=== PATIENT | male | born 1965 | race Hispanic/Latino ===

== ENCOUNTER 2018-05-17 19:58 | Emergency (ER) | payer OTHER, SELFPAY ==
[2018-05-17] MEDS ORDERED: KETOROLAC 30 MG/ML INJ ONE (20:44)
--- NOTE | 2018-05-17 20:56 | RAD REPORT ---
EXAM DESCRIPTION: Morris Single View05/17/2018 8:48 pm CLINICAL HISTORY: Chest pain COMPARISON: 2012 FINDINGS: The lungs appear clear of acute infiltrate. The heart is normal size IMPRESSION: No acute abnormalities displayed
--- NOTE | 2018-05-17 21:15 | EDPHYS ---
Physician Documentation [facility] Name: Rodger Malik III Age: 53 yrs Sex: Male : 1965 Arrival Date: 05/17/2018 Time: 20:00 Bed 20 Private MD: Roma Shabazz F ED Physician Chirag Rubio HPI: 05/17 20:32 This 53 yrs old Male presents to ER via Ambulatory with complaints of Chest jr8 Pain > 30 y/o. 20:32 The patient or guardian reports chest pain that is located primarily in the anterior jr8 chest wall. Onset: The symptoms/episode began/occurred acutely, today. The pain does not radiate. Associated signs and symptoms: The patient has no apparent associated signs or symptoms. The chest pain is described as sharp. Duration: The patient or guardian reports multiple episodes. Modifying factors: The symptoms are alleviated by remaining still, rest, the symptoms are aggravated by breathing, cough, movement. Severity of pain: At its worst the pain was moderate. The patient has not experienced similar symptoms in the past. The patient has not recently seen a physician. Patient sneezed and felt pop to right sternal boarder. Since then has had pain with movement and breathing . Historical: - Allergies: 20:09 No Known Allergies; aj - Home Meds: 20:09 losartan oral oral [Active]; amlodipine oral [Active]; atorvastatin oral oral [Active]; aj Advair Diskus Inhl [Active]; - PMHx: 20:09 Hypertension; Hyperlipidemia; Asthma; aj - PSHx: 20:09 kidney stone removal; aj - Immunization history:: Adult Immunizations up to date. - Social history:: Smoking status: Patient/guardian denies using tobacco. - Ebola Screening: : Patient negative for fever greater than or equal to 101.5 degrees Fahrenheit, and additional compatible Ebola Virus Disease symptoms Patient denies exposure to infectious person Patient denies travel to an Ebola-affected area in the 21 days before illness onset No symptoms or risks identified at this time. ROS: 20:32 Eyes: Negative for injury, pain, redness, and discharge, ENT: Negative for injury, jr8 pain, and discharge, Neck: Negative for injury, pain, and swelling, Respiratory: Negative for shortness of breath, cough, wheezing, and pleuritic chest pain, Abdomen/GI: Negative for abdominal pain, nausea, vomiting, diarrhea, and constipation, Back: Negative for injury and pain, MS/Extremity: Negative for injury and deformity, Skin: Negative for injury, rash, and discoloration, Neuro: Negative for headache, weakness, numbness, tingling, and seizure. 20:32 Cardiovascular: Positive for chest pain, with cough, with movement, Negative for edema, orthopnea, palpitations, paroxysmal nocturnal dyspnea. Exam: 20:32 Eyes: Pupils equal round and reactive to light, extra-ocular motions intact. Lids and jr8 lashes normal. Conjunctiva and sclera are non-icteric and not injected. Cornea within normal limits. Periorbital areas with no swelling, redness, or edema. ENT: Nares patent. No nasal discharge, no septal abnormalities noted. Tympanic membranes are normal and external auditory canals are clear. Oropharynx with no redness, swelling, or masses, exudates, or evidence of obstruction, uvula midline. Mucous membranes moist. Neck: Trachea midline, no thyromegaly or masses palpated, and no cervical lymphadenopathy. Supple, full range of motion without nuchal rigidity, or vertebral point tenderness. No Meningismus. Cardiovascular: Regular rate and rhythm with a normal S1 and S2. No gallops, murmurs, or rubs. Normal PMI, no JVD. No pulse deficits. Respiratory: Lungs have equal breath sounds bilaterally, clear to auscultation and percussion. No rales, rhonchi or wheezes noted. No increased work of breathing, no retractions or nasal flaring. Abdomen/GI: Soft, non-tender, with normal bowel sounds. No distension or tympany. No guarding or rebound. No evidence of tenderness throughout. Back: No spinal tenderness. No costovertebral tenderness. Full range of motion. Skin: Warm, dry with normal turgor. Normal color with no rashes, no lesions, and no evidence of cellulitis. MS/ Extremity: Pulses equal, no cyanosis. Neurovascular intact. Full, normal range of motion. Neuro: Awake and alert, GCS 15, oriented to person, place, time, and situation. Cranial nerves II-XII grossly intact. Motor strength 5/5 in all extremities. Sensory grossly intact. Cerebellar exam normal. Normal gait. 20:32 Chest/axilla: Inspection: normal, Palpation: tenderness, that is moderate, of the right sternal border . Vital Signs: 20:09 BP 171 / 104; Pulse 71; Resp 17; Temp 98.3; Pulse Ox 98% on R/A; Weight 136.08 kg; aj Height 5 ft. 10 in. (177.80 cm); 20:09 Body Mass Index 43.05 (136.08 kg, 177.80 cm) aj MDM: 20:16 Patient medically screened. jr8 21:13 Data reviewed: vital signs, nurses notes, radiologic studies, plain films, and as a jr8 result, I will discharge patient. Data interpreted: Pulse oximetry: on room air is 98 %. Interpretation: normal. Counseling: I had a detailed discussion with the patient and/or guardian regarding: the historical points, exam findings, and any diagnostic results supporting the discharge/admit diagnosis, radiology results, the need for outpatient follow up, a family practitioner, to return to the emergency department if symptoms worsen or persist or if there are any questions or concerns that arise at home. 05/17 20:19 Order name: XRAY Chest (1 view) [facility] 05/17 20:58 Order name: RAD; Complete Time: 21:13 EDME 05/17 20:19 Order name: EKG - Nurse/Tech; Complete Time: 20:20 jr Administered Medications: 20:40 Drug: TORadol 60 mg Route: IM; Site: right gluteus; rr5 21:24 Follow up: Response: No adverse reaction jd3 Disposition: 05/18 06:28 Co-signature as Attending Physician, Chirag Rubio MD I agree with the assessment and malathi plan of care. Disposition: 05/17/18 21:14 Discharged to Home. Impression: Chest wall pain . - Condition is Stable. - Discharge Instructions: Chest Wall Pain. - Prescriptions for Ibuprofen 800 mg Oral Tablet - take 1 tablet by ORAL route every 12 hours As needed take with food; 20 tablet. - Medication Reconciliation Form, Thank You Letter, Antibiotic Education, Prescription Opioid Use form. - Follow up: Roma Shabazz MD; When: 2 - 3 days; Reason: Recheck today's complaints, Continuance of care, Re-evaluation by your physician. - Problem is new. - Symptoms have improved. Signatures: Dispatcher [employer] EDME Alejandra Hightower, RN Chirag Davis MD MD cha Roszak, Josh, PA PA jr8 Rayo Batista RN RN jd3 Jose D Pruitt RN RN rr5 Corrections: (The following items were deleted from the chart) 05/17 21:25 21:14 05/17/2018 21:14 Discharged to Home. Impression: Chest wall pain . Condition is jd3 Stable. Forms are Medication Reconciliation Form, Thank You Letter, Antibiotic Education, Prescription Opioid Use. Follow up: Roma Shabazz; When: 2 - 3 days; Reason: Recheck today's complaints, Continuance of care, Re-evaluation by your physician. Problem is new. Symptoms have improved. jr8
--- NOTE | 2018-05-17 21:15 | ER ---
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 Reports pain returns with cough or movement. Transition of care: patient was not received from another setting of care. Onset of symptoms was May 17, 2018. Risk Assessment: Do you want to hurt yourself or someone else? Patient reports no desire to harm self or others. Initial Sepsis Screen: Does the patient meet any 2 criteria? No. Patient's initial sepsis screen is negative. Does the patient have a suspected source of infection? No. Patient's initial sepsis screen is negative. Care prior to arrival: None. 20:07 Method Of Arrival: Ambulatory aj 20:07 Acuity: XAVIER 3 aj Triage Assessment: 20:09 General: Appears in no apparent distress. comfortable, Behavior is calm, cooperative, aj appropriate for age. Pain: Complains of pain in anterior aspect of right upper chest and right breast. Neuro: Level of Consciousness is awake, alert, obeys commands, Oriented to person, place, time, situation, Appropriate for age. Cardiovascular: Reports chest pain, Capillary refill < 3 seconds in bilateral fingers Patient's skin is warm and dry. Respiratory: Airway is patent Respiratory effort is even, unlabored, Respiratory pattern is regular, symmetrical. Derm: Skin is intact, is healthy with good turgor, Skin is pink, warm \T\ dry. normal. Historical: - Allergies: 20:09 No Known Allergies; aj - Home Meds: 20:09 losartan oral oral [Active]; amlodipine oral [Active]; atorvastatin oral oral [Active]; aj Advair Diskus Inhl [Active]; - PMHx: 20:09 Hypertension; Hyperlipidemia; Asthma; aj - PSHx: 20:09 kidney stone removal; aj - Immunization history:: Adult Immunizations up to date. - Social history:: Smoking status: Patient/guardian denies using tobacco. - Ebola Screening: : Patient negative for fever greater than or equal to 101.5 degrees Fahrenheit, and additional compatible Ebola Virus Disease symptoms Patient denies exposure to infectious person Patient denies travel to an Ebola-affected area in the 21 days before illness onset No symptoms or risks identified at this time. Screenin:24 Abuse screen: Denies threats or abuse. Nutritional screening: No deficits noted. jd3 Tuberculosis screening: No symptoms or risk factors identified. Fall Risk Ambulatory Aid- None/Bed Rest/Nurse Assist (0 pts). Gait- Normal/Bed Rest/Wheelchair (0 pts) Mental Status- Oriented to own ability (0 pts). Total Holden Fall Scale indicates No Risk (0-24 pts). Assessment: 20:23 General: Appears uncomfortable, Behavior is calm, cooperative, appropriate for age. jd3 Pain: Complains of pain in anterior aspect of right upper chest and right breast Quality of pain is described as pressure, tender, Aggravated by repositioning. Neuro: Level of Consciousness is awake, alert, obeys commands, Oriented to person, place, time, situation. Cardiovascular: Heart tones S1 S2 present Capillary refill < 3 seconds Patient's skin is warm and dry. Rhythm is regular. Respiratory: Reports shortness of breath Airway is patent Respiratory effort is even, unlabored, Respiratory pattern is regular, symmetrical, Breath sounds are clear bilaterally. GI: No signs and/or symptoms were reported involving the gastrointestinal system. : No signs and/or symptoms were reported regarding the genitourinary system. EENT: No signs and/or symptoms were reported regarding the EENT system. Derm: Skin is intact, Skin is dry, Skin is normal, Skin temperature is warm. Musculoskeletal: Circulation, motion, and sensation intact. Range of motion: intact in all extremities. 21:22 Reassessment: Patient appears in no apparent distress at this time. Patient and/or jd3 family updated on plan of care and expected duration. Pain level reassessed. Patient is alert, oriented x 3, equal unlabored respirations, skin warm/dry/pink. Vital Signs: 20:09 BP 171 / 104; Pulse 71; Resp 17; Temp 98.3; Pulse Ox 98% on R/A; Weight 136.08 kg; aj Height 5 ft. 10 in. (177.80 cm); 20:09 Body Mass Index 43.05 (136.08 kg, 177.80 cm) aj ED Course: 20:00 Patient arrived in ED. al2 20:00 Roma Shabazz MD is Private Physician. al2 20:08 Triage completed. aj 20:09 Arm band placed on left wrist. Patient placed in an exam room. aj 20:16 Negrito Urias PA is PHCP. jr8 20:16 Chirag Rubio MD is Attending Physician. jr8 20:20 Rayo Batista RN is Primary Nurse. jd3 20:24 Patient has correct armband on for positive identification. Placed in gown. Bed in low jd3 position. Call light in reach. Side rails up X 1. Adult w/ patient. 21:13 Roma Shabazz MD is Referral Physician. jr8 21:23 No provider procedures requiring assistance completed. Patient did not have IV access jd3 during this emergency room visit. Administered Medications: 20:40 Drug: TORadol 60 mg Route: IM; Site: right gluteus; rr5 21:24 Follow up: Response: No adverse reaction jd3 Outcome: 21:14 Discharge ordered by MD. jr8 21:23 Discharged to home ambulatory, with family. jd3 21:23 Condition: stable 21:23 Discharge instructions given to patient, family, Instructed on discharge instructions, follow up and referral plans. medication usage, Demonstrated understanding of instructions, follow-up care, medications, Prescriptions given X 1. 21:25 Patient left the ED. jd3 Signatures: Alejandra Hightower, RN Negrito Abbott PA PA jr8 Rayo Batista RN RN jd3 Cary Shah [facility] Jose D Pruitt RN RN rr5
[2018-05-17 21:37] VITALS: BP 171/104; TEMP 98.3; O2SAT 98
--- NOTE | 2018-05-18 10:23 | EKG ---
Test Date: 2018-05-17 Test Time: 20:16:39 Players Assistant: ANN-MARIE MEASUREMENT RESULTS: Intervals: Rate: 71 [place]: 216 QRSD: 92 QT: 352 QTc: 382 [place]: P: 30 [place]: 216 QRS: 0 T: 20 INTERPRETIVE STATEMENTS: Sinus rhythm with 1st degree AV block Incomplete right bundle branch block Borderline ECG Compared to ECG 05/27/2012 01:56:05 First degree AV block now present Incomplete right bundle-branch block now present Myocardial infarct finding no longer present Electronically Signed On 05-18-18 10:21:59 ALUM OPERATOR by Shashank Jaimes
== END 2018-05-17 21:25 | disposition home or self-care (01) ==
LOC: ER 19:58
DX: R07.89 Other chest pain (principal); I44.0 Atrioventricular block, first degree; I45.10 Unspecified right bundle-branch block; R94.31 Abnormal electrocardiogram [ECG] [EKG]; E78.5 Hyperlipidemia, unspecified; I10 Essential (primary) hypertension; J45.909 Unspecified asthma, uncomplicated; Z79.51 Long term (current) use of inhaled steroids; Z79.899 Other long term (current) drug therapy
CPT/HCPCS: 71045; 93005; 96372; 99283

== ENCOUNTER 2018-08-10 14:45 | Emergency (ER) | payer OTHER, SELFPAY ==
[2018-08-10] MEDS ORDERED: METHYLPREDNISOLONE 125 MG INJ ONE (16:01)
[2018-08-10] MEDS ORDERED: ALBUTEROL 2.5 MG/3 ML NEB SOL ONE (16:01)
[2018-08-10] MEDS ORDERED: IPRATROPIUM BROM 0.5MG/2.5ML ONE (16:01)
[2018-08-10 16:17] LABS: Absolute Lymphocytes (CBC) 1.4 K/uL (0.7-4.9); Absolute Monocytes 0.7 K/uL (0.1-1.3); Absolute Neutrophil 3.7 K/uL (1.8-8.0); Basophils % 0.9 % (0-1.3); Eosinophils % 3.7 % (0-4.4); Hematocrit 45.9 % (39.6-49.0); MPV 9.3 fL (7.6-11.3); RBC Red Blood Cell Count 4.97 M/uL (4.33-5.43)
--- NOTE | 2018-08-10 16:20 | RAD REPORT ---
EXAM DESCRIPTION: RAD - Chest Pa And Lat (2 Views) - 08/10/2018 4:06 pm CLINICAL HISTORY: Shortness of breath, chest pain, recent bronchitis diagnosis COMPARISON: May 2018 portable TECHNIQUE: PA and lateral views of the chest were obtained. FINDINGS: The lungs are clear. Heart size is normal and central vasculature is within normal limit s. No pleural effusion or pneumothorax seen. No acute bony finding noted. No aortic abnormality. IMPRESSION: No acute cardiopulmonary process. No significant interval change.
[2018-08-10 16:21] LABS: Protime INR 0.9
[2018-08-10 16:27] LABS: ALT/SGPT 58 U/L (12-78); AST/SGOT 31 U/L (15-37); Albumin 3.5 g/dL (3.4-5.0); Alkaline Phosphatase 89 U/L (45-117); BUN Blood Urea Nitrogen 12 mg/dL (7-18); Bicarbonate 25 mmol/L (21-32); Bilirubin Direct 0.1 mg/dL (0-0.2); Bilirubin Total 0.6 mg/dL (0.2-1.0); Glucose Level 263 mg/dL (74-106); NT PRO-BNP 20 pg/mL (<125); Potassium 4.1 mmol/L (3.5-5.1); Protein, Total 7.3 g/dL (6.4-8.2); Sodium Level 138 mmol/L (136-145); Troponin (Emerg Dept Use Only) < 0.02 ng/mL (0.0-0.045)
--- NOTE | 2018-08-10 17:43 | EKG ---
Test Date: 2018-08-10 Test Time: 15:28:41 Agri Business Agent: MENDOZA MEASUREMENT RESULTS: Intervals: Rate: 73 [place]: 198 QRSD: 100 QT: 384 QTc: 423 [place]: P: 34 [place]: 198 QRS: 10 T: 28 INTERPRETIVE STATEMENTS: Normal sinus rhythm Normal ECG Compared to ECG 05/17/2018 20:16:39 First degree AV block no longer present Incomplete right bundle-branch block no longer present Electronically Signed On 08-10-18 17:42:57 CDT by Shashank Jaimes
--- NOTE | 2018-08-10 17:46 | EDPHYS ---
Physician Documentation [facility] Name: Rodger Malik III Age: 53 yrs Sex: Male : 1965 Arrival Date: 08/10/2018 Time: 14:50 Bed 27 Private MD: Roma Shabazz F ED Physician Keenan Granda HPI: 08/10 15:50 This 53 yrs old Male presents to ER via Ambulatory with complaints of cp Breathing Difficulty. 15:50 The patient has shortness of breath with light activity. cp 15:50 Onset: The symptoms/episode began/occurred over past few days. cp 15:50 Duration: The symptoms are continuous, and are steadily getting worse. Associated signs cp and symptoms: Pertinent positives: chest pain, productive cough, times 4 weeks, Pertinent negatives: fever. Severity of symptoms: in the emergency department the symptoms are unchanged despite home interventions. Historical: - Allergies: 15:11 No Known Drug Allergies; tw2 - Home Meds: 15:11 Advair Diskus 250-50 mcg/dose inhalation dsdv 2 times per day [Active]; atorvastatin 20 tw2 mg oral tab 1 tab once daily [Active]; losartan 100 mg oral tab 1 tab once daily [Active]; amlodipine 10 mg oral tab 1 tab once daily [Active]; hydrochlorothiazide 12.5 mg Oral tab 1 tab once daily [Active]; Proventil Inhl [Active]; - PMHx: 15:11 Asthma; Hyperlipidemia; Hypertension; tw2 - PSHx: 15:11 kidney stone removal; tw2 - Immunization history:: Adult Immunizations. - Social history:: Smoking status: . - Ebola Screening: : Patient denies travel to an Ebola-affected area in the 21 days before illness onset. ROS: 16:00 Constitutional: Negative for body aches, chills, fever, poor PO intake. cp 16:00 Eyes: Negative for injury, pain, redness, and discharge. cp 16:00 ENT: Negative for drainage from ear(s), ear pain, sore throat, difficulty swallowing, difficulty handling secretions. 16:00 Cardiovascular: Positive for chest pain, with cough, Negative for edema, palpitations. 16:00 Respiratory: Positive for cough, shortness of breath, at rest. Negative for hemoptysis, orthopnea. 16:00 Abdomen/GI: Negative for abdominal pain, nausea, vomiting, and diarrhea. 16:00 Skin: Negative for rash. 16:00 Neuro: Negative for altered mental status, dizziness, headache, syncope, weakness. 16:00 All other systems are negative. Exam: 15:35 ECG was reviewed by the Attending Physician. cp 16:05 Constitutional: The patient appears in no acute distress, alert, awake, cp non-diaphoretic, non-toxic, well developed, well nourished, obese. 16:05 Head/Face: Normocephalic, atraumatic. Eyes: Pupils equal round and reactive to light, cp extra-ocular motions intact. Lids and lashes normal. Conjunctiva and sclera are non-icteric and not injected. Cornea within normal limits. Periorbital areas with no swelling, redness, or edema. ENT: Nares patent. No nasal discharge, no septal abnormalities noted. Tympanic membranes are normal and external auditory canals are clear. Oropharynx with no redness, swelling, or masses, exudates, or evidence of obstruction, uvula midline. Mucous membranes moist. Neck: Trachea midline, no thyromegaly or masses palpated, and no cervical lymphadenopathy. Supple, full range of motion without nuchal rigidity, or vertebral point tenderness. No Meningismus. Chest/axilla: Normal chest wall appearance and motion. Nontender with no deformity. No lesions are appreciated. 16:05 Cardiovascular: Rate: normal, Rhythm: regular, Edema: is not appreciated, JVD: is not appreciated. 16:05 Respiratory: the patient does not display signs of respiratory distress, Respirations: labored breathing, that is mild, tachypnea, is not appreciated, Breath sounds: bronchial sounds, that are mild, are heard diffusely, decreased breath sounds, that are mild, throughout, stridor, is not appreciated, wheezing: is not appreciated. 16:05 Abdomen/GI: Inspection: obese Palpation: abdomen is soft and non-tender, in all quadrants. 16:05 Back: pain, is absent, ROM is normal. 16:05 Skin: no rash present. 16:05 Neuro: Orientation: to person, place \T\ time. Mentation: is normal, Cerebellar function: is grossly normal, Motor: moves all fours, strength is normal, Sensation: is normal. Vital Signs: 15:08 BP 167 / 106; Pulse 76; Resp 20; Temp 98.5(TE); Pulse Ox 97% on R/A; Weight 140.61 kg tw2 (R); Height 5 ft. 10 in. (177.80 cm) (R); Pain 3/10; 17:07 BP 138 / 93 RA; Pulse 97; Resp 16 S; Pulse Ox 93% on R/A; rv 17:36 BP 140 / 91 RA Supine; Pulse 101; Resp 21 S; Pulse Ox 92% on R/A; rv 15:08 Body Mass Index 44.48 (140.61 kg, 177.80 cm) tw2 17:36 AFTER AMBULATION rv MDM: 15:33 Patient medically screened. cp 16:00 Differential diagnosis: asthma, Bronchitis CHF exacerbation, Myocardial Infarction cp pneumonia, Pneumothorax pulmonary edema, Pulmonary Embolism Unstable Angina. 17:45 Data reviewed: vital signs, nurses notes, lab test result(s), EKG, radiologic studies, cp plain films. 17:45 Test interpretation: by ED physician or midlevel provider: ECG, plain radiologic cp studies. Counseling: I had a detailed discussion with the patient and/or guardian regarding: the historical points, exam findings, and any diagnostic results supporting the discharge/admit diagnosis, lab results, radiology results, the need for outpatient follow up, a family practitioner, to return to the emergency department if symptoms worsen or persist or if there are any questions or concerns that arise at home. 08/10 15:42 Order name: Basic Metabolic Panel; Complete Time: 16:31 cp 08/10 16:31 Interpretation: Normal except: GLUC 263; GFR 82; CA 8.3. cp 08/10 15:42 Order name: CBC with Diff; Complete Time: 16:31 cp 08/10 15:42 Order name: LFT's; Complete Time: 16:31 cp 08/10 15:42 Order name: Magnesium; Complete Time: 16:31 cp 08/10 15:42 Order name: NT PRO-BNP; Complete Time: 16:31 cp 08/10 15:42 Order name: PT-INR; Complete Time: 16:31 cp 08/10 15:42 Order name: Troponin (emerg Dept Use Only); Complete Time: 16:31 cp 08/10 16:31 Interpretation: Reviewed. cp 08/10 15:42 Order name: EKG; Complete Time: 15:42 cp 08/10 15:42 Order name: Cardiac monitoring; Complete Time: 15:47 cp 08/10 15:42 Order name: EKG - Nurse/Tech; Complete Time: 15:47 08/10 15:42 Order name: IV Saline Lock; Complete Time: 15:47 08/10 15:42 Order name: XRAY Chest Pa And Lat (2 Views); Complete Time: 16:31 08/10 16:31 Interpretation: Report reviewed. 08/10 15:42 Order name: Labs collected and sent; Complete Time: 15:47 cp 08/10 15:42 Order name: O2 Per Protocol; Complete Time: 15:47 cp 08/10 15:42 Order name: O2 Sat Monitoring; Complete Time: 15:47 cp EC:35 Rate is 73 beats/min. Rhythm is regular. OR interval is normal. QRS interval is normal. cp QT interval is normal. Interpreted by me. Reviewed by me. Administered Medications: 16:16 Drug: Albuterol - atroVENT (3:1) (2.5 mg - 0.5 mg) 3 ml Route: Nebulizer; rv 17:04 Follow up: Response: Marked relief of symptoms rv 16:16 Drug: SOLU-Medrol 125 mg Route: IVP; Site: left antecubital; rv 17:04 Follow up: Response: Marked relief of symptoms rv Disposition: 08/11 06:45 Co-signature as Attending Physician, Keenan Granda MD I agree with the assessment and kdr plan of care. Disposition: 08/10/18 17:46 Discharged to Home. Impression: Unspecified asthma with (acute) exacerbation, Bronchitis, not specified as acute or chronic. - Condition is Stable. - Discharge Instructions: Acute Bronchitis, Adult, Asthma, Adult. - Prescriptions for Prednisone 20 mg Oral Tablet - take 3 tablet by ORAL route once daily for 5 days; 15 tablet. Albuterol Sulfate 2.5 mg /3 mL (0.083 %) Inhalation Solution for Nebulization - inhale 1 unit by NEBULIZATION route every 8 hours As needed; 1 box. Zithromax Z- Samuel 250 mg Oral Tablet - take 1 tablet by ORAL route as directed for 5 days Day 1 - take two (2) tablets one time. Day 2, 3, 4 , 5 take one (1) tablet once daily.; 6 tablet. - Medication Reconciliation Form, Thank You Letter, Antibiotic Education, Prescription Opioid Use, Work release form form. - Follow up: Roma Shabazz MD; When: 2 - 3 days; Reason: Recheck today's complaints. - Problem is new. - Symptoms have improved. Signatures: Dispatcher [employer] EDMS Keenan Granda MD MD [facility] Chirag Salguero PA PA cp Ayana Meng RN RN tw2 Charles Peter RN RN rv Corrections: (The following items were deleted from the chart) 08/10 16:31 16:31 Normal except: GLUC 263; GFR 82. cp cp 18:15 17:46 08/10/2018 17:46 Discharged to Home. Impression: Unspecified asthma with (acute) rv exacerbation; Bronchitis, not specified as acute or chronic. Condition is Stable. Forms are Medication Reconciliation Form, Thank You Letter, Antibiotic Education, Prescription Opioid Use. Follow up: Roma Shabazz; When: 2 - 3 days; Reason: Recheck today's complaints. Problem is new. Symptoms have improved. cp
--- NOTE | 2018-08-10 17:46 | ER ---
Nurse's Notes [facility] Name: Rodger Malik III Age: 53 yrs Sex: Male : 1965 Arrival Date: 08/10/2018 Time: 14:50 Bed 27 Private MD: Roma Shabazz F Diagnosis: Unspecified asthma with (acute) exacerbation;Bronchitis, not specified as acute or chronic Presentation: 08/10 15:07 Presenting complaint: Patient states: i had some bronchitis or something 4 weeks ago, i tw2 thought i was getting better but the past few days i am having trouble breathing and pain when i breathe, albuterol is not helping. Transition of care: patient was not received from another setting of care. Onset of symptoms was August 10, 2018. Risk Assessment: Do you want to hurt yourself or someone else? Patient reports no desire to harm self or others. Initial Sepsis Screen: Does the patient have a suspected source of infection? No. Patient's initial sepsis screen is negative. Initial Sepsis Screen: Does the patient meet any 2 criteria? RR > 20 per min. No. Patient's initial sepsis screen is negative. Care prior to arrival: None. 15:07 Method Of Arrival: Ambulatory tw2 15:07 Acuity: XAVIER 3 tw2 Triage Assessment: 15:08 General: Appears ill, Behavior is calm, cooperative, appropriate for age. Pain: tw2 Complains of pain in chest. Respiratory: Reports shortness of breath at rest cough that is dry, Onset: The symptoms/episode began/occurred yesterday, the patient has moderate shortness of breath. Historical: - Allergies: 15:11 No Known Drug Allergies; tw2 - Home Meds: 15:11 Advair Diskus 250-50 mcg/dose inhalation dsdv 2 times per day [Active]; atorvastatin 20 tw2 mg oral tab 1 tab once daily [Active]; losartan 100 mg oral tab 1 tab once daily [Active]; amlodipine 10 mg oral tab 1 tab once daily [Active]; hydrochlorothiazide 12.5 mg Oral tab 1 tab once daily [Active]; Proventil Inhl [Active]; - PMHx: 15:11 Asthma; Hyperlipidemia; Hypertension; tw2 - PSHx: 15:11 kidney stone removal; tw2 - Immunization history:: Adult Immunizations. - Social history:: Smoking status: . - Ebola Screening: : Patient denies travel to an Ebola-affected area in the 21 days before illness onset. Screenin:40 Abuse screen: Denies threats or abuse. Denies injuries from another. Nutritional rv screening: No deficits noted. Tuberculosis screening: No symptoms or risk factors identified. Fall Risk None identified. Assessment: 15:39 General: Appears in no apparent distress. comfortable, Behavior is calm, cooperative. rv Pain: Denies pain. Neuro: Level of Consciousness is awake, alert, obeys commands, Oriented to person, place, time, situation. Cardiovascular: Rhythm is regular. Respiratory: Airway is patent Respiratory effort is even, Breath sounds are clear bilaterally. GI: No signs and/or symptoms were reported involving the gastrointestinal system. : No signs and/or symptoms were reported regarding the genitourinary system. EENT: No signs and/or symptoms were reported regarding the EENT system. Derm: Skin is intact. Musculoskeletal: No signs and/or symptoms reported regarding the musculoskeletal system. 17:05 Reassessment: Patient appears in no apparent distress at this time. Patient and/or rv family updated on plan of care and expected duration. Pain level reassessed. Patient is alert, oriented x 3, equal unlabored respirations, skin warm/dry/pink. Patient states feeling better. 17:36 Reassessment: Patient appears in no apparent distress at this time. Patient and/or rv family updated on plan of care and expected duration. Pain level reassessed. Patient is alert, oriented x 3, equal unlabored respirations, skin warm/dry/pink. PATIENT WALKED AROUND AND FEELS THE SAME. Vital Signs: 15:08 BP 167 / 106; Pulse 76; Resp 20; Temp 98.5(TE); Pulse Ox 97% on R/A; Weight 140.61 kg tw2 (R); Height 5 ft. 10 in. (177.80 cm) (R); Pain 3/10; 17:07 BP 138 / 93 RA; Pulse 97; Resp 16 S; Pulse Ox 93% on R/A; rv 17:36 BP 140 / 91 RA Supine; Pulse 101; Resp 21 S; Pulse Ox 92% on R/A; rv 15:08 Body Mass Index 44.48 (140.61 kg, 177.80 cm) tw2 17:36 AFTER AMBULATION rv ED Course: 14:50 Patient arrived in ED. mr 14:51 Roma Shabazz MD is Private Physician. mr 15:08 Triage completed. tw2 15:09 Arm band placed on. tw2 15:12 Charles Peter, RN is Primary Nurse. rv 15:32 Chirag Salguero PA is PHCP. cp 15:33 Keenan Granda MD is Attending Physician. cp 15:41 Patient has correct armband on for positive identification. Bed in low position. Call rv light in reach. Side rails up X 1. lunchroom aide on. Pulse ox on. NIBP on. 15:56 EKG done, by copier technician. reviewed by Keenan Granda MD. 3 15:57 Initial lab(s) drawn, by pr, sent to lab. Inserted saline lock: 20 gauge in left lt1 antecubital area, using aseptic technique. 16:04 XRAY Chest Pa And Lat (2 Views) In Process Unspecified. EDMS 17:44 Roma Shabazz MD is Referral Physician. cp 18:14 No provider procedures requiring assistance completed. IV discontinued, intact, rv bleeding controlled, No redness/swelling at site. Pressure dressing applied. Administered Medications: 16:16 Drug: Albuterol - atroVENT (3:1) (2.5 mg - 0.5 mg) 3 ml Route: Nebulizer; rv 17:04 Follow up: Response: Marked relief of symptoms rv 16:16 Drug: SOLU-Medrol 125 mg Route: IVP; Site: left antecubital; rv 17:04 Follow up: Response: Marked relief of symptoms rv Outcome: 17:46 Discharge ordered by MD. cp 18:15 Discharged to home ambulatory. rv 18:15 Condition: good 18:15 Discharge instructions given to patient, family, Instructed on discharge instructions, follow up and referral plans. medication usage, Demonstrated understanding of instructions, follow-up care, medications, Prescriptions given X 3. 18:15 Patient left the ED. rv Signatures: Dispatcher [employer] EDIN Cori Bateman mr Chirag Salguero PA PA Ayana Encarnacion RN RN 2 Shelly Carrion 3 Charles Peter RN RN rv Annette Senior lt1 Corrections: (The following items were deleted from the chart) 15:57 15:56 EKG done, by copier technician. reviewed by Chirag POWELL sm3 sm3
[2018-08-10 18:27] VITALS: TEMP 98.5
[2018-08-10 18:29] VITALS: BP 140/91; O2SAT 92
== END 2018-08-10 18:15 | disposition home or self-care (01) ==
LOC: ER 14:45
DX: J45.901 Unspecified asthma with (acute) exacerbation (principal); J40 Bronchitis, not specified as acute or chronic; E78.5 Hyperlipidemia, unspecified; I10 Essential (primary) hypertension
CPT/HCPCS: 36415; 71046; 80048; 80076; 83735; 83880; 84484; 85025; 85610; 93005; 94640; 96374; 99285; J2930

== ENCOUNTER 2019-03-16 17:50 | Emergency (ER) | payer OTHER ==
[2019-03-16] MEDS ORDERED: KETOROLAC 30 MG/ML INJ ONE (18:46)
--- NOTE | 2019-03-16 19:15 | RAD REPORT ---
EXAM DESCRIPTION: RAD - Knee Right 3 View - 03/16/2019 7:09 pm CLINICAL HISTORY: knee injury COMPARISON: <Comparisons> FINDINGS: No fracture or dislocation is seen. Small suprapatellar joint effusion is evident.
--- NOTE | 2019-03-16 19:35 | EDPHYS ---
Physician Documentation [facility] Name: Rodger Malik III Age: 53 yrs Sex: Male : 1965 Arrival Date: 03/16/2019 Time: 17:54 Bed 17 Private MD: ED Physician Keenan Granda HPI: 03/16 18:41 This 53 yrs old Male presents to ER via Ambulatory with complaints of Knee jmm Pain. 18:41 The complaints affect the lateral aspect of right knee. Onset: The symptoms/episode jmm began/occurred acutely, yesterday. Modifying factors: The symptoms are alleviated by nothing. the symptoms are aggravated by twisting knee. Associated signs and symptoms: Pertinent positives: swelling. This is a 53 year old male with a history of asthma, hlp, htn that presents to the ED with complaints of right knee pain which occurred after twisting his knee while working on his car. Patient states feeling a pop. States a distant history of meniscal tear. Denies other injury. Pain is elicited with twisting his knee. Historical: - Allergies: 18:21 No Known Allergies; ss - Home Meds: 18:21 Advair Diskus 250-50 mcg/dose Inhl dsdv 2 times per day [Active]; amlodipine 10 mg tab ss 1 tab once daily [Active]; atorvastatin 20 mg Oral tab 1 tab once daily [Active]; hydrochlorothiazide 12.5 mg Oral tab 1 tab once daily [Active]; losartan 100 mg Oral tab 1 tab once daily [Active]; Proventil Inhl [Active]; - PMHx: 18:21 Asthma; Hyperlipidemia; Hypertension; ss - PSHx: 18:21 kidney stone removed; ss - Immunization history:: Adult Immunizations up to date. - Social history:: Smoking status: Patient/guardian denies using tobacco. - Ebola Screening: : Patient denies exposure to infectious person Patient denies travel to an Ebola-affected area in the 21 days before illness onset. ROS: 18:41 Constitutional: Negative for fever, chills, and weight loss, Cardiovascular: Negative jmm for chest pain, palpitations, and edema, Respiratory: Negative for shortness of breath, cough, wheezing, and pleuritic chest pain. 18:41 MS/extremity: Positive for injury or acute deformity, pain. 18:41 All other systems are negative. Exam: 18:41 Constitutional: This is a well developed, well nourished patient who is awake, alert, jmm and in no acute distress. Head/Face: atraumatic. Eyes: EOMI, no conjunctival erythema appreciated ENT: Moist Mucus Membranes Neck: Trachea midline, Supple Chest/axilla: Normal chest wall appearance and motion. Cardiovascular: Regular rate and rhythm. No edema appreciated Respiratory: Normal respirations, no respiratory distress appreciated Abdomen/GI: Non distended, soft Back: Normal ROM Skin: General appearance color normal 18:41 Musculoskeletal/extremity: FROM appreciated to the right knee, mild swelling is appreciated, compartments are soft, NVI. 18:41 Skin: Appearance: Color: normal in color. 18:41 Neuro: Orientation: is normal, Mentation: is normal, Memory: is normal. 18:41 Psych: Behavior/mood is pleasant, cooperative. Vital Signs: 18:21 BP 169 / 107; Pulse 79; Resp 17; Temp 98.5(TE); Pulse Ox 97% on R/A; Weight 140.61 kg; ss Height 5 ft. 10 in. (177.80 cm); Pain 3/10; 19:18 BP 149 / 100; Pulse 83; Resp 18; Pulse Ox 97% ; wh 19:46 BP 146 / 92; Pulse 82; Resp 18; Pulse Ox 97% on R/A; wh 18:21 Body Mass Index 44.48 (140.61 kg, 177.80 cm) ss MDM: 18:41 [facility] 19:32 Data reviewed: vital signs, nurses notes. Counseling: I had a detailed discussion with [facility] the patient and/or guardian regarding: the historical points, exam findings, and any diagnostic results supporting the discharge/admit diagnosis, radiology results, the need for outpatient follow up, to return to the emergency department if symptoms worsen or persist or if there are any questions or concerns that arise at home. ED course: Patient advised to follow up with ortho for reevaluation. patient was otherwise given strict return precautions. patient understood and agrees with the plan of care.. 03/16 18:42 Order name: Knee Right 3 View XRAY; Complete Time: 19:20 [facility] 03/16 19:20 Order name: Knee Immobilizer; Complete Time: 19:46 [facility] Administered Medications: 18:57 Drug: Ketorolac 30 mg Route: IM; Site: right deltoid; jl7 19:48 Follow up: Response: No adverse reaction; Pain is decreased Disposition: 03/17 07:33 Co-signature as Attending Physician, Keenan Granda MD I agree with the assessment and kdr plan of care. Disposition: 03/16/19 19:34 Discharged to Home. Impression: Internal derangement of knee. - Condition is Stable. - Discharge Instructions: Knee Pain. - Prescriptions for Ibuprofen 800 mg Oral Tablet - take 1 tablet by ORAL route every 8 hours As needed take with food; 30 tablet. - Medication Reconciliation Form, Thank You Letter, Antibiotic Education, Prescription Opioid Use form. - Follow up: Fernando Greenwood MD; When: 2 - 3 days; Reason: Recheck today's complaints, Continuance of care, Re-evaluation by your physician. Signatures: Dispatcher [employer] EDMS Keenan Granda MD MD kdr Mickail, Joel, PA PA [facility] Pat Olivo RN RN Rocky Carrera RN RN jl7 Fabian Longo Corrections: (The following items were deleted from the chart) 03/16 19:48 19:34 03/16/2019 19:34 Discharged to Home. Impression: Internal derangement of knee. Condition is Stable. Forms are Medication Reconciliation Form, Thank You Letter, Antibiotic Education, Prescription Opioid Use. Follow up: Fernando Greenwood; When: 2 - 3 days; Reason: Recheck today's complaints, Continuance of care, Re-evaluation by your physician. jm 20:01 18:41 This 53 yrs old Male presents to ER via Ambulatory with complaints of jmm Knee Pain. jmm
--- NOTE | 2019-03-16 19:35 | ER ---
Nurse's Notes [facility] Name: Rodger Malik III Age: 53 yrs Sex: Male : 1965 Arrival Date: 03/16/2019 Time: 17:54 Bed 17 Private MD: Diagnosis: Internal derangement of knee Presentation: 03/16 18:19 Presenting complaint: Patient states: R knee pain after fixing flat tire yesterday ss evening. Pt states, "when I was getting up off the ground, it twisted and I heard a pop.". Transition of care: patient was not received from another setting of care. Onset of symptoms was March 15, 2019. Risk Assessment: Do you want to hurt yourself or someone else? Patient reports no desire to harm self or others. Initial Sepsis Screen: Does the patient meet any 2 criteria? No. Patient's initial sepsis screen is negative. Does the patient have a suspected source of infection? No. Patient's initial sepsis screen is negative. Care prior to arrival: None. 18:19 Method Of Arrival: Ambulatory ss 18:19 Acuity: XAVIER 4 ss Historical: - Allergies: 18:21 No Known Allergies; ss - Home Meds: 18:21 Advair Diskus 250-50 mcg/dose Inhl dsdv 2 times per day [Active]; amlodipine 10 mg tab ss 1 tab once daily [Active]; atorvastatin 20 mg Oral tab 1 tab once daily [Active]; hydrochlorothiazide 12.5 mg Oral tab 1 tab once daily [Active]; losartan 100 mg Oral tab 1 tab once daily [Active]; Proventil Inhl [Active]; - PMHx: 18:21 Asthma; Hyperlipidemia; Hypertension; ss - PSHx: 18:21 kidney stone removed; ss - Immunization history:: Adult Immunizations up to date. - Social history:: Smoking status: Patient/guardian denies using tobacco. - Ebola Screening: : Patient denies exposure to infectious person Patient denies travel to an Ebola-affected area in the 21 days before illness onset. Screenin:30 Abuse screen: Denies threats or abuse. Denies injuries from another. Nutritional jl7 screening: No deficits noted. Tuberculosis screening: No symptoms or risk factors identified. Fall Risk None identified. Assessment: 19:16 General: Appears in no apparent distress. Behavior is calm, cooperative, appropriate wh for age. Pain: Complains of pain in Right Knee Pain does not radiate. Pain currently is 4 out of 10 on a pain scale. Quality of pain is described as aching. Neuro: Level of Consciousness is awake, alert, obeys commands, Oriented to person, place, time, situation, Appropriate for age. Cardiovascular: Capillary refill < 3 seconds. Respiratory: Airway is patent Respiratory effort is even, unlabored, Respiratory pattern is regular, symmetrical. GI: Abdomen is round non-distended. : No signs and/or symptoms were reported regarding the genitourinary system. EENT: No signs and/or symptoms were reported regarding the EENT system. Derm: Skin is intact, is healthy with good turgor, Skin is pink, warm \\T\\ dry. normal. Musculoskeletal: Circulation, motion, and sensation intact. Vital Signs: 18:21 BP 169 / 107; Pulse 79; Resp 17; Temp 98.5(TE); Pulse Ox 97% on R/A; Weight 140.61 kg; Height 5 ft. 10 in. (177.80 cm); Pain 3/10; 19:18 BP 149 / 100; Pulse 83; Resp 18; Pulse Ox 97% ; wh 19:46 BP 146 / 92; Pulse 82; Resp 18; Pulse Ox 97% on R/A; wh 18:21 Body Mass Index 44.48 (140.61 kg, 177.80 cm) ED Course: 17:54 Patient arrived in ED. mr 18:20 Triage completed. 18:21 Arm band placed on right wrist. 18:24 Davide Horner PA is PHCP. [facility] 18:24 Keenan Granda MD is Attending Physician. [facility] 18:30 Patient has correct armband on for positive identification. Bed in low position. Call jl7 light in reach. Side rails up X 1. 18:42 Rocky Carrera RN is Primary Nurse. jl7 19:09 Knee Right 3 View XRAY In Process Unspecified. EDMS 19:33 Fernando Greenwood MD is Referral Physician. m 19:47 No provider procedures requiring assistance completed. Patient did not have IV access wh during this emergency room visit. Administered Medications: 18:57 Drug: Ketorolac 30 mg Route: IM; Site: right deltoid; jl7 19:48 Follow up: Response: No adverse reaction; Pain is decreased Outcome: 19:34 Discharge ordered by . deana 19:47 Discharged to home via wheelchair, with family. 19:47 Condition: stable 19:47 Discharge instructions given to patient, family, Instructed on discharge instructions, follow up and referral plans. medication usage, POC Knee Pain Demonstrated understanding of instructions, follow-up care, medications, POC Prescriptions given X 1. 19:48 Patient left the ED. Signatures: Dispatcher [employer] EDMS Davide Horner PA PA jmm Rivera, Mary mr Pat Olivo, RN RN ss Rocky Carrera RN RN [id number] Fabian Longo
[2019-03-16 20:01] VITALS: TEMP 98.5; O2SAT 97
[2019-03-16 20:12] VITALS: BP 146/92
== END 2019-03-16 19:48 | disposition home or self-care (01) ==
LOC: ER 17:50
DX: M23.91 Unspecified internal derangement of right knee (principal); X50.1XXA Overexertion from prolonged static or awkward postures, initial encounter; Y93.89 Activity, other specified; Y92.89 Other specified places as the place of occurrence of the external cause; I10 Essential (primary) hypertension; E78.5 Hyperlipidemia, unspecified
CPT/HCPCS: 96372; 99283

== ENCOUNTER 2020-04-01 11:20 | Emergency (ER) | payer BC, OTHER ==
--- OUTSIDE RECORDS SUMMARY | 2020-04-01 11:30 | XMS REPORT | Summary of Care ---
:1965 Author Organization [facility] Address [address] [place] [id number] Care Team Providers Name Role Phone MeleRoma Primary Care Provider Reason for Visit Reason Comments Shortness of Breath Cough Fatigue Encounter Details Date Type Department Care Team Description 01/04/2020 Laboratory Only [facility] Family Kb Isbell FNP [address] [address] Suspected Covid-19 Medicine - [facility] Fam Pob I Virus Infection [address] [place] [address] (Primary D x) [place] [address] Allergies No Known Allergiesdocumented as of this encounter (statuses as of 01/04/2020) Medications Medication Sig Dispensed Refills Start Date End Date Status losartan (COZAAR) 100 mg Take 100 mg by 0 Active tablet mouth daily. amLODIPine (NORVASC) 10 Take 10 mg by 0 Active mg tablet mouth daily. atorvastatin (LIPITOR) Take 20 mg by 0 Active 20 mg tablet mouth at bedtime. FLUTICASONE/SALMETEROL Inhale. 0 Active (ADVAIR DISKUS INHALE) ALBUTEROL INHALE Inhale. 0 Act odalys acetaminophen (TYLENOL) Take 2 Tabs by 30 Tab 1 11/06/2013 Active 325 mg tablet mouth every 6 (six) hours as needed for Temp > 38.5 C. loratadine (CLARITIN) 10 Take 10 mg by 0 Active mg tablet mouth daily. acetaminophen-codeine Take 1 Tab by 0 Active (TYLENOL #3) 300-30 mg mouth every 4 tablet (four) hours as needed for Pain (scale 4-6). TAMSULOSIN HCL (FLOMAX Take by mouth. 0 Active ORAL) Potassium Citrate Take 15 mEq by 180 Tab 3 12/24/2014 Active (UROCIT-K 15) 15 mEq mouth 2 (two) TbSR times daily with meals. documented as of this encounter (statuses as of 01/04/2020) Active Problems Problem Noted Date Right ureteral stone 11/04/2013 documented as of this encounter (statuses as of 01/04/2020) Social History Tobacco Use Types Packs/Day Years Used Date Never Smoker Smokeless Tobacco: Never Used Alcohol Use Drinks/Week oz/Week Comments No Sex Assigned at Date Recorded Not on file COVID-19 Exposure Response Date Recorded In the last month, have you been in contact with No / Unsure 01/04/2020 4:39 PM CDT someone who was confirmed or suspected to have Coronavirus / COVID-19? documented as of this encounter Last Filed Vital Signs Not on filedocumented in this encounter Nursing Notes Elizabeth Rosas MA - 01/04/2020 4:20 PM CDTNoviky Malik is a 54 year old male here for COVID Screening with a Nasopharyngeal Swab All droplet and contact precautions taken with appropriate PPE worn while interacting with patient. ? Goggles ? N95 Mask ? Gloves ? Gown RR 19 Pulse Ox 96% Patient educated on plan of care for visit, swabbing technique, risks and benefits of test and length of time to receive results. Verbal consent obtained to perform test. CDC Fact Sheet for Patients nCoV Diagnostic Panel dated 07/16/2019 and Factsheet What to Do if Sick with COVID 19 06/26/19 provided. Patient swabbed per appropriate nasopharyngeal technique, and patient tolerated well. Patient was discharged from the testing clinic in stable condition. Patient swabbed on both nairs. Elizabeth Rosas MA 01/04/2020 4:39 PM documented in this encounter Plan of Treatment Name Type Priority Associated Diagnoses Order S chedule COVID-19 (PCR MOLECULAR LAB Routine Suspected Covid-1 9 Virus Expected: 01/04/2020, TESTING) Infection Expires: 09/03/ 2021 Health Maintenance Due Date Last Done Comments HEPATITIS C (HCV) SCREEN 1965 DTaP,Tdap,and Td Vaccines (1 - 1984 Tdap) COLON CANCER SCREENING ANNUAL 2015 FIT/FOBT COLON CANCER SCREENING FIT DNA 2015 EVERY 3 YEARS COLON CANCER SCREENING 2015 SIGMOIDOSCOPY EVERY 5 YEARS COLONOSCOPY 2015 Colorectal Cancer Screening 2015 Zoster Recombinant Vaccine 2015 (SHINGRIX) (1 of 2) INFLUENZA VACCINE (#1) 2020 Depression Screening 12/18/2020 12/19/2019 PNEUMOCOCCAL 0-64 YEARS COMBINED Aged Out No longer eligible based on SERIES patient's age to complete this topic documented as of this encounter Implants Implanted Type Area Intermediate Project Manager Device Shelf Model / Identifier Expiration Date Ser ial / Lot Stent, Ureteral Polaris Ultra 5f X 26cm [employer] #192-123[[id number]] - [id number] [employer] 04/01/2016 192-1 23 / Implanted: Qty: 1 on 11/05/2013 at [facility] / [id number] Stent, Ureteral Polaris Ultra 5f X 26cm [employer] #192-123[[id number]] - [id number] [employer] 06/30/2016 192-1 23 / Implanted: Qty: 1 on 11/30/2013 by Patricio Mac MD at [facility] / [id number] documented as of this encounter Results Not on filedocumented in this encounter Visit Diagnoses Diagnosis Suspected Covid-19 Virus Infection - [facility] documented in this encounter Additional Health Concerns Infection Onset Date Last Indicated Resolved Time COVID-19 Rule Out 01/04/2020 01/04/2020 documented as of this encounter Insurance Payer Benefit Plan Subscriber ID Effective Dates Phone Address Type / Group BCBS OF [facility] [id number] 2020-Marino [phone] [address] PPO/POS [place] - OUT OF t 7 [id number] [place] [address] documented as of this encounter
--- OUTSIDE RECORDS SUMMARY | 2020-04-01 11:30 | XMS REPORT | Summary of Care ---
:1965 Author Organization [facility] - Health Address [address] [place] [address] Care Team Providers Name Role Phone MeleRoma shaw María Primary Care Provider Encounter Details Date Type Department Care Team Description 01/04/2020 Letter (Out) [facility] ChannelAdvisor Message s Doctor Unassigned, No [address] [facility] [place] [phone] [facility] [phone] [place] [address] Allergies No Known Allergiesdocumented as of this [...] been in contact with No / Unsure 12/19/2019 2:45 PM CDT someone who was confirmed or suspected to have Coronavirus / COVID-19? documented as of this encounter Last Filed Vital Signs Not on filedocumented in this encounter Plan of Treatment Health Maintenance Due Date Last Done Comments [...] of this encounter Implants Implanted Type Area Carpet Finishing Supervisor Device Shelf Model / Identifier Expiration Date Ser ial / Lot Stent, Ureteral Polaris Ultra 5f X 26cm [employer] #192-123[[id number]] - [id number] [employer] 04/01/2016 192-1 23 / Implanted: Qty: 1 on 11/05/2013 at [facility] / [id number] Stent, Ureteral Polaris Ultra 5f X 26cm [employer] #192-123[[id number]] - [id number] [employer] 06/30/2016 192-1 23 / Implanted: Qty: 1 on 11/30/2013 by Patricio Mac MD at [facility] / [id number] documented as of this encounter Results Not on filedocumented in this encounter Insurance Payer Benefit Plan Subscriber ID Effective Dates Phone Address Type / Group BCBS OF [facility] [id number] 2020-Marino [phone] [address] PPO/POS [place] - OUT OF t 7 [id number] [place] [address] documented as of this encounter
--- OUTSIDE RECORDS SUMMARY | 2020-04-01 11:30 | XMS REPORT | Continuity of Care Document ---
:1965 Author Organization [facility] t Address [address] [place] [address] Care Team Providers Name Role Phone Krupa RODRIGUEZ, Cherie Villanueva Attending Clinician Unavailable Lab, Fam Pob I Attending Clinician Unavailable Doctor Unassigned, Name Attending Clinician Unavailable Zaida Sandoval Attending Clinician Problems This patient has no known problems. Allergies, Adverse Reactions, Alerts This patient has no known allergies or adverse reactions. Medications This patient has no known medications. Procedures This patient has no known procedures. Encounters Start End Encounter Admission Attending Care Care Encounter Source Date/Time Date/Time Type Type Clinicians Facility Department ID 2020-01-05 2020-01-05 Letter SILVINA Gentile [id number] 00:00:00 00:00:00 (Out) Cherie PARRY [id number] [place] [id number] 2020-01-04 2020-01-04 Laboratory Lab, [facility] [id number] 16:27:26 16:47:26 Only Fam Pob I Health [id number] [place] [id number] Carlos [phone] [address] 2020-01-04 2020-01-04 Letter Doctor COOL [id number] 00:00:00 00:00:00 (Out) BRINDA Dunham [id number] [place] [id number] 044 2019-12-19 2019-12-19 Office TRACY Torres [id number] 14:44:33 16:06:55 Visit [facility] [id number] Surgical [id number] Specialti [phone] [address] Results This patient has no known results.
--- OUTSIDE RECORDS SUMMARY | 2020-04-01 11:30 | XMS REPORT | Summary of Care ---
:1965 Author Organization [facility] Address [address] [place] [id number] Care Team Providers Name Role Phone MeleRoma shaw María Primary Care Provider Encounter Details Date Type Department Care Team Description 01/05/2020 Letter (Out) [facility] Cherie Gentile RN [address] [address] [place] [address] Allergies No Known Allergiesdocumented as of this encounter (statuses as of 01/05/2020) Medications Medication Sig Dispensed Refills Start Date [...] as of this encounter (statuses as of 01/05/2020) Active Problems Problem Noted Date Right ureteral stone 11/04/2013 documented as of this encounter (statuses as of 01/05/2020) Social History Tobacco Use Types Packs/Day Years [...] of this encounter Implants Implanted Type Area Medical Device Engineer Device Shelf Model / Identifier Expiration Date Ser ial / Lot Stent, Ureteral Polaris Ultra 5f X 26cm [employer] #192-123[[id number]] - [id number] Speed Dating by Chantilly Lace 04/01/2016 192-1 23 / Implanted: Qty: 1 on 11/05/2013 at [facility] / [id number] Stent, Ureteral Polaris Ultra 5f X 26cm [employer] #192-123[[id number]] - [id number] Speed Dating by Chantilly Lace 06/30/2016 192-1 23 / Implanted: Qty: 1 on 11/30/2013 by Patricio Mac MD at [facility] / [id number] documented as of this encounter Results Not on filedocumented in this encounter Additional Health Concerns Infection Onset Date Last Indicated Resolved Time COVID-19 Rule Out 01/04/2020 01/04/2020 01/05/2020 12: 30 PM CDT documented as of this encounter Insurance Payer Benefit Plan Subscriber ID Effective Dates Phone Address Type / Group BCBS OF [facility] [id number] 2020-Marino [phone] [address] PPO/POS [place] - OUT OF t [id number] [place] [address] documented as of this encounter
[2020-04-01 12:25] LABS: Absolute Lymphocytes (CBC) 0.9 K/uL (0.7-4.9); Basophils % 1.1 % (0-1.3); Hematocrit 46.8 % (39.6-49.0); Lymphocytes % 12.1 % (15.3-44.8); MPV 9.9 fL (7.6-11.3); RBC Red Blood Cell Count 5.06 M/uL (4.33-5.43)
[2020-04-01] MEDS ORDERED: METHYLPREDNISOLONE 125 MG INJ ONE (12:27)
[2020-04-01] MEDS ORDERED: ONDANSETRON 4 MG/2 ML VIAL ONE (12:37)
--- NOTE | 2020-04-01 12:59 | RAD REPORT ---
EXAM DESCRIPTION: [place] Single View04/01/2020 12:41 pm CLINICAL HISTORY: Cough COMPARISON: 2019 FINDINGS: The lungs appear clear of acute infiltrate. The heart is normal size IMPRESSION: No acute abnormalities displayed
[2020-04-01 13:18] LABS: Potassium 3.9 mmol/L (3.5-5.1)
--- NOTE | 2020-04-01 13:56 | EDPHYS ---
Physician Documentation [facility] Name: Rodger Malik III Age: 54 yrs Sex: Male : 1965 Arrival Date: 04/01/2020 Time: 11:25 Bed 14 Private MD: Roma Shabazz F ED Physician Renato Wang HPI: 04/01 11:58 This 54 yrs old Male presents to ER via Ambulatory with complaints of Asthma rn Exacerbation. 11:58 The patient or guardian reports cough, flu symptoms, myalgias, no appetite. Onset: The rn symptoms/episode began/occurred 3 day(s) ago. Severity of symptoms: At their worst the symptoms were mild, in the emergency department the symptoms are unchanged. Modifying factors: The symptoms are alleviated by nothing, the symptoms are aggravated by nothing. Associated signs and symptoms: Pertinent positives: diarrhea, Pertinent negatives: rhinorrhea, sore throat, vomiting. The patient has experienced similar episodes in the past. The patient has not recently seen a physician. Reports 2-3 days of malaise, muscle aches, cough, sob, inhaler not working. No known exposures. No trauma. No hemoptysis. No hx of dvt/PE. + diarrhea.. Historical: - Allergies: 11:43 No Known Allergies; ss - Home Meds: 11:43 amlodipine 10 mg tab 1 tab once daily [Active]; atorvastatin 20 mg Oral tab 1 tab once ss daily [Active]; hydrochlorothiazide 12.5 mg Oral tab 1 tab once daily [Active]; Advair Diskus 250-50 mcg/dose Inhl dsdv 2 times per day [Active]; Proventil Inhl [Active]; losartan 100 mg Oral tab 1 tab once daily [Active]; - PMHx: 11:43 Asthma; Hyperlipidemia; Hypertension; ss - PSHx: 11:43 kidney stone removed; ss - Immunization history:: Adult Immunizations up to date. - Social history:: Smoking status: Patient denies any tobacco usage or history of. - Family history:: not pertinent. - Hospitalizations: : No recent hospitalization is reported. ROS: 11:58 Constitutional: Negative for fever, chills, and weight loss, Eyes: Negative for injury, rn pain, redness, and discharge, Neck: Negative for injury, pain, and swelling, Cardiovascular: Negative for chest pain, palpitations, and edema, Respiratory: + sob and cough Abdomen/GI: Negative for abdominal pain, nausea, vomiting and constipation, Back: Negative for injury and pain, : Negative for injury, bleeding, discharge, and swelling, MS/Extremity: Negative for injury and deformity, Skin: Negative for injury, rash, and discoloration, Neuro: Negative for headache, numbness, tingling, and seizure. Exam: 13:17 Constitutional: This is a well developed, well nourished patient who is awake, alert, rn and in no acute distress. Head/Face: Normocephalic, atraumatic. ENT: No stridor Cardiovascular: Regular rate and rhythm. No pulse deficits. Respiratory: Mild tachypnea, no wheezing, no retractions Abdomen/GI: soft, non-tender Skin: Warm, dry MS/ Extremity: Pulses equal, no cyanosis. Neuro: Awake and alert, GCS 15, oriented to person, place, time, and situation. 13:53 ECG was reviewed by the Attending Physician. rn Vital Signs: 11:40 BP 169 / 114; Pulse 92; Resp 20; Temp 98.5(TE); Pulse Ox 95% on R/A; Weight 131.54 kg; ss Height 5 ft. 10 in. (177.80 cm); Pain 3/10; 12:21 BP 154 / 94; ll1 13:21 BP 141 / 95; Pulse 99; Resp 20; Pulse Ox 92% on R/A; ll1 14:01 BP 145 / 93; Pulse 99; Resp 20; Pulse Ox 91% on R/A; ll1 14:10 BP 154 / 103; Pulse 103; Resp 20; Pulse Ox 93% ; Pain 0/10; ll1 11:40 Body Mass Index 41.61 (131.54 kg, 177.80 cm) ss MDM: 11:48 Patient medically screened. rn 13:53 Differential Diagnosis: Bronchitis Influenza Upper Respiratory Infection Viral Syndrome rn Pneumonia Other COVID-19, PE, [place]. Data reviewed: vital signs, nurses notes, lab test result(s), EKG, radiologic studies, plain films, and as a result, I will discharge patient. Counseling: I had a detailed discussion with the patient and/or guardian regarding: the historical points, exam findings, and any diagnostic results supporting the discharge/admit diagnosis, lab results, radiology results, the need for outpatient follow up, to return to the emergency department if symptoms worsen or persist or if there are any questions or concerns that arise at home. Response to treatment: the patient's symptoms have mildly improved after treatment, and as a result, I will discharge patient. Special discussion: I discussed with the patient/guardian in detail that at this point there is no indication for admission to the hospital. It is understood, however, that if the symptoms persist or worsen the patient needs to return immediately for re-evaluation. ED course: Pt improved, appears comfortable, watching program on his phone, legs crossed on reeval. CXR clear, no wheezing on exam. COVID sent. Flu neg, procal neg. Will treat as lung infection with asthma exacerbation with abx and steroids. Return precautions given and understood.. 04/01 11:56 Order name: CBC with Diff; Complete Time: 13:02 04/01 11:56 Order name: Basic Metabolic Panel; Complete Time: 13:20 04/01 11:56 Order name: Procalcitonin; Complete Time: 13:53 04/01 11:56 Order name: Flu; Complete Time: 13:14 04/01 11:56 Order name: Blood Culture Adult (2) 04/01 11:56 Order name: D-Dimer; Complete Time: 13:02 04/01 11:56 Order name: IV Start; Complete Time: 12:11 04/01 11:56 Order name: XRAY Chest (1 view); Complete Time: 13:02 04/01 13:21 Order name: EKG; Complete Time: 13:22 04/01 13:21 Order name: EKG - Nurse/Tech; Complete Time: 14:01 04/01 13:42 Order name: COVID-19 rn EC:53 Rate is 100 beats/min. Rhythm is regular. QRS [place] is Normal. LA interval is normal. rn QRS interval is normal. QT interval is normal. No Q waves. T waves are Normal. No ST changes noted. Clinical impression: NSR w/ Non-specific ST/T Changes. Interpreted by me. Reviewed by me. Administered Medications: 12:14 Drug: SOLU-Medrol 125 mg Route: IVP; Site: left antecubital; ll1 13:21 Follow up: Response: No adverse reaction; RASS: Alert and Calm (0) ll1 12:30 Drug: Zofran (Ondansetron) 4 mg Route: IVP; Site: left antecubital; ll1 13:21 Follow up: Response: No adverse reaction; RASS: Alert and Calm (0) ll1 Disposition: 04/01/20 13:55 Discharged to Home. Impression: Asthma, Cough. - Condition is Stable. - Discharge Instructions: Asthma, Acute Bronchospasm, Cough, Adult. - Prescriptions for Zofran ODT 4 mg Oral tablet,disintegrating - place 1 tablet by TRANSLINGUAL route every 8 hours As needed; 20 tablet. Prednisone 20 mg Oral Tablet - take 3 tablet by ORAL route once daily for 5 days; 15 tablet. Zithromax Z- Samuel 250 mg Oral Tablet - take 1 tablet by ORAL route as directed for 5 days Day 1 - take two (2) tablets one time. Day 2, 3, 4 , 5 take one (1) tablet once daily.; 6 tablet. Albuterol Sulfate 90 mcg/actuation - inhale 1-2 puff by INHALATION route every 4-6 hours; 1 Inhaler. - Medication Reconciliation Form, Thank You Letter, Antibiotic Education, Prescription Opioid Use form. - Follow up: Roma Shabazz MD; When: 2 - 3 days; Reason: Recheck today's complaints, Re-evaluation by your physician. - Problem is new. - Symptoms have improved. Signatures: Dispatcher [employer] EDMS Renato Wang MD MD rn Smirch, Shelby, RN RN ss Lewis, Lynsay RN RN ll1 Corrections: (The following items were deleted from the chart) 13:18 11:58 Constitutional: Negative for fever, chills, and weight loss, rn rn 14:11 13:55 04/01/2020 13:55 Discharged to Home. Impression: Asthma; Cough. Condition is ll1 Stable. Forms are Medication Reconciliation Form, Thank You Letter, Antibiotic Education, Prescription Opioid Use. Follow up: Roma Shabazz; When: 2 - 3 days; Reason: Recheck today's complaints, Re-evaluation by your physician. Problem is new. Symptoms have improved. rn
--- NOTE | 2020-04-01 13:56 | ER ---
Nurse's Notes [facility] Name: Rodger Malik III Age: 54 yrs Sex: Male : 1965 Arrival Date: 04/01/2020 Time: 11:25 Bed 14 Private MD: Roma Shabazz F Diagnosis: Asthma;Cough Presentation: 04/01 11:40 Chief complaint: Patient states: cough, headache, SOB and body aches that began ss yesterday. Coronavirus screen: Client denies travel out of the [place] in the last 14 days. Client presents with at least one sign or symptom that may indicate coronavirus-19. At this time, the client does not indicate any symptoms associated with coronavirus-19. Ebola Screen: Patient denies exposure to infectious person. Patient denies travel to an Ebola-affected area in the 21 days before illness onset. Initial Sepsis Screen: Does the patient meet any 2 criteria? HR > 90 bpm. No. Patient's initial sepsis screen is negative. Does the patient have a suspected source of infection? No. Patient's initial sepsis screen is negative. Risk Assessment: Do you want to hurt yourself or someone else? Patient reports no desire to harm self or others. Onset of symptoms was March 31, 2020. 11:40 Method Of Arrival: Ambulatory ss 11:40 Acuity: XAVIER 3 ss Historical: - Allergies: 11:43 No Known Allergies; ss - Home Meds: 11:43 amlodipine 10 mg tab 1 tab once daily [Active]; atorvastatin 20 mg Oral tab 1 tab once ss daily [Active]; hydrochlorothiazide 12.5 mg Oral tab 1 tab once daily [Active]; Advair Diskus 250-50 mcg/dose Inhl dsdv 2 times per day [Active]; Proventil Inhl [Active]; losartan 100 mg Oral tab 1 tab once daily [Active]; - PMHx: 11:43 Asthma; Hyperlipidemia; Hypertension; ss - PSHx: 11:43 kidney stone removed; ss - Immunization history:: Adult Immunizations up to date. - Social history:: Smoking status: Patient denies any tobacco usage or history of. - Family history:: not pertinent. - Hospitalizations: : No recent hospitalization is reported. Screenin:45 Abuse screen: Denies threats or abuse. Nutritional screening: No deficits noted. ll1 Tuberculosis screening: No symptoms or risk factors identified. 12:30 Fall Risk IV access (20 points). Total Holden Fall Scale indicates No Risk (0-24 pts). ll1 Assessment: 11:47 General: Appears uncomfortable, Behavior is calm, cooperative, appropriate for age. ll1 Pain: Denies pain. Neuro: No deficits noted. Cardiovascular: No deficits noted. Respiratory: Reports shortness of breath cough that is Airway is patent Trachea midline Respiratory effort is even, unlabored, Respiratory pattern is regular, symmetrical, Breath sounds are clear bilaterally. Onset: The symptoms/episode began/occurred yesterday, the patient has mild shortness of breath. GI: No deficits noted. Musculoskeletal: Circulation, motion, and sensation intact. Capillary refill < 3 seconds, Range of motion: intact in all extremities, Reports body aches. 12:45 Reassessment: Patient and/or family updated on plan of care and expected duration. Pain ll1 level reassessed. Patient is alert, oriented x 3, equal unlabored respirations, skin warm/dry/pink. Patient states feeling better. 13:45 Reassessment: Patient and/or family updated on plan of care and expected duration. Pain ll1 level reassessed. Patient is alert, oriented x 3, equal unlabored respirations, skin warm/dry/pink. Vital Signs: 11:40 BP 169 / 114; Pulse 92; Resp 20; Temp 98.5(TE); Pulse Ox 95% on R/A; Weight 131.54 kg; ss Height 5 ft. 10 in. (177.80 cm); Pain 3/10; 12:21 BP 154 / 94; ll1 13:21 BP 141 / 95; Pulse 99; Resp 20; Pulse Ox 92% on R/A; ll1 14:01 BP 145 / 93; Pulse 99; Resp 20; Pulse Ox 91% on R/A; ll1 14:10 BP 154 / 103; Pulse 103; Resp 20; Pulse Ox 93% ; Pain 0/10; ll1 11:40 Body Mass Index 41.61 (131.54 kg, 177.80 cm) ED Course: 11:25 Patient arrived in ED. mr 11:25 Roma Shabazz MD is Private Physician. mr 11:42 Triage completed. ss 11:43 Arm band placed on left wrist. ss 11:45 Cristóbal Worley, RN is Primary Nurse. ll1 11:45 Patient placed in an exam room, on a stretcher. ll1 11:46 Patient has correct armband on for positive identification. Bed in low position. Call ll1 light in reach. Side rails up X 1. Pulse ox on. NIBP on. 11:47 No provider procedures requiring assistance completed. ll1 11:48 Renato Wang MD is Attending Physician. rn 12:00 Inserted saline lock: 22 gauge in left antecubital area, using aseptic technique. Blood ll1 collected. 12:41 XRAY Chest (1 view) In Process Unspecified. EDMS 13:55 Roma Shabazz MD is Referral Physician. rn 14:10 IV discontinued, intact, bleeding controlled, No redness/swelling at site. Pressure ll1 dressing applied. Administered Medications: 12:14 Drug: SOLU-Medrol 125 mg Route: IVP; Site: left antecubital; ll1 13:21 Follow up: Response: No adverse reaction; RASS: Alert and Calm (0) ll1 12:30 Drug: Zofran (Ondansetron) 4 mg Route: IVP; Site: left antecubital; ll1 13:21 Follow up: Response: No adverse reaction; RASS: Alert and Calm (0) ll1 Outcome: 13:55 Discharge ordered by MD. rn 14:11 Discharged to home ambulatory. ll1 14:11 Condition: stable 14:11 Discharge instructions given to patient, Instructed on discharge instructions, follow up and referral plans. medication usage, Demonstrated understanding of instructions, follow-up care, medications, Prescriptions given X 4. 14:11 Patient left the ED. ll1 Addendum: 04/04/2020 16:08 Addendum: COVID-19 Result: Positive result giiven to ED physician to notify pt. a a5 Physician: Keenan Granda MD Physician was able to contact pt and pt was notified of positive COVID-19 swab result. Physician answered pt questions. Signatures: Dispatcher [employer] [facility] Cori Bateman Renato Wang MD MD rn Calderon, Audri, JENNIFER [email or web address] Pat Olivo RN RN ss Lewis, Lynsay, RN RN ll1
[2020-04-01 14:59] VITALS: TEMP 98.5
[2020-04-01 15:07] VITALS: BP 154/103; O2SAT 93
--- NOTE | 2020-04-03 06:12 | EKG ---
Test Date: 2020-04-01 Test Time: 13:45:35 Books Salesperson: JOHN MEASUREMENT RESULTS: Intervals: Rate: 100 IA: 192 QRSD: 102 QT: 336 QTc: 433 [place]: P: 7 IA: 192 QRS: -3 T: 38 INTERPRETIVE STATEMENTS: Normal sinus rhythm Possible Inferior infarct, age undetermined Abnormal ECG Compared to ECG 08/10/2018 15:28:41 Myocardial infarct finding now present Electronically Signed On 04-03-20 06:09:45 WATERPROOFER HELPER by Matthias Amaya
== END 2020-04-01 14:11 | disposition home or self-care (01) ==
LOC: ER 11:20
DX: U07.1 COVID-19 (principal); J45.909 Unspecified asthma, uncomplicated; I10 Essential (primary) hypertension; E78.5 Hyperlipidemia, unspecified
CPT/HCPCS: 93005; 87040 ×2; 85025; 80048; 36415; 85379; 84145; 87804 ×2; 71045; 96375; 96374; 99284; U0002; J2930; J2405

== ENCOUNTER 2020-04-04 17:56 | Emergency (ER) | payer BC ==
--- OUTSIDE RECORDS SUMMARY | 2020-04-04 17:59 | XMS REPORT | Continuity of Care Document ---
:1965 Author Organization [facility] t Address [address] [place] [address] Care Team Providers Name Role Phone Krupa [...] ID 2020-01-05 2020-01-05 Letter SILVINA Gentile [id number] 00:00:00 00:00:00 (Out) Cherie PARRY [id number] [place] [id number] 2020-01-04 2020-01-04 Laboratory Lab, [facility] [id number] 16:27:26 16:47:26 Only Fam Pob I Health [id number] [place] [id number] [place] [phone] [address] 2020-01-04 2020-01-04 Letter Doctor COOL [id number] 00:00:00 00:00:00 (Out) BRINDA Dunham [id number] [place] [phone] [id number] 2019-12-19 2019-12-19 Office TRACY Torres [id number] 14:44:33 16:06:55 Visit [facility] [id number] Surgical [id number] Specialti [phone] [address] Results This patient has no known results.
[2020-04-04] MEDS ORDERED: ACETAMINOPHEN 500 MG TAB ONE (22:59)
[2020-04-04] MEDS ORDERED: ALBUTEROL 2.5 MG/3 ML NEB SOL ONE (23:14)
[2020-04-04] MEDS ORDERED: IPRATROPIUM BROM 0.5MG/2.5ML ONE (23:14)
[2020-04-04 23:49] LABS: Absolute Lymphocytes (CBC) 0.9 K/uL (0.7-4.9); Basophils % 0.7 % (0-1.3); Hematocrit 45.6 % (39.6-49.0); Lymphocytes % 10.8 % (15.3-44.8); MPV 9.8 fL (7.6-11.3)
[2020-04-04] MEDS ORDERED: NA CHLORIDE 0.9% 1,000 ML ONE (23:52)
[2020-04-04 23:59] LABS: Protime INR 0.96
[2020-04-05 00:05] LABS: ALT/SGPT 27 U/L (12-78); AST/SGOT 13 U/L (15-37); Albumin 3.2 g/dL (3.4-5.0); Alkaline Phosphatase 88 U/L (45-117); BUN Blood Urea Nitrogen 31 mg/dL (7-18); Bicarbonate 24 mmol/L (21-32); Bilirubin Direct 0.2 mg/dL (0-0.2); Bilirubin Total 0.8 mg/dL (0.2-1.0); NT PRO-BNP 28 pg/mL (<125); Potassium 3.9 mmol/L (3.5-5.1); Protein, Total 7.7 g/dL (6.4-8.2); Sodium Level 134 mmol/L (136-145); Troponin (Emerg Dept Use Only) < 0.02 ng/mL (0.0-0.045)
[2020-04-05 00:09] LABS: Glucose Level 411 mg/dL (74-106)
[2020-04-05] MEDS ORDERED: AZITHROMYCIN 250 MG TAB ONE (00:30)
[2020-04-05] MEDS ORDERED: INSULIN -REGULAR HUMAN 50 UNIT/0.5 ML ML ONE (00:30)
[2020-04-05] MEDS ORDERED: NA CHLORIDE 0.9% 2,000 ML ONE (00:31)
--- NOTE | 2020-04-05 01:06 | EDPHYS ---
Physician Documentation [facility] Name: Rodger Malik III Age: 54 yrs Sex: Male : 1965 Arrival Date: 04/04/2020 Time: 17:57 Bed 17 Private MD: Roma Shabazz F ED Physician Frankie Dubose HPI: 04/05 00:55 This 54 yrs old Male presents to ER via Ambulatory with complaints of COVID+, jmm Breathing Difficulty. 00:55 The patient or guardian reports cough. Onset: The symptoms/episode began/occurred jmm gradually, 5 day(s) ago. Modifying factors: The symptoms are alleviated by nothing. the symptoms are aggravated by nothing. This is a 54 year old male with a history of DM, HTN, HLP, that presents to the ED with complaints of increased sob, increased urination beginning this past Wednesday. Evaluated in the ED, prescribed oral steroids. Positive for COVID-19. . Historical: - Allergies: 04/04 19:06 No Known Allergies; ca1 - Home Meds: 19:06 Advair Diskus 250-50 mcg/dose Inhl dsdv 2 times per day [Active]; amlodipine 10 mg tab ca1 1 tab once daily [Active]; atorvastatin 20 mg Oral tab 1 tab once daily [Active]; hydrochlorothiazide 12.5 mg Oral tab 1 tab once daily [Active]; losartan 100 mg Oral tab 1 tab once daily [Active]; Proventil Inhl [Active]; - PMHx: 19:06 Asthma; Hyperlipidemia; Hypertension; ca1 - PSHx: 19:06 kidney stone removed; ca1 - Immunization history:: Adult Immunizations up to date, Flu vaccine is up to date. - Social history:: Smoking status: Patient denies any tobacco usage or history of. ROS: 04/05 00:55 Cardiovascular: Negative for chest pain, palpitations, and edema. jmm Constitutional: Positive for body aches, fever. Respiratory: Positive for cough, shortness of breath. All other systems are negative. Exam: 00:55 Constitutional: This is a well developed, well nourished patient who is awake, alert, jmm and in no acute distress. Head/Face: atraumatic. Eyes: EOMI, no conjunctival erythema appreciated ENT: Moist Mucus Membranes Neck: Trachea midline, Supple Chest/axilla: Normal chest wall appearance and motion. Cardiovascular: Regular rate and rhythm. No edema appreciated Respiratory: Normal respirations, no respiratory distress appreciated Abdomen/GI: Non distended, soft Back: Normal ROM Skin: General appearance color normal MS/ Extremity: Moves all extremities, no obvious deformities appreciated, no edema noted to the lower extremities Neuro: Awake and alert, normal gait Psych: Behavior is normal, Mood is normal, Patient is cooperative and pleasant Vital Signs: 04/04 18:56 BP 141 / 89; Pulse 109; Resp 20 S; Temp 98.7(O); Pulse Ox 94% on R/A; Weight 131.54 kg ca1 (R); Height 5 ft. 10 in. (177.80 cm) (R); 22:50 BP 122 / 82; Pulse 110; Resp 19; Temp 100.4; Pulse Ox 91% on R/A; rr5 04/05 00:00 BP 114 / 87; Pulse 102; Resp 20; Pulse Ox 100% ; rr5 01:13 BP 112 / 81; Pulse 98; Resp 19; Temp 98.5; Pulse Ox 99% ; rr5 02:00 BP 121 / 70; Pulse 96; Resp 18; Pulse Ox 98% ; rr5 02:46 BP 123 / 78; Pulse 90; Resp 18; Temp 98.4; Pulse Ox 94% ; rr5 04/04 18:56 Body Mass Index 41.61 (131.54 kg, 177.80 cm) ca1 MDM: 04/04 22:[address] [facility] 04/05 00:57 Data reviewed: vital signs, nurses notes. Counseling: I had a detailed discussion with deana the patient and/or guardian regarding: the historical points, exam findings, and any diagnostic results supporting the discharge/admit diagnosis, lab results, radiology results, the need for outpatient follow up, to return to the emergency department if symptoms worsen or persist or if there are any questions or concerns that arise at home. ED course: Patient is alert and non toxic in appearance in the ED. No signs of resp distress. O2 is above 91% on RA. D-dimer negative. Patient is given strict return precautions. Patient understood and agrees with the plan of care. . 04/04 22:53 Order name: Basic Metabolic Panel; Complete Time: 00:[address] [facility] 04/04 22:53 Order name: CBC with Diff; Complete Time: 00:[address] [facility] 04/04 22:53 Order name: LFT's; Complete Time: 00:[address] [facility] 04/04 22:53 Order name: Magnesium; Complete Time: 00:[address] [facility] 04/04 22:53 Order name: NT PRO-BNP; Complete Time: 00:[address] [facility] 04/04 22:53 Order name: PT-INR; Complete Time: 00:[address] [facility] 04/04 22:53 Order name: Troponin (emerg Dept Use Only); Complete Time: 00:[address] [facility] 04/04 22:53 Order name: XRAY Chest (1 view) [facility] 04/04 23:36 Order name: D-Dimer; Complete Time: 00:03 [facility] 04/05 01:24 Order name: Glucose, Ancillary Testing; Complete Time: 05:08 [facility] 04/04 22:53 Order name: EKG; Complete Time: 22:[address] [facility] 04/04 22:53 Order name: Cardiac monitoring; Complete Time: 23:[address] [facility] 04/04 22:53 Order name: EKG - Nurse/Tech; Complete Time: 23:[address] [facility] 04/04 22:53 Order name: IV Saline Lock; Complete Time: 23:[address] [facility] 04/04 22:53 Order name: Labs collected and sent; Complete Time: 23:[address] [facility] 04/04 22:53 Order name: O2 Per Protocol; Complete Time: 23:[address] [facility] 04/04 22:53 Order name: O2 Sat Monitoring; Complete Time: 23:19 jm Administered Medications: 04/04 22:48 Drug: Tylenol 1000 mg Route: PO; rr5 23:40 Follow up: Response: No adverse reaction; Temperature is decreased rr5 23:30 Drug: DuoNeb (3:1) (2.5 mg - 0.5 mg) 3 ml Route: Nebulizer; rr5 04/05 00:30 Follow up: Response: No adverse reaction; Marked relief of symptoms rr5 04/04 23:54 Drug: NS 0.9% 1000 ml Route: IV; Rate: 1 bolus; Site: right antecubital; rr5 04/05 01:00 Follow up: Response: No adverse reaction; IV Status: Completed infusion; IV Intake: rr5 1000ml 00:25 Drug: AZITHromycin 500 mg Route: PO; rr5 01:25 Follow up: Response: No adverse reaction rr5 00:26 Drug: NS 0.9% 2000 ml Route: IV; Rate: 1 bolus; Site: right antecubital; rr5 02:45 Follow up: Response: No adverse reaction; IV Status: Completed infusion; IV Intake: rr5 2000ml 00:29 Drug: Insulin Regular Human 5 units {Co-Signature: willa (Lisa Reese RN).} Route: IVP; rr5 Site: right antecubital; 01:30 Follow up: Response: No adverse reaction; Blood sugar is lowered rr5 02:45 Not Given (Other Intervention Used): Decadron - Dexamethasone 10 mg IVP once rr5 Disposition: 05:07 Co-signature as Attending Physician, Frankie Dubose MD. pkl Disposition: 04/05/20 01:04 Discharged to Home. Impression: Coronavirus infection, unspecified. - Condition is Stable. - Discharge Instructions: COVID-19. - Prescriptions for Zithromax Z- Samuel 250 mg Oral Tablet - take 1 tablet by ORAL route as directed for 5 days Day 1 - take two (2) tablets one time. Day 2, 3, 4 , 5 take one (1) tablet once daily.; 6 tablet. - Medication Reconciliation Form, Thank You Letter, Antibiotic Education, Prescription Opioid Use form. - Follow up: Roma Shabazz MD; When: 2 - 3 days; Reason: Recheck today's complaints, Continuance of care, Re-evaluation by your physician. Signatures: Dispatcher [employer] [facility] Frankie Dubose MD MD pkl Mickail, Joel, PA PA jmm Roque, Raymond, RN RN rr5 Jena Almazan RN RN ca1 Lisa crouch Corrections: (The following items were deleted from the chart) 04/04 23:36 22:56 D-DIMER+COAG.LAB.BRZ ordered. [facility] 04/05 02:49 01:04 04/05/2020 01:04 Discharged to Home. Impression: Coronavirus infection, rr5 unspecified. Condition is Stable. Forms are Medication Reconciliation Form, Thank You Letter, Antibiotic Education, Prescription Opioid Use. Follow up: Roma Shabazz; When: 2 - 3 days; Reason: Recheck today's complaints, Continuance of care, Re-evaluation by your physician. deana
--- NOTE | 2020-04-05 01:06 | ER ---
Nurse's Notes [facility] Name: Rodger Malik III Age: 54 yrs Sex: Male : 1965 Arrival Date: 04/04/2020 Time: 17:57 Bed 17 Private MD: Roma Shabazz F Diagnosis: Coronavirus infection, unspecified Presentation: 04/04 18:56 Chief complaint: Patient states: Swabbed on Wednesday for Covid-19, positive. O2 sat at ca1 89-90% today. Goes up to 92% and down to 89% even when am sitting down. SOB since Wednesday but been worse since yesterday. Cough, fatigue, muscle aches since Wednesday. Coronavirus screen: Client denies travel out of the [place] in the last 14 days. Client presents with at least one sign or symptom that may indicate coronavirus-19. Standard/surgical mask placed on the client. Provider contacted for isolation considerations. Client reports previous positive COVID test result. Date of collection: April 01, 2020 Staff notified of need for isolation. Ebola Screen: Patient negative for fever greater than or equal to 101.5 degrees Fahrenheit, and additional compatible Ebola Virus Disease symptoms Patient denies exposure to infectious person. Patient denies travel to an Ebola-affected area in the 21 days before illness onset. No symptoms or risks identified at this time. Initial Sepsis Screen: Does the patient meet any 2 criteria? No. Patient's initial sepsis screen is negative. Does the patient have a suspected source of infection? No. Patient's initial sepsis screen is negative. Risk Assessment: Do you want to hurt yourself or someone else? Patient reports no desire to harm self or others. Onset of symptoms was April 04, 2020. 18:56 Method Of Arrival: Ambulatory ca1 18:56 Acuity: XAIVER 3 ca1 Triage Assessment: 19:06 General: Appears in no apparent distress. comfortable, ill, Behavior is calm, ca1 cooperative, appropriate for age. Respiratory: Reports shortness of breath at rest the patient has mild shortness of breath. Historical: - Allergies: 19:06 No Known Allergies; ca1 - Home Meds: 19:06 Advair Diskus 250-50 mcg/dose Inhl dsdv 2 times per day [Active]; amlodipine 10 mg tab ca1 1 tab once daily [Active]; atorvastatin 20 mg Oral tab 1 tab once daily [Active]; hydrochlorothiazide 12.5 mg Oral tab 1 tab once daily [Active]; losartan 100 mg Oral tab 1 tab once daily [Active]; Proventil Inhl [Active]; - PMHx: 19:06 Asthma; Hyperlipidemia; Hypertension; ca1 - PSHx: 19:06 kidney stone removed; ca1 - Immunization history:: Adult Immunizations up to date, Flu vaccine is up to date. - Social history:: Smoking status: Patient denies any tobacco usage or history of. Screenin:42 Abuse screen: Denies threats or abuse. Denies injuries from another. Nutritional rr5 screening: No deficits noted. Tuberculosis screening: No symptoms or risk factors identified. Fall Risk None identified. Total Holden Fall Scale indicates No Risk (0-24 pts). Assessment: 22:40 General: Appears in no apparent distress. comfortable, Behavior is calm, cooperative, rr5 appropriate for age. 22:40 Pain: Denies pain. Neuro: Level of Consciousness is awake, alert, obeys commands, rr5 Oriented to person, place, time. Cardiovascular: Capillary refill < 3 seconds Patient's skin is warm and dry. Rhythm is sinus tachycardia. Respiratory: Reports shortness of breath cough that is covid positive Airway is patent Respiratory effort is even, unlabored, Respiratory pattern is regular, symmetrical, GI: No signs and/or symptoms were reported involving the gastrointestinal system. : No signs and/or symptoms were reported regarding the genitourinary system. EENT: No signs and/or symptoms were reported regarding the EENT system. Derm: Skin is intact, is healthy with good turgor, Skin temperature is warm. Musculoskeletal: Circulation, motion, and sensation intact. Capillary refill < 3 seconds. 23:53 Reassessment: Patient appears in no apparent distress at this time. Patient is alert, rr5 oriented x 3, equal unlabored respirations, skin warm/dry/pink. awaiting for results. 04/05 00:10 Reassessment: reassess by ED provider blood sugar 411 mg/dl with order made and carried rr5 out. 01:05 Reassessment: Patient appears in no apparent distress at this time. Patient is alert, rr5 oriented x 3, equal unlabored respirations, skin warm/dry/pink. for discharge after fluid infusion Patient states feeling better. Patient states symptoms have improved. 02:00 Reassessment: Patient appears in no apparent distress at this time. resting eyes closed rr5 breathing spontaneously at room air. 02:47 Reassessment: Patient appears in no apparent distress at this time. Patient is alert, rr5 oriented x 3, equal unlabored respirations, skin warm/dry/pink. vital signs taken and recorded no complaints made Patient states feeling better. Patient states symptoms have improved. Vital Signs: 04/04 18:56 BP 141 / 89; Pulse 109; Resp 20 S; Temp 98.7(O); Pulse Ox 94% on R/A; Weight 131.54 kg ca1 (R); Height 5 ft. 10 in. (177.80 cm) (R); 22:50 BP 122 / 82; Pulse 110; Resp 19; Temp 100.4; Pulse Ox 91% on R/A; rr5 04/05 00:00 BP 114 / 87; Pulse 102; Resp 20; Pulse Ox 100% ; rr5 01:13 BP 112 / 81; Pulse 98; Resp 19; Temp 98.5; Pulse Ox 99% ; rr5 02:00 BP 121 / 70; Pulse 96; Resp 18; Pulse Ox 98% ; rr5 02:46 BP 123 / 78; Pulse 90; Resp 18; Temp 98.4; Pulse Ox 94% ; rr5 12 18:56 Body Mass Index 41.61 (131.54 kg, 177.80 cm) ca1 ED Course: 04/04 17:57 Patient arrived in ED. ag5 17:57 Roma Shabazz MD is Private Physician. ag5 19:05 Triage completed. ca1 19:07 Arm band placed on right wrist. ca1 22:41 Jose D Pruitt, JENNIFER is Primary Nurse. rr5 22:41 Davide Horner PA is PHCP. jmm 22:41 Frankie Dubose MD is Attending Physician. m 22:42 Patient has correct armband on for positive identification. Bed in low position. Call rr5 light in reach. Pulse ox on. NIBP on. 23:25 EKG done, by ED staff, reviewed by Davide POWELL. rr5 23:30 Inserted saline lock: 20 gauge in right antecubital area, using aseptic technique. rr5 Blood collected. 04/05 01:04 Roma Shabazz MD is Referral Physician. deana 01:08 XRAY Chest (1 view) In Process Unspecified. EDMS Administered Medications: 04/04 22:48 Drug: Tylenol 1000 mg Route: PO; rr5 23:40 Follow up: Response: No adverse reaction; Temperature is decreased rr5 23:30 Drug: DuoNeb (3:1) (2.5 mg - 0.5 mg) 3 ml Route: Nebulizer; rr5 04/05 00:30 Follow up: Response: No adverse reaction; Marked relief of symptoms rr5 04/04 23:54 Drug: NS 0.9% 1000 ml Route: IV; Rate: 1 bolus; Site: right antecubital; rr5 04/05 01:00 Follow up: Response: No adverse reaction; IV Status: Completed infusion; IV Intake: rr5 1000ml 00:25 Drug: AZITHromycin 500 mg Route: PO; rr5 01:25 Follow up: Response: No adverse reaction rr5 00:26 Drug: NS 0.9% 2000 ml Route: IV; Rate: 1 bolus; Site: right antecubital; rr5 02:45 Follow up: Response: No adverse reaction; IV Status: Completed infusion; IV Intake: rr5 2000ml 00:29 Drug: Insulin Regular Human 5 units {Co-Signature: willa (Lisa Reese RN).} Route: IVP; rr5 Site: right antecubital; 01:30 Follow up: Response: No adverse reaction; Blood sugar is lowered rr5 02:45 Not Given (Other Intervention Used): Decadron - Dexamethasone 10 mg IVP once rr5 Intake: 01:00 IV: 1000ml; Total: 1000ml. rr5 02:45 IV: 2000ml; Total: 3000ml. rr5 Outcome: 01:04 Discharge ordered by . deana 02:49 Patient left the ED. rr5 Signatures: Dispatcher [employer] EDMS Davide Horner PA PA jmm Roque, Raymond RN JENNIFER rr5 Jena Almazan RN RN ca1 Harshil Servin ag5 Lisa crouch
--- NOTE | 2020-04-05 08:29 | RAD REPORT ---
EXAM DESCRIPTION: RAD - Chest Single View - 04/05/2020 1:07 am CLINICAL HISTORY: shortness of breath, positive COVID test COMPARISON: April 01 TECHNIQUE: AP portable chest image was obtained 04/05/2020 1:07 am . FINDINGS: Lung volumes are low which accentuates the interstitial pattern. No focal consolidation or mass. No definitive airspace opacification seen. Detail is limited by large body habitus as well. Tr achea is midline. Heart and vasculature are normal. No measurable pleural effusion and no pneumothora x. No acute bony abnormality seen. No acute aortic findings suspected. IMPRESSION: Limited shallow inspiration film without acute cardiopulmonary finding. No definitive ground-glass opacification. CT imaging is more sensitive than this limited portable [facility] and can be performed if there is need to evaluate for possible COVID-19 pneumonia.
--- NOTE | 2020-04-05 13:38 | EKG ---
Test Date: 2020-04-04 Test Time: 23:14:00 Applique Cutter: RR MEASUREMENT RESULTS: Intervals: Rate: 103 IL: 172 QRSD: 98 QT: 340 QTc: 445 Carson: P: 33 IL: 172 QRS: 17 T: 62 INTERPRETIVE STATEMENTS: Sinus tachycardia Otherwise normal ECG Compared to ECG 04/01/2020 13:45:35 Sinus rhythm no longer present Myocardial infarct finding no longer present Electronically Signed On 04-05-20 13:36:58 [employer]CIAL [employer] ASSISTANT by Matthias Amaya
[2020-04-10 15:42] VITALS: BP 123/78; TEMP 98.4; O2SAT 94
== END 2020-04-05 02:49 | disposition home or self-care (01) ==
LOC: ER 17:56
DX: U07.1 COVID-19 (principal); J45.909 Unspecified asthma, uncomplicated; I10 Essential (primary) hypertension; E78.5 Hyperlipidemia, unspecified
CPT/HCPCS: 96361; 93005; 85025; 80048; 36415; 83735; 85610; 82947 ×2; 85379; 80076; 84484; 83880; 71045; 96374; 99285; J7030 ×2

== ENCOUNTER 2020-04-05 15:07 | Inpatient (IN) | payer BC ==
--- OUTSIDE RECORDS SUMMARY | 2020-04-05 15:09 | XMS REPORT | Continuity of Care Document ---
:1965 Author Organization [facility] t Address [address] [place] [address] Care Team Providers Name Role Phone Krupa [...] ID 2020-01-05 2020-01-05 Letter SILVINA Gentile [id number] 00:00:00 00:00:00 (Out) Cherie PARRY [id number] [place] [phone] [id number] 2020-01-04 2020-01-04 Laboratory Lab, [facility] [id number] 16:27:26 16:47:26 Only Fam [facility] [id number] [place] [id number] [place] [phone] [address] 2020-01-04 2020-01-04 Letter Doctor COOL [id number] 00:00:00 00:00:00 (Out) BRINDA Dunham [id number] [place] [phone] [id number] 2019-12-19 2019-12-19 Office TRACY Torres [id number] 14:44:33 16:06:55 Visit [facility] [id number] Surgical [id number] Specialti [phone] [address] Results This patient has no known results.
[2020-04-05] MEDS ORDERED: HYDROCODONE/CHLORPHEN 5 ML/OSYR ONE (16:47)
[2020-04-05] MEDS ORDERED: ASPIRIN 325 MG TAB ONE (16:47)
--- NOTE | 2020-04-05 17:15 | RAD REPORT ---
EXAM DESCRIPTION: RAD - Chest Single View - 04/05/2020 5:05 pm CLINICAL HISTORY: CoVid+;Dyspnea Chest pain. COMPARISON: Chest Single View dated 04/04/2020; Chest Single View dated 04/01/2020; Chest Pa And Lat (2 Views) dated 08/10/2018; Chest Single View dated 05/17/2018 FINDINGS: Portable technique limits examination quality. Bilateral interstitial opacities are present, mildly progressive since yesterday's study, compatible with viral pneumonitis. The heart is upper limit normal in size. No displaced fractures. IMPRESSION: Mild worsening in lung aeration since comparative study yesterday.
--- NOTE | 2020-04-05 17:25 | EDPHYS ---
Physician Documentation [facility] Name: Rodger Malik III Age: 54 yrs Sex: Male : 1965 Arrival Date: 04/05/2020 Time: 15:08 Bed 7 Private MD: ED Physician Chirag Rubio HPI: 04/05 16:53 This 54 yrs old Male presents to ER via Wheelchair with complaints of snw Shortness Of Breath. 16:53 The patient has shortness of breath at rest. Onset: The symptoms/episode began/occurred snw gradually. Duration: The symptoms are continuous. Associated signs and symptoms: Pertinent positives: bodyaches, fatigue. Severity of symptoms: At their worst the symptoms were mild. The patient has experienced a previous episode. The patient has been recently seen by a physician: The patient has been recently seen at the [facility] Emergency Department, yesterday, for similar complaints the patient was told to return for a recheck. +CoVid. Historical: - Allergies: 15:16 No Known Allergies; ss - Home Meds: 15:16 Advair Diskus 250-50 mcg/dose Inhl dsdv 2 times per day [Active]; amlodipine 10 mg tab ss 1 tab once daily [Active]; atorvastatin 20 mg Oral tab 1 tab once daily [Active]; hydrochlorothiazide 12.5 mg Oral tab 1 tab once daily [Active]; losartan 100 mg Oral tab 1 tab once daily [Active]; Proventil Inhl [Active]; - PMHx: 15:16 Asthma; Hyperlipidemia; Hypertension; ss - PSHx: 15:16 kidney stone removed; ss - Immunization history:: Adult Immunizations up to date. - Social history:: Smoking status: Patient denies any tobacco usage or history of. ROS: 16:53 Eyes: Negative for injury, pain, redness, and discharge, ENT: Negative for injury, snw pain, and discharge, Neck: Negative for injury, pain, and swelling, Cardiovascular: Negative for chest pain, palpitations, and edema, Abdomen/GI: Negative for abdominal pain, nausea, vomiting, diarrhea, and constipation, Back: Negative for injury and pain, : Negative for injury, bleeding, discharge, and swelling, MS/Extremity: Negative for injury and deformity, Skin: Negative for injury, rash, and discoloration, Neuro: Negative for headache, weakness, numbness, tingling, and seizure, Psych: Negative for depression, anxiety, suicide ideation, homicidal ideation, and hallucinations. 16:53 Constitutional: Positive for body aches, fatigue, malaise. 16:53 Respiratory: Positive for cough, shortness of breath. Exam: 16:52 Constitutional: This is a well developed, well nourished patient who is awake, alert, snw and in no acute distress. Head/Face: Normocephalic, atraumatic. Eyes: Pupils equal round and reactive to light, extra-ocular motions intact. Lids and lashes normal. Conjunctiva and sclera are non-icteric and not injected. Cornea within normal limits. Periorbital areas with no swelling, redness, or edema. ENT: Nares patent. No nasal discharge, no septal abnormalities noted. Tympanic membranes are normal and external auditory canals are clear. Oropharynx with no redness, swelling, or masses, exudates, or evidence of obstruction, uvula midline. Mucous membranes moist. Neck: Trachea midline, no thyromegaly or masses palpated, and no cervical lymphadenopathy. Supple, full range of motion without nuchal rigidity, or vertebral point tenderness. No Meningismus. Chest/axilla: Normal chest wall appearance and motion. Nontender with no deformity. No lesions are appreciated. 16:52 Back: No spinal tenderness. No costovertebral tenderness. Full range of motion. Skin: Warm, dry with normal turgor. Normal color with no rashes, no lesions, and no evidence of cellulitis. MS/ Extremity: Pulses equal, no cyanosis. Neurovascular intact. Full, normal range of motion. Neuro: Awake and alert, GCS 15, oriented to person, place, time, and situation. Cranial nerves II-XII grossly intact. Motor strength 5/5 in all extremities. Sensory grossly intact. Cerebellar exam normal. Normal gait. Psych: Awake, alert, with orientation to person, place and time. Behavior, mood, and affect are within normal limits. 16:52 Cardiovascular: Rate: tachycardic, Rhythm: regular. 16:52 Respiratory: mild respiratory distress is noted, Respirations: shallow respirations, tachypnea, Breath sounds: bronchial sounds, rhonchi, that are moderate, are heard in the left posterior lower lobe. Vital Signs: 15:13 BP 148 / 82; Pulse 101; Resp 23; Temp 99.9(TE); Pulse Ox 92% on R/A; Weight 131.54 kg; ss Height 5 ft. 10 in. (177.80 cm); Pain 0/10; 17:20 Temp 99.4; dh4 18:48 BP 133 / 88; Pulse 72; Resp 24; Pulse Ox 96% 4 lpm ; zb 19:59 BP 126 / 91; Pulse 74; Resp 20 S; Pulse Ox 95% on 4 lpm NC; jd3 15:13 Body Mass Index 41.61 (131.54 kg, 177.80 cm) ss MDM: 16:01 Patient medically screened. malathi 17:24 Data reviewed: vital signs, nurses notes. Data interpreted: Pulse oximetry: on room air snw is 92 %. Interpretation: hypoxia. Plan: O2 by NC applied. Counseling: I had a detailed discussion with the patient and/or guardian regarding: the historical points, exam findings, and any diagnostic results supporting the discharge/admit diagnosis, the presence of at least one elevated blood pressure reading (>120/80) during this emergency department visit, radiology results, the need for further work-up and treatment in the hospital. Physician consultation: Patricio Brunson was called at 17:25, was contacted at 17:25, regarding admission, to the telemetry unit. CoVid+. 04/05 17:23 Order name: Chem 7; Complete Time: 19:44 snw 04/05 16:18 Order name: Chest Single View XRAY; Complete Time: 17:18 snw 04/05 16:18 Order name: O2 Sat Monitoring; Complete Time: 16:18 snw 04 16:18 Order name: O2; Complete Time: 16:18 snw Administered Medications: 16:47 Drug: Aspirin 650 mg Route: PO; zb 17:45 Follow up: Response: No adverse reaction zb 16:48 Drug: Tussionex Pennkinetic ER 5 ml Route: PO; zb 17:30 Follow up: Response: No adverse reaction zb 18:38 Drug: Zithromax 500 mg Route: IVPB; Infused Over: 1 hrs; Site: right antecubital; zb 20:02 Follow up: Response: No adverse reaction; IV Status: Completed infusion; IV Intake: jd3 250ml 18:39 Drug: Decadron - Dexamethasone 10 mg Route: IVP; Site: right antecubital; zb 19:00 Follow up: Response: No adverse reaction zb 18:39 Drug: NS 0.9% 1000 ml Route: IV; Rate: 125 ml/hr; Site: right antecubital; zb 19:00 Follow up: Response: No adverse reaction; IV Status: Infusion continued upon admission zb 18:39 Drug: Lovenox 100 mg Route: Sub-Q; Site: right lower abdomen; zb 19:00 Follow up: Response: No adverse reaction zb Disposition: 04/06 08:24 Co-signature as Attending Physician, Chirag Rubio MD I agree with the assessment and malathi plan of care. Disposition: 04/05/20 17:24 Hospitalization ordered by Roma Shabazz for Inpatient Admission. Preliminary diagnosis is Pneumonia due to SARS-associated coronavirus. - Bed requested for Intensive Care Unit. - Status is Inpatient Admission. jd3 - Condition is Stable. - Problem is an acute exacerbation. - Symptoms have worsened. Signatures: Dispatcher [employer] Jimena Rand RN RN dw Anderson, Corey, MD MD cha Waters, Shelly, POWER PRESS TENDER-C POWER PRESS TENDER-Csnw Pat Olivo RN RN ss Davies, Jonathon, RN RN jd3 Brown, Zipporah, RN RN zb Corrections: (The following items were deleted from the chart) 04/05 19:16 17:24 Hospitalization Ordered by Patricio Brunson for Inpatient Admission. Preliminary dw diagnosis is Pneumonia due to SARS-associated coronavirus. Bed requested for Telemetry/MedSurg (Inpatient). Status is Inpatient Admission. Condition is Stable. Problem is an acute exacerbation. Symptoms have worsened. snw 20:05 19:16 04/05/2020 17:24 Hospitalization Ordered by Patricio Brunson for Inpatient snw Admission. Preliminary diagnosis is Pneumonia due to SARS-associated coronavirus. Bed requested for Intensive Care Unit. Status is Inpatient Admission. Condition is Stable. Problem is an acute exacerbation. Symptoms have worsened. dw 22:00 20:05 04/05/2020 17:24 Hospitalization Ordered by Roma Shabazz MD for Inpatient jd3 Admission. Preliminary diagnosis is Pneumonia due to SARS-associated coronavirus. Bed requested for Intensive Care Unit. Status is Inpatient Admission. Condition is Stable. Problem is an acute exacerbation. Symptoms have worsened. snw
--- NOTE | 2020-04-05 17:25 | ER ---
Nurse's Notes [facility] Name: Rodger Malik III Age: 54 yrs Sex: Male : 1965 Arrival Date: 04/05/2020 Time: 15:08 Bed 7 Private MD: Diagnosis: Pneumonia due to SARS-associated coronavirus Presentation: 04/05 15:13 Chief complaint: Patient states: COVID +. Test Wednesday. Pt reports he was seen in ER ss last night for difficulty breathing and discharged home, but is not feeling any better and O2 at home was reading 80-87%. Coronavirus screen: Client presents with at least one sign or symptom that may indicate coronavirus-19. At this time, the client does not indicate any symptoms associated with coronavirus-19. Ebola Screen: Patient denies exposure to infectious person. Patient denies travel to an Ebola-affected area in the 21 days before illness onset. Initial Sepsis Screen: Does the patient meet any 2 criteria? RR > 20 per min. HR > 90 bpm. Risk Assessment: Do you want to hurt yourself or someone else? Patient reports no desire to harm self or others. Onset of symptoms was April 01, 2020. 15:13 Method Of Arrival: Wheelchair ss 15:13 Acuity: XAVIER 2 ss 18:55 Initial Sepsis Screen: Does the patient meet any 2 criteria? No. Patient's initial zb sepsis screen is negative. Does the patient have a suspected source of infection? Yes:. Historical: - Allergies: 15:16 No Known Allergies; ss - Home Meds: 15:16 Advair Diskus 250-50 mcg/dose Inhl dsdv 2 times per day [Active]; amlodipine 10 mg tab ss 1 tab once daily [Active]; atorvastatin 20 mg Oral tab 1 tab once daily [Active]; hydrochlorothiazide 12.5 mg Oral tab 1 tab once daily [Active]; losartan 100 mg Oral tab 1 tab once daily [Active]; Proventil Inhl [Active]; - PMHx: 15:16 Asthma; Hyperlipidemia; Hypertension; ss - PSHx: 15:16 kidney stone removed; ss - Immunization history:: Adult Immunizations up to date. - Social history:: Smoking status: Patient denies any tobacco usage or history of. Screenin:30 Abuse screen: Denies threats or abuse. Denies injuries from another. Nutritional zb screening: No deficits noted. Tuberculosis screening: No symptoms or risk factors identified. Fall Risk No fall in past 12 months (0 pts). No secondary diagnosis (0 pts). IV access (20 points). Ambulatory Aid- None/Bed Rest/Nurse Assist (0 pts). Gait- Normal/Bed Rest/Wheelchair (0 pts) Mental Status- Oriented to own ability (0 pts). Total Holden Fall Scale indicates No Risk (0-24 pts). Assessment: 16:30 General: Appears uncomfortable, obese, well groomed, Behavior is calm, cooperative, zb appropriate for age, Reports fever for feeling ill for fatigue for. Pain: Complains of pain in mid-sternal area Pain does not radiate. Quality of pain is described as pressure, Is continuous. Neuro: Level of Consciousness is awake, alert, obeys commands, Oriented to person, place, time, situation. Cardiovascular: Capillary refill < 3 seconds in bilateral fingers Patient's skin is warm and dry. Cardiovascular: Reports chest pain, Denies nausea, vomiting. Respiratory: Reports shortness of breath at rest cough that is pain with cough Airway is patent Trachea midline Respiratory effort is shallow, Respiratory pattern is tachypnea adventitious sounds noted bilaterality. GI: Reports some loose stools. : No signs and/or symptoms were reported regarding the genitourinary system. EENT: No signs and/or symptoms were reported regarding the EENT system. Derm: No signs and/or symptoms reported regarding the dermatologic system. Skin is intact, is healthy with good turgor, Skin is normal. Musculoskeletal: Circulation, motion, and sensation intact. Range of motion: intact in all extremities. 17:30 Reassessment: Patient appears in no apparent distress at this time. Patient and/or zb family updated on plan of care and expected duration. Pain level reassessed. Patient is alert, oriented x 3, equal unlabored respirations, skin warm/dry/pink. provider at bedside discussing POC. 18:30 Reassessment: Patient appears in no apparent distress at this time. Patient and/or zb family updated on plan of care and expected duration. Pain level reassessed. Patient is alert, oriented x 3, equal unlabored respirations, skin warm/dry/pink. IV placed in place. 19:59 Reassessment: Patient appears in no apparent distress at this time. Patient and/or jd3 family updated on plan of care and expected duration. Pain level reassessed. Patient is alert, oriented x 3, equal unlabored respirations, skin warm/dry/pink. awaiting admission. 21:23 Reassessment: Patient appears in no apparent distress at this time. Patient and/or zb family updated on plan of care and expected duration. Pain level reassessed. Patient is alert, oriented x 3, equal unlabored respirations, skin warm/dry/pink. Pt waiting transfer. Vital Signs: 15:13 BP 148 / 82; Pulse 101; Resp 23; Temp 99.9(TE); Pulse Ox 92% on R/A; Weight 131.54 kg; ss Height 5 ft. 10 in. (177.80 cm); Pain 0/10; 17:20 Temp 99.4; dh4 18:48 BP 133 / 88; Pulse 72; Resp 24; Pulse Ox 96% 4 lpm ; zb 19:59 BP 126 / 91; Pulse 74; Resp 20 S; Pulse Ox 95% on 4 lpm NC; jd3 15:13 Body Mass Index 41.61 (131.54 kg, 177.80 cm) ss ED Course: 15:08 Patient arrived in ED. ds1 15:15 Triage completed. ss 15:16 Arm band placed on right wrist. ss 15:50 Kathy Olivier FNP-C is PHCP. snw 15:50 Chirag Rubio MD is Attending Physician. snw 16:06 Lisa Reese, JENNIFER is Primary Nurse. zb 16:30 Patient has correct armband on for positive identification. Call light in reach. Side zb rails up X 1. Adult w/ patient. Pulse ox on. NIBP on. 17:02 Chest Single View XRAY In Process Unspecified. EDMS 17:24 Patricio Brunson is Hospitalizing Provider. snw 18:30 Inserted saline lock: 20 gauge in right antecubital area, using aseptic technique. zb 20:05 Hospitalizing Provider role handed off by Patricio Brunson snw 20:05 Roma Shabazz MD is Hospitalizing Provider. snw 21:22 No provider procedures requiring assistance completed. Patient admitted, IV remains in zb place. Administered Medications: 16:47 Drug: Aspirin 650 mg Route: PO; zb 17:45 Follow up: Response: No adverse reaction zb 16:48 Drug: Tussionex Pennkinetic ER 5 ml Route: PO; zb 17:30 Follow up: Response: No adverse reaction zb 18:38 Drug: Zithromax 500 mg Route: IVPB; Infused Over: 1 hrs; Site: right antecubital; zb 20:02 Follow up: Response: No adverse reaction; IV Status: Completed infusion; IV Intake: jd3 250ml 18:39 Drug: Decadron - Dexamethasone 10 mg Route: IVP; Site: right antecubital; zb 19:00 Follow up: Response: No adverse reaction zb 18:39 Drug: NS 0.9% 1000 ml Route: IV; Rate: 125 ml/hr; Site: right antecubital; zb 19:00 Follow up: Response: No adverse reaction; IV Status: Infusion continued upon admission zb 18:39 Drug: Lovenox 100 mg Route: Sub-Q; Site: right lower abdomen; zb 19:00 Follow up: Response: No adverse reaction zb Intake: 20:02 IV: 250ml; Total: 250ml. jd3 Outcome: 17:24 Decision to Hospitalize by Provider. snw 21:20 Admitted to ICU accompanied by tech, via wheelchair, room 4, with oxygen, with chart, zb Report called to Angeline Hassan (RN) 21:20 Condition: stable 21:20 Instructed on the need for admit. 22:00 Patient left the ED. jd3 Signatures: Dispatcher [employer] Kathy Hodges FNP-C MANAGER THERAPY-Ruba Wren ds1 Pat Olivo RN RN ss Davies, Jonathon, RN RN jd3 Huhn, Donald Lisa Tamayo RN RN zb Corrections: (The following items were deleted from the chart) 20:10 19:59 BP 126 / 91; Pulse 14bpm; Resp 20bpm; Spontaneous; Pulse Ox 95% 4 lpm Nasal jd3 Cannula; jd3 12 00:59 00:58 Response: No adverse reaction; IV Status: Infusion continued upon admission zb jasperb
--- NOTE | 2020-04-05 18:18 | P.HP ---
Certification for Inpatient Patient admitted to: Inpatient With expected LOS: >2 Midnights Practitioner: I am a practitioner with admitting privileges, knowledge of patient current condition, hospital course, and medical plan of care. Services: Services provided to patient in accordance with Admission requirements found in Title 42 Section 412.3 of the Code of Federal Regulations Patient History Date of Service: 04/05/20 Reason for admission: Shortness of breath History of Present Illness: 54-year-old gentleman with a history of hypertension and diabetes diagnosed with COVID 19 four days ago presented to the emergency department with a complaint of progressive shortness of breath. This is his 3rd ED visit this week. The patient was here in the ED yesterday for shortness of breath. He was not requiring oxygen at that time. His blood sugar was elevated. He received a dose of insulin and patient discharged to home. Returns to the emergency department with increased shortness of breath. His oxygen saturation was 85% on room air. Chest x-ray showing increased bilateral opacities consistent with COVID pneumonia. The patient is admitted for further management. Allergies No Known Drug Allergies Allergy (Unverified 10/30/14 23:07) Unknown Home Medications: Albuterol 17 gm IH PRN 05/27/12 Fluticasone/Salmeterol [Advair 250-50 Diskus] 1 each IH BID 05/27/12 Losartan Potassium [Cozaar] 100 mg PO DAILY 05/27/12 Rosuvastatin [Crestor*] 10 mg PO DAILY 05/27/12 - Past Medical/Surgical History -: Hypertension -: Diabetes mellitus type -: Asthma - Family History Mother -: Diabetes - Social History Alcohol use: Yes CD- Drugs: No Caffeine use: Yes Place of Residence: Home Review of Systems Other: Patient denies any fever, he denies any chest pain, he denies any diarrhea or nausea or vomiting. Except as documented, all other systems reviewed and negative. Physical Examination - Physical Exam General: Alert, In no apparent distress HEENT: Mucous membr. moist/pink, Sclerae nonicteric Neck: Supple, JVD not distended Respiratory: Normal air movement Cardiovascular: No edema, Regular rate/rhythm, Normal S1 S2 Gastrointestinal: Soft and benign, Non-distended Musculoskeletal: No swelling Integumentary: No rashes, No erythema Neurological: Normal speech, Normal strength at 5/5 x4 extr, Cranial nerves 3-12 intact Assessment and Plan - Problems (Diagnosis) (1) Pneumonia due to COVID-19 virus Current Visit: Yes Status: Acute (2) Acute respiratory failure with hypoxia Current Visit: Yes Status: Acute (3) Diabetes mellitus type 2 in obese Current Visit: Yes Status: Acute (4) Hypertension Current Visit: Yes Status: Acute - Plan Admit patient to the medical floor. Start IV steroid Start Lantus insulin to come back steroid induced hyperglycemia. Will also start Eliquis for thromboembolism prophylaxis. Consult to pulmonary. Continue home antihypertensives. Bronchodilators p.r.n. Continue Advair. Monitor inflammatory markers. Vitamin supplementation. - Advance Directives Does patient have a Living Will: No Does patient have a Durable POA for Healthcare: Yes
[2020-04-05] MEDS ORDERED: dexAMETHasone 10 MG/ML VIAL ONE (18:19)
[2020-04-05] MEDS ORDERED: NA CHLORIDE 0.9% 1,000 ML ONE (18:19)
[2020-04-05] MEDS ORDERED: AZITHROMYCIN 500 MG INJ IVPB ONE (18:19)
[2020-04-05] MEDS ORDERED: ENOXAPARIN 100 MG/ML SYR SQ ONE (18:19)
[2020-04-05] MEDS ORDERED: NA CHLORIDE 0.9% 250 ML ONE (18:20)
[2020-04-05 19:24] LABS: Potassium 4.2 mmol/L (3.5-5.1)
[2020-04-05] MEDS ORDERED: INSULIN -REGULAR HUMAN 50 UNIT/0.5 ML ML SQ SCH (22:23)
[2020-04-05] MEDS ORDERED: D50W 25 GM/50 ML SYRINGE IV PRN (22:23)
[2020-04-05] MEDS ORDERED: GLUCAGON 1 MG/VIAL IM PRN (22:23)
[2020-04-05] MEDS ORDERED: INSULIN GLARGINE 100 UNITS/ML SQ SCH (22:23)
[2020-04-06] MEDS: APIXABAN 2.5 MG TABLET PO SCH ×3 (00:05→21:47)
[2020-04-06] MEDS: FAMOTIDINE 20 MG/2 ML VIAL IV SCH ×3 (00:06→21:47)
[2020-04-06] MEDS: ASCORBIC ACID 500 MG TABLET PO SCH ×4 (00:06→21:47)
[2020-04-06] MEDS: METHYLPREDNISOLONE 40 MG INJ IV SCH ×3 (00:06→21:47)
[2020-04-06] MEDS: DULERA 100/5 (MOMETASONE/FORMOTEROL) INHALER IH SCH ×2 (00:06→08:57)
[2020-04-06 04:52] LABS: Absolute Lymphocytes (CBC) 0.5 K/uL (0.7-4.9); Basophils % 0.5 % (0-1.3); Hematocrit 43.1 % (39.6-49.0); Lymphocytes % 7.6 % (15.3-44.8); MPV 9.7 fL (7.6-11.3); RBC Red Blood Cell Count 4.64 M/uL (4.33-5.43)
[2020-04-06 05:31] LABS: Ferritin 571.2 ng/mL (26-388); Magnesium 2.2 mg/dL (1.8-2.4); Phosphorus 2.6 mg/dL (2.5-4.9); Potassium 4.5 mmol/L (3.5-5.1)
[2020-04-06] MEDS: INSULIN -REGULAR HUMAN 50 UNIT/0.5 ML ML SQ SCH ×5 (05:58→22:13)
[2020-04-06 07:18] LABS: Urine Appearance CLEAR; Urine Bilirubin NEGATIVE (NEG); Urine Blood NEGATIVE (NEG); Urine Color YELLOW; Urine Glucose 3+ (NEG); Urine Protein NEGATIVE (NEG); Urine Specific Gravity >=1.030 (1.005-1.030); Urine Urobilinogen 0.2 mg/dL (0.2-1.0); Urine pH 5.5 (5.0-7.0)
[2020-04-06 07:31] LABS: Urine Microscopic Reflex NO UMIC
[2020-04-06] MEDS: VITAMIN D 1000 UNIT TAB PO SCH (08:52)
[2020-04-06] MEDS: LOSARTAN POTASSIUM 50 MG TABLET PO SCH (08:52)
[2020-04-06] MEDS: ZINC SULFATE 220 MG CAP PO SCH (08:53)
[2020-04-06] MEDS: INSULIN GLARGINE 100 UNITS/ML SQ SCH ×2 (08:54→22:12)
--- NOTE | 2020-04-06 11:01 | P.CNS ---
Date of Consult: 04/06/20 Chief Complaint: Pneumonia due to smith virus History of Present Illness: Patient is 54 years of age has been sick for about a week developed a fever with the emergency room was discharged on steroids got worse again became hypoxic came here to the emergency room with hypoxemia is currently on 4 L of nasal cannula oxygen chest x-ray shows some interstitial change CRP is elevated patient has uncontrolled diabetes his A1c is 11.5 Srinivasan takes metformin at home still has some little cough Allergies No Known Drug Allergies Allergy (Verified 04/05/20 22:40) Unknown Home Medications: Albuterol 17 gm IH PRN PRN 05/27/12 Fluticasone/Salmeterol [Advair 250-50 Diskus] 1 each IH BID 05/27/12 Losartan Potassium [Cozaar] 100 mg PO DAILY 05/27/12 Amlodipine [Norvasc*] 10 mg PO DAILY 04/05/20 Atorvastatin Calcium [Lipitor*] 20 mg PO DAILY 04/05/20 Metformin ER [Glucophage ER*] 500 mg PO DAILY 04/05/20 hydroCHLOROthiazide [Hydrochlorothiazide*] 12.5 mg PO DAILY 04/05/20 - Past Medical/Surgical History Diabetic: Yes -: Hypertension -: Diabetes mellitus type -: Asthma -: hyperlipidemia -: Renal calculi sx - Family History Mother Medical History: Diabetes - Social History Smoking Status: Former smoker Alcohol use: No CD- Drugs: No Caffeine use: Yes Place of Residence: Home Review of Systems 10-point ROS is otherwise unremarkable General: Weakness Respiratory: Cough, Shortness of Breath Physical Examination Temp Pulse Resp BP Pulse Ox 97.2 F 82 23 H 115/66 89 L 04/06/20 08:00 04/06/20 08:00 04/06/20 08:00 04/06/20 08:00 04/06/20 08:00 General: Alert, Oriented x3, Mild distress Respiratory: Clear to auscultation bilaterally Cardiovascular: No edema, Regular rate/rhythm, Normal S1 S2 - Problems (1) Pneumonia due to COVID-19 virus Current Visit: Yes Status: Acute Plan: Patient is 54 years of age has been sick for the past week admitted from pneumonia due to smith virus he is improving and 40 does a nasal cannula oxygen CRP is over 100 continue with steroids chest x-ray shows some interstitial changes labs reviewed (2) Uncontrolled diabetes mellitus Current Visit: Yes Status: Acute Plan: Patient has uncontrolled diabetes his hemoglobin A1c is 11.5 he will need insulin treatment this to be better control because patient will go home on insulin chest added no VF and resume his metformin Qualifiers: Diabetes mellitus type: type 2
[2020-04-06] MEDS: SITAGLIPTIN PHOS 100 MG TAB PO SCH (13:36)
[2020-04-06] MEDS: METFORMIN ER 500 MG TAB PO SCH ×2 (13:36→16:36)
[2020-04-06] MEDS: ACETAMINOPHEN 500 MG TAB PO PRN ×2 (13:53→18:33)
[2020-04-06] MEDS ORDERED: INFLUENZA VACCINE (for 3y+) 0.5 ML DOSE IMVAC ONE (14:00)
--- NOTE | 2020-04-06 14:09 | PN ---
Subjective: The patient is feeling much better today, although he is still needing some supplemental oxygen. Objective: Vital Signs: His blood pressure 115/66, pulse 80, temperature 97.2 on 4 L nasal cannula of oxygen. His pulse oximetry is 91%. Heart: Regular rate and rhythm. Chest: Mild bilateral crackles. Abdomen: Soft, benign, nontender. Bowel sounds are active. Extremities: No edema or cyanosis. Peripheral pulses are felt. Neurological: Alert, oriented, nonfocal. Grossly intact. Laboratory Data: CBC noted with neutrophils at 89.7, lymphocytes 7.6, monocytes 2.2, blood sugar fin gersticks noted between 400 to 300. His chest x-ray, bilateral lung opacities consistent with smith virus pneumonia. Assessment And Plan: 1.Coronavirus pneumonia. Patient is gradually improving on the current treatment with oxygen, zinc and steroids. Patient is also on prophylaxis with Eliquis from that standpoint. 2.Type 2 diabetes, uncontrolled. I have not seen the patient for some time in my office as an outpa tient. He is going to be on insulin from now on. We have held on his metformin. Patient has been p ut on Lantus 20 units b.i.d. and on Januvia right now and on regular insulin sliding scale. 3.Rest of his medical problem is controlled. We are holding on his blood pressure medicines for now and we will reinstitute as indicated. Appreciate Dr. Livingston's input. To look orders for details. MFS/MODL Voice ID: [id number] Report ID: [id number]
[2020-04-06] MEDS ORDERED: INSULIN -REGULAR HUMAN 50 UNIT/0.5 ML ML IV ONE (21:08)
[2020-04-07] MEDS: PROMETH/COD 6.25/10MG SYRUP 5ML PO PRN (04:41)
[2020-04-07] MEDS ORDERED: PROMETH/COD 6.25/10MG SYRUP 5ML ONE (04:45)
[2020-04-07 06:25] LABS: Absolute Lymphocytes (CBC) 0.7 K/uL (0.7-4.9); Basophils % 0.4 % (0-1.3); Hematocrit 44.1 % (39.6-49.0); Lymphocytes % 4.3 % (15.3-44.8); MPV 9.9 fL (7.6-11.3); RBC Red Blood Cell Count 4.79 M/uL (4.33-5.43)
[2020-04-07 06:41] LABS: C-Reactive Protein 65.2 mg/L (<3.00); Ferritin 621.3 ng/mL (26-388); Potassium 4.2 mmol/L (3.5-5.1)
[2020-04-07] MEDS: SITAGLIPTIN PHOS 100 MG TAB PO SCH (08:35)
[2020-04-07] MEDS: APIXABAN 2.5 MG TABLET PO SCH ×2 (08:35→21:51)
[2020-04-07] MEDS: METHYLPREDNISOLONE 40 MG INJ IV SCH ×2 (08:35→21:52)
[2020-04-07] MEDS: FAMOTIDINE 20 MG/2 ML VIAL IV SCH ×2 (08:35→21:51)
[2020-04-07] MEDS: VITAMIN D 1000 UNIT TAB PO SCH (08:35)
[2020-04-07] MEDS: INSULIN -REGULAR HUMAN 50 UNIT/0.5 ML ML SQ SCH ×4 (08:36→22:09)
[2020-04-07] MEDS: ZINC SULFATE 220 MG CAP PO SCH (08:36)
[2020-04-07] MEDS: INSULIN GLARGINE 100 UNITS/ML SQ SCH (08:36)
[2020-04-07] MEDS: ASCORBIC ACID 500 MG TABLET PO SCH ×3 (08:36→21:52)
[2020-04-07] MEDS: LOSARTAN POTASSIUM 50 MG TABLET PO SCH (08:40)
[2020-04-07] MEDS: METFORMIN ER 500 MG TAB PO SCH ×2 (08:40→17:08)
[2020-04-07] MEDS ORDERED: ATORVASTATIN 20 MG TAB PO SCH (09:00)
[2020-04-07 09:06] LABS: Blood Morphology Comment NOT SEEN (NOT SEEN); Platelet Estimate ADEQ; White Blood Cell Scan OK (OK)
[2020-04-07] MEDS ORDERED: METHYLPREDNISOLONE 40 MG INJ IV ONE (12:00)
[2020-04-07] MEDS: ACETAMINOPHEN 500 MG TAB PO PRN (12:14)
--- NOTE | 2020-04-07 16:52 | PN ---
Subjective: The patient is still requesting oxygen supplement. Today, he needed to be on BiPAP. Hi s saturation on BiPAP is more than 90%. Objective: Blood pressure 136/76, pulse 88, temperature 98. Rest of his exam has not changed. Laboratory Data: His white cell count is 15.2, neutrophils 91.3. On his chemistry; his BUN 29, crea tinine 1.1. His blood sugar fingersticks now are dropped slowly to between 400 and 300. C-reactive protein is 65 and ferritin is 621.3. Assessment And Plan: 1.Coronavirus-19 pneumonia with hypoxia. We will continue BiPAP. Continue current treatment with I V steroids, vitamin D and zinc and oxygen supplementation and supportive care. 2.Type 2 diabetes mellitus. We will increase his Lantus to 25 units b.i.d. and put him on an aggres sive sliding scale for regular insulin. We will continue the rest of his medications. Look orders f or details. MFS/MODL Voice ID: [id number] Report ID: [id number]
--- NOTE | 2020-04-07 19:54 | P.PN ---
Subjective Date of Service: 04/07/20 Chief Complaint: Pneumonia due to smith virus Subjective: Improving (Patient is clinically improving although is requiring high concentrations of oxygen very alert no significant distress) Review of Systems General: Weakness Respiratory: Shortness of Breath Physical Examination - Vital Signs Temperature: 96.8 F Blood Pressure: 129/79 Pulse: 82 Respirations: 25 Pulse Ox (%): 91 Assessment & Plan - Problems (Diagnosis) (1) Pneumonia due to COVID-19 virus Current Visit: Yes Status: Acute Plan: Patient admitted with pneumonia due to coronal virus is still requiring high concentrations of oxygen of increases EPAP continue with present dose of steroid C-reactive protein is declining maintain negative fluid balance is on Lasix (2) Uncontrolled diabetes mellitus Current Visit: Yes Status: Acute Plan: Patient has uncontrolled diabetes his hemoglobin A1c is 11.5 he will need insulin treatment this to be better control because patient will go home on insulin chest added no VF and resume his metformin Qualifiers: Diabetes mellitus type: type 2
[2020-04-07] MEDS ORDERED: INSULIN GLARGINE 100 UNITS/ML SQ SCH (21:00)
[2020-04-07] MEDS: ATORVASTATIN 20 MG TAB PO SCH (21:51)
[2020-04-08 05:32] LABS: Absolute Lymphocytes (CBC) 0.6 K/uL (0.7-4.9); Basophils % 0.1 % (0-1.3); Hematocrit 44.6 % (39.6-49.0); Lymphocytes % 4.1 % (15.3-44.8); MPV 9.1 fL (7.6-11.3)
[2020-04-08 06:02] LABS: C-Reactive Protein 53.3 mg/L (<3.00); Potassium 4.5 mmol/L (3.5-5.1)
--- NOTE | 2020-04-08 06:56 | P.PN ---
Subjective Date of Service: 04/08/20 Chief Complaint: Pneumonia due to smith virus Stable still requiring high concentrations of oxygen still short of breath on BiPAP Review of Systems General: Weakness Respiratory: Shortness of Breath Physical Examination - Vital Signs Temperature: 97.2 F Blood Pressure: 125/91 Pulse: 101 Respirations: 20 Pulse Ox (%): 95 Assessment & Plan - Problems (Diagnosis) (1) Pneumonia due to COVID-19 virus Current Visit: Yes Status: Acute Plan: Respiratory failure continue with steroids CRP is declining patient's condition is stable eyes may be improving of ordered Remdesmir (2) Uncontrolled diabetes mellitus Current Visit: Yes Status: Acute Plan: Uncontrolled diabetes increase insulin dosage Qualifiers: Diabetes mellitus type: type 2
[2020-04-08] MEDS: INSULIN -REGULAR HUMAN 50 UNIT/0.5 ML ML SQ SCH ×4 (08:27→21:20)
[2020-04-08] MEDS: INSULIN GLARGINE 100 UNITS/ML SQ SCH ×2 (08:27→21:20)
[2020-04-08] MEDS: LOSARTAN POTASSIUM 50 MG TABLET PO SCH (08:28)
[2020-04-08] MEDS: ASCORBIC ACID 500 MG TABLET PO SCH ×3 (08:28→21:19)
[2020-04-08] MEDS: FUROSEMIDE 20 MG/ 2ML VIAL IV SCH (08:28)
[2020-04-08] MEDS: FAMOTIDINE 20 MG/2 ML VIAL IV SCH ×2 (08:28→21:19)
[2020-04-08] MEDS: APIXABAN 2.5 MG TABLET PO SCH (08:29)
[2020-04-08] MEDS: ACETAMINOPHEN 500 MG TAB PO PRN (08:29)
[2020-04-08] MEDS: ZINC SULFATE 220 MG CAP PO SCH (08:29)
[2020-04-08] MEDS: METFORMIN ER 500 MG TAB PO SCH ×2 (08:30→16:57)
[2020-04-08] MEDS: SITAGLIPTIN PHOS 100 MG TAB PO SCH (08:30)
[2020-04-08] MEDS: VITAMIN D 1000 UNIT TAB PO SCH (08:30)
--- NOTE | 2020-04-08 08:50 | RAD REPORT ---
EXAM DESCRIPTION: RAD - Chest Single View - 04/08/2020 7:06 am CLINICAL HISTORY: pneumonia Chest pain. COMPARISON: Chest Single View dated 04/05/2020; Chest Single View dated 04/04/2020; Chest Single View dated 04/01/2020; Chest Pa And Lat (2 Views) dated 08/10/2018 FINDINGS: Portable technique limits examination quality. [id number] worsening in bilateral pulmonary opacities since the comparative study is noted, com patible with worsening infection. The heart is mildly enlarged in size. Trace bilateral pleural fluid . No displaced fractures. IMPRESSION: Mild to moderate worsening in lung aeration bilaterally.
[2020-04-08] MEDS: METHYLPREDNISOLONE 125 MG INJ IV SCH ×2 (09:17→21:19)
[2020-04-08 09:22] LABS: ALT/SGPT 23 U/L (12-78); AST/SGOT 13 U/L (15-37); Albumin 2.6 g/dL (3.4-5.0); Alkaline Phosphatase 73 U/L (45-117); Bilirubin Direct < 0.1 mg/dL (0-0.2); Bilirubin Total 0.5 mg/dL (0.2-1.0); Protein, Total 7.1 g/dL (6.4-8.2)
[2020-04-08] MEDS ORDERED: Remdesivir 200 MG in NA CHLORIDE 0.9% 250 ML IV ONE (10:00)
--- NOTE | 2020-04-08 12:52 | PN ---
Subjective: The patient is still short of breath, requiring BiPAP with increased oxygen concentration. No other complaint. Objective: Vital Signs: Blood pressure 127/84, pulse 76, temperature 98.1, home O2 saturation on 75% O2, BiPAP at 95. Heart: Regular rate and rhythm. Chest: Mild bilateral crackles. Abdomen: Soft, benign. Bowel sounds are active. Extremities: No edema. No cyanosis. Peripheral pulses are felt. Neurological: Alert, oriented. Grossly intact. Laboratory Data: White cell count 14.7, neutrophils 89.8. Blood sugar fingersticks now in the 200s, gradually dropping down. Chest x-ray showed slight worsening of radiation in both lung alonzo. Blood cultures negative to date. Assessment And Plan: 1. COVID-19 pneumonia with hypoxemia and acute respiratory failure. The patient in general slightly worse, but hemodynamically stable. Remdesivir has been added. We will continue the rest of current treatment and supportive care. 2. Type 2 diabetes mellitus. I have increased his Lantus to35 units twice a day. I think we are going to increase it again to 30 units twice a day and keep him on the aggressive sliding scale. 3. The rest of his medical problems stable. Continue current treatment. Look orders for details. MFS/MODL Voice ID: [id number] Report ID: [id number] MTDFrancisco
[2020-04-08] MEDS: ATORVASTATIN 20 MG TAB PO SCH (21:19)
[2020-04-08] MEDS: APIXABAN 5 MG TABLET PO SCH (21:19)
[2020-04-09 06:01] LABS: Absolute Lymphocytes (CBC) 0.7 K/uL (0.7-4.9); Basophils % 0.3 % (0-1.3); Hematocrit 42.9 % (39.6-49.0); Lymphocytes % 5.5 % (15.3-44.8); MPV 9.6 fL (7.6-11.3); RBC Red Blood Cell Count 4.57 M/uL (4.33-5.43)
[2020-04-09 06:13] LABS: ALT/SGPT 23 U/L (12-78); AST/SGOT 14 U/L (15-37); Albumin 2.4 g/dL (3.4-5.0); Alkaline Phosphatase 72 U/L (45-117); BUN Blood Urea Nitrogen 27 mg/dL (7-18); Bicarbonate 28 mmol/L (21-32); Bilirubin Direct < 0.1 mg/dL (0-0.2); Bilirubin Total 0.4 mg/dL (0.2-1.0); Glucose Level 283 mg/dL (74-106); Potassium 4.3 mmol/L (3.5-5.1); Protein, Total 6.7 g/dL (6.4-8.2); Sodium Level 139 mmol/L (136-145)
[2020-04-09 06:23] LABS: Ferritin 622.8 ng/mL (26-388)
[2020-04-09] MEDS: ASCORBIC ACID 500 MG TABLET PO SCH ×3 (07:42→22:22)
[2020-04-09] MEDS: ZINC SULFATE 220 MG CAP PO SCH (07:42)
[2020-04-09] MEDS: APIXABAN 5 MG TABLET PO SCH ×2 (07:42→22:22)
[2020-04-09] MEDS: LOSARTAN POTASSIUM 50 MG TABLET PO SCH (07:42)
[2020-04-09] MEDS: METHYLPREDNISOLONE 125 MG INJ IV SCH ×3 (07:43→22:22)
[2020-04-09] MEDS: VITAMIN D 1000 UNIT TAB PO SCH (07:43)
[2020-04-09] MEDS: FUROSEMIDE 20 MG/ 2ML VIAL IV SCH (07:43)
[2020-04-09] MEDS: FAMOTIDINE 20 MG/2 ML VIAL IV SCH ×2 (07:43→22:22)
[2020-04-09] MEDS: SITAGLIPTIN PHOS 100 MG TAB PO SCH (07:43)
[2020-04-09] MEDS: METFORMIN ER 500 MG TAB PO SCH ×2 (07:44→16:03)
[2020-04-09] MEDS: Remdesivir 100 MG in NA CHLORIDE 0.9% 250 ML IV SCH (08:00)
[2020-04-09] MEDS: INSULIN -REGULAR HUMAN 50 UNIT/0.5 ML ML SQ SCH ×4 (08:21→21:00)
[2020-04-09] MEDS: INSULIN GLARGINE 100 UNITS/ML SQ SCH ×2 (08:22→21:00)
--- NOTE | 2020-04-09 12:14 | P.PN ---
Subjective Date of Service: 04/09/20 Chief Complaint: Respiratory failure No change in patient's condition still requiring high concentrations of oxygen does not feeling any better although CRP is declined Review of Systems General: Weakness Respiratory: Shortness of Breath Physical Examination - Vital Signs Temperature: 97.6 F Blood Pressure: 124/78 Pulse: 70 Respirations: 29 Pulse Ox (%): 91 Assessment & Plan - Problems (Diagnosis) (1) Pneumonia due to COVID-19 virus Current Visit: Yes Status: Acute Plan: Respiratory failure of increases Solu-Medrol currently on FiO2 of 65% (2) Uncontrolled diabetes mellitus Current Visit: Yes Status: Acute Plan: Insulin dose increase Qualifiers: Diabetes mellitus type: type 2
--- NOTE | 2020-04-09 13:20 | PN ---
Subjective: The patient is still short of breath and requiring BiPAP. Objective: Vital Signs: Blood pressure is 124/78, pulse 70, temperature 97.6. Heart: Regular rate and rhythm. Chest: Mild bilateral crackles. Abdomen: Soft, benign. Neurological: Alert, oriented. Grossly intact. Extremities: No edema. No cyanosis. Laboratory Data: Microbiology for blood cultures, no growth to date. White cell count down to 13,00 0. Chemistry; BUN 27, creatinine 1.07, blood sugar fingersticks in the upper 200s. Assessment And Plan: 1.COVID-19 pneumonia. The patient has been given remdesivir and Dr. Livingston has increased his Solu -Medrol to 120 IV b.i.d. With that in mind his blood sugar fingersticks are in the 200s, the dose of Lantus has been increased to 50 units b.i.d. 2.Respiratory failure and hypoxia secondary to pneumonia of COVID. We will continue oxygen support with CPAP/BiPAP. Look orders for details. MFS/MODL Voice ID: [id number] Report ID: [id number]
[2020-04-09] MEDS: ONDANSETRON 4 MG/2 ML VIAL IV PRN (20:25)
[2020-04-09 22:22] LABS: Arterial Blood Carboxyhemoglob 0.8 % (0-1.5); Blood Gas Oxyhemoglobin 86.8 % (94-97); Blood O2 Saturation 88.5 % (92-98.5)
[2020-04-09] MEDS: ATORVASTATIN 20 MG TAB PO SCH (22:22)
[2020-04-09] MEDS: PROMETH/COD 6.25/10MG SYRUP 5ML PO PRN (22:22)
[2020-04-09] MEDS ORDERED: PROMETHAZINE INJ 25 MG/ML AMP IV PRN (22:30)
[2020-04-10 05:57] LABS: ALT/SGPT 30 U/L (12-78); AST/SGOT 23 U/L (15-37); Albumin 2.4 g/dL (3.4-5.0); Alkaline Phosphatase 67 U/L (45-117); BUN Blood Urea Nitrogen 25 mg/dL (7-18); Bicarbonate 28 mmol/L (21-32); Bilirubin Direct < 0.1 mg/dL (0-0.2); Bilirubin Total 0.5 mg/dL (0.2-1.0); Ferritin 757.7 ng/mL (26-388); Glucose Level 158 mg/dL (74-106); Protein, Total 6.7 g/dL (6.4-8.2); Sodium Level 143 mmol/L (136-145)
[2020-04-10] MEDS: SITAGLIPTIN PHOS 100 MG TAB PO SCH (08:11)
[2020-04-10] MEDS: ASCORBIC ACID 500 MG TABLET PO SCH ×3 (08:12→20:18)
[2020-04-10] MEDS: VITAMIN D 1000 UNIT TAB PO SCH (08:12)
[2020-04-10] MEDS: ZINC SULFATE 220 MG CAP PO SCH (08:12)
[2020-04-10] MEDS: ONDANSETRON 4 MG/2 ML VIAL IV PRN (08:12)
[2020-04-10] MEDS: LOSARTAN POTASSIUM 50 MG TABLET PO SCH (08:12)
[2020-04-10] MEDS: APIXABAN 5 MG TABLET PO SCH ×2 (08:12→20:18)
[2020-04-10] MEDS: FUROSEMIDE 20 MG/ 2ML VIAL IV SCH (08:12)
[2020-04-10] MEDS: METFORMIN ER 500 MG TAB PO SCH ×2 (08:13→17:05)
[2020-04-10] MEDS: INSULIN GLARGINE 100 UNITS/ML SQ SCH ×2 (08:13→20:19)
[2020-04-10] MEDS: FAMOTIDINE 20 MG/2 ML VIAL IV SCH ×2 (08:13→20:18)
[2020-04-10] MEDS: METHYLPREDNISOLONE 125 MG INJ IV SCH ×3 (08:13→20:18)
[2020-04-10] MEDS: INSULIN -REGULAR HUMAN 50 UNIT/0.5 ML ML SQ SCH ×4 (08:14→20:19)
[2020-04-10] MEDS: Remdesivir 100 MG in NA CHLORIDE 0.9% 250 ML IV SCH (09:48)
--- NOTE | 2020-04-10 10:20 | RAD REPORT ---
EXAM DESCRIPTION: RAD - Chest Single View - 04/09/2020 10:10 pm CLINICAL HISTORY: 4 years Male, SOB Comparison: Chest radiograph dated April 08, 2020 FINDINGS: Unchanged bilateral interstitial opacities. No pleural effusion. No pneumothorax. Cardiomediastinal silhouette is unchanged. No acute osseous abnormality. IMPRESSION: Positive for pulmonary opacities. Differential diagnosis includes viral infections. 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 The interpreting r adiologist is fully responsible for the content of the report.
--- NOTE | 2020-04-10 11:50 | PN ---
Subjective: The patient has no new complaints. Still short of breath. No significant change. Objective: Blood pressure 116/74, pulse 74, temperature 97.3, respiratory rate at 30. His physical examination basically no change with lungs showing mild bilateral crackles. O2 saturation at high-fl ow oxygen was 92%. Laboratory Data: Blood sugar, fingersticks, much better control, less than 200, more than 90. Chest x-ray showed no significant change in bilateral pulmonary opacities. Assessment And Plan: 1.Acute respiratory failure due to COVID-19 pneumonia. Continue oxygen supplement and supportive ca re and current treatment that include vitamin D3 and steroids and remdesivir and prophylaxis with María Elena jose d. 2.Type 2 diabetes, better control on current Lantus regimen and sliding scale with regular insulin. 3.Rest of his medical problems clinically stable. MFS/MODL Voice ID: [id number] Report ID: [id number]
--- NOTE | 2020-04-10 11:59 | P.PN ---
Subjective Date of Service: 04/10/20 Chief Complaint: Respiratory failure Patient had an episode of vomiting last night has now improved to may be induced by excessively high pressures he is feeling better today Review of Systems Respiratory: Shortness of Breath Physical Examination - Vital Signs Temperature: 97.3 F Blood Pressure: 116/74 Pulse: 74 Respirations: 30 Pulse Ox (%): 92 Assessment & Plan - Problems (Diagnosis) (1) Pneumonia due to COVID-19 virus Current Visit: Yes Status: Acute Plan: Patient admitted with respiratory failure from smith virus this condition still requiring high doses of oxygen repeat chest x-ray did not show any evidence of pneumothorax does have pulmonary opacity (2) Uncontrolled diabetes mellitus Current Visit: Yes Status: Acute Plan: Insulin dose increase Qualifiers: Diabetes mellitus type: type 2
[2020-04-10] MEDS: FLUCONAZOLE 100 MG TAB PO SCH (12:37)
[2020-04-10] MEDS: ATORVASTATIN 20 MG TAB PO SCH (20:19)
[2020-04-11 05:13] LABS: Basophils % 0.9 % (0-1.3); Hematocrit 42.3 % (39.6-49.0); Lymphocytes % 5.8 % (15.3-44.8); MPV 8.6 fL (7.6-11.3); RBC Red Blood Cell Count 4.59 M/uL (4.33-5.43)
[2020-04-11 05:41] LABS: ALT/SGPT 26 U/L (12-78); AST/SGOT 17 U/L (15-37); Albumin 2.2 g/dL (3.4-5.0); Alkaline Phosphatase 60 U/L (45-117); BUN Blood Urea Nitrogen 27 mg/dL (7-18); Bicarbonate 30 mmol/L (21-32); Bilirubin Direct < 0.1 mg/dL (0-0.2); Bilirubin Total 0.4 mg/dL (0.2-1.0); Ferritin 788.9 ng/mL (26-388); Glucose Level 183 mg/dL (74-106); Potassium 4.3 mmol/L (3.5-5.1); Protein, Total 6.4 g/dL (6.4-8.2); Sodium Level 139 mmol/L (136-145)
[2020-04-11] MEDS: INSULIN -REGULAR HUMAN 50 UNIT/0.5 ML ML SQ SCH ×4 (07:30→20:28)
[2020-04-11] MEDS: METHYLPREDNISOLONE 125 MG INJ IV SCH ×3 (08:48→20:29)
[2020-04-11] MEDS: FUROSEMIDE 20 MG/ 2ML VIAL IV SCH (08:48)
[2020-04-11] MEDS: Remdesivir 100 MG in NA CHLORIDE 0.9% 250 ML IV SCH (08:48)
[2020-04-11] MEDS: FLUCONAZOLE 100 MG TAB PO SCH (08:49)
[2020-04-11] MEDS: APIXABAN 5 MG TABLET PO SCH ×2 (08:49→20:23)
[2020-04-11] MEDS: METFORMIN ER 500 MG TAB PO SCH ×2 (08:49→17:39)
[2020-04-11] MEDS: FAMOTIDINE 20 MG/2 ML VIAL IV SCH (08:49)
[2020-04-11] MEDS: ASCORBIC ACID 500 MG TABLET PO SCH ×3 (08:50→20:29)
[2020-04-11] MEDS: INSULIN GLARGINE 100 UNITS/ML SQ SCH ×2 (08:50→20:24)
[2020-04-11] MEDS: LOSARTAN POTASSIUM 50 MG TABLET PO SCH (08:50)
[2020-04-11] MEDS: SITAGLIPTIN PHOS 100 MG TAB PO SCH (08:52)
[2020-04-11] MEDS: ZINC SULFATE 220 MG CAP PO SCH (09:34)
[2020-04-11] MEDS: VITAMIN D 1000 UNIT TAB PO SCH (09:34)
--- NOTE | 2020-04-11 13:04 | P.PN ---
Subjective Date of Service: 04/11/20 Chief Complaint: Respiratory failure Patient is feeling better shortness of breath has improved Review of Systems General: Weakness Respiratory: Shortness of Breath Physical Examination - Vital Signs Temperature: 98.0 F Blood Pressure: 130/84 Pulse: 66 Respirations: 26 Pulse Ox (%): 94 - Physical Exam General: Alert, Mild distress Assessment & Plan - Problems (Diagnosis) (1) Pneumonia due to COVID-19 virus Current Visit: Yes Status: Acute Plan: Respiratory failure is improving oxygen requirements declining was able to sleep in prone position with high E oxygen saturation blood sugars less than 200 patient is high risk for opportunity infections I have added levofloxacin daily CRP daily chest x-ray patient is on maximum therapy of also added spironolactone to maintain slight negative fluid balance patient is not down to 50% oxygen (2) Uncontrolled diabetes mellitus Current Visit: Yes Status: Acute Plan: Insulin dose increase Qualifiers: Diabetes mellitus type: type 2
[2020-04-11] MEDS: SPIRONOLACTONE 25 MG TABLET PO SCH (13:16)
[2020-04-11] MEDS: levoFLOXacin 500 MG TAB PO SCH (13:16)
[2020-04-11] MEDS: LORAZEPAM 1 MG TABLET PO PRN ×2 (14:40→20:39)
--- NOTE | 2020-04-11 18:22 | PN ---
Subjective: The patient feels better today with less shortness of breath. Objective: Vital Signs: He has blood pressure of 130/84, pulse 66, temperature 98. Heart: Regular rate and rhythm. Chest: Mild bilateral crackles. Abdomen: Soft, benign. Bowel sounds are active. Extremities: No edema or cyanosis. Peripheral pulses are felt. Neurological: Alert, oriented, nonfocal. Grossly intact. Laboratory Data: Blood sugar, fingersticks 1 had been noted in the lower 200s to 180s. The patient is requesting CPAP and BiPAP, but has been tapered down from 100% O2 to 65% and he is saturating 94%. White cell count 16.7. The rest of his CBC is noted. Chemistry; BUN 27, creatinine 0.99, glucose 79. Blood cultures negative to date. ABGs yesterday noted; pH of 7.44, pCO2 of 42.5, pO2 of 52.8, a nd saturation yesterday. This has improved today. Assessment And Plan: The patient is doing much better today. We will continue current support and t reatment that he needed before. Expect him to be out of the ICU in 1-2 days. MFS/MODL Voice ID: [id number] Report ID: [id number]
[2020-04-11] MEDS: ATORVASTATIN 20 MG TAB PO SCH (20:25)
[2020-04-11] MEDS: FAMOTIDINE 20 MG TAB PO SCH (20:29)
[2020-04-12 05:32] LABS: Bilirubin Direct 0.1 mg/dL (0-0.2); Bilirubin Total 0.4 mg/dL (0.2-1.0); C-Reactive Protein 39.7 mg/L (<3.00); Protein, Total 6.2 g/dL (6.4-8.2)
--- NOTE | 2020-04-12 07:24 | RAD REPORT ---
[facility] CLINICAL HISTORY: Respiratory failure COMPARISON: April 09 FINDINGS: Left pulmonary opacities have worsened. Left atelectasis is suspected. Moderate right pulmonary opacities without significant change. Heart remains enlarged IMPRESSION: Worsening in left and no significant change in right pulmonary opacities likely pneumon ia. Left lower lobe atelectasis likely
[2020-04-12] MEDS: INSULIN -REGULAR HUMAN 50 UNIT/0.5 ML ML SQ SCH ×4 (07:30→21:26)
[2020-04-12] MEDS: LORAZEPAM 1 MG TABLET PO PRN (09:15)
[2020-04-12] MEDS: SITAGLIPTIN PHOS 100 MG TAB PO SCH (09:16)
[2020-04-12] MEDS: ASCORBIC ACID 500 MG TABLET PO SCH ×3 (09:16→21:25)
[2020-04-12] MEDS: FAMOTIDINE 20 MG TAB PO SCH ×2 (09:16→21:25)
[2020-04-12] MEDS: VITAMIN D 1000 UNIT TAB PO SCH (09:16)
[2020-04-12] MEDS: ZINC SULFATE 220 MG CAP PO SCH (09:16)
[2020-04-12] MEDS: FUROSEMIDE 20 MG/ 2ML VIAL IV SCH (09:17)
[2020-04-12] MEDS: METHYLPREDNISOLONE 125 MG INJ IV SCH (09:17)
[2020-04-12] MEDS: SPIRONOLACTONE 25 MG TABLET PO SCH (09:18)
[2020-04-12] MEDS: LOSARTAN POTASSIUM 50 MG TABLET PO SCH (09:18)
[2020-04-12] MEDS: METFORMIN ER 500 MG TAB PO SCH ×2 (09:19→16:31)
[2020-04-12] MEDS: INSULIN GLARGINE 100 UNITS/ML SQ SCH ×2 (09:19→21:27)
[2020-04-12] MEDS: FLUCONAZOLE 100 MG TAB PO SCH (09:19)
[2020-04-12] MEDS: APIXABAN 5 MG TABLET PO SCH ×2 (09:20→21:25)
[2020-04-12] MEDS: Remdesivir 100 MG in NA CHLORIDE 0.9% 250 ML IV SCH (09:24)
--- NOTE | 2020-04-12 11:17 | P.PN ---
Subjective Date of Service: 04/12/20 Chief Complaint: Respiratory failure Patient is feeling better shortness of breath has improved he is feeling better still requiring BiPAP Physical Examination - Vital Signs Temperature: 97.8 F Blood Pressure: 110/51 Pulse: 67 Respirations: 23 Pulse Ox (%): 89 Assessment & Plan - Problems (Diagnosis) (1) Pneumonia due to COVID-19 virus Current Visit: Yes Status: Acute Plan: Respiratory failure is improving oxygen requirements declining was able to sleep in prone position with high E oxygen saturation blood sugars less than 200 patient is high risk for opportunity infections I have added levofloxacin daily CRP daily chest x-ray patient is on maximum therapy of also added spironolactone to maintain slight negative fluid balance patient is not down to 50% oxygen CRP is declined significantly blood sugars less than 200 patient is still has significant interstitial changes x-rays rotated reduce Solu-Medrol (2) Uncontrolled diabetes mellitus Current Visit: Yes Status: Acute Plan: I blood sugar less than 200 reduce dose of Solu-Medrol Qualifiers: Diabetes mellitus type: type 2
[2020-04-12] MEDS: levoFLOXacin 500 MG TAB PO SCH (12:36)
[2020-04-12] MEDS: METHYLPREDNISOLONE 40 MG INJ IV SCH ×2 (16:30→21:25)
--- NOTE | 2020-04-12 19:38 | PN ---
Subjective: The patient is feeling better. He has less shortness of breath. Objective: Vital Signs: Blood pressure 124/54, pulse 90, temperature 98.2. Heart: Regular rate and rhythm. Chest: Mild bilateral crackles. Abdomen: Soft, benign. Neurological: Alert, oriented, and intact. Extremities: No edema. No cyanosis. The patient is still on CPAP. BiPAP down to 50%, saturation a round 88 to 90. Assessment And Plan: Acute respiratory failure with hypoxemia secondary to COVID-19 virus pneumonia, gradually improving. The patient's chest x-ray showed left opacification is slightly worse than bef ore with left lower lobe atelectasis. Dr. Livingston added also levofloxacin antibiotic for that. Michaela liangle, continue current supportive care and current regimen treatment for COVID-19. The patient is gradually improving as mentioned. Look orders for details. The patient's blood sugar fingersticks b elow 200. Better controlled on his diabetes. His hypertension is also controlled. MFS/MODL Voice ID: [id number] Report ID: [id number]
[2020-04-12] MEDS: ATORVASTATIN 20 MG TAB PO SCH (21:25)
[2020-04-13 05:05] LABS: Absolute Lymphocytes (CBC) 0.7 K/uL (0.7-4.9); Basophils % 0.2 % (0-1.3); Hematocrit 45.6 % (39.6-49.0); Lymphocytes % 4.4 % (15.3-44.8); MPV 9.3 fL (7.6-11.3)
[2020-04-13 05:52] LABS: BUN Blood Urea Nitrogen 27 mg/dL (7-18); Bicarbonate 27 mmol/L (21-32); Glucose Level 99 mg/dL (74-106); Potassium 4.1 mmol/L (3.5-5.1); Sodium Level 139 mmol/L (136-145)
[2020-04-13] MEDS: INSULIN -REGULAR HUMAN 50 UNIT/0.5 ML ML SQ SCH ×4 (07:30→20:52)
[2020-04-13] MEDS: INSULIN GLARGINE 100 UNITS/ML SQ SCH ×2 (09:00→20:53)
[2020-04-13] MEDS: FUROSEMIDE 20 MG/ 2ML VIAL IV SCH (09:00)
[2020-04-13] MEDS: SITAGLIPTIN PHOS 100 MG TAB PO SCH (09:21)
[2020-04-13] MEDS: LOSARTAN POTASSIUM 50 MG TABLET PO SCH (09:21)
[2020-04-13] MEDS: SPIRONOLACTONE 25 MG TABLET PO SCH (09:22)
[2020-04-13] MEDS: FLUCONAZOLE 100 MG TAB PO SCH (09:23)
[2020-04-13] MEDS: METHYLPREDNISOLONE 40 MG INJ IV SCH ×3 (09:23→20:53)
[2020-04-13] MEDS: ZINC SULFATE 220 MG CAP PO SCH (09:24)
[2020-04-13] MEDS: ASCORBIC ACID 500 MG TABLET PO SCH ×3 (09:24→20:55)
[2020-04-13] MEDS: FAMOTIDINE 20 MG TAB PO SCH ×2 (09:24→20:53)
[2020-04-13] MEDS: VITAMIN D 1000 UNIT TAB PO SCH (09:25)
[2020-04-13] MEDS: levoFLOXacin 500 MG TAB PO SCH (09:26)
[2020-04-13] MEDS: APIXABAN 5 MG TABLET PO SCH ×2 (09:26→20:53)
[2020-04-13] MEDS: METFORMIN ER 500 MG TAB PO SCH ×2 (09:27→17:42)
[2020-04-13] MEDS: LORAZEPAM 1 MG TABLET PO PRN ×2 (09:27→16:12)
--- NOTE | 2020-04-13 11:30 | P.PN ---
Subjective Date of Service: 04/13/20 Chief Complaint: Respiratory failure Addition stable no no change significant desat off BiPAP clinically improved Review of Systems General: Weakness Respiratory: Shortness of Breath Physical Examination - Vital Signs Temperature: 97.2 F Blood Pressure: 117/55 Pulse: 97 Respirations: 27 Pulse Ox (%): 90 - Physical Exam General: Alert, Oriented x3, Cooperative Assessment & Plan - Problems (Diagnosis) (1) Pneumonia due to COVID-19 virus Current Visit: Yes Status: Acute Plan: Patient is improving CRP is now less than 50 Solu-Medrol dose reduce continued titrate the O2 losartan does reduce (2) Uncontrolled diabetes mellitus Current Visit: Yes Status: Acute Plan: I blood sugars controlled reduce dose of insulin Qualifiers: Diabetes mellitus type: type 2
[2020-04-13] MEDS: ASPIRIN EC 81 MG TAB PO SCH (15:44)
--- NOTE | 2020-04-13 20:16 | PN ---
Subjective: The patient is feeling much better today. Objective: Vital Signs: Blood pressure 120/70, pulse 90, temperature 97.7, pulse oximetry on CPAP/B iPAP titrated down to 91. Rest of physical examination, no change. Laboratory Data: Chemistry noted BUN 27, creatinine 0.84, blood sugar fingersticks less than 200, mu ch better control. White cell count 16.1. The rest of his labs noted. Assessment And Plan: 1.COVID-19 pneumonia with hypoxia, acute respiratory failure. The patient is improving, needing res t oxygen, and his symptoms are better. We will continue current treatment and supportive care. 2.Leukocytosis, also likely secondary to steroids. Solu-Medrol dose has been reduced. 3.High blood pressure. He is hemodynamically stable. Look orders. 4.Type 2 diabetes, much better controlled. Continue current treatment regimen. We may have to redu ce his insulin dosage. Look orders for details. MFS/MODL Voice ID: [id number] Report ID: [id number]
[2020-04-13] MEDS: ATORVASTATIN 20 MG TAB PO SCH (20:53)
[2020-04-14 06:56] LABS: C-Reactive Protein 20.8 mg/L (<3.00); Ferritin 687.2 ng/mL (26-388)
[2020-04-14] MEDS: INSULIN -REGULAR HUMAN 50 UNIT/0.5 ML ML SQ SCH ×4 (07:30→20:52)
--- NOTE | 2020-04-14 08:41 | RAD REPORT ---
EXAM DESCRIPTION: RAD - Chest Single View - 04/14/2020 6:43 am CLINICAL HISTORY: Pneumonia COMPARISON: April 12 TECHNIQUE: AP portable chest image was obtained 04/14/2020 6:43 am . FINDINGS: Partial clearing of bilateral pneumonia since April 12. Gross estimate of 50% improveme nt. Heart and vasculature are normal. No measurable pleural effusion and no pneumothorax. No acute bess ny abnormality seen. No acute aortic findings suspected. IMPRESSION: Partial clearing of bilateral pneumonia since April 12 study. Significant infiltrat e remains.
[2020-04-14] MEDS: INSULIN GLARGINE 100 UNITS/ML SQ SCH ×2 (09:00→20:52)
[2020-04-14] MEDS: FLUCONAZOLE 100 MG TAB PO SCH (09:02)
[2020-04-14] MEDS: ZINC SULFATE 220 MG CAP PO SCH (09:02)
[2020-04-14] MEDS: levoFLOXacin 500 MG TAB PO SCH (09:02)
[2020-04-14] MEDS: METFORMIN ER 500 MG TAB PO SCH ×2 (09:02→17:25)
[2020-04-14] MEDS: APIXABAN 5 MG TABLET PO SCH ×2 (09:03→20:53)
[2020-04-14] MEDS: LOSARTAN POTASSIUM 50 MG TABLET PO SCH (09:03)
[2020-04-14] MEDS: LORAZEPAM 1 MG TABLET PO PRN (09:03)
[2020-04-14] MEDS: SITAGLIPTIN PHOS 100 MG TAB PO SCH (09:03)
[2020-04-14] MEDS: ASPIRIN EC 81 MG TAB PO SCH (09:03)
[2020-04-14] MEDS: FAMOTIDINE 20 MG TAB PO SCH ×2 (09:03→20:53)
[2020-04-14] MEDS: SPIRONOLACTONE 25 MG TABLET PO SCH (09:03)
[2020-04-14] MEDS: VITAMIN D 1000 UNIT TAB PO SCH (09:03)
[2020-04-14] MEDS: FUROSEMIDE 20 MG/ 2ML VIAL IV SCH (09:05)
[2020-04-14] MEDS: METHYLPREDNISOLONE 40 MG INJ IV SCH ×3 (12:31→20:53)
[2020-04-14] MEDS: ASCORBIC ACID 500 MG TABLET PO SCH ×3 (12:31→20:53)
--- NOTE | 2020-04-14 17:37 | PN ---
Subjective: The patient is feeling much better today. Objective: Vital Signs: Blood pressure 110/79, pulse 79, temperature 97.6. Heart: Regular rate and rhythm. Chest: Decreased bilateral crackles. Abdomen: Soft, benign. Neurological: Alert, oriented, and intact. Extremities: No edema. No cyanosis. Blood sugar fingersticks between 100 and 200. Pulse oximetry 90% on CPAP and BiPAP . Ches t x-ray, decreased bilateral opacities, improved from before. Assessment And Plan: The patient continues to improve. We will continue supportive care. Expect to get him out of the ICU in 1-2 days. MFS/MODL Voice ID: [id number] Report ID: [id number]
[2020-04-14] MEDS: ATORVASTATIN 20 MG TAB PO SCH (20:53)
[2020-04-15 05:30] LABS: C-Reactive Protein 26.9 mg/L (<3.00); Ferritin 629.9 ng/mL (26-388); Magnesium 2.1 mg/dL (1.8-2.4); Phosphorus 4.4 mg/dL (2.5-4.9); Potassium 4.6 mmol/L (3.5-5.1)
[2020-04-15] MEDS: INSULIN -REGULAR HUMAN 50 UNIT/0.5 ML ML SQ SCH ×4 (07:30→20:31)
[2020-04-15] MEDS: METFORMIN ER 500 MG TAB PO SCH ×2 (09:51→17:14)
[2020-04-15] MEDS: ASCORBIC ACID 500 MG TABLET PO SCH ×3 (09:51→20:33)
[2020-04-15] MEDS: SITAGLIPTIN PHOS 100 MG TAB PO SCH (09:51)
[2020-04-15] MEDS: SPIRONOLACTONE 25 MG TABLET PO SCH (09:51)
[2020-04-15] MEDS: METHYLPREDNISOLONE 40 MG INJ IV SCH ×2 (09:51→20:33)
[2020-04-15] MEDS: levoFLOXacin 500 MG TAB PO SCH (09:52)
[2020-04-15] MEDS: LOSARTAN POTASSIUM 50 MG TABLET PO SCH (09:52)
[2020-04-15] MEDS: ASPIRIN EC 81 MG TAB PO SCH (09:52)
[2020-04-15] MEDS: ZINC SULFATE 220 MG CAP PO SCH (09:52)
[2020-04-15] MEDS: FAMOTIDINE 20 MG TAB PO SCH ×2 (09:52→20:32)
[2020-04-15] MEDS: FLUCONAZOLE 100 MG TAB PO SCH (09:52)
[2020-04-15] MEDS: APIXABAN 5 MG TABLET PO SCH ×2 (09:52→20:33)
[2020-04-15] MEDS: FUROSEMIDE 20 MG/ 2ML VIAL IV SCH (09:53)
[2020-04-15] MEDS: VITAMIN D 1000 UNIT TAB PO SCH (09:53)
[2020-04-15] MEDS: INSULIN GLARGINE 100 UNITS/ML SQ SCH ×2 (09:53→20:32)
--- NOTE | 2020-04-15 11:56 | P.PN ---
Subjective Date of Service: 04/15/20 Chief Complaint: Respiratory failure Patient is subjectively feeling better although still requiring high concentrations of oxygen no other change Review of Systems General: Weakness Respiratory: Shortness of Breath Physical Examination - Vital Signs Temperature: 98 F Blood Pressure: 104/83 Pulse: 94 Respirations: 34 Pulse Ox (%): 87 Assessment & Plan - Problems (Diagnosis) (1) Pneumonia due to COVID-19 virus Current Visit: Yes Status: Acute Plan: Respiratory failure continue to wean down on the oxygen still requiring BiPAP labs reviewed CRP is not pleasant 30 diabetes better control reduce dose of Solu-Medrol Dc IV Lasix labs reviewed white count is mildly elevated (2) Uncontrolled diabetes mellitus Current Visit: Yes Status: Acute Plan: I blood sugars controlled reduce dose of insulin Qualifiers: Diabetes mellitus type: type 2
[2020-04-15] MEDS: ACETAMINOPHEN 500 MG TAB PO PRN (15:41)
[2020-04-15] MEDS: ATORVASTATIN 20 MG TAB PO SCH (20:32)
[2020-04-15] MEDS: LORAZEPAM 1 MG TABLET PO PRN (22:00)
[2020-04-16] MEDS: ACETAMINOPHEN 500 MG TAB PO PRN ×3 (03:06→21:27)
--- NOTE | 2020-04-16 08:42 | RAD REPORT ---
EXAM DESCRIPTION: RAD - Chest Single View - 04/16/2020 8:30 am CLINICAL HISTORY: pneumonia, COVID COMPARISON: April 14 TECHNIQUE: AP portable chest image was obtained 04/16/2020 8:30 am . FINDINGS: Bilateral airspace opacification is present not substantially different when adjusting for the current under penetrated technique and more shallow inspiratory effort. Cardiomediastinal silhou ette also stable. No measurable pleural effusion and no pneumothorax. No acute bony abnormality seen. No acute aortic findings suspected. IMPRESSION: Stable bilateral pneumonia pattern.
[2020-04-16] MEDS: INSULIN GLARGINE 100 UNITS/ML SQ SCH ×2 (09:00→21:25)
[2020-04-16] MEDS: ASPIRIN EC 81 MG TAB PO SCH (09:57)
[2020-04-16] MEDS: METHYLPREDNISOLONE 40 MG INJ IV SCH ×2 (09:57→21:26)
[2020-04-16] MEDS: FAMOTIDINE 20 MG TAB PO SCH ×2 (09:57→21:26)
[2020-04-16] MEDS: SITAGLIPTIN PHOS 100 MG TAB PO SCH (09:57)
[2020-04-16] MEDS: VITAMIN D 1000 UNIT TAB PO SCH (09:58)
[2020-04-16] MEDS: APIXABAN 5 MG TABLET PO SCH ×2 (09:58→21:24)
[2020-04-16] MEDS: SPIRONOLACTONE 25 MG TABLET PO SCH (09:58)
[2020-04-16] MEDS: ZINC SULFATE 220 MG CAP PO SCH (09:58)
[2020-04-16] MEDS: FLUCONAZOLE 100 MG TAB PO SCH (10:01)
[2020-04-16] MEDS: LOSARTAN POTASSIUM 50 MG TABLET PO SCH (10:01)
[2020-04-16] MEDS: INSULIN -REGULAR HUMAN 50 UNIT/0.5 ML ML SQ SCH ×4 (10:02→21:26)
[2020-04-16] MEDS: ASCORBIC ACID 500 MG TABLET PO SCH ×3 (10:02→21:27)
[2020-04-16] MEDS: METFORMIN ER 500 MG TAB PO SCH ×2 (10:04→17:52)
[2020-04-16 10:57] LABS: Arterial Blood Carboxyhemoglob 0.8 % (0-1.5); Blood O2 Saturation 85.6 % (92-98.5)
--- NOTE | 2020-04-16 12:25 | P.PN ---
Subjective Date of Service: 04/16/20 Chief Complaint: Respiratory failure no change in patient's condition still requiring very high concentrations of oxygen BiPAP was adjusted chest x-ray bilateral changes no change Review of Systems Respiratory: Shortness of Breath Physical Examination - Vital Signs Temperature: 97.6 F Blood Pressure: 128/91 Pulse: 83 Respirations: 29 Pulse Ox (%): 87 - Physical Exam General: Alert, Oriented x3, Moderate distress Respiratory: Clear to auscultation bilaterally Assessment & Plan - Problems (Diagnosis) (1) Pneumonia due to COVID-19 virus Current Visit: Yes Status: Acute Plan: respiratory failure requiring very high concentrations of oxygen CRP is 26 ferritin level is mildly elevated continue with Solu-Medrol blood pressure controlled (2) Uncontrolled diabetes mellitus Current Visit: Yes Status: Acute Plan: I blood sugars controlled reduce dose of insulin Qualifiers: Diabetes mellitus type: type 2
--- NOTE | 2020-04-16 13:28 | PN ---
Subjective: No new complaints. Still short of breath. Objective: Vital signs: Blood pressure 130/90, pulse 84, temperature 97.6. The patient's pulse oxi metry on BiPAP, CPAP lingering between 87 to 91. Rest of his physical exam is no change. Diagnostic Data: Chest x-ray, stable, bilateral infiltrates. Blood sugar fingersticks noted ___. Assessment And Plan: 1.COVID-19 pneumonia with hypoxia and acute respiratory failure. Clinically stable. However, the p atient is still needing more supportive care with BiPAP, CPAP, oxygen, and the current treatment is d elineated in his orders. 2.Type 2 diabetes, better controlled. Continue current treatment. Look orders for details. MFS/MODL Voice ID: [id number] Report ID: [id number]
[2020-04-16] MEDS: ATORVASTATIN 20 MG TAB PO SCH (21:25)
[2020-04-17] MEDS ORDERED: propofoL 1,000 MG/100 ML VIAL IV ONE ×2 (07:51→09:19)
[2020-04-17] MEDS ORDERED: NA CHLORIDE 0.9% 1,000 ML ONE (07:51)
[2020-04-17] MEDS: METFORMIN ER 500 MG TAB PO SCH ×2 (08:00→16:58)
[2020-04-17] MEDS ORDERED: RSI MEDICATION KIT IV ONE (08:30)
--- NOTE | 2020-04-17 08:39 | RAD REPORT ---
EXAM DESCRIPTION: RAD - Chest Single View - 04/17/2020 5:28 am CLINICAL HISTORY: pneumonia Chest pain. COMPARISON: Chest Single View dated 04/16/2020; Chest Single View dated 04/14/2020; Chest Single Vie w dated 04/12/2020; Chest Single View dated 04/09/2020 FINDINGS: Portable technique limits examination quality. Extensive bilateral pulmonary opacities are again seen, slightly progressive since the comparative st udy. Subcutaneous emphysema at the base of the neck appears mildly progressive since the comparative study. The heart is mildly enlarged in size.
[2020-04-17] MEDS ORDERED: MIDAZOLAM HCL 2 MG/2 ML INJ IV PRN (08:41)
[2020-04-17] MEDS ORDERED: FENTANYL CITR 100 MCG/2 ML IV PRN (08:41)
[2020-04-17] MEDS ORDERED: LORazepam 2 MG/ML VIAL IV PRN ×2 (08:41→09:55)
[2020-04-17] MEDS ORDERED: CISATRACURIUM INJECTION 2 MG/ML (10 ML Vial) IV ONE (08:56)
[2020-04-17] MEDS: ASCORBIC ACID 500 MG TABLET PO SCH ×3 (09:00→20:43)
[2020-04-17] MEDS: SITAGLIPTIN PHOS 100 MG TAB PO SCH (09:00)
[2020-04-17] MEDS: ASPIRIN EC 81 MG TAB PO SCH (09:00)
[2020-04-17] MEDS: ZINC SULFATE 220 MG CAP PO SCH (09:00)
[2020-04-17] MEDS: VITAMIN D 1000 UNIT TAB PO SCH (09:00)
[2020-04-17] MEDS: INSULIN -REGULAR HUMAN 50 UNIT/0.5 ML ML SQ SCH ×4 (09:23→20:44)
[2020-04-17] MEDS: METHYLPREDNISOLONE 40 MG INJ IV SCH ×2 (09:29→20:42)
[2020-04-17] MEDS: CISATRACURIUM 40 MG in NS 100 ML IV PRN ×5 (09:30→23:29)
[2020-04-17] MEDS: LOSARTAN POTASSIUM 50 MG TABLET PO SCH (10:07)
[2020-04-17] MEDS: FAMOTIDINE 20 MG/2 ML VIAL IV SCH ×2 (10:07→20:43)
[2020-04-17] MEDS: FLUCONAZOLE 100 MG TAB PO SCH (10:07)
[2020-04-17] MEDS: SPIRONOLACTONE 25 MG TABLET PO SCH (10:07)
[2020-04-17] MEDS: APIXABAN 5 MG TABLET PO SCH (10:07)
[2020-04-17] MEDS: INSULIN GLARGINE 100 UNITS/ML SQ SCH ×2 (10:08→20:43)
[2020-04-17 10:28] LABS: Hematocrit 48.2 % (39.6-49.0); MPV 9.2 fL (7.6-11.3); RBC Red Blood Cell Count 5.15 M/uL (4.33-5.43)
[2020-04-17] MEDS: LORazepam 2 MG/ML VIAL IV PRN (11:17)
--- NOTE | 2020-04-17 11:36 | RAD REPORT ---
EXAM DESCRIPTION: RAD - Chest Single View - 04/17/2020 10:43 am CLINICAL HISTORY: intubated Chest pain. COMPARISON: Chest Single View dated 04/17/2020; Chest Single View dated 04/16/2020; Chest Single Vie w dated 04/14/2020; Chest Single View dated 04/12/2020 FINDINGS: Portable technique limits examination quality. Since the prior radiographs the patient has been intubated. The tip of the endotracheal tube is above the svetlana. Enteric tube tip appears probably in the midesophagus level.
[2020-04-17 12:05] LABS: BUN Blood Urea Nitrogen 22 mg/dL (7-18); Bicarbonate 30 mmol/L (21-32); Glucose Level 242 mg/dL (74-106); Potassium 5.3 mmol/L (3.5-5.1); Sodium Level 135 mmol/L (136-145)
[2020-04-17 12:36] LABS: Arterial Blood Carboxyhemoglob 0.6 % (0-1.5); Blood Gas Oxyhemoglobin 84.6 % (94-97); Blood O2 Saturation 86.1 % (92-98.5)
[2020-04-17] MEDS: MIDAZOLAM HCL 2 MG/2 ML INJ IV PRN ×2 (13:08→22:00)
--- NOTE | 2020-04-17 14:59 | PN ---
Subjective: The patient has no new complaints. Still requiring CPAP and BiPAP. Objective: Blood pressure. DICTATION ENDS HERE MFS/MODL Voice ID: [id number] Report ID: [id number]
[2020-04-17] MEDS: propofoL 1,000 MG/100 ML VIAL IV PRN ×3 (15:40→23:32)
[2020-04-17] MEDS: METOPROLOL TAR 50 MG TAB PO SCH ×2 (17:13→20:48)
--- NOTE | 2020-04-17 17:25 | PN ---
Subjective: The patient today got worse with his shortness of breath and he desaturated to the point where we had to intubate him and put him on mechanical ventilation. Right now, he is sedated. Objective: Heart: Regular rate and rhythm. Chest: Bilateral crackles. Abdomen: Soft, benign. Bowel sounds are active. Extremities: No edema. No cyanosis. Vital Signs: The patient's blood pressure 148/70, pulse 120, temperature 96.8. Laboratory Data: White cell count was 6600. ABGs before intubation; pH 7.21, pCO2 78.3, pO2 64, sat uration was 84.6. Chemistry; sodium 135, potassium 5.3, BUN 22, creatinine 0.75. Blood sugar finger sticks are up in the 200s. Assessment And Plan: 1.Acute respiratory failure with hypoxia. The patient is now intubated on mechanical ventilation. That is secondary to COVID-19 pneumonia. We will continue his steroids, vitamin D, supportive care w ith breathing, and he is also on Levaquin and IV antibiotics for protection secondary to bacterial in fection and we will also continue his Eliquis. 2.Type 2 diabetes, higher because of the stress and also because of increased steroids. We will con tinue him on sliding scale for now, aggressive. 3.Hypertension, better controlled. 4.Appreciate Dr. Livingston's input. Look orders for details. MFS/MODL Voice ID: [id number] Report ID: [id number]
[2020-04-17] MEDS: FENTANYL CITR 100 MCG/2 ML IV PRN ×2 (17:30→23:12)
--- NOTE | 2020-04-17 18:52 | RAD REPORT ---
EXAM DESCRIPTION: [facility] Single View04/17/2020 6:45 pm CLINICAL HISTORY: Device placement endotracheal tube placement IMPRESSION: An endotracheal tube has been inserted with its tip 10.5 cm above the svetlana. It should be advanced
[2020-04-17] MEDS: ATORVASTATIN 20 MG TAB PO SCH (20:43)
--- NOTE | 2020-04-17 20:48 | RAD REPORT ---
EXAM DESCRIPTION: [facility] Single View04/17/2020 8:10 pm CLINICAL HISTORY: Device placement endotracheal tube placement IMPRESSION: An endotracheal tube has been inserted with its tip 11.5 centimeters above the svetlana. The tube should be advanced
[2020-04-18 00:28] LABS: Arterial Blood Carboxyhemoglob 0.8 % (0-1.5); Blood Gas Oxyhemoglobin 85.3 % (94-97); Blood O2 Saturation 87.1 % (92-98.5)
[2020-04-18] MEDS: MIDAZOLAM HCL 2 MG/2 ML INJ IV PRN ×4 (04:16→22:40)
[2020-04-18] MEDS: CISATRACURIUM 40 MG in NS 100 ML IV PRN ×5 (04:17→22:01)
[2020-04-18 05:11] LABS: Hematocrit 45.5 % (39.6-49.0); MPV 9.1 fL (7.6-11.3)
[2020-04-18 05:32] LABS: C-Reactive Protein 89.7 mg/L (<3.00); Ferritin 1875.4 ng/mL (26-388); Magnesium 2.4 mg/dL (1.8-2.4); Phosphorus 5.9 mg/dL (2.5-4.9)
[2020-04-18 05:42] LABS: Potassium 5.9 mmol/L (3.5-5.1)
[2020-04-18] MEDS ORDERED: SOD POLYSTYREN SUL 15 GM/60 ML UCUP FT ONE ×2 (06:19→16:00)
[2020-04-18] MEDS: propofoL 1,000 MG/100 ML VIAL IV PRN ×4 (06:27→22:02)
[2020-04-18] MEDS: INSULIN -REGULAR HUMAN 50 UNIT/0.5 ML ML SQ SCH ×3 (06:28→16:45)
[2020-04-18] MEDS: ASPIRIN EC 81 MG TAB PO SCH (07:39)
[2020-04-18] MEDS: METOPROLOL TAR 50 MG TAB PO SCH ×2 (07:53→20:46)
[2020-04-18] MEDS: VITAMIN D 1000 UNIT TAB PO SCH (07:54)
[2020-04-18] MEDS: ZINC SULFATE 220 MG CAP PO SCH (07:54)
[2020-04-18] MEDS: FLUCONAZOLE 100 MG TAB PO SCH (07:54)
[2020-04-18] MEDS: ASCORBIC ACID 500 MG TABLET PO SCH ×3 (07:54→20:46)
[2020-04-18] MEDS: SITAGLIPTIN PHOS 100 MG TAB PO SCH (07:54)
[2020-04-18] MEDS: METHYLPREDNISOLONE 40 MG INJ IV SCH (07:55)
[2020-04-18] MEDS: FAMOTIDINE 20 MG/2 ML VIAL IV SCH ×2 (07:55→20:46)
[2020-04-18] MEDS: INSULIN GLARGINE 100 UNITS/ML SQ SCH ×2 (07:55→20:49)
[2020-04-18] MEDS: METFORMIN ER 500 MG TAB PO SCH (07:59)
[2020-04-18] MEDS: FENTANYL CITR 100 MCG/2 ML IV PRN ×2 (08:21→20:46)
[2020-04-18] MEDS: METHYLPREDNISOLONE 125 MG INJ IV SCH ×3 (08:26→17:44)
--- NOTE | 2020-04-18 08:35 | RAD REPORT ---
EXAM DESCRIPTION: RAD - Chest Single View - 04/18/2020 5:42 am CLINICAL HISTORY: Patient on a ventilator Chest pain. COMPARISON: Chest Single View dated 04/17/2020; Chest Single View dated 04/17/2020; Chest Single Vie w dated 04/17/2020; Chest Single View dated 04/17/2020 FINDINGS: Portable technique limits examination quality. Mild worsening in lung aeration is seen since the comparative study, greater on the left. The heart i s moderately enlarged. Tip of the ET tube is above the svetlana. Enteric tube descends into the stomach .Subcutaneous emphysema in the neck again seen. IMPRESSION: Mild worsening is seen in lung aeration since comparative study.
[2020-04-18] MEDS: SPIRONOLACTONE 25 MG TABLET PO SCH (09:00)
[2020-04-18] MEDS ORDERED: METHYLPREDNISOLONE 125 MG INJ IV ONE (09:00)
[2020-04-18] MEDS: LOSARTAN POTASSIUM 50 MG TABLET PO SCH (09:53)
--- NOTE | 2020-04-18 11:09 | RAD REPORT ---
EXAM DESCRIPTION: Chest Single View CLINICAL HISTORY: 54 years Male post intubation COMPARISON: Prior study performed on the same day. TECHNIQUE: AP view of the chest was obtained. FINDINGS: Endotracheal tube is present with the tip seen 3.5 cm above the svetlana. Feeding tube is pr esent with the tip seen coursing below the left hemidiaphragm. Cardiac silhouette is enlarged. Central vessels are obscured. Extensive airspace opacities lung alonzo bilaterally unchanged. Possible layering pleural fluid bilat erally unchanged. No pneumothorax. IMPRESSION: Satisfactory endotracheal tube placement. Extensive bilateral infiltrates unchanged. Electronically signed by: Karen Rivers MD 04/17/2020 11:14 PM SPOUT POSITIONER Due to temporary technical issues with the PACS/Fluency reporting system, reports are being signed by the in house radiologist without review as a courtesy to ensure prompt reporting. The interpreting r adiologist is fully responsible for the content of the report.
--- NOTE | 2020-04-18 11:11 | RAD REPORT ---
EXAM DESCRIPTION: Chest Single View CLINICAL HISTORY: 54 years Male ETT post advancement COMPARISON: April 09, 2020. TECHNIQUE: AP view of the chest was obtained. FINDINGS: Endotracheal tube is now present with the tip seen at the thoracic inlet. The tip is seen 7.8 cm above the svetlana. Feeding tube is present with the tip seen coursing below the left hemidiaphr agm. Cardiac silhouette is enlarged. Central vessels are obscured. Extensive airspace opacities lung alonzo bilaterally increased when correlated with the prior study. Suspected layering pleural effusions bilaterally. No pneumothorax. Subcutaneous emphysema right supraclavicular region. IMPRESSION: Endotracheal tube tip at thoracic inlet. The tip is seen 7.8 cm above the svetlana. Increasing bilateral infiltrates. Moderate congestive heart failure. Electronically signed by: Karen Rivers MD 04/17/2020 10:37 PM [employer] OFFICER Due to temporary technical issues with the PACS/Fluency reporting system, reports are being signed by the in house radiologist without review as a courtesy to ensure prompt reporting. The interpreting r adiologist is fully responsible for the content of the report.
[2020-04-18] MEDS ORDERED: NA CHLORIDE 0.9% 1,000 ML IV SCH (12:00)
--- NOTE | 2020-04-18 12:29 | PN ---
Subjective: The patient on mechanical ventilation and sedated. Objective: Vital Signs: Blood pressure 109/76, pulse 92, temperature 99.2. Heart: Regular rate and rhythm. Chest: Bilateral crackles. Abdomen: Soft, benign. Extremities: No edema. No cyanosis. Laboratory Data: Blood sugar; fingersticks in the 200s. Sodium 135, potassium 5.9, chloride 100, BU N 35, creatinine 1.62. GFR 45. White cell count dropped down to 22.2. Rest of his CBC is noted. A BGs also noted. PH 7.23, pCO2 69, pO2 66.5, saturation 92. Chest x-ray, worsening in both lung fiel ds of opacities mildly. Assessment/plan: 1.Acute respiratory failure with hypoxia, on mechanical ventilation. We will continue that. Suppor tive care. 2.COVID-19 pneumonia. Continue current management and treatment. 3.Hyperkalemia with acute renal failure. We will give the patient Kayexalate and will repeat chemis try and will hydrate the patient with normal saline. 4.Type 2 diabetes. A bit high blood sugar fingersticks, on steroids. Expect that to improve when w e start decreasing the steroid. Meanwhile, we will continue him on aggressive sliding scale of regul ar insulin. Apparently, the patient not doing well still. Look orders for details. MFS/MODL Voice ID: [id number] Report ID: [id number]
--- NOTE | 2020-04-18 14:08 | P.PN ---
Subjective Date of Service: 04/17/20 Chief Complaint: Respiratory failure Patient's condition has worsened this morning he was very tired and was intubated acquiring considerable amount of sedation including paralytic drugs Review of Systems is unable to be obtained Physical Examination - Vital Signs Temperature: 97.4 F Blood Pressure: 94/69 Pulse: 88 Respirations: 35 Pulse Ox (%): 93 - Physical Exam General: Severe distress Respiratory: Crackles/rales, Expiratory wheezes Cardiovascular: No edema, Regular rate/rhythm Assessment & Plan - Problems (Diagnosis) (1) Pneumonia due to COVID-19 virus Current Visit: Yes Status: Acute Plan: Respiratory failure condition has worsened chest x-ray looks worse admitted by anesthesia patient very agitated requiring paralytic infusion he is on high doses of propofol in addition to other types of sedation family members notified of the prognosis (2) Uncontrolled diabetes mellitus Current Visit: Yes Status: Acute Plan: I blood sugars elevated Qualifiers: Diabetes mellitus type: type 2
--- NOTE | 2020-04-18 14:12 | P.PN ---
Subjective Date of Service: 04/18/20 Chief Complaint: Respiratory failure No change in patient's condition pre she respiratory help to adjust the ventilator patient was hypercapnic hypoxic on paralytic and drug and propofol was hypokalemic this morning will repeat BC chemistry Review of Systems is unable to be obtained Physical Examination - Vital Signs Temperature: 97.4 F Blood Pressure: 94/69 Pulse: 88 Respirations: 35 Pulse Ox (%): 93 - Physical Exam General: Unresponsive Respiratory: Crackles/rales, Expiratory wheezes Cardiovascular: No edema, Normal S1 S2 Assessment & Plan - Problems (Diagnosis) (1) Pneumonia due to COVID-19 virus Current Visit: Yes Status: Acute Plan: Patient admitted with respiratory failure he has ARDS ferritin levels have increased so was is CRP will increase the dose of Solu-Medrol to 125 mg IV Q 6 pre she had respiratory is help in the is changing the vent settings he remained persistently hypoxic hypercapnic is on 100% FiO2 with a peep of 10 as not tolerate pressure control currently on a assist-control with volume ventilation white count is elevated will start patient on IV levofloxacin high risk for hospital-acquired infection the with low-dose IV fluids patient's kidney function has worsened (2) Uncontrolled diabetes mellitus Current Visit: Yes Status: Acute Plan: I blood sugars elevated Qualifiers: Diabetes mellitus type: type 2
[2020-04-18] MEDS: Levofloxacin500mg IV 500 MG/100 ML BAG IV SCH (14:35)
[2020-04-18 15:23] LABS: Potassium 5.9 mmol/L (3.5-5.1)
[2020-04-18] MEDS ORDERED: D50W 25 GM/50 ML SYRINGE IV PRN (15:35)
[2020-04-18] MEDS ORDERED: ALBUTEROL 2.5 MG/3 ML NEB SOL ONE (15:51)
[2020-04-18] MEDS ORDERED: SODIUM BICARB 50 MEQ/50ML VIAL IV ONE (16:00)
[2020-04-18] MEDS ORDERED: INSULIN -REGULAR HUMAN 50 UNIT/0.5 ML ML IV ONE (16:00)
[2020-04-18] MEDS ORDERED: CALCIUM GLUC 10% INJ 4.65 MEQ in NA CHLORIDE 0.9% 100 ML IV ONE (16:00)
[2020-04-18] MEDS ORDERED: ALBUTEROL 2.5 MG/3 ML NEB SOL NEB ONE (16:00)
[2020-04-18] MEDS: NA CHLORIDE 0.9% 1,000 ML IV SCH (16:23)
[2020-04-18] MEDS ORDERED: SUCCINYLCHOLINE 20 MG/ML (10 ML) IV ONE (18:51)
[2020-04-19] MEDS: METHYLPREDNISOLONE 125 MG INJ IV SCH ×4 (00:46→18:03)
[2020-04-19] MEDS: INSULIN -REGULAR HUMAN 50 UNIT/0.5 ML ML SQ SCH ×4 (00:46→18:03)
[2020-04-19] MEDS: propofoL 1,000 MG/100 ML VIAL IV PRN ×7 (02:23→21:56)
[2020-04-19] MEDS: CISATRACURIUM 40 MG in NS 100 ML IV PRN ×4 (02:24→22:52)
[2020-04-19] MEDS: NA CHLORIDE 0.9% 1,000 ML IV SCH (06:21)
[2020-04-19 06:29] LABS: Hematocrit 43.9 % (39.6-49.0); RBC Red Blood Cell Count 4.64 M/uL (4.33-5.43)
[2020-04-19 07:15] LABS: Arterial Blood Carboxyhemoglob 0.8 % (0-1.5); Blood O2 Saturation 93.8 % (92-98.5)
[2020-04-19 07:18] LABS: C-Reactive Protein 53.4 mg/L (<3.00); Ferritin 1606.7 ng/mL (26-388); Magnesium 2.5 mg/dL (1.8-2.4); Phosphorus 4.2 mg/dL (2.5-4.9)
--- NOTE | 2020-04-19 07:49 | RAD REPORT ---
EXAM DESCRIPTION: RAD - Chest Single View - 04/19/2020 5:25 am CLINICAL HISTORY: Patient on a ventilatorintubation, respiratory distress COMPARISON: April 18, April 17 TECHNIQUE: AP portable chest image was obtained 04/19/2020 5:25 am . FINDINGS: Dense airspace opacification in the mid and lower left lung field not clearly different. S ignificant but less prominent right lung field airspace opacities also without clear change. No progr essive lung parenchymal process since April 18. ET tube remains in good position. NG tube extends below the diaphragm, off the field of view. Extent of subcutaneous emphysema does not appear significantly different. Heart and vasculature are normal. No measurable pleural effusion and no pneumothorax. No acute bony a bnormality seen. No acute aortic findings suspected. IMPRESSION: Extensive bilateral airspace opacification, worse on the left. Above detailed findings are not substantially different from comparison.
[2020-04-19] MEDS: LOSARTAN POTASSIUM 50 MG TABLET PO SCH (09:56)
[2020-04-19] MEDS: ZINC SULFATE 220 MG CAP PO SCH (09:56)
[2020-04-19] MEDS: ASCORBIC ACID 500 MG TABLET PO SCH ×3 (09:56→20:28)
[2020-04-19] MEDS: FLUCONAZOLE 100 MG TAB PO SCH (09:57)
[2020-04-19] MEDS: METOPROLOL TAR 50 MG TAB PO SCH ×2 (09:58→20:28)
[2020-04-19] MEDS: THIAMINE 200 MG/2 ML INJ IVP SCH (09:58)
[2020-04-19] MEDS: VITAMIN D 1000 UNIT TAB PO SCH (09:59)
[2020-04-19] MEDS: INSULIN GLARGINE 100 UNITS/ML SQ SCH ×2 (09:59→21:11)
[2020-04-19] MEDS: FAMOTIDINE 20 MG/2 ML VIAL IV SCH ×2 (09:59→20:28)
[2020-04-19] MEDS: SITAGLIPTIN PHOS 100 MG TAB PO SCH (09:59)
[2020-04-19] MEDS ORDERED: SOD POLYSTYREN SUL 15 GM/60 ML UCUP PO ONE (10:47)
--- NOTE | 2020-04-19 10:48 | P.PN ---
Subjective Date of Service: 04/19/20 Chief Complaint: Respiratory failure Maybe a slight improvement oxygenation seems to have improved still on 100% FiO2 patient has significant subcutaneous emphysema Review of Systems is unable to be obtained Physical Examination - Vital Signs Temperature: 96.8 F Blood Pressure: 133/94 Pulse: 77 Respirations: 35 Pulse Ox (%): 91 - Physical Exam General: Unresponsive Respiratory: Other (Mob subcutaneous emphysema) Cardiovascular: No edema, Normal S1 S2 Assessment & Plan - Problems (Diagnosis) (1) Uncontrolled diabetes mellitus Current Visit: Yes Status: Acute Plan: I blood sugars elevated Qualifiers: Diabetes mellitus type: type 2 (2) Respiratory failure Current Visit: Yes Status: Acute Plan: Patient admitted with ARDS secondary to smith virus condition seems to have stabilized over he has subcutaneous emphysema still requiring paralytics and propofol try and decrease the dose of his paralytic agent still on 100% FiO2 renal failure Dc IV fluids continue with high-dose steroids white count is declining continue with full-dose anticoagulation antibiotics Dc losartan start on tube feeds increase dose of insulin potassium level is now normal CRP in ferritin levels declining chest x-ray reviewed and got a significant consolidation Qualifiers: Chronicity: acute
--- NOTE | 2020-04-19 12:00 | PN ---
Subjective: The patient continues to be sedated and on mechanical ventilation. Objective: Vital signs: Blood pressure 130/90, pulse 77, temperature 96.8. Heart: Regular rate and rhythm. Chest: Bilateral crackles. Abdomen: Soft, benign. Neurologic: Sedated. Extremities: Trace edema. No cyanosis. Laboratory Data: Blood sugar, fingersticks in the 200s. White cell count dropped to 15.6, BUN 48, c reatinine 1.93. Assessment And Plan: 1.Acute respiratory failure from COVID-19 pneumonia gradually improving. Still requires mechanical ventilation support. 2.Type 2 diabetes with IV steroids and stress of his condition. Still elevated. We will increase h is insulin. 3.Acute renal failure. We will monitor his electrolytes and kidney function. 4.Look orders for details. MFS/MODL Voice ID: [id number] Report ID: [id number]
[2020-04-19] MEDS: VITAL AF 1,000 ML BOT RTH SCH (12:31)
[2020-04-19] MEDS: MIDAZOLAM HCL 2 MG/2 ML INJ IV PRN ×2 (12:44→17:05)
[2020-04-19] MEDS: Levofloxacin500mg IV 500 MG/100 ML BAG IV SCH (14:44)
[2020-04-19] MEDS: FENTANYL CITR 100 MCG/2 ML IV PRN ×2 (15:06→20:29)
[2020-04-20] MEDS: METHYLPREDNISOLONE 125 MG INJ IV SCH ×4 (00:08→17:28)
[2020-04-20] MEDS: LORazepam 2 MG/ML VIAL IV PRN ×2 (00:28→17:17)
[2020-04-20] MEDS: propofoL 1,000 MG/100 ML VIAL IV PRN ×6 (02:37→23:02)
[2020-04-20] MEDS: FENTANYL CITR 100 MCG/2 ML IV PRN ×2 (03:20→10:41)
[2020-04-20] MEDS: CISATRACURIUM 40 MG in NS 100 ML IV PRN (05:00)
[2020-04-20 05:40] LABS: Hematocrit 43.2 % (39.6-49.0); MPV 9.3 fL (7.6-11.3); RBC Red Blood Cell Count 4.66 M/uL (4.33-5.43)
[2020-04-20 05:56] LABS: C-Reactive Protein 25.1 mg/L (<3.00); Ferritin 1426.8 ng/mL (26-388); Potassium 4.5 mmol/L (3.5-5.1)
[2020-04-20] MEDS: INSULIN -REGULAR HUMAN 50 UNIT/0.5 ML ML SQ SCH ×4 (06:39→17:29)
[2020-04-20] MEDS ORDERED: CISATRACURIUM INJECTION 2 MG/ML (10 ML Vial) IV PRN (06:57)
[2020-04-20] MEDS: MIDAZOLAM HCL 2 MG/2 ML INJ IV PRN (08:32)
--- NOTE | 2020-04-20 08:33 | RAD REPORT ---
EXAM DESCRIPTION: RAD - Chest Single View - 04/20/2020 6:04 am CLINICAL HISTORY: Patient on a ventilator, pneumonia COMPARISON: April 19April 18 TECHNIQUE: AP portable chest image was obtained 04/20/2020 6:04 am . FINDINGS: Lower right lung field airspace opacification has not changed significantly. Right-sided p leural effusion still evident. Left lung field a dense opacification has shown significant interval i mprovement. Cardiac silhouette has decreased in prominence. Endotracheal tube and NG tube are unchanged. No pneumothorax identifiable. Subcutaneous emphysema not clearly different. Delete select IMPRESSION: Partial clearing of the left lung consolidation. Right lung field is stable.
[2020-04-20] MEDS: FUROSEMIDE 40 MG/4 ML VIAL IV SCH (09:00)
[2020-04-20] MEDS: FAMOTIDINE 20 MG/2 ML VIAL IV SCH ×2 (09:02→20:48)
[2020-04-20] MEDS: INSULIN GLARGINE 100 UNITS/ML SQ SCH ×2 (09:02→20:46)
[2020-04-20] MEDS: THIAMINE 200 MG/2 ML INJ IVP SCH (09:02)
[2020-04-20] MEDS: FLUCONAZOLE 100 MG TAB PO SCH (09:03)
[2020-04-20] MEDS: VITAMIN D 1000 UNIT TAB PO SCH (09:03)
[2020-04-20] MEDS: METOPROLOL TAR 50 MG TAB PO SCH ×2 (09:03→20:46)
[2020-04-20] MEDS: ASCORBIC ACID 500 MG TABLET PO SCH ×3 (09:04→20:48)
[2020-04-20] MEDS: SITAGLIPTIN PHOS 100 MG TAB PO SCH (09:04)
[2020-04-20] MEDS: ZINC SULFATE 220 MG CAP PO SCH (09:04)
[2020-04-20] MEDS: HALOPERIDOL LACT 5 MG/ML INJ IV PRN (10:36)
[2020-04-20] MEDS: CISATRACURIUM BESYLATE 40 MG in NA CHLORIDE 0.9% 80 ML IV PRN ×4 (11:00→23:02)
--- NOTE | 2020-04-20 11:44 | P.PN ---
Subjective Date of Service: 04/20/20 Chief Complaint: Respiratory failure No change still very hypoxic hypercapnic hypoxic on maximum concentration of oxygen Re agitated is still requiring paralytic agents maximum dose of propofol Review of Systems is unable to be obtained Physical Examination - Vital Signs Temperature: 98.0 F Blood Pressure: 124/80 Pulse: 97 Respirations: 25 Pulse Ox (%): 86 - Physical Exam General: Moderate distress Respiratory: Clear to auscultation bilaterally, Other (Shania continues same for seen) Cardiovascular: No edema, Normal S1 S2 Assessment & Plan - Problems (Diagnosis) (1) Uncontrolled diabetes mellitus Current Visit: Yes Status: Acute Plan: I increase insulin to 50 units twice a day Qualifiers: Diabetes mellitus type: type 2 (2) Respiratory failure Current Visit: Yes Status: Acute Plan: No change in patient's condition although is chest x-ray shows some clearing ferritin levels and CRP are declining continue with the high-dose Solu-Medrol I have also added invermection, 1 dose he is at risk for opportunistic fungal infection and parasites as blood pressures most stable I have also added some Lasix continue to adjust ventilator plan for a high respiratory rate he probably has significant reduction in compliance this is tidal volumes spontaneous around 300 renal failure had Lasix tolerating tube feeds discuss with about poor p rognosis Qualifiers: Chronicity: acute
[2020-04-20 12:22] LABS: Arterial Blood Carboxyhemoglob 0.5 % (0-1.5); Blood Gas Oxyhemoglobin 84.4 % (94-97); Blood O2 Saturation 85.9 % (92-98.5)
--- NOTE | 2020-04-20 13:53 | PN ---
Subjective: The patient is still intubated, requiring mechanical ventilation. Objective: Vital Signs: The patient's blood pressure 124/80, pulse 97, temperature 98. Heart: Regular rate and rhythm. Chest: Bilateral crackles. Abdomen: Soft, benign. Neurologic: The patient is intubated and sedated. Diagnostic Data: Chest x-ray showed slight improvement on the left lung consolidation. CBC; white c ell count down to 14.7. The rest of CBC noted. BUN 52, creatinine 1.725, GFR 41. Blood sugar finge rsticks in the 200s noted. Assessment/plan: 1.Acute respiratory failure with COVID-19 pneumonia. Continue mechanical ventilation and support. 2.Antifungal antibiotic was ordered by Dr. Livingston for opportunistic infections. 3.Type 2 diabetes. Expect blood sugar fingersticks to improve. We are lowering dose of steroids. We will continue aggressive sliding scale of regular insulin. 4.Acute renal failure secondary to his pneumonia and sepsis. Expect that also to improve. We will continue monitoring his electrolytes and kidney functions. IV Lasix has been added also. Look order s for details. MFS/MODL Voice ID: [id number] Report ID: [id number]
[2020-04-20] MEDS: Levofloxacin500mg IV 500 MG/100 ML BAG IV SCH (14:02)
[2020-04-20 16:06] LABS: Arterial Blood Carboxyhemoglob 0.9 % (0-1.5); Blood Gas Oxyhemoglobin 86.5 % (94-97); Blood O2 Saturation 88.3 % (92-98.5)
[2020-04-20] MEDS: VITAL AF 1,000 ML BOT RTH SCH (17:00)
[2020-04-21] MEDS: FENTANYL CITR 100 MCG/2 ML IV PRN (00:21)
[2020-04-21] MEDS: INSULIN -REGULAR HUMAN 50 UNIT/0.5 ML ML SQ SCH ×2 (00:26→06:06)
[2020-04-21] MEDS: METHYLPREDNISOLONE 125 MG INJ IV SCH ×5 (00:28→17:54)
[2020-04-21] MEDS: MIDAZOLAM HCL 2 MG/2 ML INJ IV PRN (03:00)
[2020-04-21] MEDS: propofoL 1,000 MG/100 ML VIAL IV PRN ×5 (04:10→21:05)
[2020-04-21] MEDS: CISATRACURIUM BESYLATE 40 MG in NA CHLORIDE 0.9% 80 ML IV PRN ×5 (04:49→21:46)
[2020-04-21 05:44] LABS: Absolute Lymphocytes (CBC) 0.2 K/uL (0.7-4.9); Basophils % 0.9 % (0-1.3); Hematocrit 43.7 % (39.6-49.0); Lymphocytes % 1.9 % (15.3-44.8); MPV 9.8 fL (7.6-11.3)
[2020-04-21 05:50] LABS: C-Reactive Protein 12.7 mg/L (<3.00); Ferritin 1240.8 ng/mL (26-388); Potassium 3.9 mmol/L (3.5-5.1)
[2020-04-21 05:51] LABS: Arterial Blood Carboxyhemoglob 0.9 % (0-1.5); Blood Gas Oxyhemoglobin 85.7 % (94-97); Blood O2 Saturation 87.5 % (92-98.5)
[2020-04-21] MEDS ORDERED: IVERMECTIN 3 MG TABS PO SCH (09:00)
[2020-04-21 09:06] LABS: Blood Morphology Comment NOT SEEN (NOT SEEN); Platelet Estimate ADEQ
[2020-04-21] MEDS: ASCORBIC ACID 500 MG TABLET PO SCH ×3 (09:29→20:05)
[2020-04-21] MEDS: VITAMIN D 1000 UNIT TAB PO SCH (09:29)
[2020-04-21] MEDS: FLUCONAZOLE 100 MG TAB PO SCH (09:29)
[2020-04-21] MEDS: THIAMINE 200 MG/2 ML INJ IVP SCH (09:30)
[2020-04-21] MEDS: METOPROLOL TAR 50 MG TAB PO SCH ×2 (09:30→20:04)
[2020-04-21] MEDS: FUROSEMIDE 40 MG/4 ML VIAL IV SCH (09:30)
[2020-04-21] MEDS: FAMOTIDINE 20 MG/2 ML VIAL IV SCH ×2 (09:30→20:04)
[2020-04-21] MEDS: INSULIN GLARGINE 100 UNITS/ML SQ SCH ×2 (09:30→20:06)
[2020-04-21] MEDS: SITAGLIPTIN PHOS 100 MG TAB PO SCH (09:31)
[2020-04-21] MEDS: ZINC SULFATE 220 MG CAP PO SCH (09:31)
[2020-04-21] MEDS ORDERED: D50W 25 GM/50 ML SYRINGE IV PRN (09:50)
[2020-04-21] MEDS ORDERED: GLUCAGON 1 MG/VIAL IM PRN (09:50)
[2020-04-21] MEDS: INSULIN -REGULAR HUMAN 100 UNIT in NA CHLORIDE 0.9% 100 ML IV SCH ×2 (11:03→17:49)
--- NOTE | 2020-04-21 11:54 | RAD REPORT ---
EXAM DESCRIPTION: RAD - Chest Single View - 04/21/2020 6:45 am CLINICAL HISTORY: Patient on a ventilator Chest pain. COMPARISON: Chest Single View dated 04/20/2020; Chest Single View dated 04/19/2020; Chest Single Vie w dated 04/18/2020; Chest Single View dated 04/17/2020 FINDINGS: Portable technique limits examination quality. Tip of the ET tube is above the svetlana. Enteric tube descends into the stomach. Extensive bilateral p ulmonary opacities are again noted with little overall change since preceding day's study. Marked sub cutaneous emphysema again seen.
--- NOTE | 2020-04-21 12:15 | PN ---
Subjective: The patient is intubated. No change in status. Objective: Vital Signs: His saturation is 87-90, on mechanical ventilation assist. Lungs: Bilateral crackles. Abdomen: Soft, benign. Heart: Regular rate and rhythm. Neurological: Sedated. Extremities: No edema. Laboratory Data: CBC noted. White cell count down to 10.2. ABG; despite oxygen of 100%, pH 7.31, p CO2 of 70, pO2 of 55.9, saturation 85.7. BUN 59, creatinine 1.61, GFR 45. Blood sugar in the 300s t o 400s. Assessment And Plan: 1.Type 2 diabetes, hard to control. On top of his aggressive sliding scale, we will put him on Lant us 50 units b.i.d. back on that. 2.Acute respiratory failure. Continue supportive care with mechanical ventilation. 3.Acute renal failure. Continue fluid balance and hydration. 4.Appreciate Dr. Livingston's input. Look orders for details. MFS/MODL Voice ID: [id number] Report ID: [id number]
[2020-04-21] MEDS: IVERMECTIN 3 MG TABS PO SCH (12:53)
[2020-04-21] MEDS: Levofloxacin500mg IV 500 MG/100 ML BAG IV SCH (14:24)
[2020-04-21] MEDS: VITAL AF 1,000 ML BOT RTH SCH (15:00)
[2020-04-21] MEDS: NA CHLORIDE 0.9% 250 ML IV PRN (20:23)
[2020-04-22] MEDS: METHYLPREDNISOLONE 125 MG INJ IV SCH ×3 (00:30→17:25)
[2020-04-22] MEDS: CISATRACURIUM BESYLATE 40 MG in NA CHLORIDE 0.9% 80 ML IV PRN ×6 (01:55→23:29)
[2020-04-22] MEDS: propofoL 1,000 MG/100 ML VIAL IV PRN ×6 (01:55→21:06)
[2020-04-22 05:13] LABS: C-Reactive Protein 6.64 mg/L (<3.00); Ferritin 1014.4 ng/mL (26-388); Magnesium 2.8 mg/dL (1.8-2.4); Phosphorus 2.7 mg/dL (2.5-4.9); Potassium 4.3 mmol/L (3.5-5.1)
[2020-04-22 05:46] LABS: Arterial Blood Carboxyhemoglob 1.1 % (0-1.5); Blood Gas Oxyhemoglobin 85.7 % (94-97); Blood O2 Saturation 87.5 % (92-98.5)
[2020-04-22] MEDS: FUROSEMIDE 40 MG/4 ML VIAL IV SCH (09:16)
[2020-04-22] MEDS: VITAMIN D 1000 UNIT TAB PO SCH (09:16)
[2020-04-22] MEDS: SITAGLIPTIN PHOS 100 MG TAB PO SCH (09:17)
[2020-04-22] MEDS: FLUCONAZOLE 100 MG TAB PO SCH (09:17)
[2020-04-22] MEDS: ASCORBIC ACID 500 MG TABLET PO SCH ×3 (09:17→20:19)
[2020-04-22] MEDS: ZINC SULFATE 220 MG CAP PO SCH (09:17)
[2020-04-22] MEDS: METOPROLOL TAR 50 MG TAB PO SCH ×2 (09:17→20:19)
[2020-04-22] MEDS: THIAMINE 200 MG/2 ML INJ IVP SCH (09:18)
[2020-04-22] MEDS: INSULIN GLARGINE 100 UNITS/ML SQ SCH ×2 (09:18→20:18)
[2020-04-22] MEDS: FAMOTIDINE 20 MG/2 ML VIAL IV SCH ×2 (09:19→20:18)
[2020-04-22] MEDS: IVERMECTIN 3 MG TABS PO SCH (09:30)
[2020-04-22] MEDS: INSULIN -REGULAR HUMAN 100 UNIT in NA CHLORIDE 0.9% 100 ML IV SCH ×2 (09:39→21:10)
--- NOTE | 2020-04-22 11:44 | P.PN ---
Subjective Date of Service: 04/22/20 Chief Complaint: Respiratory failure No change in patient's condition is still requiring paralytics IV and is on 100% FiO2 will on an insulin drip Review of Systems is unable to be obtained Physical Examination - Vital Signs Temperature: 97.9 F Blood Pressure: 155/89 Pulse: 117 Respirations: 35 Pulse Ox (%): 85 - Physical Exam General: Unresponsive Neck: Other (Subcutaneous emphysema) Respiratory: Crackles/rales, Rhonchi/gurgles Cardiovascular: No edema, Regular rate/rhythm Assessment & Plan - Problems (Diagnosis) (1) Pneumonia due to COVID-19 virus Current Visit: Yes Status: Acute Plan: Respiratory failure continue with IV paralytics propofol currently on 100% FiO2 chest x-ray may be some clearing he has extensive subcutaneous emphysema ferritin levels are declining CRP is very low currently on high doses of Solu- Medrol he got some smith virus plasma yesterday renal function is mildly abnormal increase fluid through the NG tube Dc IV fluids blood gases show hypoxemia and hypercarbia mildly acidotic prognosis poor (2) Uncontrolled diabetes mellitus Current Visit: Yes Status: Acute Plan: Non-insulin drip with Lantus patient is also receiving invermectin Qualifiers: Diabetes mellitus type: type 2
[2020-04-22] MEDS: FENTANYL CITR 100 MCG/2 ML IV PRN (14:08)
--- NOTE | 2020-04-22 15:34 | RAD REPORT ---
EXAM DESCRIPTION: RAD - Chest Single View - 04/22/2020 3:19 pm CLINICAL HISTORY: Respiratory failure Chest pain. COMPARISON: Chest Single View dated 04/21/2020; Chest Single View dated 04/20/2020; Chest Single Vie w dated 04/19/2020; Chest Single View dated 04/18/2020 FINDINGS: Portable technique limits examination quality. Since 04/21/2020, mild improvement in lung aeration is seen since comparative study. Small bilateral pleural effusions. The heart is moderately enlarged in size. Tip of the ET tube is above the svetlana. Enteric tube tip extends into the stomach.
[2020-04-22] MEDS: Levofloxacin500mg IV 500 MG/100 ML BAG IV SCH (15:56)
--- NOTE | 2020-04-22 17:40 | PN ---
Subjective: The patient is still on mechanical ventilation, intubated and sedated. Objective: Vital Signs: Blood pressure 136/88, pulse 92, temperature 97.8. Saturation on mechanica l ventilation 88% to 90%. Heart: Regular rate and rhythm. Chest: Bilateral crackles. Abdomen: Soft, benign. Extremities: Trace edema bilateral. Laboratory Data: The patient's blood sugar fingersticks noted in the 200s. Assessment And Plan: 1.Type 2 diabetes mellitus. The patient is on nasogastric feeding. His blood sugar fingersticks ar e better on Lantus. We will continue that and continue aggressive sliding scale. 2.Respiratory failure, acute, still requiring mechanical ventilation. 3.Rest of medical problems stable. Appreciate Dr. Livingston's input. MFS/MODL Voice ID: [id number] Report ID: [id number]
[2020-04-23] MEDS: propofoL 1,000 MG/100 ML VIAL IV PRN ×6 (00:54→22:05)
[2020-04-23] MEDS: METHYLPREDNISOLONE 125 MG INJ IV SCH ×3 (00:55→18:20)
[2020-04-23] MEDS: CISATRACURIUM BESYLATE 40 MG in NA CHLORIDE 0.9% 80 ML IV PRN ×5 (04:05→22:05)
[2020-04-23 05:15] LABS: Arterial Blood Carboxyhemoglob 1.2 % (0-1.5); Blood Gas Oxyhemoglobin 89.1 % (94-97); Blood O2 Saturation 91.2 % (92-98.5)
[2020-04-23 05:37] LABS: BUN Blood Urea Nitrogen 61 mg/dL (7-18); Bicarbonate 40 mmol/L (21-32); Ferritin 848.5 ng/mL (26-388); Glucose Level 150 mg/dL (74-106); Magnesium 2.8 mg/dL (1.8-2.4); Phosphorus 3.2 mg/dL (2.5-4.9); Potassium 4.7 mmol/L (3.5-5.1); Sodium Level 149 mmol/L (136-145)
[2020-04-23 05:38] LABS: C-Reactive Protein < 2.90 mg/L (<3.00)
--- NOTE | 2020-04-23 07:52 | RAD REPORT ---
[facility] CLINICAL HISTORY: Respiratory failure COMPARISON: April 22 FINDINGS: Mild worsening in right and mild improvement in a left pulmonary opacities. The heart rem ains enlarged. Endotracheal and nasogastric tubes in good position
[2020-04-23] MEDS: INSULIN -REGULAR HUMAN 100 UNIT in NA CHLORIDE 0.9% 100 ML IV SCH (08:32)
[2020-04-23] MEDS: INSULIN GLARGINE 100 UNITS/ML SQ SCH ×2 (09:05→20:45)
[2020-04-23] MEDS: FLUCONAZOLE 100 MG TAB PO SCH (09:07)
[2020-04-23] MEDS: IVERMECTIN 3 MG TABS PO SCH (09:07)
[2020-04-23] MEDS: THIAMINE 200 MG/2 ML INJ IVP SCH (09:08)
[2020-04-23] MEDS: FAMOTIDINE 20 MG/2 ML VIAL IV SCH ×2 (09:08→20:47)
[2020-04-23] MEDS: SITAGLIPTIN PHOS 100 MG TAB PO SCH (09:08)
[2020-04-23] MEDS: ASCORBIC ACID 500 MG TABLET PO SCH ×3 (09:08→20:47)
[2020-04-23] MEDS: ZINC SULFATE 220 MG CAP PO SCH (09:08)
[2020-04-23] MEDS: METOPROLOL TAR 50 MG TAB PO SCH ×2 (09:08→20:46)
[2020-04-23] MEDS: VITAMIN D 1000 UNIT TAB PO SCH (09:08)
[2020-04-23] MEDS: VITAL AF 1,000 ML BOT RTH SCH (09:09)
[2020-04-23] MEDS: D5W 1,000 ML IV SCH ×2 (10:58→20:49)
--- NOTE | 2020-04-23 11:06 | PN ---
Subjective: Patient intubated on mechanical ventilation, sedated. Objective: Vital Signs: Blood pressure 120/77, pulse 104, temperature 98.7, and saturation on mecha nical ventilation at 100% O2. Rest of his physical exam, no change from yesterday. Laboratory Data: His blood sugar fingersticks less than 200, more than 100. Assessment And Plan: 1.COVID-19 pneumonia. Chest x-ray showed some worsening on the left and some improvement on the rig ht, but overall, no significant improvement in the infiltrates. 2.Type 2 diabetes, better controlled. The patient is on nasogastric feeding along with being on Sidney tus and regular insulin sliding scale. 3.The rest of his medical problems are stable. His BUN 61, creatinine 1.39, estimated GFR at 53. B juany improvement in his acute renal failure. His sodium at 149. Hypernatremia. We need to adjust the patient and give him more free water through his nasogastric tube. Look orders for details. MFS/MODL Voice ID: [id number] Report ID: [id number]
--- NOTE | 2020-04-23 12:04 | P.PN ---
Subjective Date of Service: 04/23/20 Chief Complaint: Respiratory failure No changes still requiring high concentrations of oxygen still on paralytic Review of Systems is unable to be obtained Physical Examination - Vital Signs Temperature: 98.7 F Blood Pressure: 107/81 Pulse: 91 Respirations: 35 Pulse Ox (%): 92 - Physical Exam General: Unresponsive Respiratory: Clear to auscultation bilaterally Assessment & Plan - Problems (Diagnosis) (1) Pneumonia due to COVID-19 virus Current Visit: Yes Status: Acute Plan: Respiratory failure and maximum ventilatory support ferritin levels are declining chest x-ray reviewed endotracheal tube satisfactory CBC normal renal function improving hypernatremic currently on an insulin drip continue with tube feeds (2) Uncontrolled diabetes mellitus Current Visit: Yes Status: Acute Plan: Non-insulin drip with Lantus patient is also receiving invermectin Qualifiers: Diabetes mellitus type: type 2
[2020-04-23] MEDS: Levofloxacin500mg IV 500 MG/100 ML BAG IV SCH (13:52)
[2020-04-24] MEDS: METHYLPREDNISOLONE 125 MG INJ IV SCH ×3 (00:15→17:36)
[2020-04-24] MEDS: propofoL 1,000 MG/100 ML VIAL IV PRN ×4 (02:48→23:39)
[2020-04-24] MEDS: INSULIN -REGULAR HUMAN 100 UNIT in NA CHLORIDE 0.9% 100 ML IV SCH ×3 (04:00→22:39)
[2020-04-24] MEDS: CISATRACURIUM BESYLATE 40 MG in NA CHLORIDE 0.9% 80 ML IV PRN ×3 (04:01→22:40)
[2020-04-24 05:12] LABS: Blood Gas Oxyhemoglobin 88.4 % (94-97); Blood O2 Saturation 90.5 % (92-98.5)
[2020-04-24 05:48] LABS: BUN Blood Urea Nitrogen 77 mg/dL (7-18); Bicarbonate 39 mmol/L (21-32); Ferritin 854.2 ng/mL (26-388); Glucose Level 225 mg/dL (74-106); Phosphorus 4.4 mg/dL (2.5-4.9); Sodium Level 143 mmol/L (136-145)
[2020-04-24 05:50] LABS: C-Reactive Protein < 2.90 mg/L (<3.00); Potassium 5.1 mmol/L (3.5-5.1)
--- NOTE | 2020-04-24 06:51 | RAD REPORT ---
EXAM DESCRIPTION: RAD - Chest Single View - 04/24/2020 6:25 am CLINICAL HISTORY: Respiratory failure COMPARISON: April 23, April 22 TECHNIQUE: AP portable chest image was obtained 04/24/2020 6:25 am . FINDINGS: Endotracheal tube remains in good position. NG tube is below the diaphragm, off the field. Lung parenchymal opacification in the right base has improved but significant opacification remains. Patchy mid left lung field more dense left base opacification not substantially different. Cardiac s ilhouette remains prominent. Bilateral costophrenic angle blunting present suspected to be pleural ef fusion. No pneumothorax component identifiable. No acute bony abnormality seen. Extensive subcutaneou s emphysema is again noted. IMPRESSION: Partial clearing of right lung base opacification. Extensive bilateral interstitial and airspace disease remains. ET tube and NG tube remain in good position. Recurrence of extensive subcutaneous emphysema since prior imaging.
[2020-04-24] MEDS: VITAMIN D 1000 UNIT TAB PO SCH (08:36)
[2020-04-24] MEDS: FAMOTIDINE 20 MG/2 ML VIAL IV SCH ×2 (08:37→21:01)
[2020-04-24] MEDS: SITAGLIPTIN PHOS 100 MG TAB PO SCH (08:37)
[2020-04-24] MEDS: FLUCONAZOLE 100 MG TAB PO SCH (08:37)
[2020-04-24] MEDS: METOPROLOL TAR 50 MG TAB PO SCH ×2 (08:37→21:00)
[2020-04-24] MEDS: ZINC SULFATE 220 MG CAP PO SCH (08:37)
[2020-04-24] MEDS: THIAMINE 200 MG/2 ML INJ IVP SCH (08:37)
[2020-04-24] MEDS: INSULIN GLARGINE 100 UNITS/ML SQ SCH ×2 (08:39→21:02)
[2020-04-24] MEDS: IVERMECTIN 3 MG TABS PO SCH (08:42)
[2020-04-24] MEDS: ASCORBIC ACID 500 MG TABLET PO SCH ×3 (09:04→21:01)
--- NOTE | 2020-04-24 12:37 | P.PN ---
Subjective Date of Service: 04/24/20 Chief Complaint: Respiratory failure No change in patient's condition will requiring high concentrations of oxygen Review of Systems is unable to be obtained Physical Examination - Vital Signs Temperature: 98.7 F Blood Pressure: 123/77 Pulse: 75 Respirations: 35 Pulse Ox (%): 89 - Physical Exam General: Unresponsive HEENT: Atraumatic Respiratory: Diminished Cardiovascular: No edema, Normal S1 S2 Assessment & Plan - Problems (Diagnosis) (1) Pneumonia due to COVID-19 virus Current Visit: Yes Status: Acute Plan: Admitted with respiratory failure maximum ventilatory support still has hypoxemia hypercapnia chest x-ray shows subcutaneous emphysema continue with paralytic agents propofol steroids Dc IV fluids continue with IV insulin anti in blood sugar beaten 100 and 150 (2) Uncontrolled diabetes mellitus Current Visit: Yes Status: Acute Plan: Non-insulin drip with Lantus patient is also receiving invermectin Qualifiers: Diabetes mellitus type: type 2
[2020-04-24] MEDS: Levofloxacin500mg IV 500 MG/100 ML BAG IV SCH (15:37)
[2020-04-24] MEDS: FENTANYL CITR 100 MCG/2 ML IV PRN (21:01)
[2020-04-24] MEDS: LORazepam 2 MG/ML VIAL IV PRN (23:40)
[2020-04-24] MEDS: VITAL AF 1,000 ML BOT RTH SCH (23:40)
[2020-04-25] MEDS: METHYLPREDNISOLONE 125 MG INJ IV SCH ×3 (01:00→16:26)
[2020-04-25] MEDS: CISATRACURIUM BESYLATE 40 MG in NA CHLORIDE 0.9% 80 ML IV PRN ×4 (03:08→20:10)
[2020-04-25] MEDS: propofoL 1,000 MG/100 ML VIAL IV PRN ×5 (03:08→20:11)
[2020-04-25] MEDS: LORazepam 2 MG/ML VIAL IV PRN ×2 (04:53→11:58)
[2020-04-25 05:36] LABS: BUN Blood Urea Nitrogen 84 mg/dL (7-18); Bicarbonate 38 mmol/L (21-32); Ferritin 680.1 ng/mL (26-388); Glucose Level 158 mg/dL (74-106); Phosphorus 4.4 mg/dL (2.5-4.9); Potassium 5.1 mmol/L (3.5-5.1); Sodium Level 145 mmol/L (136-145)
[2020-04-25 05:44] LABS: C-Reactive Protein < 2.90 mg/L (<3.00)
--- NOTE | 2020-04-25 08:17 | RAD REPORT ---
EXAM DESCRIPTION: [facility] Single View04/25/2020 6:01 am CLINICAL HISTORY: Respiratory failure COMPARISON: April 24 FINDINGS: The subcutaneous emphysema has mostly resolved. No significant change in the bilateral pulmonary opacities. The heart remains enlarged
[2020-04-25] MEDS: ASCORBIC ACID 500 MG TABLET PO SCH ×3 (08:42→20:11)
[2020-04-25] MEDS: FLUCONAZOLE 100 MG TAB PO SCH (08:43)
[2020-04-25] MEDS: SITAGLIPTIN PHOS 100 MG TAB PO SCH (08:43)
[2020-04-25] MEDS: VITAMIN D 1000 UNIT TAB PO SCH (08:43)
[2020-04-25] MEDS: METOPROLOL TAR 50 MG TAB PO SCH ×2 (08:43→20:13)
[2020-04-25] MEDS: ZINC SULFATE 220 MG CAP PO SCH (08:43)
[2020-04-25] MEDS: THIAMINE 200 MG/2 ML INJ IVP SCH (08:44)
[2020-04-25] MEDS: INSULIN GLARGINE 100 UNITS/ML SQ SCH ×2 (08:44→20:11)
[2020-04-25] MEDS: FAMOTIDINE 20 MG/2 ML VIAL IV SCH ×2 (08:44→20:11)
[2020-04-25] MEDS: IVERMECTIN 3 MG TABS PO SCH (08:45)
[2020-04-25] MEDS: INSULIN -REGULAR HUMAN 100 UNIT in NA CHLORIDE 0.9% 100 ML IV SCH ×2 (10:43→22:33)
--- NOTE | 2020-04-25 16:17 | RAD REPORT ---
EXAM DESCRIPTION: RAD - Chest Single View - 04/25/2020 3:31 pm CLINICAL HISTORY: Picc line placement COMPARISON: Chest Single View dated 04/25/2020; Chest Single View dated 04/24/2020; Chest Single Vie w dated 04/23/2020; Chest Single View dated 04/22/2020 FINDINGS: Portable chest was obtained following placement of a right upper extremity PICC line. The catheter tip projects over the right subclavian vein.
[2020-04-25] MEDS: Levofloxacin500mg IV 500 MG/100 ML BAG IV SCH (16:25)
--- NOTE | 2020-04-25 17:38 | PN ---
Subjective: The patient is on mechanical ventilation. Still requiring mechanical ventilation and ox ygen support. Objective: General: He is sedated. Vital Signs: Blood pressure 100/70, pulse 66, temperature 97.9. Heart: Regular rate and rhythm. Chest: Bilateral crackles. Abdomen: Soft, benign. Neurological: Sedated. Extremities: Trace edema of bilateral lower extremities. Laboratory Data: Blood sugar fingersticks less than 170 and more than 100. Assessment And Plan: 1.Acute respiratory failure with COVID pneumonia bilateral. On x-rays, no significant change for th e infiltrates. Subcutaneous emphysema resolved. We will continue current support for that. 2.Type 2 diabetes, better controlled on the current regimen of Lantus. The patient is on nasogastri c feeding. Look orders for details. MFS/MODL Voice ID: [id number] Report ID: [id number]
--- NOTE | 2020-04-25 18:00 | RAD REPORT ---
EXAM DESCRIPTION: RAD - Chest Single View - 04/25/2020 5:27 pm CLINICAL HISTORY: picc reeval COMPARISON: Chest Single View dated 04/25/2020; Chest Single View dated 04/25/2020; Chest Single Vie w dated 04/24/2020; Chest Single View dated 04/23/2020 FINDINGS: Portable chest was obtained following placement of a right upper extremity PICC line. The catheter tip projects over the SVC.
[2020-04-25] MEDS: FENTANYL CITR 100 MCG/2 ML IV PRN (20:14)
[2020-04-25] MEDS: NA CHLORIDE 0.9% 250 ML IV PRN (21:08)
[2020-04-26] MEDS: METHYLPREDNISOLONE 125 MG INJ IV SCH ×3 (00:28→17:03)
[2020-04-26] MEDS: propofoL 1,000 MG/100 ML VIAL IV PRN ×3 (01:44→12:19)
[2020-04-26] MEDS: CISATRACURIUM BESYLATE 40 MG in NA CHLORIDE 0.9% 80 ML IV PRN ×4 (01:45→12:41)
[2020-04-26] MEDS: LORazepam 2 MG/ML VIAL IV PRN ×3 (02:44→22:20)
[2020-04-26 04:50] LABS: Arterial Blood Carboxyhemoglob 1.5 % (0-1.5); Blood Gas Oxyhemoglobin 89.3 % (94-97); Blood O2 Saturation 91.6 % (92-98.5)
[2020-04-26 05:01] LABS: Arterial Blood Carboxyhemoglob 1.4 % (0-1.5); Blood Gas Oxyhemoglobin 88.1 % (94-97); Blood O2 Saturation 90.5 % (92-98.5)
[2020-04-26 07:08] LABS: BUN Blood Urea Nitrogen 85 mg/dL (7-18); Bicarbonate 37 mmol/L (21-32); Ferritin 667.9 ng/mL (26-388); Glucose Level 150 mg/dL (74-106); Magnesium 2.9 mg/dL (1.8-2.4); Phosphorus 4.4 mg/dL (2.5-4.9); Potassium 5.4 mmol/L (3.5-5.1); Sodium Level 144 mmol/L (136-145)
[2020-04-26 07:14] LABS: C-Reactive Protein < 2.90 mg/L (<3.00)
[2020-04-26] MEDS: SITAGLIPTIN PHOS 100 MG TAB PO SCH (09:00)
[2020-04-26] MEDS: FAMOTIDINE 20 MG/2 ML VIAL IV SCH ×2 (09:00→20:07)
[2020-04-26] MEDS: FLUCONAZOLE 100 MG TAB PO SCH (09:00)
[2020-04-26] MEDS: VITAMIN D 1000 UNIT TAB PO SCH (09:00)
[2020-04-26] MEDS: INSULIN GLARGINE 100 UNITS/ML SQ SCH ×2 (09:00→20:05)
[2020-04-26] MEDS: THIAMINE 200 MG/2 ML INJ IVP SCH (09:00)
[2020-04-26] MEDS: METOPROLOL TAR 50 MG TAB PO SCH ×2 (09:00→20:06)
[2020-04-26] MEDS: ASCORBIC ACID 500 MG TABLET PO SCH ×3 (09:00→20:07)
[2020-04-26] MEDS: ZINC SULFATE 220 MG CAP PO SCH (09:00)
[2020-04-26] MEDS: INSULIN -REGULAR HUMAN 100 UNIT in NA CHLORIDE 0.9% 100 ML IV SCH (09:01)
[2020-04-26] MEDS ORDERED: DEXTROSE 10%-WATER 500 ML IV ONE (09:50)
--- NOTE | 2020-04-26 11:33 | PN ---
Subjective: No change in status. Objective: Vital Signs: Blood pressure 125/83, pulse 96, temperature 98.8, respiratory rate 35. Heart: Regular rate and rhythm. Chest: Bilateral crackles. Abdomen: Soft, benign. Neurological: Sedated. Extremities: Trace edema. Laboratory Data: Chemistry; BUN 85, creatinine 1.46, GFR 50. Blood sugar fingersticks less than 200 , more than 100. Assessment/plan: 1.Not much change in patient's status and requiring mechanical ventilation. We will continue curren t supportive care. 2.Hyperkalemia. However, the patient's acute kidney failure is improving, evident by BUN and creati nine. We will go ahead and give 1 dose of Kayexalate 30 g via NG tube. 3.Type 2 diabetes. The patient is controlled on the current insulin regimen with orders for details . MFS/MODL Voice ID: [id number] Report ID: [id number]
--- NOTE | 2020-04-26 11:35 | RAD REPORT ---
EXAM DESCRIPTION: RAD - Chest Single View - 04/26/2020 6:58 am CLINICAL HISTORY: Respiratory failure Chest pain. COMPARISON: Chest Single View dated 04/25/2020; Chest Single View dated 04/25/2020; Chest Single Vie w dated 04/25/2020; Chest Single View dated 04/24/2020 FINDINGS: Portable technique limits examination quality. Tip of the endotracheal tube is above the svetlana. Enteric tube descends into the upper abdomen. Right -sided PICC line is unchanged in position. Bilateral pulmonary opacities are again noted, similar to prior study. Moderate cardiomegaly. IMPRESSION: Stable chest since yesterday's examination.
[2020-04-26] MEDS ORDERED: SOD POLYSTYREN SUL 15 GM/60 ML UCUP PO ONE ×2 (12:00→20:30)
--- NOTE | 2020-04-26 12:50 | P.PN ---
Subjective Date of Service: 04/26/20 Chief Complaint: Respiratory failure N no change in patient's condition still requiring paralytics on high concentrations of oxygen Review of Systems is unable to be obtained Physical Examination - Vital Signs Temperature: 98.8 F Blood Pressure: 125/82 Pulse: 78 Respirations: 35 Pulse Ox (%): 90 - Physical Exam General: Unresponsive Respiratory: Clear to auscultation bilaterally, Other (Patient's subcutaneous emphysema has reduced) Cardiovascular: No edema, Regular rate/rhythm Assessment & Plan - Problems (Diagnosis) (1) Pneumonia due to COVID-19 virus Current Visit: Yes Status: Acute Plan: Respiratory failure no change in present treatment ferritin levels have been decreasing patient is hyperkalemia cover added some Kayexalate renal function stable will check lipid profile tomorrow morning as patient has been on propofol (2) Uncontrolled diabetes mellitus Current Visit: Yes Status: Acute Plan: Blood sugars are much better controlled white count is declining Qualifiers: Diabetes mellitus type: type 2 Plan to discharge in: Greater than 2 days
[2020-04-26] MEDS: Levofloxacin500mg IV 500 MG/100 ML BAG IV SCH (16:36)
[2020-04-26] MEDS: MELATONIN 5 MG TABLET PO SCH (20:08)
[2020-04-26] MEDS ORDERED: SODIUM BICARB 50 MEQ/50ML VIAL ONE (20:19)
[2020-04-26] MEDS: FENTANYL CITR 100 MCG/2 ML IV PRN (20:30)
[2020-04-27] MEDS ORDERED: SOD POLYSTYREN SUL 15 GM/60 ML UCUP PO ONE ×2 (00:30→08:36)
[2020-04-27] MEDS: METHYLPREDNISOLONE 125 MG INJ IV SCH ×3 (00:41→18:11)
[2020-04-27] MEDS: FENTANYL CITR 100 MCG/2 ML IV PRN ×2 (03:10→19:45)
[2020-04-27 05:55] LABS: Absolute Lymphocytes (CBC) 0.3 K/uL (0.7-4.9); Basophils % 0.7 % (0-1.3); Hematocrit 33.3 % (39.6-49.0); Lymphocytes % 1.3 % (15.3-44.8); RBC Red Blood Cell Count 3.52 M/uL (4.33-5.43)
[2020-04-27 06:07] LABS: Arterial Blood Carboxyhemoglob 1.3 % (0-1.5); Blood Gas Oxyhemoglobin 91.2 % (94-97); Blood O2 Saturation 93.4 % (92-98.5)
[2020-04-27 06:11] LABS: Magnesium 2.7 mg/dL (1.8-2.4); Phosphorus 7.3 mg/dL (2.5-4.9)
[2020-04-27 06:15] LABS: Potassium 5.7 mmol/L (3.5-5.1)
[2020-04-27] MEDS: MIDAZOLAM HCL 2 MG/2 ML INJ IV PRN ×2 (06:40→23:09)
[2020-04-27 07:42] LABS: Platelet Estimate DECR
[2020-04-27 07:43] LABS: Blood Morphology Comment NOT SEEN (NOT SEEN)
[2020-04-27] MEDS: LORazepam 2 MG/ML VIAL IV PRN (08:03)
[2020-04-27] MEDS ORDERED: NACHLORIDE 0.45% 1,000 ML IV SCH (09:00)
[2020-04-27] MEDS: METOPROLOL TAR 50 MG TAB PO SCH (09:00)
[2020-04-27] MEDS: VITAMIN D 1000 UNIT TAB PO SCH (09:55)
[2020-04-27] MEDS: FAMOTIDINE 20 MG/2 ML VIAL IV SCH ×2 (09:56→20:43)
[2020-04-27] MEDS: FLUCONAZOLE 100 MG TAB PO SCH (09:56)
[2020-04-27] MEDS: THIAMINE 200 MG/2 ML INJ IVP SCH (09:56)
[2020-04-27] MEDS: SITAGLIPTIN PHOS 100 MG TAB PO SCH (09:56)
[2020-04-27] MEDS: ASCORBIC ACID 500 MG TABLET PO SCH ×3 (09:56→21:00)
[2020-04-27] MEDS: ZINC SULFATE 220 MG CAP PO SCH (09:56)
[2020-04-27] MEDS: INSULIN GLARGINE 100 UNITS/ML SQ SCH ×2 (09:57→20:43)
[2020-04-27] MEDS: INSULIN -REGULAR HUMAN 100 UNIT in NA CHLORIDE 0.9% 100 ML IV SCH (10:19)
--- NOTE | 2020-04-27 11:29 | P.PN ---
Subjective Date of Service: 04/27/20 Chief Complaint: Respiratory failure No change ray is paralytics and sedation was stopped and he developed some cough leak anesthesia chain the endotracheal tube patient hematoma in the abdomen from the Lovenox patient's white count is gone up slight decline in his hemoglobin Review of Systems is unable to be obtained Physical Examination - Vital Signs Temperature: 98.1 F Blood Pressure: 99/55 Pulse: 94 Respirations: 35 Pulse Ox (%): 90 - Physical Exam General: Unresponsive Respiratory: Clear to auscultation bilaterally, Diminished Cardiovascular: No edema - Studies Laboratory Data (last 24 hrs) 06/26/19 05:00: Phosphorus Cancelled, Magnesium Cancelled Assessment & Plan - Problems (Diagnosis) (1) Pneumonia due to COVID-19 virus Current Visit: Yes Status: Acute Plan: Respiratory failure no change been increase in his white count ordered blood culture change to meropenem he is at risk for optimistic hospital-acquired infections patient also developed abdominal hematoma from Lovenox which is on hold right now is been an improvement in his oxygenation still hypercapnic under tracheal tube change today renal function worse Consul nephrology (2) Uncontrolled diabetes mellitus Current Visit: Yes Status: Acute Plan: Her sugars a control with IV insulin Qualifiers: Diabetes mellitus type: type 2 (3) Renal failure Current Visit: Yes Status: Acute Plan: Patient is developing hyperkalemia renal function is worse Consul nephrology Kayexalate give repeat basic chemistry profile Dc IV fluid to prevent volume overload Qualifiers: Chronic kidney disease stage: stage 3 (moderate)
--- NOTE | 2020-04-27 12:56 | RAD REPORT ---
EXAM DESCRIPTION: RAD - Chest Single View - 04/27/2020 6:32 am CLINICAL HISTORY: Respiratory failure Chest pain. COMPARISON: Chest Single View dated 04/26/2020; Chest Single View dated 04/25/2020; Chest Single Vie w dated 04/25/2020; Chest Single View dated 04/25/2020 FINDINGS: Portable technique limits examination quality. Tip of the ET tube is above the svetlana. Enteric tube descends into the stomach. Mild bilateral pulmon lynne opacities are again noted, unchanged. The heart is prominent in size. IMPRESSION: Stable chest since preceding day's examination.
--- NOTE | 2020-04-27 13:30 | RAD REPORT ---
EXAM DESCRIPTION: RAD - Chest Single View - 04/27/2020 10:38 am CLINICAL HISTORY: ETT tube placement/OGT placement Chest pain. COMPARISON: Chest Single View dated 04/27/2020; Chest Single View dated 04/26/2020; Chest Single Vie w dated 04/25/2020; Chest Single View dated 04/25/2020 FINDINGS: Portable technique limits examination quality. Moderate bilateral pulmonary opacities are noted, slightly improved since comparative study. The hear t is moderately enlarged. Tip of the ET tube is above the svetlana. Enteric tube descends in the stomac h.
[2020-04-27] MEDS: propofoL 1,000 MG/100 ML VIAL IV PRN (13:55)
[2020-04-27 14:07] LABS: Potassium 5.3 mmol/L (3.5-5.1)
--- NOTE | 2020-04-27 14:22 | P.CNS ---
Date of Consult: 04/27/20 Reason for Consult: MARBELLA , hyperkalemia Chief Complaint: Respiratory failure History of Present Illness: Pt is intubated , Hx obtained from chart A [id number] gentleman with a history of hypertension and diabetes pt was admitted with SOB , he was diagnosed with COVID 19 prior to admission, pt required intubation for hypoxic respiratory failure , his cr was 0.6 but on 04/18 cr was up to 1.5, pt cr remained relatively stable , yesterday pt K noticed to be elevated , and cr trending up pt is on High PEEP and oxygen requirement , with intermittent sedation ROS unable to provide Physical exam general: intubated , sedated Neck; Supple, No elevated JVD hear: RRR, normal S1,2 no murmur or rub Chest: CTAB, no rlaes or wheezes Abdomen: Soft , Nt Extremities + 1 pedal edema A/P MARBELLA multifactorial COVID19 +/- barotrauma+/- propofol hold IVF renal dose meds will check CPK will order US COVID 19 pneumonia intubated on High O2 demand Hyperkalemia cont kayexalate Acute respiratory failures intubated total time spent 55min pt with overall poor prognosis and he is not candidate for renal replacement therapy Allergies No Known Drug Allergies Allergy (Verified 04/05/20 22:40) Unknown Home Medications: Albuterol 17 gm IH PRN PRN 05/27/12 Fluticasone/Salmeterol [Advair 250-50 Diskus] 1 each IH BID 05/27/12 Losartan Potassium [Cozaar] 100 mg PO DAILY 05/27/12 Amlodipine [Norvasc*] 10 mg PO DAILY 04/05/20 Atorvastatin Calcium [Lipitor*] 20 mg PO DAILY 04/05/20 Metformin ER [Glucophage ER*] 500 mg PO DAILY 04/05/20 hydroCHLOROthiazide [Hydrochlorothiazide*] 12.5 mg PO DAILY 04/05/20 - Past Medical/Surgical History Diabetic: Yes -: Hypertension -: Diabetes mellitus type -: Asthma -: hyperlipidemia -: Renal calculi sx - Family History Mother Medical History: Diabetes - Social History Smoking Status: Former smoker Alcohol use: No CD- Drugs: No Caffeine use: Yes Place of Residence: Home Physical Examination Temp Pulse Resp BP Pulse Ox 98.1 F 94 H 35 H 99/55 L 90 L 04/27/20 11:32 04/27/20 11:32 04/27/20 11:32 04/27/20 11:32 04/27/20 11:32 Laboratory Data (last 24 hrs) 06/26/19 05:00: Phosphorus Cancelled, Magnesium Cancelled
[2020-04-27] MEDS: Meropenem 500 MG in NA CHLORIDE 0.9% 100 ML IV SCH (18:10)
--- NOTE | 2020-04-27 19:06 | PN ---
Subjective: The patient is still unresponsive from sedation, on mechanical ventilation. Objective: Vital Signs: Blood pressure 104/68, pulse 92, temperature 98.1. Heart: Regular rate and rhythm. Chest: Bilateral crackles. Abdomen: Soft, benign. Neurological: Patient is sedated. Extremities: Trace edema, bilateral. Patient is still requiring mechanical ventilation to keep his saturation above 88%. Laboratory Data: White cell count 21.5 with a left shift of neutrophils 90.3%, hemoglobin 10.9, christelle tocrit 33.3, platelets 117. ABGs this morning; pH 7.27, pCO2 82.8, PO2 70.9, saturation 90.4% on 100 % O2, mechanical ventilation. Chemistry; sodium 148, potassium 5.3, CO2 39, BUN 106, creatinine 2.07 , GFR 34. Blood sugar fingersticks less than 200, more than 100, calcium 7.3. Diagnostic Data: Chest x-ray not much change in the bilateral infiltrates. Mild cardiomegaly. Assessment And Plan: 1.COVID-19 pneumonia, not doing well with acute respiratory failure, intubated on mechanical ventila tion that is going to be continued. He is also on nasogastric tube feeding. 2.Acute renal failure from his pneumonia. Nephrology had seen the patient. I will talk with the ne phrologist and the patient is not the candidate for dialysis at this time, although he thinks he need s to have, but he is not a candidate due to his COVID and general condition. 3.Type 2 diabetes. We will continue current management. 4.Patient has a grim outlook so far with his deteriorating multiorgan failure. The family has been talked by the molder closed molds and we will try to also talk to them from that standpoint. Meanwhile, we will try the supportive care that would be doing, and we will follow Pulmonary and Nephrology recomme ndations. The patient's white cell count has been increased to 21,000. Dr. Livingston is going to put him on meropenem for secondary opportunistic infections of bacteria. Blood cultures are drawn. Flynn patel for details. MFS/MODL Voice ID: [id number] Report ID: [id number]
[2020-04-27] MEDS: MELATONIN 5 MG TABLET PO SCH (20:43)
[2020-04-28] MEDS: Meropenem 500 MG in NA CHLORIDE 0.9% 100 ML IV SCH ×3 (00:08→17:30)
[2020-04-28] MEDS: METHYLPREDNISOLONE 125 MG INJ IV SCH (00:08)
[2020-04-28] MEDS: FENTANYL CITR 100 MCG/2 ML IV PRN ×2 (01:02→06:20)
[2020-04-28] MEDS: LORazepam 2 MG/ML VIAL IV PRN ×2 (01:55→09:19)
[2020-04-28] MEDS: MIDAZOLAM HCL 2 MG/2 ML INJ IV PRN (05:14)
[2020-04-28 05:25] LABS: Hematocrit 30.4 % (39.6-49.0); MPV 10.1 fL (7.6-11.3); RBC Red Blood Cell Count 3.21 M/uL (4.33-5.43)
[2020-04-28 05:48] LABS: C-Reactive Protein 10.4 mg/L (<3.00); Potassium 4.9 mmol/L (3.5-5.1)
[2020-04-28] MEDS: FAMOTIDINE 20 MG/2 ML VIAL IV SCH ×2 (09:19→21:13)
[2020-04-28] MEDS: FLUCONAZOLE 100 MG TAB PO SCH (09:19)
[2020-04-28] MEDS: ZINC SULFATE 220 MG CAP PO SCH (09:19)
[2020-04-28] MEDS: THIAMINE 200 MG/2 ML INJ IVP SCH (09:19)
[2020-04-28] MEDS: ASCORBIC ACID 500 MG TABLET PO SCH ×3 (09:19→21:13)
[2020-04-28] MEDS: METOPROLOL TAR 50 MG TAB PO SCH ×2 (09:20→17:30)
[2020-04-28] MEDS ORDERED: METOPROLOL TARTRATE 5 MG/5 ML INJ IV PRN ×2 (09:59→15:02)
[2020-04-28] MEDS: INSULIN GLARGINE 100 UNITS/ML SQ SCH ×2 (10:00→21:46)
[2020-04-28 10:15] LABS: Arterial Blood Carboxyhemoglob 1.7 % (0-1.5); Blood Gas Oxyhemoglobin 87.2 % (94-97); Blood O2 Saturation 89.7 % (92-98.5)
[2020-04-28] MEDS: VITAMIN D 1000 UNIT TAB PO SCH (10:43)
[2020-04-28] MEDS: APIXABAN 5 MG TABLET PO SCH ×2 (10:43→21:12)
[2020-04-28] MEDS ORDERED: FUROSEMIDE 40 MG/4 ML VIAL IV ONE (10:58)
--- NOTE | 2020-04-28 10:59 | P.PN ---
Subjective Date of Service: 04/28/20 Chief Complaint: Respiratory failure Pt is intubated , Hx obtained from chart A [id number] gentleman with a history of hypertension and diabetes pt was admitted with SOB , he was diagnosed with COVID 19 prior to admission, pt required intubation for hypoxic respiratory failure , his cr was 0.6 but on 04/18 cr was up to 1.5, pt cr remained relatively stable , yesterday pt K noticed to be elevated , and cr trending up pt is on High PEEP and oxygen requirement , with intermittent sedation today o2 sat <90 on 100 FIO UO improving hypernatremia , will start on D5W ROS unable to provide Physical exam general: intubated , sedated Neck; Supple, No elevated JVD hear: tachycardia normal S1,2 no murmur or rub Chest: CTAB, no rlaes or wheezes Abdomen: Soft , Nt Extremities + 1 pedal edema A/P MARBELLA multifactorial COVID19 +/- barotrauma+/- propofol hold IVF renal dose meds CPK 680 now off propofol will order US COVID 19 pneumonia intubated on High O2 demand Hyperkalemia K 4.9 now cont kayexalate prn Acute respiratory failures intubated edema will give lasix X1 hypernatremia will start on D5W total time spent 55min pt with overall poor prognosis and he is not candidate for renal replacement therapy Physical Examination - Vital Signs Temperature: 98.8 F Blood Pressure: 87/64 Pulse: 105 Respirations: 30 Pulse Ox (%): 89
[2020-04-28] MEDS: D5W 1,000 ML IV SCH (11:17)
--- NOTE | 2020-04-28 12:03 | RAD REPORT ---
EXAM DESCRIPTION: RAD - Chest Single View - 04/28/2020 11:32 am CLINICAL HISTORY: Respiratory failure COMPARISON: Portable chest April 27 TECHNIQUE: AP portable chest image was obtained 04/28/2020 11:32 am . FINDINGS: Endotracheal tube, PICC line and NG tube have not changed. Bilateral airspace opacities ar e present not substantially different from the comparison. Cardiac silhouette has not changed. No pne umothorax or enlarging pleural effusion. Bilateral costophrenic angle blunting remains. No acute bony abnormality seen. No acute aortic findings suspected. IMPRESSION: As detailed, chest exam is stable compared to April 27.
[2020-04-28] MEDS: INSULIN -REGULAR HUMAN 100 UNIT in NA CHLORIDE 0.9% 100 ML IV SCH (15:11)
[2020-04-28] MEDS ORDERED: Pharmacy Consult 1 EA XX PRN (20:33)
[2020-04-28] MEDS: MELATONIN 5 MG TABLET PO SCH (21:12)
[2020-04-28] MEDS: ACETAMINOPHEN 500 MG TAB PO PRN (21:12)
[2020-04-28] MEDS: VANCOMYCIN 2 GM in NA CHLORIDE 0.9% 500 ML IVPB SCH (21:13)
[2020-04-28] MEDS ORDERED: NA CHLORIDE 0.9% 500 ML ONE (21:27)
[2020-04-28] MEDS ORDERED: VANCOMYCIN 1 GM/VIAL ONE (21:27)
[2020-04-28] MEDS ORDERED: FLUCONAZOLE 400 MG IVPB 400 MG/200 ML BAG IV SCH (22:00)
[2020-04-29] MEDS: Meropenem 500 MG in NA CHLORIDE 0.9% 100 ML IV SCH ×3 (02:06→17:26)
[2020-04-29] MEDS: LORazepam 2 MG/ML VIAL IV PRN ×3 (04:28→14:58)
[2020-04-29 05:59] LABS: Arterial Blood Carboxyhemoglob 1.7 % (0-1.5); Blood Gas Oxyhemoglobin 91.6 % (94-97); Blood O2 Saturation 94.3 % (92-98.5)
[2020-04-29] MEDS: METOPROLOL TAR 50 MG TAB PO SCH ×2 (06:00→17:25)
[2020-04-29 06:52] LABS: Hematocrit 25.3 % (39.6-49.0); MPV 10.1 fL (7.6-11.3); RBC Red Blood Cell Count 2.67 M/uL (4.33-5.43)
[2020-04-29] MEDS: D5W 1,000 ML IV SCH ×3 (07:00→17:26)
[2020-04-29 07:14] LABS: C-Reactive Protein 24.4 mg/L (<3.00); Magnesium 2.7 mg/dL (1.8-2.4); Phosphorus 3.7 mg/dL (2.5-4.9); Potassium 4.3 mmol/L (3.5-5.1)
--- NOTE | 2020-04-29 08:44 | RAD REPORT ---
EXAM DESCRIPTION: RAD - Chest Single View - 04/29/2020 4:32 am CLINICAL HISTORY: Respiratory failure Chest pain. COMPARISON: Chest Single View dated 04/28/2020; Chest Single View dated 04/27/2020; Chest Single Vie w dated 04/27/2020; Chest Single View dated 04/26/2020 FINDINGS: Portable technique limits examination quality. Tip of the endotracheal tube is above the svetlana. Enteric tube is in the stomach. Right-sided PICC li ne has tip in the SVC. Extensive bilateral pulmonary opacities are present likely representing pulmon lynne edema, pneumonia or ARDS. The heart is moderately enlarged in size.
--- NOTE | 2020-04-29 09:03 | RAD REPORT ---
EXAM DESCRIPTION: US - Renal Ultrasound-Complete - 04/29/2020 8:46 am CLINICAL HISTORY: MARBELLA Flank pain COMPARISON: ABDOMINAL EXAM LIMITED dated 05/27/2012 FINDINGS: Both kidneys are normal in size, shape and echotexture. The right kidney measures 11.0 x 7.2 x 7.0 cm.. Small stone is likely present in the calyx of the rig ht kidney. No hydronephrosis. The left kidney measures 13.8 x 6.6 x 5.9 cm. No hydronephrosis, focal mass or perinephric fluid. The urinary bladder is incompletely distended without gross abnormality seen. IMPRESSION: Small nonobstructing right renal calculus.
[2020-04-29] MEDS: FAMOTIDINE 20 MG/2 ML VIAL IV SCH ×2 (10:09→21:04)
[2020-04-29] MEDS: ASCORBIC ACID 500 MG TABLET PO SCH ×3 (10:09→21:04)
[2020-04-29] MEDS: THIAMINE 200 MG/2 ML INJ IVP SCH (10:09)
[2020-04-29] MEDS: VITAMIN D 1000 UNIT TAB PO SCH (10:10)
[2020-04-29] MEDS: APIXABAN 5 MG TABLET PO SCH ×2 (10:10→21:03)
[2020-04-29] MEDS: ZINC SULFATE 220 MG CAP PO SCH (10:10)
[2020-04-29] MEDS: FLUCONAZOLE 400 MG IVPB 400 MG/200 ML BAG IV SCH (11:25)
[2020-04-29] MEDS: INSULIN GLARGINE 100 UNITS/ML SQ SCH ×2 (11:44→22:05)
--- NOTE | 2020-04-29 11:47 | P.PN ---
Subjective Date of Service: 04/29/20 Chief Complaint: Respiratory failure Patient is unresponsive currently off propofol the of experience propofol toxicity using sedation on a p.r.n. basis unresponsive Review of Systems is unable to be obtained Physical Examination - Vital Signs Temperature: 98.8 F Blood Pressure: 95/60 Pulse: 101 Respirations: 19 Pulse Ox (%): 90 - Physical Exam General: Unresponsive Respiratory: Clear to auscultation bilaterally Cardiovascular: No edema, Regular rate/rhythm Assessment & Plan - Problems (Diagnosis) (1) Pneumonia due to COVID-19 virus Current Visit: Yes Status: Acute Plan: Respiratory failure from smith virus chest x-ray some improvement been an improvement in his oxygenation PO2 is now 69 patient developed AFib yesterday and was restarted on metoprolol and Eliquis is white count is improving insulin drip Dc 8 blood sugars now under control reduce dose of Lantus ferritin level still elevated most likely he had propofol toxicity does is been discontinued hypernatremia renal function improving (2) Renal failure Current Visit: Yes Status: Acute Plan: Seen by Nephrology an IV fluids Qualifiers: Chronic kidney disease stage: stage 3 (moderate)
[2020-04-29] MEDS: FENTANYL CITR 100 MCG/2 ML IV PRN ×2 (12:01→21:14)
[2020-04-29 13:25] LABS: Arterial Blood Carboxyhemoglob 1.8 % (0-1.5); Blood Gas Oxyhemoglobin 88.3 % (94-97); Blood O2 Saturation 90.8 % (92-98.5)
[2020-04-29 16:41] LABS: Potassium 4.3 mmol/L (3.5-5.1)
--- NOTE | 2020-04-29 17:21 | PN ---
Subjective: The patient is still on mechanical ventilation, unresponsive. He is on no sedative medi cations, however. Objective: Vital Signs: His blood pressure is 104/63, pulse 103, temperature 98.8. Heart: Tachycardic. Regular rate. Chest: Mild bilateral crackles. Abdomen: Soft, benign. Bowel sounds are active. Extremities: No edema or cyanosis. Peripheral pulses are felt. Neurological: The patient is unresponsive, however, he withdraws to pain. Diagnostic Studies: Renal ultrasound showed small nonobstructing right renal calculus. Chest x-ray, bilateral pulmonary opacities, extensive the same. Telemetry showed the patient has had atrial fibr illation episode. Laboratory Data: White cell count 12.4, hemoglobin 8.1, hematocrit 25.3, and platelets 120. Blood s ugar fingersticks in the low 100. Assessment And Plan: 1.COVID pneumonia causing acute respiratory failure and hypoxia, on mechanical ventilation. We will continue the supportive care. 2.Type 2 diabetes, better controlled. We are adjusting insulin dosage according to his blood sugar fingersticks. 3.Atrial fibrillation. The patient has been put on metoprolol. 4.His prognosis is poor with his kidney functions being showing acute renal failure worsening. Neph rology do not think that the patient is a candidate for dialysis. 5.Look orders for details. MFS/MODL Voice ID: [id number] Report ID: [id number]
[2020-04-29] MEDS ORDERED: D50W 25 GM/50 ML SYRINGE IV PRN (17:22)
[2020-04-29] MEDS ORDERED: GLUCAGON 1 MG/VIAL IM PRN (17:22)
[2020-04-29] MEDS: INSULIN -REGULAR HUMAN 50 UNIT/0.5 ML ML SQ SCH (17:31)
[2020-04-29] MEDS: VANCOMYCIN 2 GM in NA CHLORIDE 0.9% 500 ML IVPB SCH (20:22)
[2020-04-29] MEDS: MELATONIN 5 MG TABLET PO SCH (21:00)
--- NOTE | 2020-04-29 22:11 | PN ---
Date of Progress Note: 04/29/2020 Chief Complaint: Acute kidney injury, nonoliguric, associated with prerenal azotemia, nonoliguric AT N. The patient has history of multiple medical problems. He is admitted for COVID pneumonia. History Of Present Illness: The patient is a 55-year-old man with history of hypertension, diabetes mellitus. He was admitted with shortness of breath, was diagnosed with COVID-19 prior to this admiss ion. The patient although during this admission required intubation for hypoxic respiratory failure. Baseline creatinine level on previous occasion back in April 2017 was within normal ranges and c reatinine at that time was 0.6. During this admission, creatinine was up to 1.5. The patient has no noliguric urine output. The patient was treated for elevated potassium. Hyperkalemia was present wh en he came to the hospital. Review of Systems: Unobtainable. The patient is intubated for hypoxemic respiratory failure. The patient has fluid ove rload. Physical Examination: General: The patient is intubated. Lungs: Diminished breath sounds. Heart: S1, S2. No pericardial friction rub. Abdomen: Soft. Extremities: 1+ edema. Impression And Plan: 1.Acute kidney injury, multifactorial. The patient was started on IV fluids to prevent renal hypope rfusion. Monitor renal panel and fluid balance. The patient may benefit from IV fluids for treatmen t of sepsis. The patient has renal ultrasound. Plan is to evaluate kidney ultrasound. 2.Hyperkalemia. Continue Kayexalate as needed. Potassium level improved to 4.9. 3.COVID pneumonia, on high oxygen demand. Continue oxygen therapy with intubation. 4.Edema. Lasix was given. Monitor fluid balance and electrolytes. 5.Hypotension. The patient is on pressors and blood pressure was low during this admission. [facility] blood pressure is ranging from 96/57 to 106/60. EB/MODL Voice ID: [id number] Report ID: [id number]
[2020-04-30] MEDS: INSULIN -REGULAR HUMAN 50 UNIT/0.5 ML ML SQ SCH ×4 (00:14→17:58)
[2020-04-30] MEDS: Meropenem 500 MG in NA CHLORIDE 0.9% 100 ML IV SCH ×3 (00:16→17:57)
[2020-04-30] MEDS: D5W 1,000 ML IV SCH ×3 (00:19→21:17)
[2020-04-30] MEDS: LORazepam 2 MG/ML VIAL IV PRN ×4 (00:19→11:23)
[2020-04-30] MEDS: FENTANYL CITR 100 MCG/2 ML IV PRN ×2 (02:45→08:35)
[2020-04-30 05:21] LABS: Hematocrit 24.3 % (39.6-49.0); MPV 9.7 fL (7.6-11.3); RBC Red Blood Cell Count 2.54 M/uL (4.33-5.43)
[2020-04-30 05:44] LABS: C-Reactive Protein 87.2 mg/L (<3.00); Ferritin 1226.1 ng/mL (26-388); Potassium 4.5 mmol/L (3.5-5.1)
[2020-04-30] MEDS: METOPROLOL TAR 50 MG TAB PO SCH ×3 (05:57→18:00)
--- NOTE | 2020-04-30 08:13 | RAD REPORT ---
EXAM DESCRIPTION: RAD - Chest Single View - 04/30/2020 7:10 am CLINICAL HISTORY: Respiratory failure COMPARISON: Portable April 29 TECHNIQUE: AP portable chest image was obtained 04/30/2020 7:10 am . FINDINGS: ET tube is in good position. Enteric tube extends below the diaphragm, off the field of vi ew. Dense airspace opacification in the mid and lower left lung field and less dense right lower lung fie ld airspace opacities are again noted. Patient shows slight improvement in the right lung field. Cardiomediastinal silhouette is stable. Mediastinum is distorted by rotation. No pneumothorax or enl arging pleural effusion. No acute bony abnormality seen. No acute aortic findings suspected. IMPRESSION: Significant bilateral airspace opacification, left greater than right. Mild improvement in the right lung field noted.
[2020-04-30] MEDS: APIXABAN 5 MG TABLET PO SCH ×2 (09:00→20:37)
[2020-04-30] MEDS: ASCORBIC ACID 500 MG TABLET PO SCH ×3 (09:00→20:39)
[2020-04-30] MEDS: ZINC SULFATE 220 MG CAP PO SCH (09:00)
[2020-04-30] MEDS: VITAMIN D 1000 UNIT TAB PO SCH (09:00)
[2020-04-30] MEDS: INSULIN GLARGINE 100 UNITS/ML SQ SCH ×2 (09:41→20:38)
[2020-04-30] MEDS: FAMOTIDINE 20 MG/2 ML VIAL IV SCH ×2 (09:42→20:39)
[2020-04-30] MEDS: THIAMINE 200 MG/2 ML INJ IVP SCH (09:42)
[2020-04-30] MEDS: MIDAZOLAM HCL 2 MG/2 ML INJ IV PRN (09:45)
[2020-04-30] MEDS: FLUCONAZOLE 400 MG IVPB 400 MG/200 ML BAG IV SCH (10:11)
[2020-04-30] MEDS: HALOPERIDOL LACT 5 MG/ML INJ IV PRN (11:24)
--- NOTE | 2020-04-30 11:48 | P.PN ---
Subjective Date of Service: 04/30/20 Chief Complaint: Respiratory failure Patient unresponsive oxygen requirements have decreased slightly renal function is improving chest x-ray no change Review of Systems is unable to be obtained Physical Examination - Vital Signs Temperature: 98.8 F Blood Pressure: 86/56 Pulse: 97 Respirations: 30 Pulse Ox (%): 91 - Physical Exam General: Unresponsive Respiratory: Expiratory wheezes Cardiovascular: Edema (Bilateral edema) Assessment & Plan - Problems (Diagnosis) (1) Pneumonia due to COVID-19 virus Current Visit: Yes Status: Acute Plan: Respiratory failure chest x-ray no change oxygen requirements have decreased slightly 90 percent mildly anemic white count is now normal advance endotracheal tube 1.5 cm assumes Solu-Medrol was discontinued (2) Renal failure Current Visit: Yes Status: Acute Plan: The renal function improving Qualifiers: Chronic kidney disease stage: stage 3 (moderate)
--- NOTE | 2020-04-30 12:06 | P.PN ---
Subjective Date of Service: 04/30/20 Chief Complaint: Respiratory failure Pt is intubated , Hx obtained from chart A [id number] gentleman with a history of hypertension and diabetes pt was admitted with SOB , he was diagnosed with COVID 19 prior to admission, pt required intubation for hypoxic respiratory failure , his cr was 0.6 but on 04/18 cr was up to 1.5, pt cr remained relatively stable , yesterday pt K noticed to be elevated , and cr trending up pt is on High PEEP and oxygen requirement , with intermittent sedation today Hypoxic , even on 100% FiO Cr improving Cont Dw5, now at 100ml/hr will give lasix X1 ROS unable to provide Physical exam general: intubated , sedated Neck; Supple, No elevated JVD hear: tachycardia normal S1,2 no murmur or rub Chest: CTAB, no rlaes or wheezes Abdomen: Soft , Nt Extremities + 1 pedal edema A/P MARBELLA multifactorial COVID19 +/- barotrauma+/- propofol hold IVF renal dose meds Cr improving COVID 19 pneumonia intubated on High O2 demand Hyperkalemia K 4.9 now cont kayexalate prn Acute respiratory failures intubated edema will give lasix X1 hypernatremia on D5W total time spent 55min pt with overall poor prognosis Physical Examination - Vital Signs Temperature: 98.8 F Blood Pressure: 86/56 Pulse: 97 Respirations: 30 Pulse Ox (%): 91
[2020-04-30] MEDS: MIDAZOLAM HCL 100 MG in NA CHLORIDE 0.9% 80 ML IV PRN (12:10)
[2020-04-30] MEDS: METHYLPREDNISOLONE 125 MG INJ IV SCH ×2 (12:13→20:39)
[2020-04-30] MEDS ORDERED: FUROSEMIDE 40 MG/4 ML VIAL IV ONE (12:20)
[2020-04-30] MEDS: MELATONIN 5 MG TABLET PO SCH (20:38)
[2020-04-30] MEDS: VANCOMYCIN 2 GM in NA CHLORIDE 0.9% 500 ML IVPB SCH (21:38)
[2020-05-01] MEDS: Meropenem 500 MG in NA CHLORIDE 0.9% 100 ML IV SCH ×3 (00:01→17:19)
[2020-05-01 05:05] LABS: Hematocrit 22.6 % (39.6-49.0); MPV 9.8 fL (7.6-11.3); RBC Red Blood Cell Count 2.36 M/uL (4.33-5.43)
[2020-05-01 05:41] LABS: C-Reactive Protein 85.7 mg/L (<3.00); Ferritin 1329.7 ng/mL (26-388); Potassium 4.8 mmol/L (3.5-5.1)
[2020-05-01] MEDS: INSULIN -REGULAR HUMAN 50 UNIT/0.5 ML ML SQ SCH ×4 (06:14→17:19)
[2020-05-01] MEDS: METOPROLOL TAR 50 MG TAB PO SCH ×2 (06:14→17:19)
--- NOTE | 2020-05-01 07:50 | RAD REPORT ---
[facility] DES[facility] 5[facility]53 am CLINICAL HISTORY: Respiratory failure COMPARISON: April 30 FINDINGS: No significant change in right and mild improvement in left pulmonary opacities. Heart remains enlarged. Endotracheal and nasogastric tubes in place
[2020-05-01] MEDS: FENTANYL CITR 100 MCG/2 ML IV PRN (08:18)
[2020-05-01] MEDS: FAMOTIDINE 20 MG/2 ML VIAL IV SCH ×2 (08:50→20:19)
[2020-05-01] MEDS: ASCORBIC ACID 500 MG TABLET PO SCH ×3 (08:50→20:20)
[2020-05-01] MEDS: THIAMINE 200 MG/2 ML INJ IVP SCH (08:50)
[2020-05-01] MEDS: ZINC SULFATE 220 MG CAP PO SCH (08:50)
[2020-05-01] MEDS: VITAMIN D 1000 UNIT TAB PO SCH (08:50)
[2020-05-01] MEDS: METHYLPREDNISOLONE 125 MG INJ IV SCH ×2 (08:50→20:19)
[2020-05-01] MEDS: INSULIN GLARGINE 100 UNITS/ML SQ SCH ×2 (08:51→20:20)
[2020-05-01] MEDS: FLUCONAZOLE 400 MG IVPB 400 MG/200 ML BAG IV SCH (08:52)
[2020-05-01] MEDS: APIXABAN 5 MG TABLET PO SCH ×2 (09:00→20:20)
[2020-05-01] MEDS: D5W 1,000 ML IV SCH ×2 (10:32→23:52)
--- NOTE | 2020-05-01 12:11 | P.PN ---
Subjective Date of Service: 05/01/20 Chief Complaint: Respiratory failure Patient is unresponsive on the ventilator oxygen requirement and decreased to 90% as not responsive Review of Systems is unable to be obtained Physical Examination - Vital Signs Temperature: 98.1 F Blood Pressure: 139/82 Pulse: 83 Respirations: 28 Pulse Ox (%): 91 - Physical Exam General: Unresponsive Respiratory: Clear to auscultation bilaterally Cardiovascular: Regular rate/rhythm, Edema Assessment & Plan - Problems (Diagnosis) (1) Pneumonia due to COVID-19 virus Current Visit: Yes Status: Acute Plan: Respiratory failure nor chain chest x-ray no change ferritin level still very elevated renal function improving max assist on the ventilator white count is now normal kidney function is also improving increase insulin dosing for sugars elevated (2) Renal failure Current Visit: Yes Status: Acute Plan: The renal function improving Qualifiers: Chronic kidney disease stage: stage 3 (moderate)
[2020-05-01] MEDS ORDERED: D50W 25 GM/50 ML SYRINGE IV PRN (13:12)
[2020-05-01] MEDS ORDERED: INSULIN GLARGINE 100 UNITS/ML SQ ONE (13:12)
[2020-05-01] MEDS ORDERED: GLUCAGON 1 MG/VIAL IM PRN (13:12)
[2020-05-01] MEDS ORDERED: NA CHLORIDE 0.9% 250 ML ONE (14:56)
[2020-05-01 15:56] LABS: Arterial Blood Carboxyhemoglob 2.1 % (0-1.5); Blood Gas Oxyhemoglobin 86.1 % (94-97); Blood O2 Saturation 89.1 % (92-98.5)
[2020-05-01] MEDS: MIDAZOLAM HCL 100 MG in NA CHLORIDE 0.9% 80 ML IV PRN (16:40)
[2020-05-01] MEDS: MELATONIN 5 MG TABLET PO SCH (20:20)
[2020-05-01] MEDS: VANCOMYCIN 2 GM in NA CHLORIDE 0.9% 500 ML IVPB SCH (20:21)
[2020-05-01 20:30] LABS: Hematocrit 22.7 % (39.6-49.0)
--- NOTE | 2020-05-01 21:56 | PN ---
Date of Progress Note: 05/01/2020 Chief Complaint: Respiratory failure, acute kidney injury. Subjective: The patient is a 55-year-old man with history of hypertension and diabetes mellitus. He was admitted because of shortness of breath, was diagnosed with COVID-19, required intubation for hypoxemic respiratory failure. Creatinine level was up to 1.5 and has stabilized over this admission. The patient was found to have elevated potassium level. Creatinine was trending up. The patient is on intermittent sedation. Review of Systems: Unable to provide. Objective: Lungs: No rales, no wheezing. Heart: S1, S2. Extremities: 1+ edema. Blood Work: Creatinine level 1.37, BUN 78. Sodium 148, potassium 4.8, chloride 107, CO2 is 39. C-reactive protein 85.7. Creatinine level over the last 24 hours is stabilizing from 2.07 to 1.31 and 1.37. Impression And Plan: 1. Acute on chronic kidney injury. Renal function is gradually improving. There is high BUN and creatinine ratio secondary to hypermetabolic state, prerenal azotemia, nonoliguric acute tubular necrosis. The patient has multifactorial respiratory secondary to COVID-19 pneumonia. IV fluid is on hold currently. Sodium level has improved. 2. Hyperkalemia. Potassium improved. Continue Kayexalate as needed. 3. Continue lasix for volume control. 4. Hypernatremia. Was treated on D5W and sodium level has gradually stabilized from 162 to 148. Continue to monitor and adjust IV fluids as needed. EB/MODL Voice ID: [id number] Report ID: [id number] [facility]
[2020-05-02] MEDS: INSULIN -REGULAR HUMAN 50 UNIT/0.5 ML ML SQ SCH ×2 (00:12→06:20)
[2020-05-02] MEDS: Meropenem 500 MG in NA CHLORIDE 0.9% 100 ML IV SCH ×3 (00:12→17:14)
[2020-05-02] MEDS: FENTANYL CITR 100 MCG/2 ML IV PRN (03:50)
[2020-05-02 05:17] LABS: Absolute Lymphocytes (CBC) 0.3 K/uL (0.7-4.9); Basophils % 0.2 % (0-1.3); Hematocrit 22.7 % (39.6-49.0); Lymphocytes % 2.4 % (15.3-44.8); MPV 9.7 fL (7.6-11.3)
[2020-05-02 05:32] LABS: Magnesium 2.5 mg/dL (1.8-2.4); Potassium 4.7 mmol/L (3.5-5.1)
[2020-05-02] MEDS: METOPROLOL TAR 50 MG TAB PO SCH ×2 (06:19→18:04)
[2020-05-02 07:16] LABS: Anisocytosis 1+; Blood Morphology Comment NOTED (NOT SEEN); Platelet Estimate ADEQ; Polychromasia 2+
[2020-05-02 07:17] LABS: Basophilic Stippling 1+; Smudge Cells FEW
[2020-05-02] MEDS: FLUCONAZOLE 400 MG IVPB 400 MG/200 ML BAG IV SCH (08:34)
--- NOTE | 2020-05-02 08:47 | RAD REPORT ---
EXAM DESCRIPTION: RAD - Chest Single View - 05/02/2020 6:06 am CLINICAL HISTORY: Respiratory failure Chest pain. COMPARISON: Chest Single View dated 05/01/2020; Chest Single View dated 04/30/2020; Chest Single Vie w dated 04/29/2020; Chest Single View dated 04/28/2020 FINDINGS: Portable technique limits examination quality. Tip of the endotracheal tube is above the svetlana. Enteric tube descends into the upper abdomen. Bilat eral pulmonary opacities appear stable since comparative study. The heart is significantly enlarged. IMPRESSION: Stable chest since yesterday's examination.
[2020-05-02] MEDS: ZINC SULFATE 220 MG CAP PO SCH (09:21)
[2020-05-02] MEDS: METHYLPREDNISOLONE 125 MG INJ IV SCH ×2 (09:21→20:59)
[2020-05-02] MEDS: FAMOTIDINE 20 MG/2 ML VIAL IV SCH ×2 (09:21→20:59)
[2020-05-02] MEDS: D5W 1,000 ML IV SCH (09:21)
[2020-05-02] MEDS: THIAMINE 200 MG/2 ML INJ IVP SCH (09:21)
[2020-05-02] MEDS: VITAMIN D 1000 UNIT TAB PO SCH (09:21)
[2020-05-02] MEDS: INSULIN GLARGINE 100 UNITS/ML SQ SCH ×2 (09:34→20:59)
[2020-05-02] MEDS ORDERED: GLUCAGON 1 MG/VIAL IM PRN (10:04)
[2020-05-02] MEDS ORDERED: D50W 25 GM/50 ML SYRINGE IV PRN (10:04)
[2020-05-02 10:15] LABS: C-Reactive Protein 48.9 mg/L (<3.00); Ferritin 1188.9 ng/mL (26-388)
[2020-05-02] MEDS: MIDAZOLAM HCL 100 MG in NA CHLORIDE 0.9% 80 ML IV PRN (10:26)
[2020-05-02] MEDS: APIXABAN 5 MG TABLET PO SCH ×2 (10:30→20:58)
--- NOTE | 2020-05-02 11:27 | P.PN ---
Subjective Date of Service: 05/02/20 Chief Complaint: Respiratory failure No change unresponsive still on high concentrations of oxygen chest x-ray no change Review of Systems is unable to be obtained Physical Examination - Vital Signs Temperature: 97.8 F Blood Pressure: 151/89 Pulse: 82 Respirations: 28 Pulse Ox (%): 92 Assessment & Plan - Problems (Diagnosis) (1) Pneumonia due to COVID-19 virus Current Visit: Yes Status: Acute Plan: Respiratory failure increase peep to 15 patient is on a Versed drip hypernatremia increase NG tube water flushes mildly anemic hyperglycemia start on insulin drip (2) Renal failure Current Visit: Yes Status: Acute Plan: Renal function improving Qualifiers: Chronic kidney disease stage: stage 3 (moderate)
[2020-05-02] MEDS: ASCORBIC ACID 500 MG TABLET PO SCH ×3 (11:34→20:59)
[2020-05-02] MEDS: INSULIN -REGULAR HUMAN 100 UNIT in NA CHLORIDE 0.9% 99 ML IV SCH (12:12)
--- NOTE | 2020-05-02 20:08 | PN ---
Date of Progress Note: 05/02/2020 Chief Complaint: Acute kidney injury. Subjective: The patient is a 55-year-old man with history of hypertension, diabetes mellitus. He wa s admitted because of shortness of breath, was diagnosed with COVID-19 pneumonia, required intubation for hypoxemic respiratory failure. Creatinine level was up to 1.5 and stabilized. During this admi ssion, it has been fluctuating from 1.31 to 1.37. Review of Systems: Unable to provide. Physical Examination: Lungs: No wheezing. Extremities: 1+ edema. Assessment/plan: 1.Acute on chronic kidney injury. Renal function is gradually improving. Avoid nephrotoxic medicat ions. The patient may benefit from Lasix. IV fluid is on hold currently. Sodium level has improved . The patient was on D5W to control hypernatremia. 2.Hyperkalemia. Potassium improved and continue Kayexalate as needed. 3.Hypernatremia. The patient completed D5W. Monitor electrolytes and renal panel. EB/MODL Voice ID: [id number] Report ID: [id number]
[2020-05-02] MEDS: MELATONIN 5 MG TABLET PO SCH (20:59)
[2020-05-02] MEDS: VANCOMYCIN 2 GM in NA CHLORIDE 0.9% 500 ML IVPB SCH (21:21)
[2020-05-03] MEDS: Meropenem 500 MG in NA CHLORIDE 0.9% 100 ML IV SCH ×3 (00:23→17:44)
[2020-05-03 05:48] LABS: Hematocrit 25.1 % (39.6-49.0); MPV 9.7 fL (7.6-11.3); RBC Red Blood Cell Count 2.65 M/uL (4.33-5.43)
[2020-05-03] MEDS: METOPROLOL TAR 50 MG TAB PO SCH ×2 (06:09→17:44)
[2020-05-03 06:11] LABS: Albumin 1.7 g/dL (3.4-5.0); Bilirubin Total 0.4 mg/dL (0.2-1.0); C-Reactive Protein 21.9 mg/L (<3.00); Ferritin 1111.8 ng/mL (26-388); Potassium 5.1 mmol/L (3.5-5.1); Protein, Total 4.7 g/dL (6.4-8.2)
[2020-05-03 06:58] LABS: Magnesium 2.5 mg/dL (1.8-2.4); Phosphorus 3.8 mg/dL (2.5-4.9)
--- NOTE | 2020-05-03 07:16 | RAD REPORT ---
EXAM DESCRIPTION: RAD - Chest Single View - 05/03/2020 6:51 am CLINICAL HISTORY: Respiratory failure COMPARISON: Portable May 02, 2020 TECHNIQUE: AP portable chest image was obtained 05/03/2020 6:51 am . FINDINGS: Fikd-hcddigg-qeyx-right interstitial and alveolar opacities are present not substantially different from the prior day study. ET tube remains in good position. NG tube is obscured by under pe netrated film technique and body habitus. Large cardiac silhouette again noted. No pneumothorax ident ifiable. No acute bony abnormality seen. No acute aortic findings suspected. IMPRESSION: Stable chest.
[2020-05-03] MEDS: FAMOTIDINE 20 MG/2 ML VIAL IV SCH ×2 (08:35→21:28)
[2020-05-03] MEDS: THIAMINE 200 MG/2 ML INJ IVP SCH (08:35)
[2020-05-03] MEDS: INSULIN GLARGINE 100 UNITS/ML SQ SCH ×2 (08:35→21:29)
[2020-05-03] MEDS: METHYLPREDNISOLONE 125 MG INJ IV SCH ×2 (08:35→21:32)
[2020-05-03] MEDS: VITAMIN D 1000 UNIT TAB PO SCH (08:36)
[2020-05-03] MEDS: APIXABAN 5 MG TABLET PO SCH ×2 (08:36→21:29)
[2020-05-03] MEDS: FLUCONAZOLE 400 MG IVPB 400 MG/200 ML BAG IV SCH (08:36)
[2020-05-03] MEDS: ZINC SULFATE 220 MG CAP PO SCH (08:36)
[2020-05-03] MEDS: ASCORBIC ACID 500 MG TABLET PO SCH ×3 (08:36→21:29)
[2020-05-03] MEDS: INSULIN -REGULAR HUMAN 100 UNIT in NA CHLORIDE 0.9% 99 ML IV SCH (09:01)
--- NOTE | 2020-05-03 09:35 | P.PN ---
Subjective Date of Service: 05/03/20 Chief Complaint: Respiratory failure Saturation is a little bit better otherwise stable Physical Examination - Vital Signs Temperature: 97.7 F Blood Pressure: 123/80 Pulse: 77 Respirations: 30 Pulse Ox (%): 97 Assessment & Plan - Problems (Diagnosis) (1) Pneumonia due to COVID-19 virus Current Visit: Yes Status: Acute Plan: Respiratory failure continue with present treatment he is hemodynamically stable hypernatremia improving this x-ray need to advance his endotracheal tube continue to wean down on paralytic agents patient is on a Versed said drip add doxycycline Dc vancomycin (2) Renal failure Current Visit: Yes Status: Acute Plan: Renal function improving Qualifiers: Chronic kidney disease stage: stage 3 (moderate)
[2020-05-03 15:21] LABS: Arterial Blood Carboxyhemoglob 1.6 % (0-1.5); Blood Gas Oxyhemoglobin 87.6 % (94-97); Blood O2 Saturation 90.2 % (92-98.5)
[2020-05-03] MEDS: VITAL AF 1,000 ML BOT RTH SCH (15:34)
--- NOTE | 2020-05-03 16:34 | PN ---
Subjective: The patient is intubated, sedated. Objective: Vital signs: Blood pressure 136/73, pulse 72, temperature 97.4. Heart: Regular rate and rhythm. Chest: Mild bilateral crackles. Abdomen: Soft, benign. Bowel sounds are active. Extremities: No edema. No cyanosis. Peripheral pulses are felt. Radiographic Data: The patient's chest x-ray stable. No change. Laboratory Data: White cell count 12.9, hemoglobin 8 after 1 unit of transfusion of blood yesterday, hematocrit 25.1, platelets 165. Blood sugar; fingersticks less than 200, more than 100. Creatinine went down to 0.92. The BUN is down to 57. GFR improved to 85. Assessment/plan: 1.Acute renal failure, resolving. 2.Acute respiratory failure, stable. 3.COVID pneumonia. Continue current supportive treatment. 4.Type 2 diabetes mellitus, controlled on current insulin of Lantus and also on insulin drip at this time. 5.Anemia, likely secondary to probably stress ulcer. He is on Pepcid IV. We will continue monitori ng his CBC. Look orders for details. MFS/MODL Voice ID: [id number] Report ID: [id number]
[2020-05-03] MEDS: MIDAZOLAM HCL 100 MG in NA CHLORIDE 0.9% 80 ML IV PRN (18:35)
[2020-05-03] MEDS: MELATONIN 5 MG TABLET PO SCH (21:00)
[2020-05-03] MEDS: DOXYCYCLINE 100 MG CAP PO SCH (21:30)
--- NOTE | 2020-05-03 22:01 | PN ---
Date of Progress Note: 05/03/2020 Chief Complaint: Muhua-vx-sprqiwu kidney injury. Subjective: Renal function is gradually improving. Patient has high BUN-creatinine ratio and creati nine level is fluctuating, but overall improved from 1.5 to 1.3. Review of Systems: Unable to provide. Physical Examination: Extremities: Some edema present. Skin: No cyanosis. Vital Signs: Blood pressure 123/80, heart rate 70. Impression And Plan: Pneumonia, COVID infection. Continue treatment. Patient is hemodynamically st able. Hypernatremia is improving. An x-ray will be done for evaluation. Patient is on antibiotics for bacterial pneumonia. Monitor electrolytes. Adjust IV fluids for treatment of hypernatremia. EB/MODL Voice ID: [id number] Report ID: [id number]
[2020-05-04] MEDS: Meropenem 500 MG in NA CHLORIDE 0.9% 100 ML IV SCH ×3 (00:16→17:53)
[2020-05-04 04:55] LABS: MPV 9.3 fL (7.6-11.3); RBC Red Blood Cell Count 2.84 M/uL (4.33-5.43)
[2020-05-04 05:16] LABS: ALT/SGPT 52 U/L (12-78); AST/SGOT 25 U/L (15-37); Albumin 1.8 g/dL (3.4-5.0); Alkaline Phosphatase 99 U/L (45-117); BUN Blood Urea Nitrogen 53 mg/dL (7-18); Bicarbonate 40 mmol/L (21-32); Bilirubin Total 0.4 mg/dL (0.2-1.0); C-Reactive Protein 9.77 mg/L (<3.00); Ferritin 986.6 ng/mL (26-388); Glucose Level 163 mg/dL (74-106); Magnesium 2.3 mg/dL (1.8-2.4); Phosphorus 3.7 mg/dL (2.5-4.9); Protein, Total 4.9 g/dL (6.4-8.2); Sodium Level 145 mmol/L (136-145)
[2020-05-04 05:57] LABS: Arterial Blood Carboxyhemoglob 1.8 % (0-1.5); Blood Gas Oxyhemoglobin 88.8 % (94-97); Blood O2 Saturation 91.5 % (92-98.5)
[2020-05-04 06:01] LABS: Potassium 5.8 mmol/L (3.5-5.1)
[2020-05-04] MEDS: METOPROLOL TAR 50 MG TAB PO SCH ×2 (06:31→17:56)
[2020-05-04] MEDS ORDERED: SOD POLYSTYREN SUL 15 GM/60 ML UCUP FT ONE (08:00)
[2020-05-04] MEDS: FAMOTIDINE 20 MG/2 ML VIAL IV SCH ×2 (08:12→20:17)
[2020-05-04] MEDS: METHYLPREDNISOLONE 125 MG INJ IV SCH ×2 (08:12→20:17)
[2020-05-04] MEDS: INSULIN GLARGINE 100 UNITS/ML SQ SCH ×2 (08:12→20:22)
[2020-05-04] MEDS: THIAMINE 200 MG/2 ML INJ IVP SCH (08:12)
[2020-05-04] MEDS: APIXABAN 5 MG TABLET PO SCH ×2 (08:13→20:22)
[2020-05-04] MEDS: VITAMIN D 1000 UNIT TAB PO SCH (08:13)
[2020-05-04] MEDS: ASCORBIC ACID 500 MG TABLET PO SCH ×3 (08:13→20:23)
[2020-05-04] MEDS: ZINC SULFATE 220 MG CAP PO SCH (08:13)
[2020-05-04] MEDS: FLUCONAZOLE 400 MG IVPB 400 MG/200 ML BAG IV SCH (08:13)
[2020-05-04] MEDS: DOXYCYCLINE 100 MG CAP PO SCH ×2 (08:15→20:23)
--- NOTE | 2020-05-04 08:19 | RAD REPORT ---
EXAM DESCRIPTION: Morris Single View05/04/2020 6:20 am CLINICAL HISTORY: Respiratory failure COMPARISON: May 03 FINDINGS: Endotracheal and nasogastric tubes in good position No significant change in the bilateral pulmonary opacities and cardiomegaly
[2020-05-04] MEDS: FLUDROCORTISONE 0.1 MG TAB FT SCH (09:30)
--- NOTE | 2020-05-04 10:50 | P.PN ---
Subjective Date of Service: 05/04/20 Chief Complaint: Respiratory failure No change oxygenation has improved Review of Systems is unable to be obtained Physical Examination - Vital Signs Temperature: 97.7 F Blood Pressure: 157/92 Pulse: 95 Respirations: 27 Pulse Ox (%): 95 - Physical Exam General: Unresponsive Respiratory: Clear to auscultation bilaterally, Diminished Cardiovascular: Edema Assessment & Plan - Problems (Diagnosis) (1) Pneumonia due to COVID-19 virus Current Visit: Yes Status: Acute Plan: Respiratory failure oxygenation is improving hyperkalemia I have added doxycycline at risk for Mr SA infection continue to titrate his O2 down on a Versed drip assist-control chest x-ray and labs reviewed (2) Renal failure Current Visit: Yes Status: Acute Plan: Renal function is now normal mildly elevated BUN Qualifiers: Chronic kidney disease stage: stage 3 (moderate)
--- NOTE | 2020-05-04 11:38 | PN ---
Subjective: Patient continues to require mechanical ventilation and sedated. Objective: Vital Signs: Blood pressure 157/92, pulse 94, temperature 97.7. Heart: Regular rate and rhythm. Chest: Bilateral crackles. Abdomen: Soft, benign. Extremities: Trace edema pedal anterior. Laboratory Data: White cell count 13.6, hemoglobin 8.4, hematocrit 27, platelets 166. Sodium 145, p otassium 5.8, BUN 53, creatinine 0.84. Blood sugar fingersticks less than 200 more than 100. Assessment/plan: 1.Acute respiratory failure with COVID pneumonia. Continue mechanical ventilation. Supportive care . 2.Acute renal failure, resolved. Patient has hyperkalemia and Nephrology has been following up. Ka yexalate required and to discontinue any potassium supplementations in his food or medicines. 3.Condition continues to be critical and guarded. 4.Type 2 diabetes, better controlled. Look orders for details. MFS/MODL Voice ID: [id number] Report ID: [id number]
[2020-05-04] MEDS: MIDAZOLAM HCL 100 MG in NA CHLORIDE 0.9% 80 ML IV PRN (14:50)
[2020-05-04] MEDS: FENTANYL CITR 100 MCG/2 ML IV PRN (20:18)
[2020-05-04] MEDS: MELATONIN 5 MG TABLET PO SCH (20:21)
[2020-05-04] MEDS: LORazepam 2 MG/ML VIAL IV PRN (23:05)
[2020-05-04] MEDS: MIDAZOLAM HCL 2 MG/2 ML INJ IV PRN (23:24)
[2020-05-05] MEDS: FENTANYL CITR 100 MCG/2 ML IV PRN ×2 (00:30→04:41)
[2020-05-05] MEDS: Meropenem 500 MG in NA CHLORIDE 0.9% 100 ML IV SCH ×3 (00:31→17:04)
[2020-05-05] MEDS: MIDAZOLAM HCL 100 MG in NA CHLORIDE 0.9% 80 ML IV PRN (01:35)
[2020-05-05 05:58] LABS: Absolute Lymphocytes (CBC) 0.6 K/uL (0.7-4.9); Basophils % 0.3 % (0-1.3); Hematocrit 27.4 % (39.6-49.0); Lymphocytes % 4.1 % (15.3-44.8); MPV 9.9 fL (7.6-11.3); RBC Red Blood Cell Count 2.89 M/uL (4.33-5.43)
[2020-05-05] MEDS: METOPROLOL TAR 50 MG TAB PO SCH ×3 (06:00→18:53)
[2020-05-05 06:02] LABS: Arterial Blood Carboxyhemoglob 1.8 % (0-1.5); Blood Gas Oxyhemoglobin 89.5 % (94-97); Blood O2 Saturation 92.3 % (92-98.5)
[2020-05-05 06:08] LABS: ALT/SGPT 53 U/L (12-78); AST/SGOT 26 U/L (15-37); Albumin 1.9 g/dL (3.4-5.0); Alkaline Phosphatase 103 U/L (45-117); BUN Blood Urea Nitrogen 51 mg/dL (7-18); Bicarbonate 40 mmol/L (21-32); Bilirubin Total 0.4 mg/dL (0.2-1.0); C-Reactive Protein 4.68 mg/L (<3.00); Ferritin 846.1 ng/mL (26-388); Glucose Level 139 mg/dL (74-106); Magnesium 2.2 mg/dL (1.8-2.4); Phosphorus 3.8 mg/dL (2.5-4.9); Potassium 5.1 mmol/L (3.5-5.1); Protein, Total 4.8 g/dL (6.4-8.2); Sodium Level 146 mmol/L (136-145)
[2020-05-05 08:26] LABS: Blood Morphology Comment NOT SEEN (NOT SEEN); Platelet Estimate ADEQ
[2020-05-05] MEDS: INSULIN -REGULAR HUMAN 100 UNIT in NA CHLORIDE 0.9% 99 ML IV SCH (08:43)
[2020-05-05] MEDS: VITAL AF 1,000 ML BOT RTH SCH (08:43)
[2020-05-05] MEDS: INSULIN GLARGINE 100 UNITS/ML SQ SCH ×2 (09:55→21:07)
[2020-05-05] MEDS: FLUCONAZOLE 400 MG IVPB 400 MG/200 ML BAG IV SCH (09:55)
[2020-05-05] MEDS: FLUDROCORTISONE 0.1 MG TAB FT SCH (09:56)
[2020-05-05] MEDS: VITAMIN D 1000 UNIT TAB PO SCH (09:56)
[2020-05-05] MEDS: ASCORBIC ACID 500 MG TABLET PO SCH ×3 (09:57→21:08)
[2020-05-05] MEDS: ZINC SULFATE 220 MG CAP PO SCH (09:57)
[2020-05-05] MEDS: APIXABAN 5 MG TABLET PO SCH ×2 (09:57→21:07)
[2020-05-05] MEDS: FAMOTIDINE 20 MG/2 ML VIAL IV SCH ×2 (09:57→21:07)
[2020-05-05] MEDS: METHYLPREDNISOLONE 125 MG INJ IV SCH ×2 (09:57→21:07)
[2020-05-05] MEDS: THIAMINE 200 MG/2 ML INJ IVP SCH (09:57)
[2020-05-05] MEDS: DOXYCYCLINE 100 MG CAP PO SCH ×2 (09:57→21:07)
[2020-05-05] MEDS: propofoL 1,000 MG/100 ML VIAL IV PRN ×4 (10:20→22:37)
--- NOTE | 2020-05-05 12:58 | RAD REPORT ---
EXAM DESCRIPTION: RAD - Chest Single View - 05/05/2020 7:19 am CLINICAL HISTORY: respiratory failure Chest pain. COMPARISON: Chest Single View dated 05/04/2020; Chest Single View dated 05/03/2020; Chest Single View da keshia 05/02/2020; Chest Single View dated 05/01/2020 FINDINGS: Portable technique limits examination quality. Mild improvement in lung aeration is seen since comparative study. The heart is enlarged in size. Tip of the ET tube is above the svetlana. Enteric tube descends in the stomach. IMPRESSION: Mild improvement in lung aeration since comparative study.
--- NOTE | 2020-05-05 18:08 | PN ---
Subjective: The patient is still on mechanical ventilation. Objective: Vital Signs: Blood pressure 150/92, pulse 87, temperature 97.6. The patient's O2 satura tion on mechanical ventilation above 90. Heart: Regular rate and rhythm. Chest: Basilar crackles. Abdomen: Benign, soft. Extremities: Trace edema pedal bilateral. Neurological: The patient is sedated, on mechanical ventilation. Laboratory Data: White cell count 13.7, hemoglobin 8.6, hematocrit 27.4, and platelets 197. Blood s ugar fingersticks less than 200, more than 100. The patient's GFR more than 90, sodium 146, potassiu m 5.1. Assessment And Plan: 1.Acute respiratory failure with hypoxia secondary to COVID-19 pneumonia. No significant change in status. Chest x-ray showed mild improvement in ventilation. We will continue the patient's supporti ve care. 2.Blood cultures have not grown anything yet to date. 3.Acute renal failure, resolved. 4.Acute anemia, stable hemoglobin and hematocrit after 1 unit of transfusion. Look orders for claire eugene MFS/MODL Voice ID: [id number] Report ID: [id number]
--- NOTE | 2020-05-05 19:15 | P.PN ---
Subjective Date of Service: 05/05/20 Chief Complaint: Respiratory failure Patient's oxygenation is improving patient was on high doses of Versed said not change to propofol is off paralytic agents unresponsive chest x-rays improving inflammatory parameters decreasing Review of Systems is unable to be obtained Physical Examination - Vital Signs Temperature: 97.6 F Blood Pressure: 128/81 Pulse: 87 Respirations: 28 Pulse Ox (%): 95 - Physical Exam General: Unresponsive Respiratory: Clear to auscultation bilaterally Cardiovascular: Regular rate/rhythm, Normal S1 S2, Edema Assessment & Plan - Problems (Diagnosis) (1) Pneumonia due to COVID-19 virus Current Visit: Yes Status: Acute Plan: Respiratory failure from smith virus oxygen requirements declining blood sugars much better controlled is PO2 65 on 85% FiO2 with a peep of 15 will continue to decrease also had intermittent hyperkalemia and has been treated with Kayexalate (2) Renal failure Current Visit: Yes Status: Acute Plan: Renal function is now normal mildly elevated BUN Qualifiers: Chronic kidney disease stage: stage 3 (moderate)
--- NOTE | 2020-05-05 20:53 | PN ---
Date of Progress Note: 05/04/2020 Chief Complaint: Acute on chronic kidney injury. History Of Present Illness: Renal function has been gradually improving. Patient was found to have hyperkalemia and Kayexalate was used for hyperkalemia. Patient will start Florinef. Creatinine leve l improved from 1.5-1.3 range. Patient was found to have hypernatremia, which was treated with dextr ose infusion. Review of Systems: Unable to provide. Impression And Plan: Pneumonia, COVID infection. Continue treatment with high oxygen flow. Patient was intubated. Patient's hemodynamic is stable. Hypernatremia is improving, reevaluate. Renal clark el and adjust treatment with IV fluids as needed. Continue antibiotic for bacteria of pneumonia. Hyperkalemia. Start Florinef through tube feeding. EB/MODL Voice ID: [id number] Report ID: [id number]
[2020-05-05] MEDS: MELATONIN 5 MG TABLET PO SCH (21:00)
[2020-05-06] MEDS: Meropenem 500 MG in NA CHLORIDE 0.9% 100 ML IV SCH ×3 (00:10→16:43)
--- NOTE | 2020-05-06 00:29 | PN ---
Date of Progress Note: 05/05/2020 Reason For Admission: Acute on chronic kidney injury. History Of Present Illness: Renal function test gradually improved. There is persistent high BUN an d creatinine ratio corresponding with prerenal azotemia. The patient was treated with Kayexalate for hyperkalemia. Potassium was 5.8, improved to 5.1. Creatinine level improved overall and remains no w below 1.3. The patient was found to have hypernatremia and was treated with D5 to control in hyperosmolar state with hypernatremia. Review of Systems: Unable to provide. Impression And Plan: Pneumonia, COVID infection. Continue treatment with high oxygen flow. The pat ient was intubated. The patient is hemodynamically stable. Hypernatremia is improving. Re-evaluate renal panel and adjust treatment with IV fluids as needed. Continue antibiotics for bacterial pneumonia, hyperkalemia. Florinef is started with tube feeding. Monitor electrolytes and renal panel. EB/MODL Voice ID: [id number] Report ID: [id number]
[2020-05-06] MEDS: propofoL 1,000 MG/100 ML VIAL IV PRN ×6 (02:42→21:11)
[2020-05-06] MEDS: VITAL AF 1,000 ML BOT RTH SCH (04:40)
[2020-05-06 05:33] LABS: Hematocrit 23.5 % (39.6-49.0); MPV 9.8 fL (7.6-11.3); RBC Red Blood Cell Count 2.45 M/uL (4.33-5.43)
[2020-05-06 05:47] LABS: ALT/SGPT 41 U/L (12-78); AST/SGOT 27 U/L (15-37); Albumin 1.6 g/dL (3.4-5.0); Alkaline Phosphatase 75 U/L (45-117); BUN Blood Urea Nitrogen 47 mg/dL (7-18); Bicarbonate 39 mmol/L (21-32); Bilirubin Total 0.4 mg/dL (0.2-1.0); Ferritin 571.3 ng/mL (26-388); Glucose Level 131 mg/dL (74-106); Magnesium 2.2 mg/dL (1.8-2.4); Phosphorus 4.2 mg/dL (2.5-4.9); Potassium 4.1 mmol/L (3.5-5.1); Protein, Total 4.1 g/dL (6.4-8.2); Sodium Level 145 mmol/L (136-145)
[2020-05-06 05:56] LABS: C-Reactive Protein < 2.90 mg/L (<3.00)
[2020-05-06 05:58] LABS: Blood Gas Oxyhemoglobin 90.5 % (94-97); Blood O2 Saturation 93.4 % (92-98.5)
[2020-05-06] MEDS: METOPROLOL TAR 50 MG TAB PO SCH ×2 (06:00→16:44)
[2020-05-06] MEDS ORDERED: propofoL 1,000 MG/100 ML VIAL IV ONE (07:20)
[2020-05-06] MEDS ORDERED: ACETAMINOPHEN 500 MG TAB PO PRN (08:34)
[2020-05-06] MEDS ORDERED: ONDANSETRON 4 MG/2 ML VIAL IV PRN (08:36)
[2020-05-06] MEDS ORDERED: PROMETH/COD 6.25/10MG SYRUP 5ML PO PRN (08:39)
[2020-05-06] MEDS ORDERED: HALOPERIDOL LACT 5 MG/ML INJ IV PRN (08:39)
[2020-05-06] MEDS ORDERED: CISATRACURIUM BESYLATE 40 MG in NA CHLORIDE 0.9% 80 ML IV PRN (08:43)
[2020-05-06] MEDS ORDERED: CISATRACURIUM INJECTION 2 MG/ML (10 ML Vial) IV PRN (08:43)
[2020-05-06] MEDS ORDERED: METOPROLOL TARTRATE 5 MG/5 ML INJ IV PRN (08:45)
[2020-05-06] MEDS ORDERED: D50W 25 GM/50 ML SYRINGE IV PRN (08:46)
[2020-05-06] MEDS ORDERED: GLUCAGON 1 MG/VIAL IM PRN (08:46)
[2020-05-06] MEDS ORDERED: Pharmacy Consult 1 EA XX PRN (08:46)
--- NOTE | 2020-05-06 08:49 | RAD REPORT ---
EXAM DESCRIPTION: RAD - Chest Single View - 05/06/2020 7:03 am CLINICAL HISTORY: covid pnuemonia Chest pain. COMPARISON: Chest Single View dated 05/05/2020; Chest Single View dated 05/04/2020; Chest Single View da keshia 05/03/2020; Chest Single View dated 05/02/2020 FINDINGS: Portable technique limits examination quality. Tip of the endotracheal tube is above the svetlana. Enteric tube descends into the stomach. Mild worsen ing in bilateral pulmonary opacities are noted since the comparative study.The heart is moderately en larged in size. IMPRESSION: Mild worsening in lung aeration since comparative examination.
[2020-05-06] MEDS ORDERED: INSULIN -REGULAR HUMAN 100 UNIT in NA CHLORIDE 0.9% 99 ML IV SCH (09:00)
[2020-05-06] MEDS: FLUDROCORTISONE 0.1 MG TAB FT SCH (09:00)
[2020-05-06] MEDS: DOXYCYCLINE 100 MG CAP PO SCH ×2 (09:00→20:33)
[2020-05-06] MEDS: FLUCONAZOLE 400 MG IVPB 400 MG/200 ML BAG IV SCH (09:00)
--- NOTE | 2020-05-06 09:10 | PN ---
Subjective: The patient intubated still. Objective: Vital signs: Blood pressure 139/82, pulse 83, temperature 98.1. Heart: Regular rate and rhythm. Chest: Bilateral crackles. Abdomen: Soft, benign. Neurologic: The patient intubated, unresponsive. Laboratory Data: His CBC; hemoglobin down to 7.3, hematocrit 22.6, platelets 132, white cell count 1 0. Chemistry; BUN 78, creatinine 1.37, GFR 54. Blood sugar, fingersticks in the 300. Ferritin 1329 . C-reactive protein at 5.7. Assessment And Plan: 1.Acute respiratory failure with COVID-19 pneumonia, on mechanical ventilation. We will continue cu rrent treatment and supportive care. 2.Likely iron deficiency anemia from stress of his condition. The patient still has good white cell count, low platelets. We will go ahead and transfuse 1 unit of blood to help him support with that and make sure that the patient is on proton pump inhibitors. 3.Type 2 diabetes mellitus. Insulin dosage will be increased. 4.Acute renal failure, improving. Look orders for details. MFS/MODL Voice ID: [id number] Report ID: [id number]
[2020-05-06] MEDS: METHYLPREDNISOLONE 125 MG INJ IV SCH ×2 (10:18→20:33)
[2020-05-06] MEDS: ZINC SULFATE 220 MG CAP PO SCH (10:19)
[2020-05-06] MEDS: VITAMIN D 1000 UNIT TAB PO SCH (10:19)
[2020-05-06] MEDS: FAMOTIDINE 20 MG/2 ML VIAL IV SCH ×2 (10:19→20:33)
[2020-05-06] MEDS: INSULIN GLARGINE 100 UNITS/ML SQ SCH ×2 (10:19→20:33)
[2020-05-06] MEDS: APIXABAN 5 MG TABLET PO SCH ×2 (10:20→20:34)
[2020-05-06] MEDS: ASCORBIC ACID 500 MG TABLET PO SCH ×3 (10:20→20:34)
[2020-05-06] MEDS: THIAMINE 200 MG/2 ML INJ IVP SCH (10:20)
--- NOTE | 2020-05-06 19:01 | PN ---
Subjective: The patient is still sedated on mechanical ventilation. Objective: Blood pressure 100/50, pulse 50, temperature 96.8. Rest of his physical examination, no change. Laboratory Data: Hemoglobin 7.6, hematocrit 11.1, platelets 172. Blood sugar fingersticks noted, le ss than 200 and more than 100. GFR more than 90. Assessment And Plan: 1.COVID-19 pneumonia with acute respiratory failure and hypoxia. Continue supportive care with [facility] and we will also put the patient on IV antibiotics for secondary bacterial infecti on, we have no growth until now. 2.Acute renal failure, resolved. 3.Anemia being from chronic blood loss. We will monitor his hemoglobin and hematocrit and transfuse as needed. 4.Look orders for details. MFS/MODL Voice ID: [id number] Report ID: [id number]
[2020-05-06] MEDS: FENTANYL CITR 100 MCG/2 ML IV PRN (20:09)
[2020-05-06] MEDS: MELATONIN 5 MG TABLET PO SCH ×2 (20:34→20:38)
--- NOTE | 2020-05-06 20:55 | PN ---
Date of Progress Note: 05/06/2020 Reason For Consultation: Acute on chronic kidney injury. History Of Present Illness: Renal function has gradually improved. The patient had episode of hyper kalemia. He was treated with Kayexalate and Florinef was started. Potassium level has improved. Hypernatremia treatment was done with D5W to control hyperosmolar state with hypernatremia. Review of Systems: Unable to provide. Impression And Plan: 1.COVID pneumonia. Continue treatment with high oxygen. The patient is currently intubated. The p atient is hemodynamically stable. 2.Hypernatremia, improving. Monitor potassium level. Adjust Florinef dose for maintenance brooke KELLOGG/PRISCILLAL Voice ID: [id number] Report ID: [id number]
[2020-05-07] MEDS: Meropenem 500 MG in NA CHLORIDE 0.9% 100 ML IV SCH ×3 (00:20→17:32)
[2020-05-07] MEDS: propofoL 1,000 MG/100 ML VIAL IV PRN ×8 (01:04→23:25)
[2020-05-07] MEDS: FENTANYL CITR 100 MCG/2 ML IV PRN ×4 (02:07→21:22)
[2020-05-07 05:19] LABS: Hematocrit 25.8 % (39.6-49.0); MPV 9.5 fL (7.6-11.3)
[2020-05-07 05:39] LABS: ALT/SGPT 47 U/L (12-78); AST/SGOT 31 U/L (15-37); Albumin 1.8 g/dL (3.4-5.0); Alkaline Phosphatase 80 U/L (45-117); BUN Blood Urea Nitrogen 47 mg/dL (7-18); Bicarbonate 38 mmol/L (21-32); Bilirubin Total 0.5 mg/dL (0.2-1.0); Ferritin 569.4 ng/mL (26-388); Glucose Level 147 mg/dL (74-106); Magnesium 2.1 mg/dL (1.8-2.4); Phosphorus 4.2 mg/dL (2.5-4.9); Potassium 4.4 mmol/L (3.5-5.1); Protein, Total 4.4 g/dL (6.4-8.2); Sodium Level 143 mmol/L (136-145)
[2020-05-07 05:53] LABS: C-Reactive Protein < 2.90 mg/L (<3.00)
[2020-05-07] MEDS: METOPROLOL TAR 50 MG TAB PO SCH ×2 (06:25→17:32)
--- NOTE | 2020-05-07 06:36 | RAD REPORT ---
EXAM DESCRIPTION: Morris Single View05/07/2020 6:05 am CLINICAL HISTORY: Shortness of breath COMPARISON: May 06, 2020 FINDINGS: Endotracheal tube has its tip 6 centimeters above the svetlana. Nasogastric tube within the stomach There has been development of bilateral subcutaneous emphysema extending into the neck. Pneumomediast inum has developed. Minimal worsening in the bilateral pulmonary opacities. Heart remains enlarged IMPRESSION: Development of bilateral subcutaneous emphysema extending into the neck and pneumomedias tinum Minimal worsening in the bilateral pulmonary opacities likely pneumonia Patient's nurse Danica was notified 6:30 a.m. May 07, 2020
[2020-05-07 06:51] LABS: Arterial Blood Carboxyhemoglob 2.2 % (0-1.5); Blood Gas Oxyhemoglobin 91.4 % (94-97); Blood O2 Saturation 94.5 % (92-98.5)
[2020-05-07] MEDS: FLUCONAZOLE 400 MG IVPB 400 MG/200 ML BAG IV SCH (09:28)
[2020-05-07] MEDS: FAMOTIDINE 20 MG/2 ML VIAL IV SCH ×2 (09:28→20:42)
[2020-05-07] MEDS: INSULIN GLARGINE 100 UNITS/ML SQ SCH ×2 (09:28→20:45)
[2020-05-07] MEDS: METHYLPREDNISOLONE 125 MG INJ IV SCH ×2 (09:29→20:43)
[2020-05-07] MEDS: THIAMINE 200 MG/2 ML INJ IVP SCH (09:29)
[2020-05-07] MEDS: APIXABAN 5 MG TABLET PO SCH ×2 (09:29→20:42)
[2020-05-07] MEDS: VITAMIN D 1000 UNIT TAB PO SCH (09:29)
[2020-05-07] MEDS: DOXYCYCLINE 100 MG CAP PO SCH ×2 (09:29→20:45)
[2020-05-07] MEDS: FLUDROCORTISONE 0.1 MG TAB FT SCH (09:29)
[2020-05-07] MEDS: ASCORBIC ACID 500 MG TABLET PO SCH ×3 (09:32→20:42)
[2020-05-07] MEDS: ZINC SULFATE 220 MG CAP PO SCH (09:32)
[2020-05-07] MEDS: VITAL AF 1,000 ML BOT RTH SCH (10:00)
[2020-05-07] MEDS: FUROSEMIDE 40 MG/4 ML VIAL IV SCH (11:48)
--- NOTE | 2020-05-07 12:19 | P.PN ---
Subjective Date of Service: 05/07/20 Chief Complaint: Respiratory failure Patient's condition is improving oxygenation is also improving Review of Systems is unable to be obtained Physical Examination - Vital Signs Temperature: 98.9 F Blood Pressure: 146/91 Pulse: 73 Respirations: 30 Pulse Ox (%): 90 - Physical Exam General: Unresponsive Respiratory: Clear to auscultation bilaterally Cardiovascular: Edema Assessment & Plan - Problems (Diagnosis) (1) Pneumonia due to COVID-19 virus Current Visit: Yes Status: Acute Plan: Respiratory failure alfaro requirements declining patient is on 70% FiO2 patient's PO2 is also improved try change him over to pressure control ventilation he is hypercapnic trees reviewed this ferritin level is decline a (2) Renal failure Current Visit: Yes Status: Acute Plan: Renal function is now normal mildly elevated BUN Qualifiers: Chronic kidney disease stage: stage 3 (moderate)
--- NOTE | 2020-05-07 12:47 | PN ---
Subjective: The patient is still on mechanical ventilation, unresponsive. Objective: Vital Signs: Blood pressure 145/90, pulse 73, temperature 98.9. Heart: Regular rate and rhythm. Chest: Bilateral crackles. Abdomen: Benign. On mechanical ventilation. Laboratory Data: White cell count 12.4, hemoglobin 8.2, hematocrit 25.8, and platelets 181. Blood s ugar fingersticks less than 200, more than 100. Patient's GFR more than 90. Assessment And Plan: No change in condition. His chest x-ray showed slight worsening of his opaciti es. Otherwise, we will continue patient on current supportive care and treatment. Microbiology has yielded no positive cultures for bacteria at this time. Anemia is likely secondary to chronic gastro intestinal blood loss, although his occult blood was negative and his stools however is stable. Look orders for details. MFS/MODL Voice ID: [id number] Report ID: [id number]
--- NOTE | 2020-05-07 13:23 | PN ---
Date of Progress Note: 05/07/2020 Subjective: The patient was admitted to the hospital with respiratory failure. The patient intubated. The patient had acute kidney injury secondary to COVID nephropathy, over volume and the patient had hypernatremia. Kidney function has been improved significantly upon admission. Creatinine jumped to 2, currently down to 0.7. Objective: Vital Signs: Blood pressure 146/91, pulse of 73. The patient had urine output of 2300. The patient positive of 1200. Chest: Crackles bilateral. Heart: S1, S2. Systolic murmur. Abdomen: Morbidly obese. Could not appreciate any organomegaly. Extremities: Trace edema. Neuro: The patient on vent. The patient requiring higher FiO2 compared to yesterday. Laboratory Data: Sodium 143, potassium 4.4, bicarb 38, BUN 47, creatinine 0.7, calcium 7.8, phos 4.2. Albumin 1.8. Corrected calcium is 9.4. WBC 12.4, H and H 8.2/25.8, platelet 182. Urinalysis; specific gravity of 1.030. Current Medications: The patient on include: 1. Fluconazole. 2. Meropenem. 3. Doxycycline. 4. Eliquis. 5. Metoprolol 50 b.i.d. 6. Lasix 40. 7. Zinc sulfate. 8. Pepcid. 9. Solu-Medrol. 10. Insulin. 11. Melatonin. 12. Thiamin. 13. Vitamin C. 14. Cholecalciferol. Assessment And Plan: 1. 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 Looks to me still on the over volume side. I am going to go ahead and start the patient on Lasix 40 mg daily and we will monitor the patient closely. 2. Marginal hyponatremia. We will follow up after the diuresis today and I am going to adjust free water for the patient. 3. Hyperglycemia secondary to steroid. The patient on insulin drip. We will follow up. 4. Respiratory failure secondary to COVID pneumonia, over volume. We will try to establish better volume control. Continue vent support. Currently on 70%. Follow up with Pulmonary. We will start the patient on Lasix 40 mg daily. We will start the patient on free water to correct the sodium. time spend exam the patient face to face , place order , discussed the case with other sample steamer hospitalist and other [employer] business intelligence consultant 45 min. KRYSTYNA Voice ID: [id number] Report ID: [id number] RAD[facility]
[2020-05-07] MEDS: MELATONIN 5 MG TABLET PO SCH (20:42)
[2020-05-08] MEDS: FENTANYL CITR 100 MCG/2 ML IV PRN ×3 (00:58→18:06)
[2020-05-08] MEDS: Meropenem 500 MG in NA CHLORIDE 0.9% 100 ML IV SCH ×3 (00:58→16:09)
[2020-05-08] MEDS: propofoL 1,000 MG/100 ML VIAL IV PRN ×7 (02:29→20:49)
[2020-05-08] MEDS: VITAL AF 1,000 ML BOT RTH SCH (05:00)
[2020-05-08 06:04] LABS: Absolute Lymphocytes (CBC) 0.4 K/uL (0.7-4.9); Basophils % 0.3 % (0-1.3); Hematocrit 24.5 % (39.6-49.0); Lymphocytes % 3.7 % (15.3-44.8); MPV 9.3 fL (7.6-11.3); RBC Red Blood Cell Count 2.56 M/uL (4.33-5.43)
[2020-05-08] MEDS: METOPROLOL TAR 50 MG TAB PO SCH ×2 (06:13→18:06)
[2020-05-08 06:30] LABS: Arterial Blood Carboxyhemoglob 2.1 % (0-1.5); Blood O2 Saturation 89.9 % (92-98.5)
[2020-05-08 06:31] LABS: BUN Blood Urea Nitrogen 51 mg/dL (7-18); Bicarbonate 39 mmol/L (21-32); Ferritin 517.5 ng/mL (26-388); Glucose Level 191 mg/dL (74-106); Magnesium 2.4 mg/dL (1.8-2.4); Phosphorus 3.7 mg/dL (2.5-4.9); Potassium 4.4 mmol/L (3.5-5.1); Sodium Level 144 mmol/L (136-145)
[2020-05-08 06:32] LABS: C-Reactive Protein < 2.90 mg/L (<3.00)
[2020-05-08 06:46] LABS: Basophilic Stippling 1+; Blood Morphology Comment NOTED (NOT SEEN); Platelet Estimate ADEQ; Polychromasia 1+; White Blood Cell Scan OK (OK)
--- NOTE | 2020-05-08 07:45 | RAD REPORT ---
EXAM DESCRIPTION: RAD - Chest Single View - 05/08/2020 7:19 am CLINICAL HISTORY: covid pnuemonia COMPARISON: Portable May 07 TECHNIQUE: AP portable chest image was obtained 05/08/2020 7:19 am . FINDINGS: Low lung volumes noted. Bilateral airspace opacification is present not substantially diff erent from the comparison. Heart size is prominent but stable. Pulmonary vasculature also stable. Endotracheal tube and NG tube remain in place. Subcutaneous emphysema is not clearly different. No me asurable pleural effusion and no pneumothorax. No acute bony abnormality seen. No acute aortic findin gs suspected. IMPRESSION: Limited portable chest, as detailed above, not significantly different from May 07 im aging.
[2020-05-08] MEDS: hydroCHLOROthiazide 25 MG TAB PO SCH (09:00)
[2020-05-08] MEDS: FLUCONAZOLE 400 MG IVPB 400 MG/200 ML BAG IV SCH (09:45)
[2020-05-08] MEDS: FAMOTIDINE 20 MG/2 ML VIAL IV SCH ×2 (09:46→20:50)
[2020-05-08] MEDS: INSULIN GLARGINE 100 UNITS/ML SQ SCH ×2 (09:46→20:50)
[2020-05-08] MEDS: METHYLPREDNISOLONE 125 MG INJ IV SCH ×2 (09:46→20:49)
[2020-05-08] MEDS: VITAMIN D 1000 UNIT TAB PO SCH (09:47)
[2020-05-08] MEDS: ZINC SULFATE 220 MG CAP PO SCH (09:47)
[2020-05-08] MEDS: ASCORBIC ACID 500 MG TABLET PO SCH ×3 (09:47→20:50)
[2020-05-08] MEDS: FUROSEMIDE 40 MG/4 ML VIAL IV SCH (09:47)
[2020-05-08] MEDS: DOXYCYCLINE 100 MG CAP PO SCH ×2 (09:47→20:50)
[2020-05-08] MEDS: APIXABAN 5 MG TABLET PO SCH (09:47)
[2020-05-08] MEDS: FLUDROCORTISONE 0.1 MG TAB FT SCH (09:47)
[2020-05-08] MEDS: THIAMINE 200 MG/2 ML INJ IVP SCH (09:48)
--- NOTE | 2020-05-08 12:22 | P.PN ---
Subjective Date of Service: 05/08/20 Chief Complaint: Respiratory failure No change oxygenation is improving Review of Systems is unable to be obtained Physical Examination - Vital Signs Temperature: 97.3 F Blood Pressure: 124/73 Pulse: 83 Respirations: 35 Pulse Ox (%): 95 Assessment & Plan - Problems (Diagnosis) (1) Pneumonia due to COVID-19 virus Current Visit: Yes Status: Acute Plan: Respiratory failure currently on 80% FiO2 with a PO2 of 55 peep of 15 assist- control chest x-rays use shows bilateral pulmonary infiltrates hemoglobin stable white count is normal ferritin level is declining Dc fludrocortisone (2) Renal failure Current Visit: Yes Status: Acute Qualifiers: Chronic kidney disease stage: stage 3 (moderate)
[2020-05-08] MEDS: LORazepam 2 MG/ML VIAL IV PRN (16:08)
[2020-05-08] MEDS: MELATONIN 5 MG TABLET PO SCH (20:50)
--- NOTE | 2020-05-08 21:14 | PN ---
Subjective: The patient has no change in his status, still requiring mechanical ventilation, now on assisted control. Objective: VITAL SIGNS: Blood pressure 112/74, pulse 96, temperature 98.2. Rest of physical exam has no change. Diagnostic Data: Chest x-ray, bilateral infiltrates, no significant change from previous one. White cell count dropped to 10.4, hemoglobin at 8, hematocrit 24.5, and platelets 184. Blood sugar finger sticks noted below 200 more than 100. GFR remains above 90. Assessment And Plan: 1.Acute respiratory failure with COVID pneumonia, slight improvement with the patient requiring less oxygen supply. 2.Type 2 diabetes, controlled on current regimen of insulin drip. 3.Anemia from I think gastrointestinal blood loss has been stable at about 8. 4.Renal failure, improved. 5.Continue current treatment and support. MFS/MODL Voice ID: [id number] Report ID: [id number]
--- NOTE | 2020-05-08 23:44 | PN ---
Date of Progress Note: 05/08/2020 Subjective: The patient was admitted with acute kidney injury, respiratory failure secondary to COVID pneumonia. The patient had marginal blood pressure. The patient yesterday received diuresis. Objective: Vital Signs: Blood pressure 111/74, pulse of 99, afebrile. The patient is on vent. Had good urine output of 5100, negative only 200 Chest: Crackles bilateral base. Heart: S1, S2, systolic murmur. Abdomen: Soft, nontender. Extremities: +1 edema. Neuro: The patient is on vent. Laboratory Data: WBC 10.4, H and H 8/24.5, platelets 184. Sodium 144, potassium 4.4, bicarb 39, BUN 51, creatinine 0.7, calcium 7.8, phosphorus 3.7, magnesium 2.4, ferritin 517. Current Medications: The patient on include; 1. Doxycycline. 2. Fluconazole. 3. Meropenem. 4. Metoprolol 50 b.i.d. 5. Tylenol. 6. Haloperidol. 7. Lasix 40 daily. 8. Pepcid. 9. Zofran. 10. Solu-Medrol. 11. Melatonin. Assessment And Plan: 1. Acute kidney injury, secondary to toxic acute tubular necrosis, COVID nephropathy, recovered, resolved, still over volume. I am going to continue diuresis. 2. Hypernatremia. Yesterday, I have increased fluid of free water. Sodium started trending down. The patient is still on diuresis. I am going to add to the regimen collecting tube, diuresis of hydrochlorothiazide, and we will follow up the patient. 3. Anasarca, secondary to malnourish. Continue diuresis and hydrochlorothiazide. We will monitor the patient. 4. Respiratory failure, secondary to COVID pneumonia. Follow up with Pulmonary. 5. Disproportion in BUN and creatinine, secondary to catabolic state. We will monitor. Time spent discussing with the patient, [id number], using the translation, discussing with the staff and placing an order, discussing with over subspecialty and hospitalist 45 minutes. KRYSTYNA Voice ID: [id number] Report ID: [id number] [facility]
[2020-05-09] MEDS: propofoL 1,000 MG/100 ML VIAL IV PRN ×5 (00:06→16:45)
[2020-05-09] MEDS: Meropenem 500 MG in NA CHLORIDE 0.9% 100 ML IV SCH ×2 (00:06→08:39)
[2020-05-09] MEDS: LORazepam 2 MG/ML VIAL IV PRN ×2 (00:30→11:55)
[2020-05-09 05:42] LABS: Absolute Lymphocytes (CBC) 0.4 K/uL (0.7-4.9); Basophils % 0.2 % (0-1.3); Hematocrit 19.9 % (39.6-49.0); Lymphocytes % 6.2 % (15.3-44.8); MPV 9.5 fL (7.6-11.3); RBC Red Blood Cell Count 2.09 M/uL (4.33-5.43)
[2020-05-09 05:51] LABS: BUN Blood Urea Nitrogen 50 mg/dL (7-18); Bicarbonate 38 mmol/L (21-32); Ferritin 427.9 ng/mL (26-388); Glucose Level 165 mg/dL (74-106); Magnesium 2.2 mg/dL (1.8-2.4); Phosphorus 3.7 mg/dL (2.5-4.9); Potassium 4.1 mmol/L (3.5-5.1); Sodium Level 143 mmol/L (136-145)
[2020-05-09] MEDS: METOPROLOL TAR 50 MG TAB PO SCH ×2 (06:00→18:00)
[2020-05-09 06:05] LABS: C-Reactive Protein < 2.90 mg/L (<3.00)
[2020-05-09] MEDS: FLUCONAZOLE 400 MG IVPB 400 MG/200 ML BAG IV SCH (08:39)
[2020-05-09] MEDS: FAMOTIDINE 20 MG/2 ML VIAL IV SCH (08:40)
[2020-05-09] MEDS: THIAMINE 200 MG/2 ML INJ IVP SCH (08:40)
[2020-05-09] MEDS: INSULIN GLARGINE 100 UNITS/ML SQ SCH ×2 (08:40→21:00)
[2020-05-09] MEDS: METHYLPREDNISOLONE 125 MG INJ IV SCH (08:41)
[2020-05-09] MEDS: ZINC SULFATE 220 MG CAP PO SCH (08:41)
[2020-05-09] MEDS: VITAMIN D 1000 UNIT TAB PO SCH (08:41)
[2020-05-09] MEDS: hydroCHLOROthiazide 25 MG TAB PO SCH (08:41)
[2020-05-09] MEDS: ASCORBIC ACID 500 MG TABLET PO SCH ×3 (08:41→21:16)
[2020-05-09] MEDS: DOXYCYCLINE 100 MG CAP PO SCH ×2 (08:42→21:16)
[2020-05-09] MEDS: FUROSEMIDE 40 MG/4 ML VIAL IV SCH (08:43)
--- NOTE | 2020-05-09 09:02 | RAD REPORT ---
EXAM DESCRIPTION: RAD - Chest Single View - 05/09/2020 6:44 am CLINICAL HISTORY: covid pnuemonia Chest pain. COMPARISON: Chest Single View dated 05/08/2020; Chest Single View dated 05/07/2020; Chest Single View da keshia 05/06/2020; Chest Single View dated 05/05/2020 FINDINGS: Portable technique limits examination quality. Bilateral pulmonary opacities are again noted, mildly improved since comparative study. The heart is moderately enlarged tip of the ET tube is above the svetlana. Enteric tube descends stomach. Right-side d PICC line is unchanged in position.Subcutaneous emphysema is again noted, slightly progressive in t he left neck base. IMPRESSION: Mild improvement is seen in lung aeration since comparative study.
[2020-05-09] MEDS ORDERED: GLUCAGON 1 MG/VIAL IM PRN (09:06)
[2020-05-09] MEDS ORDERED: D50W 25 GM/50 ML SYRINGE IV PRN (09:06)
[2020-05-09] MEDS: MIDAZOLAM HCL 2 MG/2 ML INJ IV PRN ×2 (10:04→16:14)
[2020-05-09] MEDS: FENTANYL CITR 100 MCG/2 ML IV PRN ×3 (10:05→21:14)
[2020-05-09 10:15] LABS: Anisocytosis 1+; Blood Morphology Comment NOTED (NOT SEEN); Platelet Estimate ADEQ; Polychromasia 1+
[2020-05-09 10:16] LABS: Basophilic Stippling 1+
[2020-05-09] MEDS ORDERED: NA CHLORIDE 0.9% 250 ML IV SCH (11:00)
[2020-05-09 11:08] LABS: Arterial Blood Carboxyhemoglob 2.3 % (0-1.5); Blood Gas Oxyhemoglobin 87.6 % (94-97); Blood O2 Saturation 90.9 % (92-98.5)
[2020-05-09] MEDS: INSULIN -REGULAR HUMAN 50 UNIT/0.5 ML ML SQ SCH ×2 (12:00→18:00)
--- NOTE | 2020-05-09 13:11 | P.PN ---
Subjective Date of Service: 05/09/20 Chief Complaint: Respiratory failure Patient's condition is improving oxygen requirements declining his peep is also decreased Review of Systems is unable to be obtained Physical Examination - Vital Signs Temperature: 97.2 F Blood Pressure: 143/88 Pulse: 94 Respirations: 30 Pulse Ox (%): 90 Assessment & Plan - Problems (Diagnosis) (1) Pneumonia due to COVID-19 virus Current Visit: Yes Status: Acute Plan: Respiratory failure clinically improving peep decreased to 10 is in a fire to 70% schedule for a tracheostomy tomorrow Dc meropenem no evidence of sepsis use narrow spectrum antibiotic instead doxycycline for Mr SA prevention patient was transfused 1 unit of packed red blood cells Eliquis on hold (2) Renal failure Current Visit: Yes Status: Acute Plan: Renal function is now normal mildly elevated BUN Qualifiers: Chronic kidney disease stage: stage 3 (moderate)
--- NOTE | 2020-05-09 13:27 | PN ---
Date of Progress Note: 05/09/2020 Subjective: The patient was admitted with acute kidney injury, COVID pneumonia, respiratory failure. The patient had been intubated on vent support. The patient develop hypernatremia and anasarca. Over the night, the patient had significant drop in his hemoglobin, schedule for blood transfusion. Physical Examination: Vital Signs: Blood pressure 143/88, pulse of 94. The patient had good urine output of 5100, negative only 200. Chest: Crackles bilateral base. Heart: S1, S2. Regular. Abdomen: Soft, morbidly obese. Could not appreciate any organomegaly. Extremities: +2 edema. Neuro: The patient is sedated on vent. The patient requirement of FiO2 has dropped to 70%, still on PEEP. Laboratory Data: WBC 6.8, H and H 6.7/19.9, platelets 159. Sodium 143, potassium 4.1, bicarb 38, BUN 50, creatinine 0.7, calcium 7.5, phosphorus 3.7, magnesium 2.2, Current Medications: The patient on include; 1. Doxycycline. 2. Fluconazole. 3. Meropenem. 4. Metoprolol. 5. Haloperidol. 6. Lasix 40 daily. 7. Hydrochlorothiazide. 8. Zinc sulfate. 9. Pepcid. 10. Solu-Medrol. 11. Melatonin. 12. Vitamin C. 13. Cholecalciferol. 14. Thiamine. Assessment And Plan: 1. Acute kidney injury, multifactorial, secondary to COVID nephropathy, toxic acute tubular necrosis, recovered, resolved, still on the over volume side with hypernatremia. Sodium gradually trending down. I am going to continue on current free water for the patient, but given the patient going to receive transfusion, we will utilize transfusion today to give Lasix after each unit 40 mg to establish better volume control by mobilizing third space. Continue hydrochlorothiazide. 2. Hypernatremia secondary to tubular injury. The patient was placed yesterday on hydrochlorothiazide, received today. Again, we will try to mobilize third space fluid with the transfusion today and give Lasix after each transfusion. 3. Over volume, anasarca secondary to malnourished. Continue current treatment. 4. COVID pneumonia, respiratory failure. Continue to follow up with Pulmonary. I am going to go ahead and increase his meropenem to 1000 given that the kidney function has been normalized. Time spent discussing with the patient, [id number], using the translation, discussing with the staff and placing an order, discussing with over subspecialty and hospitalist 45 minutes. KRYSTYNA Voice ID: [id number] Report ID: [id number] [facility]
--- NOTE | 2020-05-09 14:12 | PN ---
Subjective: The patient is still requiring mechanical ventilation. However, his oxygenation is bett er requiring O2 at about 80 to 90. Objective: Vital Signs: His blood pressure 143/88, pulse 94, temperature 97.2. Heart: Regular rate and rhythm. Chest: Bilateral crackles. Abdomen: Soft, benign. Neurological: Patient is still unresponsive. Laboratory Data: His ABG is pH of 7.49, pCO2 47.1, pO2 of 56.3, and saturation over 90.9%. Diagnostic Data: Chest x-ray, no acute change. Assessment And Plan: 1.COVID pneumonia with acute respiratory failure. Continue mechanical ventilation. Patient will hitchcock ve to have a tracheostomy tomorrow. However, from his ABGs, his respiratory failure is improving. 2.His blood sugar fingersticks noted less than 90 and more than 100. We will continue current treat ment on that. His hemoglobin at 6.7 and hematocrit 19.9. Two units of blood will be transfused. We will continue IV Pepcid. No history of melena from nursing staff at this time. We will continue mo nitoring his CBC and electrolytes. Look orders for details. MFS/MODL Voice ID: [id number] Report ID: [id number]
[2020-05-09] MEDS: FUROSEMIDE 20 MG/ 2ML VIAL IV SCH ×2 (14:13→18:30)
[2020-05-09] MEDS ORDERED: Meropenem 1,000 MG in NA CHLORIDE 0.9% 100 ML IV SCH (17:00)
[2020-05-09 20:52] LABS: Hematocrit 26.4 % (39.6-49.0)
[2020-05-09] MEDS: METHYLPREDNISOLONE 40 MG INJ IV SCH (21:15)
[2020-05-09] MEDS: FAMOTIDINE 20 MG TAB PO SCH (21:16)
[2020-05-09] MEDS: MELATONIN 5 MG TABLET PO SCH (21:16)
[2020-05-10] MEDS: FENTANYL CITR 100 MCG/2 ML IV PRN (00:45)
[2020-05-10] MEDS: LORazepam 2 MG/ML VIAL IV PRN ×3 (01:45→22:30)
[2020-05-10] MEDS: propofoL 1,000 MG/100 ML VIAL IV PRN ×3 (02:34→15:45)
[2020-05-10] MEDS: METOPROLOL TAR 50 MG TAB PO SCH ×2 (05:27→16:48)
[2020-05-10] MEDS: INSULIN -REGULAR HUMAN 50 UNIT/0.5 ML ML SQ SCH ×5 (05:27→23:51)
[2020-05-10 05:54] LABS: Arterial Blood Carboxyhemoglob 2.4 % (0-1.5); Blood Gas Oxyhemoglobin 85.5 % (94-97); Blood O2 Saturation 88.7 % (92-98.5)
[2020-05-10 06:03] LABS: Absolute Lymphocytes (CBC) 0.5 K/uL (0.7-4.9); Basophils % 0.8 % (0-1.3); Hematocrit 27.3 % (39.6-49.0); Lymphocytes % 7.2 % (15.3-44.8); MPV 9.4 fL (7.6-11.3); RBC Red Blood Cell Count 2.91 M/uL (4.33-5.43)
[2020-05-10 06:12] LABS: BUN Blood Urea Nitrogen 46 mg/dL (7-18); Bicarbonate 39 mmol/L (21-32); Glucose Level 87 mg/dL (74-106); Phosphorus 3.8 mg/dL (2.5-4.9); Potassium 4.1 mmol/L (3.5-5.1); Sodium Level 143 mmol/L (136-145)
[2020-05-10 06:15] LABS: C-Reactive Protein < 2.90 mg/L (<3.00)
[2020-05-10 08:53] LABS: Anisocytosis 1+; Basophilic Stippling 1+; Blood Morphology Comment NOTED (NOT SEEN); Platelet Estimate ADEQ; Polychromasia 1+
[2020-05-10] MEDS: ASCORBIC ACID 500 MG TABLET PO SCH ×3 (09:00→19:54)
[2020-05-10] MEDS: FAMOTIDINE 20 MG TAB PO SCH ×2 (09:00→19:54)
[2020-05-10] MEDS: ZINC SULFATE 220 MG CAP PO SCH (09:00)
[2020-05-10] MEDS: DOXYCYCLINE 100 MG CAP PO SCH ×2 (09:00→19:55)
[2020-05-10] MEDS: VITAMIN D 1000 UNIT TAB PO SCH (09:00)
[2020-05-10] MEDS: INSULIN GLARGINE 100 UNITS/ML SQ SCH ×2 (09:00→21:00)
[2020-05-10] MEDS: FLUCONAZOLE 100 MG TAB PO SCH (09:00)
[2020-05-10] MEDS: hydroCHLOROthiazide 25 MG TAB PO SCH (09:00)
--- NOTE | 2020-05-10 09:14 | CON ---
Reason For Consultation: Tracheostomy tube placement. History Of Present Illness: Patient was admitted to the hospital on April 05 with COVID-19 related pneumonia, shortness of breath. He subsequently developed respiratory failure despite use of CPAP and BiPAP and was endotracheally intubated and maintained on mechanical ventilation starting April 17. Consult was requested on May 09 due to continued need for mechanical intervention with general improvement over the last week in regard to oxygen needs and overall systemic functions. History is gleaned from chart since patient is intubated. PMH: HTN, DM All: NKDA SH: + EtOH FH: Mother with DM ROS: unable to obtain Physical Examination: Patient is obese. He has moderate subcutaneous emphysema of the upper chest and lower neck. He is orotracheally intubated. His ventilator settings at the time of my evaluation include oxygen delivery at 80% with a PEEP of 15. Assessment: Respiratory failure with prolonged intubation with clinical improvement from his COVID-related pneumonia. Plan: I discussed with the ICU nursing staff, , and Dr. De Dios regarding further management. I recommend weaning as tolerated of his oxygen saturation and PEEP and we will tentatively plan for tracheostomy on May 10, pending clinical stability. I spoke with the patient's via the telephone regarding the risks and benefits, including , pain, bleeding, infection, scarring, collapsed lung, etc. This patient is considered high risk due to his overall medical status and obesity, but it was felt by the team that the risks were outweighed by the benefits of tracheostomy given the duration of his intubation and likely need for continue mechanical ventilation at this point. PHILIPPE/BRIDGETT Voice ID: [id number] Report ID: [id number] [facility]
--- NOTE | 2020-05-10 09:26 | RAD REPORT ---
EXAM DESCRIPTION: RAD - Chest Single View - 05/10/2020 6:39 am CLINICAL HISTORY: covid pnuemonia Chest pain. COMPARISON: Chest Single View dated 05/09/2020; Chest Single View dated 05/08/2020; Chest Single View da keshia 05/07/2020; Chest Single View dated 05/06/2020 FINDINGS: Portable technique limits examination quality. Since 05/09/2020, mild worsening in bilateral pulmonary opacities noted. Subcutaneous emphysema the b ase of the neck is again seen. Tip of the ET tube is above the svetlana. Enteric tube descends in the s tomach. The heart is moderately enlarged. IMPRESSION: Mild worsening in bilateral pulmonary opacities since comparative study.
[2020-05-10] MEDS: FUROSEMIDE 40 MG/4 ML VIAL IV SCH (09:42)
[2020-05-10] MEDS: THIAMINE 200 MG/2 ML INJ IVP SCH (09:42)
[2020-05-10] MEDS: METHYLPREDNISOLONE 40 MG INJ IV SCH ×2 (09:42→19:54)
[2020-05-10] MEDS ORDERED: ROCURONIUM 50 MG/5 ML VIAL IV ONE (11:06)
[2020-05-10] MEDS ORDERED: MIDAZOLAM HCL 2 MG/2 ML INJ ONE (11:06)
[2020-05-10] MEDS ORDERED: FENTANYL CITR 100 MCG/2 ML ONE (11:06)
[2020-05-10] MEDS ORDERED: LIDOCAINE 1% W/EPI 1:100,000 10 ML VIAL ONE (11:13)
[2020-05-10] MEDS ORDERED: EPHEDRINE SULF 50 MG/ML VIAL ONE (11:56)
[2020-05-10] MEDS ORDERED: VECURONIUM 10 MG/VIAL IV ONE (12:06)
--- NOTE | 2020-05-10 12:23 | P.BOP ---
Preoperative diagnosis: covid 19 PNA, prolonged mechanical ventilation, respiratory failure Postoperative diagnosis: same Primary procedure: tracheotomy Supervisor Evaporator: Naresh Foster Estimated blood loss: 5ml Specimen: none Findings: division of thyroid isthmus Anesthesia: General Complications: None Implants: 8.0 DELIVERY CONSULTANT Kevin Transferred to: ICU Condition: Serious
--- NOTE | 2020-05-10 12:25 | P.PN ---
Subjective Date of Service: 05/10/20 Chief Complaint: Respiratory failure Pt is intubated , Hx obtained from chart A [id number] gentleman with a history of hypertension and diabetes pt was admitted with SOB , he was diagnosed with COVID 19 prior to admission, pt required intubation for hypoxic respiratory failure , his cr was 0.6 but on 04/18 cr was up to 1.5, pt cr remained relatively stable , yesterday pt K noticed to be elevated , and cr trending up pt is on High PEEP and oxygen requirement , with intermittent sedation today no change in clinical status High Bicarb but stable Schedule for Tracheotomy today will benefit from PEG placement ROS unable to provide Physical exam general: intubated , sedated Neck; Supple, No elevated JVD hear: tachycardia normal S1,2 no murmur or rub Chest: CTAB, no rlaes or wheezes Abdomen: Soft , Nt Extremities trace edema A/P MARBELLA resolved multifactorial Barotrauma+/- propofol hold IVF renal dose meds COVID 19 pneumonia intubated on High O2 demand plan for tracheostomy today Acute respiratory failures intubated plan for tracheostomy today edema cont lasix hypernatremia resolved total time spent 55min pt with overall poor prognosis Physical Examination - Vital Signs Temperature: 97.1 F Blood Pressure: 102/69 Pulse: 81 Respirations: 30 Pulse Ox (%): 92
--- NOTE | 2020-05-10 13:17 | PN ---
Subjective: The patient has had a tracheostomy done., sedated. Objective: VITAL SIGNS: Blood pressure 102/70, pulse 80, temperature 97.1. Rest of his physical examination, no change. Laboratory Data: White cell count 6.5, hemoglobin 8.9, hematocrit 27.3, and platelets 168. BUN 46, creatinine 0.73. GFR more than 90. Chest x-ray, mild worsening of bilateral pulmonary opacities. Assessment And Plan: The patient is still with acute respiratory failure, hypoxia from COVID pneumon ia. Tracheostomy has been placed. We will also consider asking Gastroenterology to see the patient to put the PEG tube for feeding. We will continue his current treatment and supportive care. His bl ood sugar fingersticks being monitored and we will continue his insulin regimen. MFS/MODL Voice ID: [id number] Report ID: [id number]
--- NOTE | 2020-05-10 14:18 | RAD REPORT ---
EXAM DESCRIPTION: RAD - Abdomen 1 View (KUB) - 05/10/2020 1:59 pm CLINICAL HISTORY: Dobbhoff placement COMPARISON: No comparisons FINDINGS: Exam has motion degradation limitation. Tip of the feeding tube is in the medial right upp er quadrant. This would correspond with the antrum of the stomach. No obstruction, free air or pneumatosis. No suspicious calcifications. IMPRESSION: Feeding tube placement with the tip medial right upper quadrant. This would correspond t o antrum of the stomach.
--- NOTE | 2020-05-10 15:11 | OP ---
Date of Procedure: 05/10/2020 Surgeon: Luisa Heath MD Marriage And Family Counselor: Ashley Foster Procedure: Tracheostomy. Preoperative Diagnoses: COVID-19 pneumonia, prolonged mechanical ventilation, respiratory failure. Postoperative Diagnoses: COVID-19 pneumonia, prolonged mechanical ventilation, respiratory failure. Complications: None. Implants: 8.0 low-pressure cuffed Shiley tracheostomy tube. Indication For Procedure: The patient was admitted in early April with COVID pneumonia. He required intubation with initiation of mechanical ventilation on April 17; he has been continuously requiring mechanical ventilation since that time. He was noted to have slow improvement over the last week, but still requiring relatively high levels of oxygen and decision was made in conjunction with the family and the intensive care team to proceed with tracheostomy. Description Of Procedure: The patient was brought to the operating room. He was placed under general anesthesia via existing oral endotracheal tube with 100% FiO2. A shoulder roll was placed. The neck was extended and prepped and draped in the standard sterile fashion. A 2 cm incision was made through the skin and subcutaneous tissues approximately 2 fingerbreadths above the sternal notch. Subcutaneous fatty tissue was removed and the strap muscles were identified. The strap muscles were in the midline. With careful palpation over the trachea, the muscles and soft tissue was retracted laterally. The isthmus of the thyroid was encountered overlying the upper trachea and was divided in the superior to inferior fashion using Bovie electrocautery. Finally, the pretracheal fascia was identified and isolated. The surgical bed was carefully inspected and there was no evidence of any bleeding. A brief pause and time-out were made at this point to confirm the surgical plan with all present. Ventilation was held. The cuff of the endotracheal tube was deflated and incision was made using a scalpel through the anterior tracheal wall horizontally between tracheal rings 1 and 2. The endotracheal tube was slowly withdrawn until its tip was barely visible through the trachea incision. A size 8 low-pressure cuffed Shiley tracheostomy tube was placed within the incision. The ventilation circuit was connected. The balloon was inflated and ventilation was resumed. During initial portions of the procedure, the patient was placed on 100% oxygen for adequate preoxygenation and was achieving oxygen saturations in the mid 90s. Following the tracheostomy incision, the patient's oxygen decreased briefly to the low 60s, but recovered within a few moments following re-initiation of ventilation. The tracheostomy tube was then secured in a four- point fashion to the patient's skin using 2-0 silk sutures. The umbilical trach tie was applied around the neck for additional security. The patient's skin was cleaned and dried and the patient was prepared for transportation back to the ICU for further intensive care and management of his pneumonia. MERCEDES Voice ID: [id number] Report ID: [id number] [facility]
[2020-05-10] MEDS: D50W 25 GM/50 ML VIAL IV PRN ×2 (17:30→18:32)
[2020-05-10] MEDS: MELATONIN 5 MG TABLET PO SCH (19:54)
[2020-05-11 05:44] LABS: Arterial Blood Carboxyhemoglob 2.4 % (0-1.5); Blood Gas Oxyhemoglobin 87.5 % (94-97); Blood O2 Saturation 90.6 % (92-98.5)
[2020-05-11 05:47] LABS: Absolute Lymphocytes (CBC) 0.5 K/uL (0.7-4.9); Basophils % 0.7 % (0-1.3); Hematocrit 27.1 % (39.6-49.0); MPV 9.4 fL (7.6-11.3); RBC Red Blood Cell Count 2.86 M/uL (4.33-5.43)
[2020-05-11 06:00] LABS: BUN Blood Urea Nitrogen 41 mg/dL (7-18); Bicarbonate 34 mmol/L (21-32); Glucose Level 136 mg/dL (74-106); Magnesium 2.3 mg/dL (1.8-2.4); Phosphorus 4.1 mg/dL (2.5-4.9); Potassium 4.4 mmol/L (3.5-5.1); Sodium Level 143 mmol/L (136-145)
[2020-05-11] MEDS: METOPROLOL TAR 50 MG TAB PO SCH ×2 (06:00→17:42)
[2020-05-11] MEDS: INSULIN -REGULAR HUMAN 50 UNIT/0.5 ML ML SQ SCH ×3 (06:00→17:40)
[2020-05-11] MEDS: LORazepam 2 MG/ML VIAL IV PRN (06:30)
[2020-05-11] MEDS: propofoL 1,000 MG/100 ML VIAL IV PRN ×3 (06:42→13:02)
[2020-05-11] MEDS: FAMOTIDINE 20 MG TAB PO SCH ×2 (08:59→21:21)
[2020-05-11] MEDS: METHYLPREDNISOLONE 40 MG INJ IV SCH ×2 (08:59→21:21)
[2020-05-11] MEDS: HYDROMORPHONE HCL 2 MG/ML inj IV PRN ×3 (08:59→22:20)
[2020-05-11] MEDS: hydroCHLOROthiazide 25 MG TAB PO SCH (09:00)
[2020-05-11] MEDS: INSULIN GLARGINE 100 UNITS/ML SQ SCH ×2 (09:00→21:20)
[2020-05-11] MEDS: ZINC SULFATE 220 MG CAP PO SCH (09:01)
[2020-05-11] MEDS: THIAMINE 200 MG/2 ML INJ IVP SCH (09:01)
[2020-05-11] MEDS: VITAMIN D 1000 UNIT TAB PO SCH (09:01)
[2020-05-11] MEDS: ASCORBIC ACID 500 MG TABLET PO SCH ×3 (09:01→21:21)
[2020-05-11] MEDS: FLUCONAZOLE 100 MG TAB PO SCH (09:01)
[2020-05-11] MEDS: FUROSEMIDE 40 MG/4 ML VIAL IV SCH (09:03)
[2020-05-11] MEDS: DOXYCYCLINE 100 MG CAP PO SCH ×2 (09:06→21:00)
--- NOTE | 2020-05-11 13:24 | PN ---
Subjective: The patient has had a tracheostomy yesterday. He is still on mechanical ventilation. Objective: VITAL SIGNS: Blood pressure this morning 80/50, pulse 88, temperature 97.4. HEART: Regular rate and rhythm. CHEST: Bilateral crackles. ABDOMEN: Soft, benign. NEUROLOGIC: The patient is stable, not responsive. EXTREMITIES: Trace edema bilateral. Laboratory Data: CBC; white cell count 5.2, hemoglobin 8.9, hematocrit 27.1, platelets 158. Casino Banker ry; BUN 41, creatinine 0.81, GFR more than 180. Blood sugar fingersticks are well controlled between 150 and 120. Assessment And Plan: 1.Acute respiratory failure on mechanical ventilation from COVID-19 pneumonia. Slight improvement, but the patient remains on mechanical ventilation. 2.Type 2 diabetes is controlled on the current regimen. We will continue current treatment. Look o john for details. MFS/MODL Voice ID: [id number] Report ID: [id number]
[2020-05-11] MEDS: VITAL AF 1,000 ML BOT RTH SCH (14:25)
--- NOTE | 2020-05-11 17:14 | P.PN ---
Subjective Date of Service: 05/11/20 Chief Complaint: Respiratory failure Pt is intubated , Hx obtained from chart A [id number] gentleman with a history of hypertension and diabetes pt was admitted with SOB , he was diagnosed with COVID 19 prior to admission, pt required intubation for hypoxic respiratory failure , his cr was 0.6 but on 04/18 cr was up to 1.5, pt cr remained relatively stable , yesterday pt K noticed to be elevated , and cr trending up pt is on High PEEP and oxygen requirement , with intermittent sedation today no change in clinical status S/P Tracheotomy Cont tube feeding ROS unable to provide Physical exam general: intubated , sedated Neck; Supple, No elevated JVD hear: tachycardia normal S1,2 no murmur or rub Chest: CTAB, no rlaes or wheezes Abdomen: Soft , Nt Extremities trace edema A/P MARBELLA resolved multifactorial Barotrauma+/- propofol hold IVF renal dose meds COVID 19 pneumonia intubated on High O2 demand plan for tracheostomy today Acute respiratory failures intubated plan for tracheostomy today edema cont lasix hypernatremia resolved total time spent 55min pt with overall poor prognosis Physical Examination - Vital Signs Temperature: 97.3 F Blood Pressure: 96/66 Pulse: 86 Respirations: 30 Pulse Ox (%): 95
[2020-05-11] MEDS: MELATONIN 5 MG TABLET PO SCH (21:20)
[2020-05-12] MEDS: HYDROMORPHONE HCL 2 MG/ML inj IV PRN ×5 (04:50→22:04)
[2020-05-12] MEDS: METOPROLOL TAR 50 MG TAB PO SCH ×2 (06:00→17:37)
[2020-05-12] MEDS: INSULIN -REGULAR HUMAN 50 UNIT/0.5 ML ML SQ SCH ×4 (06:25→17:19)
[2020-05-12] MEDS: ASCORBIC ACID 500 MG TABLET PO SCH (08:26)
[2020-05-12] MEDS: ZINC SULFATE 220 MG CAP PO SCH (08:26)
[2020-05-12] MEDS: hydroCHLOROthiazide 25 MG TAB PO SCH (08:26)
[2020-05-12] MEDS: FLUCONAZOLE 100 MG TAB PO SCH (08:26)
[2020-05-12] MEDS: FAMOTIDINE 20 MG TAB PO SCH ×2 (08:26→22:05)
[2020-05-12] MEDS: FUROSEMIDE 40 MG/4 ML VIAL IV SCH ×2 (08:26→14:10)
[2020-05-12] MEDS: THIAMINE 200 MG/2 ML INJ IVP SCH (08:26)
[2020-05-12] MEDS: METHYLPREDNISOLONE 40 MG INJ IV SCH ×2 (08:27→22:04)
[2020-05-12] MEDS: INSULIN GLARGINE 100 UNITS/ML SQ SCH ×2 (08:27→22:43)
[2020-05-12] MEDS: VITAMIN D 1000 UNIT TAB PO SCH (08:28)
[2020-05-12] MEDS: DOXYCYCLINE 100 MG CAP PO SCH ×2 (08:28→22:07)
--- NOTE | 2020-05-12 09:59 | P.PN ---
Date of Service: 05/12/20 I spoke to his nurse, Meg regarding the trach site. She has not noted any bleeding or excess drainage or other concerns with the site. I recommended restarting the DVT prophylaxis medication. I will plan to return to the bedside on or Wed to remove the stay sutures and change the trach ties.
[2020-05-12] MEDS: LORazepam 2 MG/ML VIAL IV PRN (11:25)
--- NOTE | 2020-05-12 12:15 | P.PN ---
Subjective Date of Service: 05/12/20 Chief Complaint: Respiratory failure Patient is improving. Alert now. O2 levels improving Review of Systems is unable to be obtained Physical Examination - Vital Signs Temperature: 98.2 F Blood Pressure: 112/73 Pulse: 89 Respirations: 99 Pulse Ox (%): 92 - Physical Exam General: Alert, Cooperative Respiratory: Clear to auscultation bilaterally, Diminished Cardiovascular: Edema Assessment & Plan - Problems (Diagnosis) (1) Pneumonia due to COVID-19 virus Current Visit: Yes Status: Acute Plan: Pt i simproving Start physicl therapy an dreduce O2 Daily ABG's Dc lasix for now. DC melatonin. (2) Renal failure Current Visit: Yes Status: Acute Plan: Renal function is now normal mildly elevated BUN Qualifiers: Chronic kidney disease stage: stage 3 (moderate)
--- NOTE | 2020-05-12 12:41 | P.PN ---
Subjective Date of Service: 05/12/20 Chief Complaint: Respiratory failure Pt is intubated , Hx obtained from chart A [id number]-viz gentleman with a history of hypertension and diabetes pt was admitted with SOB , he was diagnosed with COVID 19 prior to admission, pt required intubation for hypoxic respiratory failure , his cr was 0.6 but on 04/18 cr was up to 1.5, pt cr remained relatively stable , yesterday pt K noticed to be elevated , and cr trending up pt is on High PEEP and oxygen requirement , with intermittent sedation today no change in clinical status , moving head , not oriented will start lasix S/P Tracheotomy Cont tube feeding ROS unable to provide Physical exam general: intubated , sedated Neck; Supple, No elevated JVD hear: tachycardia normal S1,2 no murmur or rub Chest: CTAB, no rlaes or wheezes Abdomen: Soft , Nt Extremities +2 edema A/P MARBELLA resolved multifactorial Barotrauma+/- propofol hold IVF renal dose meds COVID 19 pneumonia intubated on High O2 demand plan for tracheostomy today Acute respiratory failures intubated plan for tracheostomy today edema cont lasix hypernatremia resolved total time spent 55min pt with overall poor prognosis Physical Examination - Vital Signs Temperature: 98.2 F Blood Pressure: 112/73 Pulse: 89 Respirations: 99 Pulse Ox (%): 92
--- NOTE | 2020-05-12 18:15 | PN ---
Subjective: Patient is on mechanical ventilation, now clinically stable. No significant change. Objective: VITAL SIGNS: Blood pressure 112/73, pulse 89, temperature 98.2. Rest of his physical ex amination, no change. Blood sugar fingersticks around 200 to 150. Assessment And Plan: We will continue current treatment and mechanical ventilation improv ement. At this time, we will continue monitoring and supporting the patient with his COVID-19 and wi th his mechanical ventilation. Kidney function is good. his level of alertness has improv ed also. He is responding to calling his name and opening his eyes. MFS/MODL Voice ID: [id number] Report ID: [id number]
[2020-05-12] MEDS: APIXABAN 5 MG TABLET PO SCH (22:06)
[2020-05-13] MEDS: INSULIN -REGULAR HUMAN 50 UNIT/0.5 ML ML SQ SCH ×5 (00:49→23:56)
[2020-05-13] MEDS: LORazepam 2 MG/ML VIAL IV PRN ×4 (01:00→21:15)
[2020-05-13] MEDS: HYDROMORPHONE HCL 2 MG/ML inj IV PRN ×5 (03:43→22:30)
[2020-05-13 06:18] LABS: Arterial Blood Carboxyhemoglob 2.5 % (0-1.5); Blood Gas Oxyhemoglobin 93.2 % (94-97); Blood O2 Saturation 96.4 % (92-98.5)
[2020-05-13] MEDS: METOPROLOL TAR 50 MG TAB PO SCH ×2 (06:40→17:02)
--- NOTE | 2020-05-13 08:20 | RAD REPORT ---
EXAM DESCRIPTION: [place] Single View05/13/2020 7:53 am CLINICAL HISTORY: Respiratory failure COMPARISON: May 08, 2020 FINDINGS: Overall no significant change in mild to moderate bilateral pulmonary opacities Heart remains enlarged Tracheostomy tube in place. Feeding tube within the stomach. Tip is not included in the field of view IMPRESSION: No significant change in the [id number] bilateral pulmonary opacities
[2020-05-13] MEDS: ZINC SULFATE 220 MG CAP PO SCH (09:00)
[2020-05-13] MEDS: THIAMINE 200 MG/2 ML INJ IVP SCH (09:00)
[2020-05-13] MEDS: VITAMIN D 1000 UNIT TAB PO SCH (09:00)
[2020-05-13] MEDS: hydroCHLOROthiazide 25 MG TAB PO SCH (09:00)
[2020-05-13] MEDS: APIXABAN 5 MG TABLET PO SCH ×2 (09:00→21:15)
[2020-05-13] MEDS: METHYLPREDNISOLONE 40 MG INJ IV SCH ×2 (09:00→21:15)
[2020-05-13] MEDS: INSULIN GLARGINE 100 UNITS/ML SQ SCH ×2 (09:00→21:15)
[2020-05-13] MEDS: FLUCONAZOLE 100 MG TAB PO SCH (09:00)
[2020-05-13] MEDS: DOXYCYCLINE 100 MG CAP PO SCH ×2 (09:00→21:15)
[2020-05-13] MEDS: FUROSEMIDE 40 MG/4 ML VIAL IV SCH (09:00)
[2020-05-13] MEDS: FAMOTIDINE 20 MG TAB PO SCH ×2 (09:00→21:15)
--- NOTE | 2020-05-13 12:45 | P.PN ---
Subjective Date of Service: 05/14/20 Chief Complaint: Respiratory failure Patient is doing much better he is more responsive status post tracheostomy Review of Systems is unable to be obtained Physical Examination - Vital Signs Temperature: 99.6 F Blood Pressure: 83/62 Pulse: 88 Respirations: 30 Pulse Ox (%): 95 - Physical Exam General: Alert, Cooperative Respiratory: Clear to auscultation bilaterally Cardiovascular: No edema, Normal S1 S2 Assessment & Plan - Problems (Diagnosis) (1) Pneumonia due to COVID-19 virus Current Visit: Yes Status: Acute Plan: Patient is improving oxygen requirements have been declining blood pressure is slightly low bedside physical therapy change vent to SIMV pressure support reduce peep patient is stable to be transferred to an LTAC facility patient's blood sugars are dropping Dc insulin will Dc metoprolol
[2020-05-13] MEDS ORDERED: HYDROMORPHONE HCL 2 MG/ML inj IV ONE (13:25)
--- NOTE | 2020-05-13 22:44 | PN ---
Date of Progress Note: 05/13/2020 Chief Complaint: Acute on chronic kidney injury, high BUN and creatinine ratio. History Of Present Illness: Overall, creatinine level has improved. The patient has COVID pneumonia . He has high PEEP and oxygen requirement. The patient was started on Lasix. He underwent tracheostomy and he is on tube feeding. Review of Systems: Unable to obtain. Physical Examination: Lungs: No rales. No wheezing. Extremities: 2+ edema. Heart: S1, S2. Impression And Plan: 1.Acute kidney injury. Renal function has improved. Continue to hold IV fluids. The patient will continue tube feeding. Adjust medication to renal dose. 2.COVID pneumonia. High oxygen demand. The patient was scheduled to have tracheostomy. 3.Edema of the legs. Continue Lasix. 4.Hypernatremia. The patient was treated with hypotonic fluids, D5, and hypernatremia resolved. EB/MODL Voice ID: [id number] Report ID: [id number]
[2020-05-14] MEDS: LORazepam 2 MG/ML VIAL IV PRN ×5 (01:20→23:56)
[2020-05-14] MEDS: HYDROMORPHONE HCL 2 MG/ML inj IV PRN ×5 (02:50→20:04)
[2020-05-14] MEDS: D50W 25 GM/50 ML VIAL IV PRN (05:02)
[2020-05-14] MEDS: METOPROLOL TAR 50 MG TAB PO SCH (05:06)
[2020-05-14] MEDS: INSULIN -REGULAR HUMAN 50 UNIT/0.5 ML ML SQ SCH ×4 (05:06→23:57)
[2020-05-14 05:24] LABS: Arterial Blood Carboxyhemoglob 2.6 % (0-1.5); Blood Gas Oxyhemoglobin 89.3 % (94-97); Blood O2 Saturation 92.6 % (92-98.5)
[2020-05-14 05:27] LABS: BUN Blood Urea Nitrogen 37 mg/dL (7-18); Bicarbonate 33 mmol/L (21-32); C-Reactive Protein 6.01 mg/L (<3.00); Ferritin 713.7 ng/mL (26-388); Glucose Level 72 mg/dL (74-106); Phosphorus 4.2 mg/dL (2.5-4.9); Potassium 4.2 mmol/L (3.5-5.1); Sodium Level 134 mmol/L (136-145)
[2020-05-14] MEDS: VITAL HP 1,000 ML BOT RTH SCH (06:00)
--- NOTE | 2020-05-14 07:43 | RAD REPORT ---
EXAM DESCRIPTION: RAD - Chest Single View - 05/14/2020 6:16 am CLINICAL HISTORY: vented, respiratory distress COMPARISON: Portable May 13 TECHNIQUE: AP portable chest image was obtained 05/14/2020 6:16 am . FINDINGS: Low lung volumes noted. Bilateral airspace opacification is present worse on the left. Nikolai ateral costophrenic angle blunting from pleural fluid also unchanged. Trach tube remains in place. Fe eding tube has been retracted. Tip is in the distal esophagus. Cardiomegaly is stable. Vascular engor gement is stable. No pneumothorax. IMPRESSION: Feeding tube has been retracted. Tip is in the distal esophagus. Bilateral airspace opacification and pleural effusions, worse on the left, are stable from prior day imaging.
[2020-05-14] MEDS: INSULIN GLARGINE 100 UNITS/ML SQ SCH (09:00)
[2020-05-14] MEDS: APIXABAN 5 MG TABLET PO SCH ×2 (09:28→20:02)
[2020-05-14] MEDS: VITAMIN D 1000 UNIT TAB PO SCH (09:28)
[2020-05-14] MEDS: THIAMINE 200 MG/2 ML INJ IVP SCH (09:28)
[2020-05-14] MEDS: FLUCONAZOLE 100 MG TAB PO SCH (09:28)
[2020-05-14] MEDS: FAMOTIDINE 20 MG TAB PO SCH ×2 (09:28→20:03)
[2020-05-14] MEDS: ZINC SULFATE 220 MG CAP PO SCH (09:28)
[2020-05-14] MEDS: DOXYCYCLINE 100 MG CAP PO SCH (09:31)
[2020-05-14] MEDS: METHYLPREDNISOLONE 40 MG INJ IV SCH ×2 (09:31→20:03)
[2020-05-14] MEDS: HALOPERIDOL LACT 5 MG/ML INJ IV PRN ×2 (11:55→21:50)
--- NOTE | 2020-05-14 13:03 | PN ---
Subjective: With the patient, no change in status. He is alert, but is not oriented nor is he commu nicating. Objective: Vital Signs: Blood pressure 84/62, pulse 88, temperature 99.6. Heart: Regular rate and rhythm. Chest: Bilateral crackles. Abdomen: Soft, benign. Neurologic: The patient responds to sounds and calling his name by opening his eyes however, and mov ing his head, but he is not communicating. Laboratory Data: ABGs; pH 7.46, pCO2 43.8, pO2 61, saturation 99.3%, this is on 60% FiO2 mechanical ventilation. Assessment And Plan: 1.The patient is gradually improving with his pneumonia and acute respiratory failure. 2.The patient's awareness and cognition are still compromised. We would expect him to gradually imp rove from that standpoint. 3.His blood sugar fingersticks have dropped down as we factoring down his steroids, so we will keep him on sliding scale only. Rest of his medical problems stable. Look orders for details. MFS/MODL Voice ID: [id number] Report ID: [id number]
[2020-05-14] MEDS ORDERED: FUROSEMIDE 40 MG/4 ML VIAL IV ONE (13:19)
--- NOTE | 2020-05-14 13:45 | RAD REPORT ---
EXAM DESCRIPTION: RAD - Abdomen 1 View (KUB) - 05/14/2020 1:35 pm CLINICAL HISTORY: Device placement Dobhoff tube placement FINDINGS: The film is somewhat suboptimal. A Dobhoff tube is not visualized within the region of the very distal esophagus, stomach and duodenu m
--- NOTE | 2020-05-14 15:02 | RAD REPORT ---
EXAM DESCRIPTION: RAD - Abdomen 1 View (KUB) - 05/14/2020 2:53 pm CLINICAL HISTORY: Device placement Dobhoff tube placement FINDINGS: A Dobhoff tube lies has been placed into the stomach. The tip lies within the proximal sto mach approximately 4 centimeters from the GE junction.
--- NOTE | 2020-05-14 16:10 | PN ---
Date of Progress Note: 05/14/2020 Subjective: The patient was admitted with COVID pneumonia, respiratory failure, ended up with a trach, trach tolerated. The patient is on vent, required higher FiO2. Physical Examination: Vital Signs: Blood pressure of 95/62, pulse of 88. Heart: S1, S2. Extremities: +3 edema, more prominent on the upper extremity. Neuro: The patient opens eyes spontaneously. Laboratory Data: WBC 5.2, H and H 8.9/27.1, platelets 158. Sodium 134, potassium 4.2, bicarb 33, BUN 37, creatinine 0.6, GFR above 90, calcium 8.4, phosphorus 4.2, magnesium of 2. Current Medications: The patient on include; 1. Fluconazole. 2. Eliquis. 3. Metoprolol. 4. Haloperidol. 5. Lasix 40 received yesterday. 6. Zofran. 7. Pepcid. 8. Solu-Medrol. Assessment And Plan: 1. Acute kidney injury secondary to toxic acute tubular necrosis, COVID nephropathy, recovered, resolved. The patient's last dose of Lasix was on the , currently looked to me on the over volume side. I am going to give him extra dose of Lasix today. 2. Hypernatremia. Sodium normalized. We will give Lasix today. 3. Over volume, anasarca secondary to malnourish, dilutional we will continue agrressive diurese. 4. COVID pneumonia, respiratory failure, status post trach. Follow up with Pulmonary and ENT. Continue current antibiotic. Time spent discussing with the patient, [id number], using the translation, discussing with the staff and placing an order, discussing with over subspecialty and hospitalist 45 minutes. KRYSTYNA Voice ID: [id number] Report ID: [id number] RADHA
[2020-05-15] MEDS: HYDROMORPHONE HCL 2 MG/ML inj IV PRN ×4 (02:05→17:38)
[2020-05-15] MEDS: LORazepam 2 MG/ML VIAL IV PRN ×3 (03:15→16:39)
[2020-05-15] MEDS: INSULIN -REGULAR HUMAN 50 UNIT/0.5 ML ML SQ SCH ×4 (05:45→23:34)
[2020-05-15 06:00] LABS: Absolute Lymphocytes (CBC) 0.8 K/uL (0.7-4.9); Basophils % 1.1 % (0-1.3); Hematocrit 30.4 % (39.6-49.0); Lymphocytes % 13.1 % (15.3-44.8); MPV 8.5 fL (7.6-11.3); RBC Red Blood Cell Count 3.19 M/uL (4.33-5.43)
[2020-05-15 06:06] LABS: Arterial Blood Carboxyhemoglob 2.3 % (0-1.5); Blood Gas Oxyhemoglobin 89.1 % (94-97)
[2020-05-15] MEDS: NA CHLORIDE 0.9% 250 ML IV PRN ×2 (06:18→14:12)
[2020-05-15 06:37] LABS: BUN Blood Urea Nitrogen 39 mg/dL (7-18); Bicarbonate 32 mmol/L (21-32); Ferritin 750.7 ng/mL (26-388); Glucose Level 245 mg/dL (74-106); Magnesium 1.9 mg/dL (1.8-2.4); Phosphorus 4.1 mg/dL (2.5-4.9); Potassium 4.3 mmol/L (3.5-5.1); Sodium Level 132 mmol/L (136-145)
[2020-05-15 07:45] LABS: Anisocytosis 3+; Blood Morphology Comment NOTED (NOT SEEN); Platelet Estimate ADEQ; Polychromasia 1+; Target Cells 1+
--- NOTE | 2020-05-15 08:55 | RAD REPORT ---
EXAM DESCRIPTION: RAD - Chest Single View - 05/15/2020 6:53 am CLINICAL HISTORY: vented Chest pain. COMPARISON: Abdomen 1 View (KUB) dated 05/14/2020; Abdomen 1 View (KUB) dated 05/14/2020; Chest Single View dated 05/14/2020; Chest Single View dated 05/13/2020 FINDINGS: Portable technique limits examination quality. Bilateral pulmonary opacities are again noted, mildly improved since the comparative study. The heart is moderately enlarged in size. Right-sided PICC line is unchanged in position.Enteric tube descends into the stomach. Tracheostomy tube is above the svetlana. IMPRESSION: Mild improvement lung aeration is seen since comparative study.
[2020-05-15] MEDS: APIXABAN 5 MG TABLET PO SCH ×2 (09:33→21:07)
[2020-05-15] MEDS: METHYLPREDNISOLONE 40 MG INJ IV SCH ×2 (09:33→21:06)
[2020-05-15] MEDS: VITAMIN D 1000 UNIT TAB PO SCH (09:33)
[2020-05-15] MEDS: FAMOTIDINE 20 MG TAB PO SCH ×2 (09:34→21:07)
[2020-05-15] MEDS: FLUCONAZOLE 100 MG TAB PO SCH (09:34)
[2020-05-15] MEDS: THIAMINE 200 MG/2 ML INJ IVP SCH (09:34)
[2020-05-15] MEDS: ZINC SULFATE 220 MG CAP PO SCH (09:34)
[2020-05-15] MEDS: WATER FOR INJ,STERILE 10 ML IM PRN (09:50)
[2020-05-15] MEDS: ZIPRASIDONE MESYLA 20 MG/VIAL IM PRN (09:50)
--- NOTE | 2020-05-15 11:51 | P.PN ---
Subjective Date of Service: 05/15/20 Chief Complaint: Respiratory failure Patient is delirious agitated patient is improving requiring sedation Review of Systems is unable to be obtained Physical Examination - Vital Signs Temperature: 97.2 F Blood Pressure: 109/62 Pulse: 120 Respirations: 33 Pulse Ox (%): 94 - Physical Exam General: Unresponsive Respiratory: Clear to auscultation bilaterally, Diminished Cardiovascular: Normal S1 S2, Edema Assessment & Plan - Problems (Diagnosis) (1) Pneumonia due to COVID-19 virus Current Visit: Yes Status: Acute Plan: Patient is improving accepted an LTAC facility oxygenation satisfactory labs reviewed stable for transfer patient has been weaned down to low doses of Solu- Medrol blood sugar under control
[2020-05-15] MEDS ORDERED: FUROSEMIDE 40 MG/4 ML VIAL IV ONE (12:09)
--- NOTE | 2020-05-15 12:56 | PN ---
Date of Progress Note: 05/15/2020 Subjective: The patient was admitted with COVID pneumonia, respiratory failure requiring vent, status post tracheostomy. The patient has now been more awake, agitated. Yesterday, the patient received single dose of Lasix. The patient responded very well. FiO2 has been dropped to 55 and still saturating above 97. Physical Examination: Vital Signs: Blood pressure 109/62, pulse of 88, afebrile. The patient had good urine output of 6500, negative of 2200. Chest: Crackles bilateral. Heart: S1, S2. Regular. Abdomen: Soft, nontender. Extremities: +2 edema. Neuro: The patient is sedated. Laboratory Data: WBC 6, H and H 9.9/30.4, platelet 234. Sodium 132, potassium 4.3, bicarb 32, BUN 39, creatinine 0.6, calcium 8.2, phos 4.1, magnesium 1.9. Current Medications: The patient on include; 1. Fluconazole. 2. Eliquis. 3. Metoprolol. 4. Tylenol. 5. Propofol. 6. Lasix received yesterday. 7. Pepcid. Assessment And Plan: 1. Acute kidney injury secondary to toxic acute tubular necrosis, poor perfusion, recovered, resolved. Currently, still over volume. Continue p.r.n. Lasix. If the blood pressure rise above 120, we will give another dose of Lasix today. 2. Hyponatremia, dilutional. We will continue p.r.n. Lasix. Decrease free water to 200 every 6 from 400 currently. 3. Hypernatremia, resolved. 4. COVID pneumonia, respiratory failure as by Pulmonary, status post tracheostomy. The patient waiting for transfer to LTAC. Time spent discussing with the patient, [id number], using the translation, discussing with the staff and placing an order, discussing with over subspecialty and hospitalist 45 minutes. KRYSTYNA Voice ID: [id number] Report ID: [id number] RADHA
--- NOTE | 2020-05-15 13:11 | PN ---
Subjective: The patient is alert. Otherwise, no change in status, still on mechanical ventilation. Objective: Vital Signs: Blood pressure 109/62, pulse 120, temperature 97.2. Heart: Tachycardic, regular rate. Chest: Bilateral crackles. Abdomen: Soft, benign. Neurologic: As mentioned, alert but the patient not oriented and no communication. Laboratory Data: Sodium 132, BUN 39, creatinine 0.66. Blood sugar fingersticks 240 to 140. White c ell count 6, hemoglobin 9.9, hematocrit 30.4, platelets 235. ABGs on mechanical ventilation pH 7.34, pCO2 45.7, PO2 62.1, saturation 92. This is on 70% inspired oxygen. Assessment And Plan: 1.COVID-19 pneumonia with acute respiratory failure, slow but gradual improvement in general patient condition. We will continue current treatment. 2.Anemia, likely was due to mild gastritis and GI loss, although his stools were negative for occult blood, but is stable. 3.Type 2 diabetes mellitus. Continue current insulin treatment and sliding scale. Look orders for details. MFS/MODL Voice ID: [id number] Report ID: [id number]
[2020-05-15] MEDS: FENTANYL CITR 100 MCG/2 ML IV PRN (23:33)
[2020-05-16] MEDS: HYDROMORPHONE HCL 2 MG/ML inj IV PRN ×4 (00:16→16:01)
[2020-05-16] MEDS: ZIPRASIDONE MESYLA 20 MG/VIAL IM PRN ×2 (01:21→13:33)
[2020-05-16] MEDS: WATER FOR INJ,STERILE 10 ML IM PRN (01:21)
[2020-05-16] MEDS: VITAL HP 1,000 ML BOT RTH SCH (02:31)
[2020-05-16] MEDS: INSULIN -REGULAR HUMAN 50 UNIT/0.5 ML ML SQ SCH ×3 (06:22→17:34)
[2020-05-16 06:32] LABS: Arterial Blood Carboxyhemoglob 2.5 % (0-1.5); Blood Gas Oxyhemoglobin 88.5 % (94-97); Blood O2 Saturation 91.8 % (92-98.5)
[2020-05-16 06:35] LABS: Absolute Lymphocytes (CBC) 0.3 K/uL (0.7-4.9); Hematocrit 24.5 % (39.6-49.0); Lymphocytes % 7.1 % (15.3-44.8); MPV 8.5 fL (7.6-11.3); RBC Red Blood Cell Count 2.59 M/uL (4.33-5.43)
[2020-05-16 07:07] LABS: BUN Blood Urea Nitrogen 40 mg/dL (7-18); Bicarbonate 34 mmol/L (21-32); Ferritin 692.4 ng/mL (26-388); Glucose Level 225 mg/dL (74-106); Magnesium 2.1 mg/dL (1.8-2.4); Phosphorus 4.1 mg/dL (2.5-4.9); Potassium 4.8 mmol/L (3.5-5.1); Sodium Level 135 mmol/L (136-145)
[2020-05-16] MEDS: LORazepam 2 MG/ML VIAL IV PRN ×2 (07:51→20:16)
[2020-05-16] MEDS: METHYLPREDNISOLONE 40 MG INJ IV SCH ×2 (08:01→20:16)
[2020-05-16] MEDS: THIAMINE 200 MG/2 ML INJ IVP SCH (08:01)
[2020-05-16] MEDS: APIXABAN 5 MG TABLET PO SCH ×2 (08:02→20:15)
[2020-05-16] MEDS: VITAMIN D 1000 UNIT TAB PO SCH (08:02)
[2020-05-16] MEDS: FLUCONAZOLE 100 MG TAB PO SCH (08:02)
[2020-05-16] MEDS: ZINC SULFATE 220 MG CAP PO SCH (08:02)
[2020-05-16] MEDS: FAMOTIDINE 20 MG TAB PO SCH ×2 (08:02→20:16)
--- NOTE | 2020-05-16 09:10 | RAD REPORT ---
EXAM DESCRIPTION: RAD - Chest Single View - 05/16/2020 4:50 am CLINICAL HISTORY: covid pnuemonia Chest pain. COMPARISON: Chest Single View dated 05/15/2020; Abdomen 1 View (KUB) dated 05/14/2020; Abdomen 1 View (KUB) dated 05/14/2020; Chest Single View dated 05/14/2020 FINDINGS: Portable technique limits examination quality. Airspace opacity in the left lower lobe and inferior right lung appear mildly progressive since the c omparative study. The heart is moderately enlarged in size. Right-sided PICC line, enteric tube and t racheostomy tube are stable. IMPRESSION: Mild worsening in lung aeration is seen since comparative study.
--- NOTE | 2020-05-16 12:58 | P.PN ---
Subjective Date of Service: 05/16/20 Chief Complaint: Respiratory failure patient continues to remain clear is an agitated acquiring sedation difficult to manage Physical Examination - Vital Signs Temperature: 99.8 F Blood Pressure: 89/54 Pulse: 91 Respirations: 30 Pulse Ox (%): 98 - Physical Exam General: Unresponsive Respiratory: Clear to auscultation bilaterally, Diminished Cardiovascular: Edema Assessment & Plan - Problems (Diagnosis) (1) Pneumonia due to COVID-19 virus Current Visit: Yes Status: Acute Plan: patient continues to have significant delirium has agitation blood pressures lower time will give some fluid bolus blood sugar niece to be controlled patient restarted back on Lantus patient is mildly anemic chest x-ray is rotated patient is on low-dose steroids medications reviewed his FiO2 is only 65% has peep has been decreased to 7 due to hypotension may be induced by a medications for the agitation
[2020-05-16] MEDS ORDERED: FUROSEMIDE 40 MG/4 ML VIAL IV ONE (13:35)
[2020-05-16] MEDS ORDERED: FUROSEMIDE 40 MG in NA CHLORIDE 0.9% 50 ML IV ONE (13:45)
--- NOTE | 2020-05-16 14:03 | PN ---
Date of Progress Note: 05/16/2020 Subjective: The patient was admitted with respiratory failure secondary to COVID pneumonia. The patient had been intubated, status post tracheostomy. The patient had developed acute kidney injury, recovered, resolved, being anasarca on diuresis. Developed hypernatremia, then currently hyponatremia. Objective: Vital Signs: When I saw the patient, the patient still on vent tracheostomy requiring 65% of FiO2, blood pressure of 97/54, pulse of 91, afebrile. The patient had good urine output of 4700 after receiving Lasix, yesterday the patient was negative of 800. Chest: Faint rales bilateral base. Heart: S1 and S2 regular. Abdomen: Soft, nontender. Extremities: +2 edema, more prominent on the lower extremity. Neuro: The patient been sedated. Laboratory Data: WBC 4, H and H 8.2/24.5, platelets 225. Sodium 135, potassium 4.8, bicarb 34, BUN 40, creatinine 0.6, calcium of 8, phos of 4.1, magnesium 2.1, ferritin 692 trending down. C-reactive protein 23, also trending down. Current Medications: The patient on it's include: 1. Fluconazole. 2. Eliquis. 3. Metoprolol. 4. Sedation. 5. Pepcid. 6. Zofran. 7. Solu-Medrol. 8. Insulin. Assessment/plan: 1. Acute kidney injury secondary to COVID nephropathy. Recover, resolved. 2. Over volume. I am going to go ahead and give the patient extra dose of Lasix today and we will follow up. 3. Hyponatremia. We will decrease free water to 150 every 4 hours. We will give another dose of Lasix. We will try to have more negative balance on the patient. 4. COVID pneumonia, respiratory failure. We will follow up with Pulmonary. The patient waiting for transfer to LTAC. Time spent discussing with the patient, [id number], using the translation, discussing with the staff and placing an order, discussing with over subspecialty and hospitalist 45 minutes. KRYSTYNA Voice ID: [id number] Report ID: [id number] RADHA
--- NOTE | 2020-05-16 18:00 | PN ---
Subjective: The patient is on mechanical ventilation. Objective: Vital Signs: His blood pressure is 96/64, pulse is 90, temperature 99.8. Rest of his ph ysical exam no change. General: The patient is alert, but he is agitated and has no communication. Diagnostic Data: Chest x-ray; mild worsening of lung aeration to comparison to previous one. CBC; w ajit cell count 4, hemoglobin 8.2, hematocrit 24.5, and platelets 225. Sodium 135, chloride 96, CO2 of 34, BUN 40, creatinine 0.65, blood sugar fingersticks 200-100. Assessment And Plan: 1.The patient is still requiring mechanical ventilation, although less oxygen at FiO2 of 65. 2.Delirium and agitation. Hopefully, he will recover gradually from that. 3.Type 2 diabetes mellitus, slightly worse and controlled, but we will continue sliding scale. 4.Anemia. We will monitor his CBC. We will transfuse him. The patient is on Pepcid IV with transf usion as indicated. Look orders for details. MFS/MODL Voice ID: [id number] Report ID: [id number]
[2020-05-16] MEDS: MELATONIN 5 MG TABLET PO SCH (20:15)
[2020-05-17] MEDS: INSULIN -REGULAR HUMAN 50 UNIT/0.5 ML ML SQ SCH ×6 (00:59→23:42)
[2020-05-17] MEDS: INSULIN GLARGINE 100 UNITS/ML SQ SCH ×2 (01:44→21:14)
[2020-05-17] MEDS: VITAL AF 1,000 ML BOT RTH SCH (03:30)
[2020-05-17] MEDS: ZIPRASIDONE MESYLA 20 MG/VIAL IM PRN (03:38)
[2020-05-17] MEDS: WATER FOR INJ,STERILE 10 ML IM PRN (03:38)
[2020-05-17 06:15] LABS: Arterial Blood Carboxyhemoglob 2.4 % (0-1.5); Blood Gas Oxyhemoglobin 90.9 % (94-97); Blood O2 Saturation 93.9 % (92-98.5)
[2020-05-17 06:40] LABS: Absolute Lymphocytes (CBC) 0.4 K/uL (0.7-4.9); Basophils % 0.3 % (0-1.3); Hematocrit 26.3 % (39.6-49.0); Lymphocytes % 8.9 % (15.3-44.8); MPV 8.7 fL (7.6-11.3); RBC Red Blood Cell Count 2.76 M/uL (4.33-5.43)
[2020-05-17 06:57] LABS: BUN Blood Urea Nitrogen 38 mg/dL (7-18); Bicarbonate 34 mmol/L (21-32); Ferritin 676.5 ng/mL (26-388); Glucose Level 245 mg/dL (74-106); Phosphorus 3.3 mg/dL (2.5-4.9); Potassium 4.2 mmol/L (3.5-5.1); Sodium Level 136 mmol/L (136-145)
--- NOTE | 2020-05-17 07:47 | RAD REPORT ---
EXAM DESCRIPTION: [place] Single View05/17/2020 5:50 am CLINICAL HISTORY: Shortness of breath COMPARISON: May 16 FINDINGS: No significant change in the bilateral pulmonary opacities. Heart remains enlarged. Tracheostomy tube is in place. Feeding tube has its tip in the proximal stomach couple centimeters from the GE junction. PICC line i n place
[2020-05-17] MEDS: HYDROMORPHONE HCL 2 MG/ML inj IV PRN (09:04)
[2020-05-17] MEDS: FAMOTIDINE 20 MG TAB PO SCH ×2 (11:05→21:15)
[2020-05-17] MEDS: VITAMIN D 1000 UNIT TAB PO SCH (11:05)
[2020-05-17] MEDS: FLUCONAZOLE 100 MG TAB PO SCH (11:05)
[2020-05-17] MEDS: APIXABAN 5 MG TABLET PO SCH ×2 (11:05→21:14)
[2020-05-17] MEDS: METHYLPREDNISOLONE 40 MG INJ IV SCH ×2 (11:06→21:16)
[2020-05-17] MEDS: ZINC SULFATE 220 MG CAP PO SCH (11:06)
[2020-05-17] MEDS: THIAMINE 200 MG/2 ML INJ IVP SCH (11:08)
[2020-05-17] MEDS: LORazepam 2 MG/ML VIAL IV PRN ×3 (11:59→19:25)
--- NOTE | 2020-05-17 13:38 | P.PN ---
Subjective Date of Service: 05/17/20 Chief Complaint: Respiratory failure Patient is doing much better today he is not requiring his months sedation is not as agitated fact he did face time with his family members Review of Systems is unable to be obtained Physical Examination - Vital Signs Temperature: 97.8 F Blood Pressure: 118/91 Pulse: 106 Respirations: 30 Pulse Ox (%): 90 Assessment & Plan - Problems (Diagnosis) (1) Pneumonia due to COVID-19 virus Current Visit: Yes Status: Acute Plan: Doing much better improving requirements are declining no evidence of sepsis Dave Camacho
[2020-05-17] MEDS: ASCORBIC ACID 500 MG TABLET PO SCH ×2 (13:46→21:16)
--- NOTE | 2020-05-17 13:55 | PN ---
Subjective: The patient is clinically still doing the same as far as his level of alertness. He is still also requiring mechanical ventilation through his tracheostomy. Objective: VITAL SIGNS: Blood pressure 160/97, pulse 114, temperature 98.9. Rest of his physical examination is no change. Laboratory Data: CBC; white cell count 4.7, hemoglobin 8.7, hematocrit 26.3, and platelets 268. Blo od sugar fingersticks noted between 231 to 173. ABGs at 65% mechanical ventilation inspired oxygen, pH of 7.48, pCO2 42.8, pO2 62.6, saturation 93.9. The patient's chest x-ray showed mild worsening ae ration since previous study. Microbiology, no growth to date and the blood cultures. Assessment And Plan: 1.Acute respiratory failure with hypoxemia. There is gradual improvement, but very slow. The patie nt is a candidate I think for long-term acute care because is going to have to have some more time fo r recovery. Yadi is looking into that. Meanwhile, we will continue current supportive care. 2.Type 2 diabetes. Had better control. We will continue current regular insulin regimen. 3.Rest of his medical problems stable. MFS/MODL Voice ID: [id number] Report ID: [id number]
[2020-05-17] MEDS ORDERED: FUROSEMIDE 40 MG/4 ML VIAL IV ONE (14:00)
--- NOTE | 2020-05-17 21:13 | P.PN ---
Subjective Date of Service: 05/17/20 Chief Complaint: Respiratory failure Pt is intubated , Hx obtained from chart A [id number] gentleman with a history of hypertension and diabetes pt was admitted with SOB , he was diagnosed with COVID 19 prior to admission, pt required intubation for hypoxic respiratory failure , his cr was 0.6 but on 04/18 cr was up to 1.5, pt cr remained relatively stable , yesterday pt K noticed to be elevated , and cr trending up pt is on High PEEP and oxygen requirement , with intermittent sedation Today more alert, can node head when asked for yes or no question Cr stable will order lasix X1 ROS unable to provide Physical exam general: alert Neck; Supple, No elevated JVD , tracheostomy hear: tachycardia normal S1,2 no murmur or rub Chest: CTAB, no rlaes or wheezes Abdomen: Soft , Nt Extremities +1 hands edema A/P MARBELLA resolved multifactorial Barotrauma+/- propofol hold IVF renal dose meds COVID 19 pneumonia intubated on High O2 demand plan for tracheostomy today Acute respiratory failures intubated plan for tracheostomy today edema lasix prn hypernatremia resolved total time spent 35min pt with overall poor prognosis Physical Examination - Vital Signs Temperature: 98.6 F Blood Pressure: 110/63 Pulse: 105 Respirations: 30 Pulse Ox (%): 95
[2020-05-17] MEDS: MELATONIN 5 MG TABLET PO SCH (21:14)
[2020-05-18] MEDS: FENTANYL CITR 100 MCG/2 ML IV PRN ×3 (03:30→18:59)
[2020-05-18 05:43] LABS: Arterial Blood Carboxyhemoglob 2.4 % (0-1.5); Blood Gas Oxyhemoglobin 91.3 % (94-97); Blood O2 Saturation 94.4 % (92-98.5)
[2020-05-18 05:56] LABS: Absolute Lymphocytes (CBC) 0.5 K/uL (0.7-4.9); Basophils % 0.3 % (0-1.3); Hematocrit 25.2 % (39.6-49.0); Lymphocytes % 10.6 % (15.3-44.8); MPV 8.2 fL (7.6-11.3); RBC Red Blood Cell Count 2.68 M/uL (4.33-5.43)
[2020-05-18] MEDS: INSULIN -REGULAR HUMAN 50 UNIT/0.5 ML ML SQ SCH ×4 (05:59→23:48)
[2020-05-18] MEDS: VITAL AF 1,000 ML BOT RTH SCH (06:00)
[2020-05-18 06:18] LABS: BUN Blood Urea Nitrogen 32 mg/dL (7-18); Bicarbonate 34 mmol/L (21-32); C-Reactive Protein 7.36 mg/L (<3.00); Ferritin 642.6 ng/mL (26-388); Glucose Level 215 mg/dL (74-106); Phosphorus 3.9 mg/dL (2.5-4.9); Sodium Level 138 mmol/L (136-145)
[2020-05-18] MEDS ORDERED: IVERMECTIN FT ONE (09:00)
[2020-05-18 09:14] LABS: Anisocytosis 2+; Blood Morphology Comment NOTED (NOT SEEN); Platelet Estimate ADEQ; White Blood Cell Scan OK (OK)
[2020-05-18 09:15] LABS: Polychromasia 1+
[2020-05-18] MEDS ORDERED: FUROSEMIDE 40 MG/4 ML VIAL IV ONE (10:07)
[2020-05-18] MEDS: METHYLPREDNISOLONE 40 MG INJ IV SCH ×2 (11:16→20:28)
[2020-05-18] MEDS: VITAMIN D 1000 UNIT TAB PO SCH (11:16)
[2020-05-18] MEDS: ASCORBIC ACID 500 MG TABLET PO SCH ×3 (11:17→20:28)
[2020-05-18] MEDS: FAMOTIDINE 20 MG TAB PO SCH ×2 (11:18→20:27)
[2020-05-18] MEDS: APIXABAN 5 MG TABLET PO SCH ×2 (11:18→20:24)
[2020-05-18] MEDS: ZINC SULFATE 220 MG CAP PO SCH (11:18)
--- NOTE | 2020-05-18 11:28 | PN ---
Date of Progress Note: 05/18/2020 Subjective: The patient was admitted with COVID pneumonia, respiratory failure. The patient is status post tracheostomy. The patient had anasarca, had hypernatremia, currently hypo. The patient is diuresing very well. Objective: Vital Signs: Blood pressure 105/76, pulse of 89, afebrile. The patient had good urine output of 3600, the patient negative of 2 L. Chest: Crackles bilateral base. Heart: S1, S2, regular. Abdomen: Soft, nontender. Extremities: +2 edema. Neuro: The patient sedated. Laboratory Data: WBC 4.7, H and H 8.6/25.2, platelet 248. Sodium 138, potassium 4, bicarb 34, BUN 32, creatinine 0.6, calcium 8.3, phosphorus 3.9, magnesium of 2. Current Medications: The patient on include: 1. Eliquis. 2. Metoprolol. 3. Zinc sulfate. 4. Pepcid. 5. Zofran. 6. Insulin. Assessment And Plan: 1. 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 2. Hypertension, controlled, currently marginally on the lower side. We will utilize the blood pressure for diuresis. 3. Anasarca. We will dose the patient with another dose of Lasix today. Decrease the free water to 100 q.3 hours and we will follow up. 4. COVID pneumonia with respiratory failure. Follow up with Pulmonary. Decrease free water to establish more negative balance and we will follow up. 5. Hypernatremia, resolved. Back up on the free water. time spend discussing with the patient face to face , placing order , discusse with the patient and other horses or mules teamster [facility] specialty hospitalist 45 min. KRYSTYNA Voice ID: [id number] Report ID: [id number] [facility] SIE[facility] MEDICAL CENTERFrancisco
--- NOTE | 2020-05-18 11:43 | RAD REPORT ---
EXAM DESCRIPTION: RAD - Chest Single View - 05/18/2020 6:20 am CLINICAL HISTORY: covid pnuemonia Chest pain. COMPARISON: Abdomen 1 View (KUB) dated 05/17/2020; Chest Single View dated 05/17/2020; Chest Single Vi ew dated 05/16/2020; Chest Single View dated 05/15/2020 FINDINGS: Portable technique limits examination quality. Bilateral pulmonary interstitial opacities are present, greater on the left, slightly improved since prior study. Tracheostomy tube tip is above svetlana. Enteric tube descends into the stomach. Right-magalys ed PICC line is stable with its tip in the SVC. The heart is mildly enlarged in size. IMPRESSION: Mild improvement lung aeration is seen since comparative study.
[2020-05-18] MEDS: LORazepam 2 MG/ML VIAL IV PRN ×3 (12:23→18:41)
[2020-05-18] MEDS: HYDROMORPHONE HCL 2 MG/ML inj IV PRN (16:50)
[2020-05-18] MEDS: ZIPRASIDONE MESYLA 20 MG/VIAL IM PRN (18:20)
--- NOTE | 2020-05-18 19:19 | PN ---
Subjective: The patient with no changes clinically in status as far as his awareness. He is still r equiring also mechanical ventilation. Objective: VITAL SIGNS: Blood pressure 92/56, pulse 104, temperature 99.4. The patient is on mecha nical ventilation through tracheostomy and his pulse oximetry saturation is adequate, however, whenev er he gets moved to his sides, his pulse oximetry saturation drops down to 85. Blood sugar fingersti cks noted somewhere between 200 to the low 300. CBC noted hemoglobin stable at 8.6. Assessment And Plan: 1.Acute respiratory failure with hypoxemia. Continue mechanical ventilation and support. 2.COVID-19 pneumonia. The patient is having a slow recovery. 3.The patient is alert, but is not responding to communications. Expect that to improve with recove ry from COVID-19, however, is gradual. 4.Acute renal failure, resolved. 5.Hypotension. The patient is still hemodynamically stable. Most of the time, his blood pressure s ystolic is above 100. We will monitor his vitals. 6.Anemia. I think of slight gastric loss from stress of his condition. Hemoglobin is stable. The patient is on IV Pepcid. Look orders for details. MFS/MODL Voice ID: [id number] Report ID: [id number]
[2020-05-18] MEDS: propofoL 1,000 MG/100 ML VIAL IV PRN ×2 (19:25→23:21)
[2020-05-18] MEDS: MELATONIN 5 MG TABLET PO SCH (20:25)
[2020-05-18] MEDS ORDERED: INSULIN GLARGINE 100 UNITS/ML SQ SCH (21:00)
--- NOTE | 2020-05-18 22:02 | RAD REPORT ---
EXAM DESCRIPTION: Abdomen 1 View (KUB) CLINICAL HISTORY: 55 years Male, Reinserted dobhoff, check placement COMPARISON: Chest x-ray May 07, 2020. FINDINGS: Two limited radiographic images of the abdomen were provided, first at 7: 23 PM and second at 8:30 PM. An enteric tube is noted with tip in the proximal stomach on the first image and distal gastric body on the second image. Visualized bowel gas pattern appears unremarkable. Osseous structures demonstrate no acute findings. IMPRESSION: Enteric tube tip in the distal gastric body. Electronically signed by: Thien Anderson MD 05/17/2020 11:53 PM C APPLICATION DEVELOPER Due to temporary technical issues with the PACS/Fluency reporting system, reports are being signed by the in house radiologists without review as a courtesy to insure prompt reporting. The interpreting radiologist is fully responsible for the content of the report.
[2020-05-19 05:48] LABS: Absolute Lymphocytes (CBC) 0.7 K/uL (0.7-4.9); Basophils % 0.4 % (0-1.3); Hematocrit 28.4 % (39.6-49.0); Lymphocytes % 13.7 % (15.3-44.8); MPV 8.3 fL (7.6-11.3); RBC Red Blood Cell Count 2.97 M/uL (4.33-5.43)
[2020-05-19] MEDS: INSULIN -REGULAR HUMAN 50 UNIT/0.5 ML ML SQ SCH ×3 (05:57→17:49)
[2020-05-19 06:08] LABS: BUN Blood Urea Nitrogen 41 mg/dL (7-18); Bicarbonate 32 mmol/L (21-32); Ferritin 617.6 ng/mL (26-388); Glucose Level 262 mg/dL (74-106); Sodium Level 136 mmol/L (136-145)
[2020-05-19] MEDS: propofoL 1,000 MG/100 ML VIAL IV PRN ×3 (06:42→18:48)
[2020-05-19] MEDS: THIAMINE HCL 100 MG TABLET PO SCH (10:30)
[2020-05-19] MEDS: ZINC SULFATE 220 MG CAP PO SCH (10:30)
[2020-05-19] MEDS: ASCORBIC ACID 500 MG TABLET PO SCH ×3 (10:30→20:57)
[2020-05-19] MEDS: FAMOTIDINE 20 MG TAB PO SCH ×2 (10:31→20:57)
[2020-05-19] MEDS: VITAMIN D 1000 UNIT TAB PO SCH (10:31)
[2020-05-19] MEDS: ZIPRASIDONE MESYLA 20 MG/VIAL IM PRN ×2 (10:31→22:50)
[2020-05-19] MEDS: APIXABAN 5 MG TABLET PO SCH ×2 (10:31→20:55)
[2020-05-19] MEDS: METHYLPREDNISOLONE 40 MG INJ IV SCH (10:33)
--- NOTE | 2020-05-19 10:49 | P.PN ---
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
[2020-05-19] MEDS ORDERED: FUROSEMIDE 40 MG/4 ML VIAL IV ONE (11:21)
[2020-05-19] MEDS: HYDROMORPHONE HCL 2 MG/ML inj IV PRN (12:20)
--- NOTE | 2020-05-19 12:45 | PN ---
Date of Progress Note: 05/19/2020 Subjective: The patient was admitted with COVID pneumonia. The patient is status post tracheostomy. The patient is on vent. Still has anasarca. The patient has been on p.r.n. Lasix to establish better volume control given the anasarca. Physical Examination: Vital Signs: Blood pressure 105/51, pulse of 101, afebrile. The patient had urine output of 4 L. The patient was negative of 2100. As weight paula, the patient dropped to 258 in the last 3 days. The patient lost 14 pounds. Chest: Decreased entry bilateral base. Heart: S1, S2. Regular. Abdomen: Soft, obese. Could not appreciate any other organomegaly. Extremities: +2 edema. Neuro: The patient sedated on vent. Laboratory Data: WBC 5.4, H and H 9.5/28.4, platelets 272. Sodium 136, potassium 4, bicarb 32, BUN 41, creatinine 0.8, calcium 8.3. Ferritin 617, continues to trend down. C-reactive protein 12, slightly higher. Current Medications: The patient on include; 1. Metoprolol. 2. Eliquis 5 b.i.d. 3. Propofol. 4. Received Lasix yesterday. 5. Pepcid. 6. Zofran. 7. Solu-Medrol. 8. Melatonin. 9. Fentanyl. 10. Ivermectin. Assessment And Plan: 1. 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 2. Anasarca secondary to third spacing. I am going to decrease free water to 100 q.6. We will give another dose of Lasix to establish more negative balance. 3. Hypertension, controlled, optimal. We will keep utilizing the blood pressure for more diuresis. 4. COVID pneumonia, respiratory failure. Continue current support. 5. Hyponatremia. We will continue diuresing and decrease free water to establish better volume control for the patient. time spend discussing with the patient face to face , placing order , discusse with the patient and other steam blocker including hospitalist 45 min. KRYSTYNA Voice ID: [id number] Report ID: [id number] [facility]
--- NOTE | 2020-05-19 14:27 | PN ---
Subjective: The patient is on mechanical ventilation through a tracheostomy. He had to be sedated b ecause he was combative. Objective: Vital Signs: Blood pressure 122/82, pulse 120, temperature 98.2. Heart: Tachycardic. Regular rate. Chest: Bilateral crackles. Abdomen: Soft, benign. Neurological: The patient is sedated. Extremities: No edema. No cyanosis. Peripheral pulses are felt. Laboratory Data: Blood sugar fingersticks noted between 250 to 190. Hemoglobin 9.5, hematocrit 28.4 , platelets are 272, white cell count is 5.4. The patient's glomerular filtration rate is still more than 90. Assessment And Plan: 1.Bilateral COVID-19 pneumonia with acute respiratory failure requiring mechanical ventilation. We will continue that. 2.Type 2 diabetes, on Lantus and sliding scale. We will continue that. 3.The patient requiring long-term care. We are still awaiting on LTAC response to transfer him as o f now the patient is clinically stable. Look orders for details. MFS/MODL Voice ID: [id number] Report ID: [id number]
--- NOTE | 2020-05-19 14:58 | RAD REPORT ---
EXAM DESCRIPTION: RAD - Chest Single View - 05/19/2020 1:03 pm CLINICAL HISTORY: Hypoxia, increased subcutaneous emphysema COMPARISON: Portable May 18 TECHNIQUE: AP portable chest image was obtained 05/19/2020 1:03 pm . FINDINGS: Left base parenchymal opacification has diminished since comparison. However, there is a s light increase in overall interstitial and alveolar opacification in the lung alonzo. No pneumothorax or enlarging pleural effusion. Heart size is normal. Trach tube remains in place. Feeding tube is in place. Subcutaneous emphysema has increased around the bilateral neck base and supraclavicular regions. Right-sided PICC line is unchanged. IMPRESSION: Increasing bilateral supraclavicular and subcutaneous emphysema. Overall slight worsening of the lung parenchymal opacification with the left base opacification less prominent than seen May 18. Right PICC line, trach tube and feeding tube unchanged from comparison.
[2020-05-19] MEDS: VITAL AF 1,000 ML BOT RTH SCH (18:49)
[2020-05-19] MEDS: INSULIN GLARGINE 100 UNITS/ML SQ SCH (20:56)
[2020-05-19] MEDS: MELATONIN 5 MG TABLET PO SCH (20:56)
[2020-05-19] MEDS: WATER FOR INJ,STERILE 10 ML IM PRN (22:51)
[2020-05-20] MEDS: INSULIN -REGULAR HUMAN 50 UNIT/0.5 ML ML SQ SCH ×4 (00:45→17:19)
[2020-05-20] MEDS: propofoL 1,000 MG/100 ML VIAL IV PRN ×4 (01:36→23:04)
[2020-05-20 05:07] LABS: Absolute Lymphocytes (CBC) 1.2 K/uL (0.7-4.9); Basophils % 0.8 % (0-1.3); Hematocrit 28.6 % (39.6-49.0); Lymphocytes % 19.2 % (15.3-44.8); MPV 7.9 fL (7.6-11.3)
[2020-05-20 05:37] LABS: BUN Blood Urea Nitrogen 39 mg/dL (7-18); Bicarbonate 34 mmol/L (21-32); Ferritin 569.5 ng/mL (26-388); Glucose Level 151 mg/dL (74-106); Potassium 3.6 mmol/L (3.5-5.1); Sodium Level 139 mmol/L (136-145)
[2020-05-20] MEDS: ASCORBIC ACID 500 MG TABLET PO SCH ×3 (10:58→20:03)
[2020-05-20] MEDS: THIAMINE HCL 100 MG TABLET PO SCH (10:58)
[2020-05-20] MEDS: FAMOTIDINE 20 MG TAB PO SCH ×2 (10:58→20:03)
[2020-05-20] MEDS: VITAMIN D 1000 UNIT TAB PO SCH (10:58)
[2020-05-20] MEDS: METHYLPREDNISOLONE 40 MG INJ IV SCH (10:59)
[2020-05-20] MEDS: APIXABAN 5 MG TABLET PO SCH ×2 (10:59→20:02)
[2020-05-20] MEDS: ZINC SULFATE 220 MG CAP PO SCH (10:59)
[2020-05-20] MEDS: HYDROMORPHONE HCL 2 MG/ML inj IV PRN (11:32)
--- NOTE | 2020-05-20 11:58 | PN ---
Subjective: The patient continues to require mechanical ventilation. There is no change in his stat us. Objective: Vital signs: Blood pressure 130/90, pulse 100, temperature 97. Rest of physical examination, no change. Assessment And Plan: We are still awaiting on long-term acute care facility bed availability for the patient to transfer to LTAC. Meanwhile, continue current care and support. MFS/MODL Voice ID: [id number] Report ID: [id number]
--- NOTE | 2020-05-20 12:26 | P.PN ---
Subjective Date of Service: 05/20/20 Chief Complaint: Respiratory failure, critical care myopathy Patient gets worse in the after known requiring sedation with agitation he has not developed subcutaneous emphysema Physical Examination - Vital Signs Temperature: 97 F Blood Pressure: 130/91 Pulse: 105 Respirations: 31 Pulse Ox (%): 94 - Physical Exam General: Cooperative Respiratory: Clear to auscultation bilaterally, Other (Subcu emphysema) Cardiovascular: Regular rate/rhythm, Edema Assessment & Plan - Problems (Diagnosis) (1) Pneumonia due to COVID-19 virus Current Visit: Yes Status: Acute Plan: Respiratory failure with critical care myopathy a 60% FiO2 pressure control ventilation ferritin levels declining blood sugars control of reduce patient's peep to 5 cm stable for transfer to an LTAC facility that side physical therapy
[2020-05-20] MEDS: MELATONIN 5 MG TABLET PO SCH (20:03)
[2020-05-20] MEDS: INSULIN GLARGINE 100 UNITS/ML SQ SCH (21:25)
--- NOTE | 2020-05-20 21:39 | PN ---
Date of Progress Note: 05/20/2020 Chief Complaint: Acute kidney injury, COVID pneumonia, respiratory failure, status post tracheostomy. The patient is on vent. He has anasarca. Lasix was used as needed for volume control and to prevent fluid overload. Review of Systems: Unobtainable. Objective: Extremities: Edema 2+. The patient is on vent. Heart: S1 and S2. Chest: Decreased breath sounds bilaterally at bases. Impression And Plan: 1. Acute on chronic kidney injury, secondary to COVID nephropathy, acute tubular necrosis. Continue to monitor fluid balance and diuretic as needed for volume control. 2. Hypernatremia. The patient was on free water. The patient will continue Lasix to control volemia. 3. Hypertension, controlled. Acceptable blood pressure today. 4. COVID pneumonia respiratory failure. Continue supportive therapy. EB/MODL Voice ID: [id number] Report ID: [id number] [facility]
[2020-05-21] MEDS: HYDROMORPHONE HCL 2 MG/ML inj IV PRN ×4 (00:45→16:07)
[2020-05-21] MEDS: INSULIN -REGULAR HUMAN 50 UNIT/0.5 ML ML SQ SCH ×5 (00:51→23:54)
[2020-05-21 04:50] LABS: Absolute Lymphocytes (CBC) 1.1 K/uL (0.7-4.9); Basophils % 1.2 % (0-1.3); Hematocrit 28.7 % (39.6-49.0); Lymphocytes % 20.5 % (15.3-44.8); MPV 8.2 fL (7.6-11.3); RBC Red Blood Cell Count 2.95 M/uL (4.33-5.43)
[2020-05-21 05:04] LABS: BUN Blood Urea Nitrogen 36 mg/dL (7-18); Bicarbonate 34 mmol/L (21-32); Glucose Level 162 mg/dL (74-106); Potassium 3.5 mmol/L (3.5-5.1); Sodium Level 143 mmol/L (136-145)
[2020-05-21] MEDS: propofoL 1,000 MG/100 ML VIAL IV PRN ×3 (07:26→22:00)
[2020-05-21] MEDS: ASCORBIC ACID 500 MG TABLET PO SCH ×3 (09:00→20:38)
[2020-05-21] MEDS: VITAMIN D 1000 UNIT TAB PO SCH (10:52)
[2020-05-21] MEDS: FAMOTIDINE 20 MG TAB PO SCH ×2 (10:52→20:38)
[2020-05-21] MEDS: METHYLPREDNISOLONE 40 MG INJ IV SCH (10:52)
[2020-05-21] MEDS: THIAMINE HCL 100 MG TABLET PO SCH (10:52)
[2020-05-21] MEDS: APIXABAN 5 MG TABLET PO SCH ×2 (10:52→20:38)
[2020-05-21] MEDS: ZIPRASIDONE MESYLA 20 MG/VIAL IM PRN (10:57)
[2020-05-21] MEDS: WATER FOR INJ,STERILE 10 ML IM PRN (10:57)
[2020-05-21] MEDS: ZINC SULFATE 220 MG CAP PO SCH (10:57)
--- NOTE | 2020-05-21 11:29 | P.PN ---
Subjective Date of Service: 05/21/20 Chief Complaint: Respiratory failure, critical care myopathy Pt is intubated , Hx obtained from chart A [id number] gentleman with a history of hypertension and diabetes pt was admitted with SOB , he was diagnosed with COVID 19 prior to admission, pt required intubation for hypoxic respiratory failure , his cr was 0.6 but on 04/18 cr was up to 1.5, pt cr remained relatively stable , yesterday pt K noticed to be elevated , and cr trending up pt is on High PEEP and oxygen requirement , with intermittent sedation Today no change on clinical status edema much improved awaiting LTCA bed availability ROS unable to provide Physical exam general: alert Neck; Supple, No elevated JVD , tracheostomy hear: tachycardia normal S1,2 no murmur or rub Chest: CTAB, no rlaes or wheezes Abdomen: Soft , Nt Extremities trace hands edema A/P MARBELLA resolved multifactorial Barotrauma+/- propofol hold IVF renal dose meds COVID 19 pneumonia S/P tracheostomy on High O2 demand Acute respiratory failures S/P tracheostomy edema lasix prn hypernatremia resolved total time spent 35min Physical Examination - Vital Signs Temperature: 98.2 F Blood Pressure: 124/90 Pulse: 99 Respirations: 30 Pulse Ox (%): 92
--- NOTE | 2020-05-21 11:48 | P.PN ---
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
[2020-05-21] MEDS: VITAL AF 1,000 ML BOT RTH SCH (14:00)
--- NOTE | 2020-05-21 15:16 | PN ---
Subjective: No change in clinical status. Objective: Blood pressure 97/73, pulse 104, temperature 98.2. Blood sugar fingersticks 300 to 157. Rest of physical examination, no change. Assessment And Plan: 1.Type 2 diabetes. We will increase the patient's Lantus to 35 units. 2.Rest of his medical problems including his acute respiratory failure with hypoxia due to COVID-19 pneumonia, on mechanical ventilation and we will continue that. The patient is still awaiting on [facility] for transfer. As mentioned, he is going to need the prolonged recovery. Look orders for details. MFS/MODL Voice ID: [id number] Report ID: [id number]
[2020-05-21] MEDS ORDERED: INSULIN GLARGINE 100 UNITS/ML SQ SCH (21:00)
[2020-05-22] MEDS: propofoL 1,000 MG/100 ML VIAL IV PRN ×4 (02:39→18:16)
[2020-05-22 05:15] LABS: Absolute Lymphocytes (CBC) 1.2 K/uL (0.7-4.9); Basophils % 0.4 % (0-1.3); Hematocrit 28.6 % (39.6-49.0); Lymphocytes % 19.9 % (15.3-44.8); MPV 8.1 fL (7.6-11.3); RBC Red Blood Cell Count 2.91 M/uL (4.33-5.43)
[2020-05-22 05:34] LABS: BUN Blood Urea Nitrogen 36 mg/dL (7-18); Bicarbonate 34 mmol/L (21-32); Ferritin 629.6 ng/mL (26-388); Glucose Level 190 mg/dL (74-106); Magnesium 2.2 mg/dL (1.8-2.4); Phosphorus 3.3 mg/dL (2.5-4.9); Potassium 3.5 mmol/L (3.5-5.1); Sodium Level 144 mmol/L (136-145)
[2020-05-22 06:05] VITALS: BMI 36.1
[2020-05-22 06:22] LABS: Anisocytosis 3+; Blood Morphology Comment NOTED (NOT SEEN); Platelet Estimate ADEQ
[2020-05-22] MEDS: INSULIN -REGULAR HUMAN 50 UNIT/0.5 ML ML SQ SCH ×3 (06:27→17:36)
[2020-05-22] MEDS ORDERED: LORazepam 2 MG/ML VIAL IV PRN ×2 (08:17)
[2020-05-22] MEDS ORDERED: MIDAZOLAM HCL 2 MG/2 ML INJ IV PRN (08:19)
[2020-05-22] MEDS ORDERED: FENTANYL CITR 100 MCG/2 ML IV PRN ×2 (08:21)
[2020-05-22] MEDS: METHYLPREDNISOLONE 40 MG INJ IV SCH (09:49)
[2020-05-22] MEDS: THIAMINE HCL 100 MG TABLET PO SCH (09:49)
[2020-05-22] MEDS: ASCORBIC ACID 500 MG TABLET PO SCH ×2 (09:49→13:34)
[2020-05-22] MEDS: ZINC SULFATE 220 MG CAP PO SCH (09:49)
[2020-05-22] MEDS: APIXABAN 5 MG TABLET PO SCH (09:50)
[2020-05-22] MEDS: VITAMIN D 1000 UNIT TAB PO SCH (09:50)
[2020-05-22] MEDS: FAMOTIDINE 20 MG TAB PO SCH (09:50)
[2020-05-22] MEDS: VITAL AF 1,000 ML BOT RTH SCH (09:51)
--- NOTE | 2020-05-22 11:48 | PN ---
Subjective: No change, however, he is hypotensive. Objective: Vital signs: Blood pressure of 81/58, pulse 98, temperature 99.4. The rest of his physi juanita exam no change. Laboratory Data: Hemoglobin 9.6, hematocrit 28.6, and on his chemistry, GFR more than 90. Blood sug ar fingersticks slightly better in the 200s to 100s. Assessment And Plan: The patient on mechanical ventilation and support pending long-term acute care facility transfer. We will continue current support. MFS/MODL Voice ID: [id number] Report ID: [id number]
[2020-05-22] MEDS: MIDAZOLAM HCL 2 MG/2 ML INJ IV PRN ×2 (12:37→18:00)
[2020-05-22 15:24] VITALS: TEMP 98.8
--- NOTE | 2020-05-22 16:30 | PN ---
Date of Progress Note: 05/22/2020 Subjective: The patient was admitted with COVID pneumonia. He has a tracheostomy. The patient is still on vent. Physical Examination: Vital Signs: Blood pressure 149/95, pulse of 100. Chest: Crackles bilateral base. Heart: S1, S2. Regular. Abdomen: Soft, nontender. Extremities: Plus edema. Neuro: The patient is on vent. Laboratory Data: Hemoglobin 9.6, hematocrit 28.6. Sodium 144, potassium 3.5, bicarb 34, BUN 36, creatinine 0.5, calcium 8.4, phosphorus 3.3, magnesium 2.2. Ferritin 629. Current Medications: The patient on include; 1. Eliquis. 2. Metoprolol. 3. Pepcid. 4. Zofran. 5. Solu-Medrol 20 daily. 6. Fentanyl. 7. thiamine. Assessment And Plan: 1. 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 2. Hypernatremia, currently stable. I am going to continue current free water and we will monitor the patient. 3. COVID pneumonia. Continue supportive treatment. Continue vanc. Follow up with Pulmonary. 4. Anasarca. We will continue p.r.n. Lasix as needed. time spend discussing with the patient face to face , placing order , discusse with the patient and other security team lead including hospitalist 45 min. KRYSTYNA Voice ID: [id number] Report ID: [id number] [facility]TDD
--- NOTE | 2020-05-22 16:49 | P.PN ---
Subjective Date of Service: 05/22/20 Chief Complaint: Respiratory failure, critical care myopathy No change. Moving his shoulder now. locked in syndromme with agitation Review of Systems is unable to be obtained Physical Examination - Vital Signs Temperature: 98.8 F Blood Pressure: 116/68 Pulse: 85 Respirations: 39 Pulse Ox (%): 91 - Physical Exam General: Alert, Cooperative Respiratory: Clear to auscultation bilaterally, Diminished Cardiovascular: Edema Gastrointestinal: Normal bowel sounds, Soft and benign Assessment & Plan - Problems (Diagnosis) (1) Pneumonia due to COVID-19 virus Current Visit: Yes Status: Acute Plan: Resp fialure . Labs reviewd. SQ emphysema. PEEP reduced to 10. [facility] for transfer
[2020-05-22 17:14] VITALS: O2SAT 94
[2020-05-22 19:32] VITALS: BP 168/104
--- NOTE | 2020-05-30 17:39 | DS ---
Date of Discharge: 05/22/2020 History Of Present Illness: A 55-year-old unfortunate male, who tested COVID-19 positive, w as admitted to the hospital because of increased shortness of breath. Evaluation of the patient in [place] in the emergency room showed that he had bilateral infiltrates consistent with COVID-19 bilater al pneumonia. Hospital Course: The patient was admitted to the hospital. He was put on oxygen therapy and he was given vitamin D and zinc. He was also put on steroids and continued to monitor him. He was graduall y requiring more oxygen therapy to which he was put on BiPAP and after that, he had acute respiratory failure with hypoxia for which he was put on mechanical ventilation. During this hospitalization, Dr. Miki Williamson was consulted and the above delineated medicines were given. He also received IV to keep him from being agitated on mechanical ventilation. I also followed his diabet es and put him on sliding scale and then the patient with a prolonged hospitalization, he needed to b e on nasogastric tube feeding, which we did. The patient had a prolonged course as mentioned to amarilis [place] it was not expected for him after a month and half to be discharged. The patient has regained aler tness, but he was not communicating nor was he having any cognitive function. We thought that the carly kelly needs long-term acute care facility to continue his acute care and when a bed was available, he was transferred there. The patient was stable at the time of his transfer. MFS/MODL Voice ID: [id number] Report ID: [id number]
== END 2020-05-22 18:58 | DRG 4 ==
LOC: ER 15:07 → ERHOLD 18:33 → 3RD-ICU 21:05
PROVIDERS: ADMIT Internal Medicine; ATTEND Internal Medicine
PROC: XW033E5 Introduction of Remdesivir Anti-infective into Peripheral Vein, Percutaneous Approach, New Technology Group 5 (ICD-10-PCS; 2020-04-08)
PROC: 02HV33Z Insertion of Infusion Device into Superior Vena Cava, Percutaneous Approach (ICD-10-PCS; 2020-04-25)
PROC: 30233N1 Transfusion of Nonautologous Red Blood Cells into Peripheral Vein, Percutaneous Approach (ICD-10-PCS; 2020-05-05)
PROC: 0B110F4 Bypass Trachea to Cutaneous with Tracheostomy Device, Open Approach (ICD-10-PCS; principal; 2020-05-10 11:00)
PROC: 5A1955Z Respiratory Ventilation, Greater than 96 Consecutive Hours (ICD-10-PCS; 2020-05-18)
DX: U07.1 COVID-19 (principal); A41.89 Other specified sepsis; J12.82 Pneumonia due to coronavirus disease 2019; J80 Acute respiratory distress syndrome; N17.0 Acute kidney failure with tubular necrosis; R65.20 Severe sepsis without septic shock; E87.0 Hyperosmolality and hypernatremia; Z68.41 Body mass index [BMI] 40.0-44.9, adult; T79.7XXA Traumatic subcutaneous emphysema, initial encounter; E87.1 Hypo-osmolality and hyponatremia; E46 Unspecified protein-calorie malnutrition; E78.5 Hyperlipidemia, unspecified; E87.5 Hyperkalemia; I48.91 Unspecified atrial fibrillation; E66.01 Morbid (severe) obesity due to excess calories; L89.313 Pressure ulcer of right buttock, stage 3; L89.323 Pressure ulcer of left buttock, stage 3; I12.9 Hypertensive chronic kidney disease with stage 1 through stage 4 chronic kidney disease, or unspecified chronic kidney disease; N18.30 Chronic kidney disease, stage 3 unspecified; D50.0 Iron deficiency anemia secondary to blood loss (chronic); S30.1XXA Contusion of abdominal wall, initial encounter; T38.0X5A Adverse effect of glucocorticoids and synthetic analogues, initial encounter; E09.65 Drug or chemical induced diabetes mellitus with hyperglycemia; R41.0 Disorientation, unspecified; R60.1 Generalized edema; Z79.84 Long term (current) use of oral hypoglycemic drugs; Z87.891 Personal history of nicotine dependence; Z79.899 Other long term (current) drug therapy
CPT/HCPCS: 36415; 36430; 36569; 71045; 74018; 76770; 80048; 80053; 80061; 80076; 80202; 81003; 82274; 82550; 82565; 82728; 82805; 82947; 83036; 83605; 83735; 83880; 84100; 84132; 84484; 85014; 85018; 85025; 85027; 85379; 85610; 86140; 86850; 86900; 86901; 86927; 87040; 87205; 92610; 93005; 94002; 94003; 94640; 94660; 94760; 96361; 96365; 96372; 96374; 96375; 97110; 97161; 97164; 99251; 99285; J0330; J0456; J0610; J1100; J1170; J1450; J1630; J1650; J1815; J1940; J2250; J2405; J2550; J2704; J2920; J2930; J3010; J3370; J3411; J3486; J7030; J7040; J7050; J7606; J7799; P9016; U0003